=== PATIENT | female | born 1960 | race Caucasian/White ===

== ENCOUNTER 2017-10-02 10:59 | Day surgery (SDC) | payer OTHER ==
[2017-09-30 11:43] VITALS: BMI 30.2
[~2017-10-02 10:59] MED LIST: LACTATED RINGERS 1,000 ML IV SCH; LIDOCAINE 1% 20 ML VIAL (10MG/ML) FOR IV START INTRADERMA PRN
[2017-10-02 11:16] VITALS: RESP 16; TEMP 97.8
[2017-10-02] MEDS ORDERED: LIDOCAINE 1% INJ 10MG/ML (20 ML MDV) ONE (11:26)
[2017-10-02] MEDS ORDERED: PROPOFOL 10 MG/ML 20 ML VIAL IV ONE (11:26)
--- NOTE | 2017-10-02 11:56 | P.PCN ---
Date of Procedure: 10/02/17 Procedure(s) Performed: Procedure: Total colonoscopy. Preoperative diagnosis: Screening for neoplasia. Postoperative diagnosis: Exam within normal limits with no evidence of diverticulosis, polyps or cancer. Preparation: HalfLytely prep. Sedation: Was provided by anesthesia. Brief clinical history: The patient is a 57-year-old female who is scheduled for this evaluation for screening for neoplasia. There is history of occasional bleeding noted on the toilet tissue and some bloating. At this time , she has no other abdominal complaints or anemia. No family history of colon cancer. This would be her first colonoscopy. Procedure: With the patient on her left lateral decubitus position and after informed consent and adequate sedation, the perianal area was inspected and it did not show any fissures or fistulas. There were no masses felt on digital rectal examination. The Olympus CFQ 160L video colonoscope was then inserted in the rectum and the usual fashion and advanced to the cecum. I intubated the ileocecal valve and examined the terminal ileum. The mucosa of the colon and terminal ileum appeared healthy. No polyps or tumors were seen or any obvious other pathology. I retroflexed the endoscope in the rectum before the endoscope was withdrawn. The patient tolerated the procedure well. Plan: The patient was reassured. Discussed dietary measures. She will follow up with you as planned and I recommended repeat exam in 10 years.
[2017-10-02 12:08] VITALS: BP 171/89; PULSE 66
== END 2017-10-02 12:33 | disposition home or self-care (01) ==
LOC: ORWHC2ENDO 10:59
DX: Z12.11 Encounter for screening for malignant neoplasm of colon (principal); E78.5 Hyperlipidemia, unspecified; J45.909 Unspecified asthma, uncomplicated; Z79.899 Other long term (current) drug therapy; Z90.710 Acquired absence of both cervix and uterus
CPT/HCPCS: 45378; J2001; J2704

== ENCOUNTER → 2017-12-19 | Outpatient (CLI) | payer BC ==
--- NOTE | 2017-12-20 20:59 | MR ---
EXAMINATION TYPE: MR brain wo con DATE OF EXAM: 12/19/2017 COMPARISON: None HISTORY: Headache CONTRAST: Performed utilizing 0 mL intravenous Gadavist gadolinium contrast. TECHNIQUE: Multiplanar, multiecho imaging on a 3.0 Sol magnet is performed through the brain. Stud y is performed within 24 hours of arrival to the hospital. The craniovertebral junction is normal. The pituitary is normal. Diffusion-weighted imaging is performed. No abnormal hyperintensity is present to suggest an acute i ntracranial infarct or acute ischemic change. There are scattered punctate areas of hyperintensity on T2 and Inversion Recovery weighted sequences which are non-specific but can be related to microvascular ischemic changes. Ventricles and sulci are appropriate for the patient age. IMPRESSIONS: 1. Normal noncontrast MRI brain
== END ==
LOC: RADMRIMAIN 10:37
PROVIDERS: ATTEND Family Medicine
DX: R51 Headache (principal)
CPT/HCPCS: 70551

== ENCOUNTER 2018-09-19 12:53 | Observation (INO) | payer BC ==
[2018-09-19 13:04] VITALS: RESP 18
--- NOTE | 2018-09-19 13:32 | ED ---
General Adult HPI - General Chief complaint: Chest Pain Stated complaint: CHEST PAIN Time Seen by Provider: 09/19/18 13:05 Source: patient, RN notes reviewed, old records reviewed Mode of arrival: wheelchair Limitations: no limitations - History of Present Illness Initial comments: 57-year-old female presenting for evaluation chest pain. Patient's pain is been present for the past 3 days. Patient was a previous smoker, quit 15 years ago. She does report some mild dyspnea associated with her pain. Pain is left sided. She states this pain has been constant for the past 3 days however it is worsened with deep inspiration. She has no known history of coronary artery disease. Denies vomiting or diaphoresis. Denies fever. She has mild cough and states she had an upper respiratory infection approximately one week ago. No abdominal pain. Positive family history of coronary artery disease. No personal history of DVT or PE. - Related Data Home Medications Medication Instructions Recorded Confirmed ALPRAZolam [Xanax] 1 mg PO TID 09/30/17 09/19/18 Sertraline [Zoloft] 100 mg PO BID 09/30/17 09/19/18 buPROPion XL [Wellbutrin Xl] 150 mg PO DAILY 09/30/17 09/19/18 Hydrocodone/Acetaminophen [[place] 1 tab PO DAILY PRN 09/19/18 09/19/18 10-325] Ibuprofen [Advil] 400 mg PO Q6HR PRN 09/19/18 09/19/18 Allergies Allergy/AdvReac Type Severity Reaction Status Date / Time No Known Allergies Allergy Verified 09/19/18 13:32 Review of Systems ROS Statement: Those systems with pertinent positive or pertinent negative responses have been documented in the HPI. ROS Other: All systems not noted in ROS Statement are negative. Past Medical History Past Medical History: Asthma, Eye Disorder, Hyperlipidemia Additional Past Medical History / Comment(s): gas,bloating, cataracts currently History of Any Multi-Drug Resistant Organisms: None Reported Past Surgical History: Hysterectomy Additional Past Surgical History / Comment(s): ear surg., laparoscopy Past Anesthesia/Blood Transfusion Reactions: No Reported Reaction Past Psychological History: Anxiety, Depression Smoking Status: Former smoker Past Alcohol Use History: None Reported Past Drug Use History: None Reported - Past Family History Mother Family Medical History: Cancer General Exam Limitations: no limitations General appearance: alert, in no apparent distress Head exam: Present: atraumatic, normocephalic Eye exam: Present: normal appearance ENT exam: Present: normal exam Neck exam: Present: normal inspection. Absent: tenderness, meningismus Respiratory exam: Present: normal lung sounds bilaterally. Absent: respiratory distress, wheezes Cardiovascular Exam: Present: regular rate, normal rhythm GI/Abdominal exam: Present: soft. Absent: distended, tenderness, guarding Extremities exam: Present: normal inspection, normal capillary refill. Absent: pedal edema, calf tenderness Neurological exam: Present: alert, oriented X3 Psychiatric exam: Present: normal affect, normal mood Skin exam: Present: warm, dry, intact. Absent: cyanosis, diaphoretic Course Vital Signs 09/19/18 13:02 Temperature 98.0 F Pulse Rate 79 Respiratory 18 Rate Blood Pressure 145/71 O2 Sat by Pulse 94 L Oximetry EKG Findings - EKG Comments: EKG Findings:: EKG: Normal sinus rhythm, rate of 79, MI interval 162, QRS duration 114, QTC 451, no ST segment elevation, there is T-wave inversion and flattening in V2 and V3. Incomplete right bundle branch block, left atrial enlargement. Medical Decision Making - Medical Decision Making 57-year-old female presenting with chest pain and dyspnea. Pain worse with deep inspiration. Workup in the emergency department reveals chest x-ray with bilateral infiltrates versus pulmonary vascular congestion, there is a left- sided pleural effusion. Patient has no history of heart failure. No history DVT or PE. Patient has normal CBC, normal CMP, troponin is negative. D-dimer negative. Patient's is started on antibiotics given the concern for infiltrate although suspect this may be a component of pulmonary vascular congestion. She's given aspirin and Lasix in the emergency department. She will be admitted for serial cardiac enzymes, telemetry, echo, and cardiology consultation. - Lab Data Result diagrams: 09/19/18 13:33 09/19/18 13:33 Lab Results 09/19/18 09/19/18 09/19/18 Range/Units 13:33 13:33 13:33 WBC 6.8 (3.8-10.6) k/uL RBC 4.90 (3.80-5.40) m/uL Hgb 14.7 (11.4-16.0) gm/dL Hct 44.2 (34.0-46.0) % MCV 90.2 (80.0-100.0) fL MCH 30.0 (25.0-35.0) pg MCHC 33.3 (31.0-37.0) g/dL RDW 14.1 (11.5-15.5) % Plt Count 176 (150-450) k/uL Neutrophils % 74 % Lymphocytes % 16 % Monocytes % 5 % Eosinophils % 3 % Basophils % 1 % Neutrophils # 5.1 (1.3-7.7) k/uL Lymphocytes # 1.1 (1.0-4.8) k/uL Monocytes # 0.3 (0-1.0) k/uL Eosinophils # 0.2 (0-0.7) k/uL Basophils # 0.0 (0-0.2) k/uL PT 10.1 (9.0-12.0) sec INR 0.9 (<1.2) APTT 24.3 (22.0-30.0) sec D-Dimer 0.36 (<0.60) mg/L FEU Sodium 139 (137-145) mmol/L Potassium 4.6 (3.5-5.1) mmol/L Chloride 103 (98-107) mmol/L Carbon Dioxide 27 (22-30) mmol/L Anion Gap 9 mmol/L BUN 15 (7-17) mg/dL Creatinine 0.56 (0.52-1.04) mg/dL Est GFR (CKD-EPI)AfAm >90 (>60 ml/min/1.73 sqM) Est GFR (CKD-EPI)NonAf >90 (>60 ml/min/1.73 sqM) Glucose 156 H (74-99) mg/dL Calcium 9.5 (8.4-10.2) mg/dL Magnesium 1.9 (1.6-2.3) mg/dL Total Bilirubin 0.7 (0.2-1.3) mg/dL AST 36 (14-36) U/L ALT 30 (9-52) U/L Alkaline Phosphatase 46 (38-126) U/L Troponin I (0.000-0.034) ng/mL Total Protein 7.2 (6.3-8.2) g/dL Albumin 4.4 (3.5-5.0) g/dL Lipase 89 (23-300) U/L 09/19/18 Range/Units 13:33 WBC (3.8-10.6) k/uL RBC (3.80-5.40) m/uL Hgb (11.4-16.0) gm/dL Hct (34.0-46.0) % MCV (80.0-100.0) fL MCH (25.0-35.0) pg MCHC (31.0-37.0) g/dL RDW (11.5-15.5) % Plt Count (150-450) k/uL Neutrophils % % Lymphocytes % % Monocytes % % Eosinophils % % Basophils % % Neutrophils # (1.3-7.7) k/uL Lymphocytes # (1.0-4.8) k/uL Monocytes # (0-1.0) k/uL Eosinophils # (0-0.7) k/uL Basophils # (0-0.2) k/uL PT (9.0-12.0) sec INR (<1.2) APTT (22.0-30.0) sec D-Dimer (<0.60) mg/L FEU Sodium (137-145) mmol/L Potassium (3.5-5.1) mmol/L Chloride (98-107) mmol/L Carbon Dioxide (22-30) mmol/L Anion Gap mmol/L BUN (7-17) mg/dL Creatinine (0.52-1.04) mg/dL Est GFR (CKD-EPI)AfAm (>60 ml/min/1.73 sqM) Est GFR (CKD-EPI)NonAf (>60 ml/min/1.73 sqM) Glucose (74-99) mg/dL Calcium (8.4-10.2) mg/dL Magnesium (1.6-2.3) mg/dL Total Bilirubin (0.2-1.3) mg/dL AST (14-36) U/L ALT (9-52) U/L Alkaline Phosphatase (38-126) U/L Troponin I <0.012 (0.000-0.034) ng/mL Total Protein (6.3-8.2) g/dL Albumin (3.5-5.0) g/dL Lipase (23-300) U/L Disposition Clinical Impression: Chest pain, Pneumonia Disposition: ADMITTED IP TO THIS [facility] Condition: Stable Is patient prescribed a controlled substance at d/c from ED?: No Referrals: Kamran Solitario DO [Primary Care Provider] - 1-2 days Decision to Admit Reason: Admit from EC Decision Date: 09/19/18 Decision Time: 14:36
[2018-09-19 13:46] LABS: Basophils % (A) 1 %; Eosinophils # (A) 0.2 k/uL (0-0.7); Eosinophils % (A) 3 %; HCT 44.2 % (34.0-46.0); HGB 14.7 gm/dL (11.4-16.0); Lymphocytes # (A) 1.1 k/uL (1.0-4.8); Lymphocytes % (A) 16 %; MCHC 33.3 g/dL (31.0-37.0); MCV 90.2 fL (80.0-100.0); Mean Platelet Volume 7.1; Monocytes # (A) 0.3 k/uL (0-1.0); Monocytes % (A) 5 %; Neutrophils # (A) 5.1 k/uL (1.3-7.7); Neutrophils % (A) 74 %; Platelet Count 176 k/uL (150-450); RDW 14.1 % (11.5-15.5); WBC 6.8 k/uL (3.8-10.6)
--- NOTE | 2018-09-19 13:53 | XR ---
EXAMINATION TYPE: XR chest 2V DATE OF EXAM: 09/19/2018 HISTORY: Chest Pain. REFERENCE: NONE. FINDINGS: There is some patchy airspace disease present bilaterally. The heart is not enlarged. There is a small left pleural effusion. IMPRESSION: BILATERAL INFILTRATES LIKELY REPRESENTING PNEUMONIA WITH A CONCOMITANT SMALL, LEFT PLEURAL EFFUSION.
[2018-09-19 13:55] LABS: ALT 30 U/L (9-52); AST 36 U/L (14-36); Albumin 4.4 g/dL (3.5-5.0); Alkaline Phosphatase 46 U/L (38-126); Anion Gap 9 mmol/L; Blood Urea Nitrogen 15 mg/dL (7-17); Calcium 9.5 mg/dL (8.4-10.2); Carbon Dioxide 27 mmol/L (22-30); Chloride 103 mmol/L (98-107); Glucose 156 mg/dL (74-99); Lipase 89 U/L (23-300); Magnesium 1.9 mg/dL (1.6-2.3); Potassium 4.6 mmol/L (3.5-5.1); Sodium 139 mmol/L (137-145); Total Bilirubin 0.7 mg/dL (0.2-1.3); Total Protein 7.2 g/dL (6.3-8.2)
[2018-09-19 14:02] LABS: D-Dimer 0.36 mg/L FEU (<0.60); INR 0.9 (<1.2); Partial Thromboplastin Time 24.3 sec (22.0-30.0); Prothrombin Time 10.1 sec (9.0-12.0)
[2018-09-19] MEDS ORDERED: ASPIRIN 325 MG TAB PO STA (14:18)
[2018-09-19] MEDS ORDERED: KETOROLAC 30 MG/ML 1 ML VIAL IVP STA (14:18)
[2018-09-19] MEDS ORDERED: AZITHROMYCIN 500 MG in SODIUM CHLORIDE 0.9% 250 ML IVPB STA (14:24)
[2018-09-19] MEDS ORDERED: FUROSEMIDE 10 MG/ML 2 ML VIAL IV ONE (14:28)
[2018-09-19] MEDS ORDERED: ACETAMINOPHEN TAB 325 MG TAB PO PRN (14:32)
[2018-09-19] MEDS ORDERED: NALOXONE 0.4 MG/ML 1 ML VIAL IV PRN (14:32)
[2018-09-19] MEDS ORDERED: cefTRIAXone IN SWFI 1,000 MG/10 ML SYRINGE IVP STA (14:32)
[2018-09-19] MEDS ORDERED: MORPHINE SULFATE 4 MG/ML SYRINGE IV PRN (14:32)
--- NOTE | 2018-09-19 16:58 | P.HPIM ---
History of Present Illness H&P Date: 09/19/18 The patient is a 57 yo F with a PMH of nicotine dependence (quit 15 years ago, previously smoked 2-3 PPD x 30 years) presented to the ED for 3 days of chest pain. She reports the pain is L sided, worsened with coughing or deep breathing, sharp, and associated with some shortness of breath. The patient reported that her was hospitalized with an influenza infection 2 weeks ago, and that after she returned home, she developed a high grade fever and malaise, which she believed was due to her catching the flu from her . She took Tamiflu which her daughter gave her (unclear of how she obtained it) for 5 days and then saw her PCP on 09/14/18 who prescribed her a Z-pack which she finished yesterday. She reports that during her illness, she had significant cough productive of green phlegm and she believes the chest pain could have been triggered by the coughing. She reports continued green-phlegm production though denied further episodes of fever or chills. She also denied LE edema, orthopnea, PND, or exertional dyspnea. She notes a significant family history of CAD (father and b vivek in their 50s with MIs). She underwent an extensive evaluation in the ED w/ Troponin < 0.012, EKG showing NSR @ 79 bpm with an incomplete RBBB. D-dimer 0.36, lactic acid 2.5, WBC 6.8, Cr 0.56, and Hgb 14.7. CXR showed shannan infiltrates suspicious for pneumonia. She is being admitted to the medicine service for further management. Review of Systems Pertinent positives and negatives as discussed in HPI, a complete review of systems was performed and all other systems are negative. Past Medical History Past Medical History: Asthma, Eye Disorder, Hyperlipidemia Additional Past Medical History / Comment(s): gas,bloating, cataracts currently History of Any Multi-Drug Resistant Organisms: None Reported Past Surgical History: Hysterectomy Additional Past Surgical History / Comment(s): laparoscopy. cataract surgery Past Anesthesia/Blood Transfusion Reactions: No Reported Reaction Past Psychological History: Anxiety, Depression Smoking Status: Former smoker Past Alcohol Use History: None Reported Additional Past Alcohol Use History / Comment(s): quit smoking 11 yrs. ago, smoked 2ppd for >20 yrs. Past Drug Use History: None Reported Additional Drug Use History / Comment(s): occasional use - Past Family History Mother Family Medical History: Cancer Medications and Allergies Home Medications Medication Instructions Recorded Confirmed Type ALPRAZolam [Xanax] 1 mg PO TID 09/30/17 09/19/18 History Sertraline [Zoloft] 100 mg PO BID 09/30/17 09/19/18 History buPROPion XL [Wellbutrin Xl] 150 mg PO DAILY 09/30/17 09/19/18 History Hydrocodone/Acetaminophen [[place] 1 tab PO DAILY PRN 09/19/18 09/19/18 History 10-325] Ibuprofen [Advil] 400 mg PO Q6HR PRN 09/19/18 09/19/18 History Allergies Allergy/AdvReac Type Severity Reaction Status Date / Time No Known Allergies Allergy Verified 09/19/18 13:32 Physical Exam Vitals: Vital Signs Temp Pulse Pulse Resp BP BP Pulse Ox 09/19/18 16:02 96.7 F L 75 18 142/69 90 L 09/19/18 15:20 70 18 139/74 91 L 09/19/18 13:02 98.0 F 79 18 145/71 94 L Intake and Output 09/19/18 09/19/18 09/19/18 06:59 14:59 22:59 Intake Total 250 Balance 250 Intake: Intake, IV Titration 250 Amount Azithromycin 500 mg In 250 Sodium Chloride 0.9% 250 ml @ 250 mls/hr IVPB ONCE STA Rx#:[id number] Other: # Voids 2 Weight 77.111 kg General: non toxic, no distress, appears at stated age, obese Derm: no unusual rashes/lesions no unusual ecchymoses, warm, dry Head: atraumatic, normocephalic, symmetric Eyes: EOMI, no lid lag, anicteric sclera, pupils equal round reactive to light ENT: Nose and ears atraumatic, no thrush, no pharyngeal erythema Neck: No thyromegaly, no cervical lymphadenopathy, trachea midline, supple Mouth: no lip lesion, mucus membranes moist Cardiovascular: S1S2 reg, systolic murmur appreciated, positive posterior tibial pulse bilateral, no edema, capillary refill less than 2 seconds, L chest wall tenderness to palpation Lungs: CTA bilateral, no rhonchi, no rales , no accessory muscle use Abdominal: soft, nontender to palpation, no guarding, no appreciable organomegaly, normal bowel sounds Ext: no gross muscle atrophy, muscle strength 5 out of 5 in all 4 extremities grossly, no contractures, Neuro: CN II-XI grossly intact, light touch intact all 4 extremities, finger to nose within normal limits, Psych: Alert, oriented, appropriate affect Results CBC & Chem 7: 09/19/18 13:33 09/19/18 13:33 Labs: Abnormal Lab Results - Last 24 Hours (Table) 09/19/18 09/19/18 Range/Units 13:33 13:33 Glucose 156 H (74-99) mg/dL Plasma Lactic Acid [place] 2.5 H* (0.7-2.0) mmol/L Thrombosis Risk Factor Assmnt - Choose All That Apply Any of the Below Risk Factors Present?: Yes Each Factor Represents 1 point: Age 41-60 years, Obesity (BMI >25), Serious lung disease incl. pneumonia (< 1month) Thrombosis Risk Factor Assessment Total Risk Factor Score: 3 Thrombosis Risk Factor Assessment Level: Moderate Risk Assessment and Plan Plan: Chest pain, possibly costocondhritis due to excessive coughing, vs ACS in setting of significant family history -Trend troponin -Cardiac monitoring, Cardiology consult -Echocardiogram Community acquired pneumonia vs influenza - less likely -Will c/w Azithromycin and Ceftriaxone -Check Flu swab -C/w IVFs 100 cc/hr Lactic acidosis, secondary to infection -C/w IVFs DVT prophylaxis -Lovenox The patient is admitted with an anticipated less than 2 midnight stay for evaluation of chest pain. CODE STATUS:Full Code Discussed with: Patient Anticipated discharge date: 09/20/[address]: Home A total of 40 minutes was spent on the care of this complex patient more than 50% of the time was spent in counseling and care coordination.
[2018-09-19] MEDS: SODIUM CHLORIDE 0.9% 1,000 ML IV SCH ×2 (17:39→23:46)
[2018-09-19] MEDS: HYDROcodone/APAP 5-325MG 1 EACH TAB PO PRN ×2 (17:39→22:39)
[2018-09-19] MEDS: IBUPROFEN 400 MG TAB PO PRN (19:55)
[2018-09-20] MEDS: HYDROcodone/APAP 5-325MG 1 EACH TAB PO PRN ×5 (03:57→23:40)
[2018-09-20] MEDS: AZITHROMYCIN 500 MG TAB PO SCH (07:42)
[2018-09-20 11:51] VITALS: BMI 33.6
[2018-09-20] MEDS: IBUPROFEN 400 MG TAB PO PRN (12:09)
[2018-09-20] MEDS: SODIUM CHLORIDE 0.9% 1,000 ML IV SCH ×2 (15:16→23:49)
--- NOTE | 2018-09-20 18:31 | P.PN ---
Subjective Progress Note Date: 09/20/18 The patient was seen and examined at the bedside at 1100. She continues to have left-sided chest pain, with tenderness on palpation, worsened with deep inspiration and movement. She otherwise denied any additional complaints. She denied shortness of breath, fever, chills, cough, nausea, or vomiting. Objective - Vital Signs Vital signs: Vital Signs Temp 96.4 F L 09/20/18 15:30 Pulse 69 09/20/18 15:30 Resp 18 09/20/18 15:30 BP 141/58 09/20/18 15:30 Pulse Ox 90 L 09/20/18 15:30 Intake & Output 09/19/18 09/20/18 09/20/18 18:59 06:59 18:59 Intake Total 490 240 720 Balance 490 240 720 Weight 77.111 kg 80.8 kg 80.8 kg Intake: Intake, IV Titration 250 240 Amount Azithromycin 500 mg In 250 240 Sodium Chloride 0.9% 250 ml @ 250 mls/hr IVPB ONCE STA Rx#:[id number] Oral 240 720 Other: # Voids 2 1 - Exam General: Non-toxic, in no acute distress, appears stated age, obese HEENT: NC/AT, anicteric sclerae, moist conjunctiva, no lid-lag, PERRLA Cardiovascular: S1/S2 wnl, systolic murmur, rubs, or gallops, left-sided chest wall tenderness on palpation Lungs: Clear to auscultation, normal respiratory effort, no accessory muscle use Abdominal: Soft, non-tender, non-distended, no guarding, rebound, or rigidity Skin: Warm, dry Extremities: No edema or contractures Psychiatric: Alert and oriented to person, place and time, appropriate affect Neuro: CN II-XII grossly intact, Strength 5/5 in all 4 extremities, Speech intact, Sensation to light touch grossly intact throughout - Labs CBC & Chem 7: 09/19/18 13:33 09/19/18 13:33 Labs: Microbiology - Last 24 Hours (Table) 09/19/18 14:54 Blood Culture - Preliminary Blood No Growth after 24 hours Assessment and Plan Plan: Chest pain, possibly costocondhritis due to excessive coughing, vs ACS in sett ing of significant family history -Troponin negative 3 -Cardiology consult pending -Echocardiogram pending Community acquired pneumonia -Will c/w Azithromycin and Ceftriaxone -C/w IVFs 100 cc/hr Lactic acidosis, resolved DVT prophylaxis -Lovenox Discussed with: Patient Anticipated discharge date: 09/21/[address]: Home A total of 35 minutes was spent on the care of this complex patient more than 50% of the time was spent in counseling and care coordination.
[2018-09-20] MEDS ORDERED: LOPERAMIDE 2 MG CAP PO PRN (18:32)
[2018-09-21] MEDS: HYDROcodone/APAP 5-325MG 1 EACH TAB PO PRN ×3 (04:44→13:48)
[2018-09-21] MEDS ORDERED: ENOXAPARIN 40 MG/0.4 ML SYRINGE SQ SCH (09:00)
[2018-09-21] MEDS: AZITHROMYCIN 500 MG TAB PO SCH (09:05)
[2018-09-21] MEDS: SODIUM CHLORIDE 0.9% 1,000 ML IV SCH (09:07)
--- NOTE | 2018-09-21 11:20 | P.CRDCN ---
History of Present Illness Consult date: 09/21/18 Requesting physician: Tunde Pizarro Consult reason: chest pain Chief complaint: Chest pain History of present illness: This is a 58-year-old female with history of nicotine dependence, hyperlipidemia, strong family history of premature coronary artery disease in her father and brother who both of myocardial infarctions at the age of 50, she presented to the hospital with symptoms of 3 day duration of a cough at home, she does also have a left-sided chest pain which she describes as a chest pain, she only feels it when she takes a deep breath or when she coughs. Apparently her just recently had a pneumonia with influenza, and also has cancer. Apparently at home patient had developed a high-grade fever with malaise, she did take Tamiflu as an outpatient and also was given a Z-Tylor which she finished the day prior to coming to the hospital. She continues to have productive cough of dark green sputum. Chest x-ray shows bilateral infiltrates likely representing pneumonia with a small left pleural effusion. Her EKG on admission here showed a normal sinus rhythm with an incomplete right bundle branch block pattern. Blood pressure on arrival here 145/70 with a heart rate in the 70s, 94% on room air. White blood cell count 6.8, hemoglobin 14.7, platelet count 176. D-dimer 0.3. Sodium 139, potassium 4.6, BUN 15 and creatinine 0.5. Plasma lactic acid on admission 2.5 magnesium 1.9, troponins negative 3. Influenza A and B-. At the time of my examination, patient continues to have pain with deep breathing, continues to have productive cough. Past Medical History Past Medical History: Asthma, Eye Disorder, Hyperlipidemia Additional Past Medical History / Comment(s): gas,bloating, cataracts currently History of Any Multi-Drug Resistant Organisms: None Reported Past Surgical History: Hysterectomy Additional Past Surgical History / Comment(s): laparoscopy. cataract surgery Past Anesthesia/Blood Transfusion Reactions: No Reported Reaction Past Psychological History: Anxiety, Depression Smoking Status: Former smoker Past Alcohol Use History: None Reported Additional Past Alcohol Use History / Comment(s): quit smoking 11 yrs. ago, smoked 2ppd for >20 yrs. Past Drug Use History: None Reported Additional Drug Use History / Comment(s): occasional use - Past Family History Mother Family Medical History: Cancer Medications and Allergies Home Medications Medication Instructions Recorded Confirmed Type ALPRAZolam [Xanax] 1 mg PO TID 09/30/17 09/19/18 History Sertraline [Zoloft] 100 mg PO BID 09/30/17 09/19/18 History buPROPion XL [Wellbutrin Xl] 150 mg PO DAILY 09/30/17 09/19/18 History Hydrocodone/Acetaminophen [[place] 1 tab PO DAILY PRN 09/19/18 09/19/18 History 10-325] Ibuprofen [Advil] 400 mg PO Q6HR PRN 09/19/18 09/19/18 History Allergies Allergy/AdvReac Type Severity Reaction Status Date / Time No Known Allergies Allergy Verified 09/19/18 13:32 Physical Exam Vitals: Vital Signs Temp Pulse Resp BP Pulse Ox 09/21/18 11:04 18 09/21/18 08:00 97.5 F L 60 18 161/70 09/21/18 04:00 97.8 F 48 L 18 128/58 94 L 09/21/18 00:10 93 L 09/21/18 00:05 93 L 09/21/18 00:00 96.9 F L 56 L 18 160/50 86 L 09/20/18 23:56 92 L 09/20/18 20:00 97 F L 55 L 18 144/79 95 09/20/18 15:30 96.4 F L 69 18 141/58 90 L 09/20/18 12:00 96.7 F L 54 L 18 144/72 91 L Intake and Output 09/20/18 09/21/18 09/21/18 22:59 06:59 14:59 Intake Total 240 240 Balance 240 240 Intake: Oral 240 240 Other: Voiding Method Toilet Toilet # Voids 1 1 Weight 80.6 kg PHYSICAL EXAMINATION: GENERAL: 68-year-old female in no acute distress at the time of my examination HEENT: Head is atraumatic, normocephalic. Pupils equal, round. Sclera anicteric. Conjunctiva are clear. Mucous membranes of the mouth are moist. Neck is supple. There is no elevated jugular venous pressure. No Carotid bruit is heard. HEART EXAMINATION: Heart S1, S2 normal. No murmur or gallop heard. CHEST EXAMINATION:'s reveal scattered coarse rhonchi throughout ABDOMEN: Soft, nontender. Bowel sounds are heard. No organomegaly noted. EXTREMITIES: 2+ peripheral pulses with no evidence of peripheral edema and no calf tenderness noted. NEUROLOGIC patient is awake, alert and oriented 3 . . Results 09/19/18 13:33 09/19/18 13:33 Current Medications Generic Name Dose Route Start Last Admin Trade Name Freq PRN Reason Stop Dose Admin Acetaminophen 650 mg 09/19/18 14:32 Tylenol Tab PO Q6HR PRN Mild Pain or Fever > 100.5 Hydrocodone Bitart/Acetaminophen 1 each 09/20/18 18:32 09/21/18 09:05 [place] 5-325 PO 1 each Q4H PRN Administration MODERATE Pain Azithromycin 500 mg 09/20/18 09:00 09/21/18 09:05 Zithromax PO 500 mg DAILY CAREN Administration Enoxaparin Sodium 40 mg 09/21/18 09:00 09/21/18 09:06 Lovenox SQ 40 mg DAILY CAREN Administration Ceftriaxone Sodium 1 gm/ 50 mls @ 100 mls/hr 09/20/18 09:00 09/21/18 09:06 Sodium Chloride IVPB 100 mls/hr Q24HR CAREN Administration Sodium Chloride 1,000 mls @ 100 mls/hr 09/19/18 17:00 09/21/18 09:07 Saline 0.9% IV 100 mls/hr .Q10H CAREN Administration Loperamide HCl 2 mg 09/20/18 18:32 09/20/18 19:37 Imodium PO 2 mg QID PRN Administration Diarrhea Naloxone HCl 0.2 mg 09/19/18 14:32 Narcan IV Q2M PRN Opioid Reversal Intake and Output 09/20/18 09/21/18 09/21/18 22:59 06:59 14:59 Intake Total 240 240 Balance 240 240 Intake: Oral 240 240 Other: Voiding Method Toilet Toilet # Voids 1 1 Weight 80.6 kg 09/19/18 13:33 09/19/18 13:33 EKG Interpretations (text) KG shows a normal sinus rhythm with incomplete right bundle branch block pattern Assessment and Plan Plan: Assessment and plan #1 chest pain, atypical for acute coronary syndrome, very pleuritic in nature. Troponins negative 3. EKG shows normal sinus rhythm with incomplete right bundle branch block pattern. #2 pneumonia, elevated lactic acid on admission #3 history of nicotine dependence #4 hyperlipidemia #5 family history of premature coronary artery disease in her father and brother who both of myocardial infarctions at the age of 50 Plan We will obtain an echocardiogram with Doppler study. Check a fasting lipid profile. Once the patient's pneumonia has cleared, as an outpatient, may recommend a cardiac workup in the office. DNP note has been reviewed, I agree with a documented findings and plan of care. Patient was seen and examined.
[2018-09-21 11:41] VITALS: BP 144/72; PULSE 62; TEMP 97.4
--- NOTE | 2018-09-21 12:39 | ECHOF ---
Referral Reason:CP/CHF? MEASUREMENTS -------- HEIGHT: 152.4 cm WEIGHT: 80.7 kg BP: 128/58 IVSd: 1.1 cm (0.6 - 1.1) LVIDd: 4.5 cm (3.9 - 5.3) LVPWd: 0.9 cm (0.6 - 1.1) IVSs: 1.5 cm LVIDs: 3.3 cm LVPWs: 1.2 cm LA Diam: 4.2 cm (2.7 - 3.8) RVIDd: 3.9 cm (< 3.3) LAESV Index (A-L): 37.05 ml/m Ao Diam: 2.8 cm (2.0 - 3.7) LA Diam: 4.1 cm (2.7 - 3.8) AV Cusp: 1.5 cm (1.5 - 2.6) EPSS: 0.3 cm MV E Escobar: 0.83 m/s MV DecT: 113 ms MV A Escobar: 0.84 m/s MV E/A Ratio: 0.99 RAP: 5.00 mmHg RVSP: 28.26 mmHg MV EF SLOPE: 98.37 mm/s (70 - 150) MV EXCURSION: 15.62 mm (> 18.000) FINDINGS -------- Sinus rhythm. This was a technically good study. LV size, wall thickness and systolic function are normal, with an EF greater than 55%. The left david tricular size is normal. The right ventricle is normal in size. The left atrium is mildly dilated. LA is midly dilated 29-33ml/m2. The right atrial size is normal. Interatrial and interventricular septum intact. The aortic valve is trileaflet, and appears structurally normal. No aortic stenosis or regurgitation. Mild mitral annular calcification present. Mild mitral regurgitation is present. Mild tricuspid regurgitation present. There is no evidence of pulmonary hypertension. The right v entricular systolic pressure, as measured by Doppler, is 28.26mmHg. There is no pulmonic regurgitation present. The aortic root size is normal. Normal inferior vena cava with normal inspiratory collapse consistent with estimated right atrial pre ssure of 5 mmHg. There is no pericardial effusion. CONCLUSIONS -------- 1. LV size, wall thickness and systolic function are normal, with an EF greater than 55%. 2. The left ventricular size is normal. 3. The right ventricle is normal in size. 4. The left atrium is mildly dilated. 5. LA is midly dilated 29-33ml/m2. 6. The right atrial size is normal. 7. Interatrial and interventricular septum intact. 8. The aortic valve is trileaflet, and appears structurally normal. No aortic stenosis or regurgitati on. 9. Mild mitral annular calcification present. 10. Mild mitral regurgitation is present. 11. Mild tricuspid regurgitation present. 12. There is no evidence of pulmonary hypertension. 13. The right ventricular systolic pressure, as measured by Doppler, is 28.26mmHg. 14. There is no pulmonic regurgitation present. 15. The aortic root size is normal. 16. Normal inferior vena cava with normal inspiratory collapse consistent with estimated right atrial pressure of 5 mmHg. 17. There is no pericardial effusion. PAPER CUP MACHINE OPERATOR: Molly Cannon RDCS
--- NOTE | 2018-09-21 13:21 | P.DS ---
Providers Date of admission: 09/19/18 14:32 Expected date of discharge: 09/21/18 Attending physician: Tunde Pizarro MD Consults: 09/20/18 12:42 Consult Physician Urgent Consulting Provider: Taz Mejía Consult Reason/Comments: Chest pain Do you want consulting provider notified?: Yes Primary care physician: Kamran [facility] Course: The patient is a 57 yo F with a PMH of nicotine dependence (quit 15 years ago, previously smoked 2-3 PPD x 30 years) presented to the ED for 3 days of chest pain. She reported L sided chest pain, worsened with coughing or deep breathing, sharp, and associated with some shortness of breath. The patient reported that her was hospitalized with an influenza infection 2 weeks prior, and that after she returned home, she developed a high grade fever and malaise, which she believed was due to her catching the flu from her . She took Tamiflu which her daughter gave her (unclear of how she obtained it) for 5 days and then saw her PCP on 09/14/18 who prescribed her a Z-pack which she finished the day prior to presentation. She reported that during her illness, she had significant cough productive of green phlegm and she believed the chest pain could have been triggered by the coughing. She reported continued green-phlegm production though denied further episodes of fever or chills. She also denied LE edema, orthopnea, PND, or exertional dyspnea. She noted a significant family history of CAD (father and brother in their 50s with MIs). She underwent an extensive evaluation in the ED w/ Troponin < 0.012, EKG showing NSR @ 79 bpm with an incomplete RBBB. D-dimer 0.36, lactic acid 2.5, WBC 6.8, Cr 0.56, and Hgb 14.7. CXR showed shannan infiltrates suspicious for pneumonia. She was admitted to the medicine service for further management. The patient was started on abxs for community acquired pneumonia. Flu swab was negative. The patient's troponins were < 0.012 x 3. Cardiology was consulted and recommended that the patient's chest pain is atypical for ACS since very pleuritic in nature. They recommended an outpatient follow-up. The patient was seen and examined at the bedside on the day of discharge. Reported some improvement in her left-sided chest pain. She otherwise denied any episodes of fever, chills. She further denied shortness of breath, nausea, vomiting, abdominal pain, palpitations, or dizziness. She is ready, stable, and agreeable for discharge to home. Physical Examination General: Non-toxic, in no acute distress, appears stated age, normal weight HEENT: NC/AT, anicteric sclerae, moist conjunctiva, no lid-lag, PERRLA Cardiovascular: S1/S2 wnl, systolic murmur, rubs, or gallops, L sided chest wall tenderness Lungs: Clear to auscultation, normal respiratory effort, no accessory muscle use Abdominal: Soft, non-tender, non-distended, no guarding, rebound, or rigidity Skin: Warm, dry Extremities: No edema or contractures Psychiatric: Alert and oriented to person, place and time, appropriate affect Neuro: CN II-XII grossly intact, Strength 5/5 in all 4 extremities, Speech intact, Sensation to light touch grossly intact throughout Discharge diagnosis:Chest pain, ACS ruled out; Community acquired pnuemonia; Lactic acidosis, resolved A total of 40 minutes of time were spent preparing this complex discharge summary. Patient Condition at Discharge: Stable Plan - Discharge Summary Discharge Rx Participant: No New Discharge Prescriptions: New Amoxic-Pot Clav 875-125Mg [Augmentin 875-125] 1 tab PO Q12HR #7 tablet Continue buPROPion XL [Wellbutrin XL] 150 mg PO DAILY Sertraline [Zoloft] 100 mg PO BID ALPRAZolam [Xanax] 1 mg PO TID Ibuprofen [Advil] 400 mg PO Q6HR PRN PRN Reason: Pain Hydrocodone/Acetaminophen [[place] 10-325] 1 tab PO DAILY PRN PRN Reason: Pain Discharge Medication List ALPRAZolam [Xanax] 1 mg PO TID 09/30/17 [History] Sertraline [Zoloft] 100 mg PO BID 09/30/17 [History] buPROPion XL [Wellbutrin XL] 150 mg PO DAILY 09/30/17 [History] Hydrocodone/Acetaminophen [[place] 10-325] 1 tab PO DAILY PRN 09/19/18 [History] Ibuprofen [Advil] 400 mg PO Q6HR PRN 09/19/18 [History] Amoxic-Pot Clav 875-125Mg [Augmentin 875-125] 1 tab PO Q12HR #7 tablet 09/21/18 [Rx] Follow up Appointment(s)/Referral(s): Kamran Solitario DO [Primary Care Provider] - 1-2 days Taz Mejía MD [STAFF PHYSICIAN] - 1 Week Discharge Disposition: HOME SELF-CARE
== END 2018-09-21 14:27 | disposition home or self-care (01) ==
LOC: EC 12:53 → 3SCARD 14:32
PROVIDERS: ADMIT Family Medicine; ATTEND Family Medicine
DX: J18.9 Pneumonia, unspecified organism (principal); R07.89 Other chest pain; E78.5 Hyperlipidemia, unspecified; E87.2 Acidosis; J90 Pleural effusion, not elsewhere classified; F32.9 Major depressive disorder, single episode, unspecified; F41.9 Anxiety disorder, unspecified; H26.9 Unspecified cataract; I45.10 Unspecified right bundle-branch block; J45.909 Unspecified asthma, uncomplicated; Z82.49 Family history of ischemic heart disease and other diseases of the circulatory system; Z87.891 Personal history of nicotine dependence; Z90.710 Acquired absence of both cervix and uterus; Z79.899 Other long term (current) drug therapy; Z20.828 Contact with and (suspected) exposure to other viral communicable diseases
CPT/HCPCS: 96366; 96367; 96372; 96376; 96365; 96375; 99285; 36415; 94760; 93005; 93306; 85379; 80053; 83605; 83690; 83735; 84484 ×2; 85025; 85610; 85730; 87040; 87502; 71046; G0378 ×3; J1940; J0456; J1650; J0696 ×3; J1885

== ENCOUNTER 2024-01-01 14:40 | Day surgery (SDC) | payer BC ==
[2024-01-01] MEDS: IOPAMIDOL-370 100ML BTL INJ ONE ×2 (14:14)
[~2024-01-01 14:40] MED LIST changes: +FUROSEMIDE 10 MG/ML 4 ML VIAL ONE; +HEPARIN SODIUM 1,000 UN/ML (10ML VL) ONE; -LACTATED RINGERS 1,000 ML IV SCH; -LIDOCAINE 1% 20 ML VIAL (10MG/ML) FOR IV START INTRADERMA PRN; +LIDOCAINE 1% INJ 10MG/ML (20 ML MDV) ONE; +MIDAZOLAM 2 MG/2 ML VIAL ONE; +MORPHINE SULFATE 4 MG/ML SYRINGE ONE; +NITROGLYCERIN-D5W PMX 25 MG/250 ML BTL IV ONE; +SODIUM CHLORIDE 0.9% 1,000 ML BAG ONE; +TICAGRELOR 90 MG TAB ONE; +VERAPAMIL 2.5 MG/ML 2 ML AMP ONE; +fentaNYL (PF) 50 MCG/ML 2 ML AMP ONE; +hydrALAZINE HCL 20 MG/ML 1 ML VIAL ONE
[2024-01-01] MEDS ORDERED: MORPHINE SULFATE 4 MG/ML SYRINGE ONE ×2 (15:20)
[2024-01-01] MEDS ORDERED: ATORVASTATIN 40 MG TAB ONE (20:46)
[2024-01-01] MEDS ORDERED: METOPROLOL TARTRATE 25 MG TAB ONE ×2 (20:46)
[2024-01-01] MEDS ORDERED: ALPRAZolam 0.25 MG TAB ONE ×2 (20:53)
[2024-01-01] MEDS ORDERED: ACETAMINOPHEN TAB 325 MG TAB ONE ×2 (23:24)
[2024-01-02] MEDS ORDERED: MORPHINE SULFATE 2 MG/ML SYRINGE ONE ×2 (04:49)
[2024-01-02] MEDS ORDERED: PANTOPRAZOLE 40 MG TABLET PO ONE ×2 (04:49)
[2024-01-02] MEDS ORDERED: ALPRAZolam 0.25 MG TAB ONE ×4 (04:50→10:37)
[2024-01-02] MEDS ORDERED: ACETAMINOPHEN TAB 325 MG TAB ONE ×4 (06:03→10:37)
[2024-01-02] MEDS ORDERED: METOPROLOL TARTRATE 25 MG TAB ONE ×2 (10:00)
[2024-01-02] MEDS ORDERED: LOSARTAN 50 MG TAB ONE (10:00)
[2024-01-02] MEDS ORDERED: SERTRALINE 50 MG TAB ONE (10:00)
[2024-01-02] MEDS ORDERED: hydroCHLOROthiazide 25 MG TAB ONE (10:00)
[2024-01-02] MEDS ORDERED: TICAGRELOR 90 MG TAB ONE (10:37)
--- NOTE | 2024-01-09 15:55 | CC ---
CARDIAC CATHETERIZATION REPORT PERFORMING PHYSICIAN: Taz Mejía MD. PROCEDURES PERFORMED: 1. Selective left and right coronary angiograms. 2. Left heart catheterization. 3. Successful stenting of the mid right coronary artery using a 5.0 x 33 mm Xience drug-eluting stent with excellent angiographic results. 4. Successful stenting of the proximal right coronary artery using 5.0 x 18 mm Xience drug-eluting stent. 5. Adjunctive use of intravascular ultrasound and lithotripsy balloon. 6. Ultrasound-guided access of the right radial artery. INDICATION: Symptomatic patient with abnormal myocardial perfusion imaging stress test. APPROACH: Right radial artery. COMPLICATIONS: None. LEVEL OF SEDATION: Moderate, with sedation length of 77 minutes. PROCEDURE DESCRIPTION: After obtaining informed consent, the patient was brought to the cardiac general labor. The right radial artery was cannulated using micropuncture technique under ultrasound guidance and the micropuncture wire passed easily. Then, I placed a 6-Macedonian 11 cm sheath. I did selective right and left coronary angiograms using JR4 and JL3.5 catheters. After that, I decided to intervene on the RCA. Anticoagulation was initiated using heparin with continuous ACT monitoring. I did engage the RCA using JR4 guiding catheter. I did wire the RCA using a Runthrough wire. Attempting advancing intravascular ultrasound was unsuccessful. Balloon angioplasty at that point was performed, initially 3.5 mm balloon, but the balloon will not open the lesion in the proximal RCA. For that reason, I decided to go with a lithotripsy balloon which was 3.5 mm. I was able to open the proximal RCA using the lithotripsy balloon, and I did balloon angioplasty of the mid RCA as well. Subsequently I did intravascular ultrasound, and that showed a diameter of the RCA around 5 mm. In the mid to distal portion, I placed 5.0 x 33 mm stent. Proximally I placed a 5.0 x 18 mm stent. Attempting advancing a 5.0 NC balloon was unsuccessful in spite of using 2 wires. I was able to advance 4.0 mm balloon which was inflated under 14 atmospheres, and subsequently 5 mm noncompliant balloon for the proximal portion. Final angiogram showed excellent angiographic results, and the procedure was completed with no complication. SELECTIVE CORONARY ANGIOGRAM: 1. The RCA is a large-caliber vessel and a dominant vessel and calcified vessel with critical disease involving the mid portion. 2. The left main has mild disease only. 3. The LAD has mild to moderate disease only. 4. The LCX has mild to moderate disease as well. CONCLUSION: Critical disease involving the mid RCA. I did perform successful PCI as described above. POSTPROCEDURE MANAGEMENT: 1. Dual anti-platelet therapy. 2. Risk factor modification. 3. Follow up with the patient. MMODL / IJN: [id number] /
== END 2024-01-02 08:50 | disposition home or self-care (01) ==
LOC: CATHCVL 14:40 → UNDOADMOB 14:40 → 3SCARD 14:40 → CATHCVL 01-02 08:50 → UNDODISOB 01-02 12:27 → UNDODISIN 01-02 12:27 → UNDODISOB 01-02 14:40
PROVIDERS: ATTEND Internal Medicine Interventional Cardiology
DX: I25.10 Atherosclerotic heart disease of native coronary artery without angina pectoris (principal); E11.9 Type 2 diabetes mellitus without complications; I10 Essential (primary) hypertension; E78.5 Hyperlipidemia, unspecified; J44.9 Chronic obstructive pulmonary disease, unspecified; F17.210 Nicotine dependence, cigarettes, uncomplicated; Z79.51 Long term (current) use of inhaled steroids; Z79.84 Long term (current) use of oral hypoglycemic drugs; Z79.899 Other long term (current) drug therapy; Z88.1 Allergy status to other antibiotic agents; Z99.81 Dependence on supplemental oxygen; Z82.49 Family history of ischemic heart disease and other diseases of the circulatory system
CPT/HCPCS: 92972; 92978; 93454

== ENCOUNTER 2024-02-12 15:42 | Inpatient (IN) | payer BC, OTHER ==
[2024-02-12] MEDS: SODIUM CHLORIDE 0.9% 1,000 ML IV STA (16:16)
[2024-02-12] MEDS: methylPREDNISolone SOD SUCCI 125 MG/2 ML VIAL IV STA (16:18)
[2024-02-12] MEDS: IPRATROPIUM-ALBUTEROL 3 ML NEB INHALATION STA ×2 (16:25→18:39)
[2024-02-12 16:33] LABS: VBG PH 7.36 (7.31-7.41)
--- NOTE | 2024-02-12 16:34 | ED ---
Altered Mental Status HPI - General Chief Complaint: Neuro Symptoms/Deficit Stated Complaint: neuro symptoms Time Seen by Provider: 02/12/24 16:05 Source: patient, RN notes reviewed, old records reviewed Mode of arrival: wheelchair Limitations: no limitations - History of Present Illness Initial Comments: This is a 63-year-old female to the ER today. This patient presents today for evaluation regards to shortness of breath patient does have a history of history of COPD recently started on treatment for bronchitis with steroids and antibiotics, patient has had diminished mental status where her daughter states patient is not acting appropriate the last day and a half into today. MD Complaint: altered mental status, confusion, decreased responsiveness, weakness -: days(s) Severity: mild Consistency of Symptoms: getting worse Context: history of similar presentation, COPD Associated Symptoms: shortness of breath, weakness Treatments Prior to Arrival: oxygen - Related Data Home Medications Medication Instructions Recorded Confirmed Sertraline [Zoloft] 200 mg PO DAILY 09/30/17 02/12/24 buPROPion XL [Wellbutrin XL] 300 mg PO DAILY 09/30/17 02/12/24 Albuterol Inhaler [Ventolin Hfa 2 puff INHALATION RT-QID PRN 02/12/24 02/12/24 Inhaler] Aspirin EC [Ecotrin Low Dose] 81 mg PO DAILY 02/12/24 02/12/24 Atorvastatin [Lipitor] 40 mg PO HS 02/12/24 02/12/24 Clopidogrel [Plavix] 75 mg PO DAILY 02/12/24 02/12/24 Doxycycline Monohydrate 100 mg PO BID 02/12/24 02/12/24 Fluticasone Propion/Salmeterol 2 puff INHALATION RT-BID 02/12/24 02/12/24 [Advair Hfa 230-21 Mcg Inhaler] Losartan Potassium 100 mg PO DAILY 02/12/24 02/12/24 Metoprolol Tartrate [Lopressor] 25 mg PO BID 02/12/24 02/12/24 Pantoprazole Sodium [Protonix] 20 mg PO DAILY 02/12/24 02/12/24 Tiotropium [place] [Spiriva] 1 puff INHALATION RT-DAILY 02/12/24 02/12/24 hydrOXYzine HCL [Atarax] 50 mg PO TID 02/12/24 02/12/24 hydroCHLOROthiazide [Hydrodiuril] 25 mg PO DAILY 02/12/24 02/12/24 metFORMIN HCL 500 mg PO DAILY 02/12/24 02/12/24 predniSONE [Deltasone] 40 mg PO DAILY 02/12/24 02/12/24 Allergies Allergy/AdvReac Type Severity Reaction Status Date / Time No Known Allergies Allergy Verified 02/12/24 17:16 Review of Systems ROS Statement: Those systems with pertinent positive or pertinent negative responses have been documented in the HPI. ROS Other: All systems not noted in ROS Statement are negative. Past Medical History Past Medical History: Asthma, Eye Disorder, Hyperlipidemia Additional Past Medical History / Comment(s): gas,bloating, cataracts currently History of Any Multi-Drug Resistant Organisms: None Reported Past Surgical History: Heart Catheterization With Stent, Hysterectomy Additional Past Surgical History / Comment(s): laparoscopy. cataract surgery Past Anesthesia/Blood Transfusion Reactions: No Reported Reaction Past Psychological History: Anxiety, Depression Smoking Status: Former smoker Past Alcohol Use History: None Reported Past Drug Use History: None Reported - Past Family History Mother Family Medical History: Cancer General Exam Limitations: no limitations General appearance: alert, anxious, in distress Head exam: Present: atraumatic, normocephalic, normal inspection Eye exam: Present: normal appearance, PERRL, EOMI. Absent: scleral icterus, c onjunctival injection, periorbital swelling ENT exam: Present: normal exam, mucous membranes moist Neck exam: Present: normal inspection. Absent: tenderness, meningismus, lymphadenopathy Respiratory exam: Present: respiratory distress, wheezes, accessory muscle use, decreased breath sounds, prolonged expiratory. Absent: rales, rhonchi, stridor Cardiovascular Exam: Present: regular rate, normal rhythm, normal heart sounds. Absent: systolic murmur, diastolic murmur, rubs, gallop, clicks GI/Abdominal exam: Present: soft, normal bowel sounds. Absent: distended, tenderness, guarding, rebound, rigid Extremities exam: Present: normal inspection, full ROM, normal capillary refill. Absent: tenderness, pedal edema, joint swelling, calf tenderness Back exam: Present: normal inspection Neurological exam: Present: alert, oriented X3, CN II-XII intact Psychiatric exam: Present: normal affect, normal mood Skin exam: Present: warm, dry, intact, normal color. Absent: rash Course Vital Signs 02/12/24 02/12/24 02/12/24 15:52 16:04 16:25 Temperature 97.8 F Pulse Rate 81 79 Pulse Rate [ Pulse Oximetery ] Respiratory 16 Rate Blood Pressure 118/67 Blood Pressure [Left Arm] O2 Sat by Pulse 86 L 86 L Oximetry 02/12/24 02/12/24 02/12/24 16:30 16:35 17:00 Temperature Pulse Rate 77 82 88 Pulse Rate [ Pulse Oximetery ] Respiratory 20 19 Rate Blood Pressure 109/57 111/59 Blood Pressure [Left Arm] O2 Sat by Pulse 98 92 L Oximetry 02/12/24 02/12/24 02/12/24 17:30 18:41 18:51 Temperature Pulse Rate 89 79 80 Pulse Rate [ Pulse Oximetery ] Respiratory 18 Rate Blood Pressure 108/68 Blood Pressure [Left Arm] O2 Sat by Pulse 91 L Oximetry 02/12/24 02/13/24 02/13/24 20:00 08:16 10:49 Temperature 98.3 F Pulse Rate 64 69 Pulse Rate [ 96 Pulse Oximetery ] Respiratory 18 20 22 Rate Blood Pressure 141/77 145/78 Blood Pressure 124/64 [Left Arm] O2 Sat by Pulse 92 L 91 L 95 Oximetry 02/13/24 02/13/24 02/13/24 14:00 16:31 18:05 Temperature 98.7 F Pulse Rate 62 62 65 Pulse Rate [ Pulse Oximetery ] Respiratory 22 18 18 Rate Blood Pressure 105/62 105/62 100/59 Blood Pressure [Left Arm] O2 Sat by Pulse 93 L 90 L 92 L Oximetry - Reevaluation(s) Reevaluation #1: 02/12/24 16:40 Medical records reviewed Reevaluation #2: 02/12/24 18:08 Symptoms improved here in the ER Reevaluation #3: 02/12/24 18:08 Patient informed of results questions answered Reevaluation #4: Was pt. sent in by a medical professional or institution (, PA, FITNESS INSTRUCTOR, urgent care, hospital, or [facility]...) When possible be specific @ -no Did you speak to anyone other than the patient for history (EMS, parent, family, police, friend...)? What history was obtained from this source @ -no Did you review nursing and triage notes (agree or disagree)? Why? @ -agree Are old charts reviewed (outside hosp., previous admission, EMS record, old EKG, old radiological studies, urgent care reports/EKG's, [facility] records)? Report findings @ -yes Differential Diagnosis (chest pain, altered mental status, abdominal pain women, abdominal pain men, vaginal bleeding, weakness, fever, dyspnea, syncope, headache, dizziness, GI bleed, back pain, seizure, CVA, palpatations, mental health, musculoskeletal)? @ -prior EKG interpreted by me (3pts min.). @ -yes X-rays interpreted by me (1pt min.). @ -yes negative for acute disease CT interpreted by me (1pt min.). @ -no U/S interpreted by me (1pt. min.). @ -no What testing was considered but not performed or refused? (CT, X-rays, U/S, labs)? Why? @ -none What meds were considered but not given or refused? Why? @ -none Did you discuss the management of the patient with other professionals (professionals i.e. , PA, FITNESS INSTRUCTOR, lab, RT, psych nurse, sr. social media & mobile manager, education professor, teacher, biosecurity officer, manager rn case)? Give summary @ -no Was smoking cessation discussed for >3mins.? @ -no Was critical care preformed (if so, how long)? @ -yes31 Were there social determinants of health that impacted care today? How? (Homelessness, low income, unemployed, alcoholism, drug addiction, transportation, low edu. Level, literacy, decrease access to med. care, alf, rehab)? @ -none Was there de-escalation of care discussed even if they declined (Discuss DNR or withdrawal of care, Hospice)? DNR status @ -no What co-morbidities impacted this encounter? (DM, HTN, Smoking, COPD, CAD, Cancer, CVA, ARF, Chemo, Hep., AIDS, mental health diagnosis, sleep apnea, morbid obesity)? @ -none Was patient admitted / discharged? Hospital course, mention meds given and route, prescriptions, significant lab abnormalities, going to OR and other pertinent info. @ - 83 female will be admitted for severe COPD exacerbation with hypoxia bronchitis concern for pneumonia, status Admitted Undiagnosed new problem with uncertain prognosis? @ -no Drug Therapy requiring intensive monitoring for toxicity (Heparin, Nitro, Insulin, Cardizem)? @ -no Were any procedures done? @ -no Diagnosis/symptom? @ -Respiratory distress with hypoxia COPD and pneumonia Acute, or Chronic, or Acute on Chronic? @ -Acute Uncomplicated (without systemic symptoms) or Complicated (systemic symptoms)? @ -Complicated Side effects of treatment? @ -no Exacerbation, Progression, or Severe Exacerbation? @ -exacerbation Poses a threat to life or bodily function? How? (Chest pain, [place], [place], pneumonia, PE, COPD, DKA, ARF, appy, cholecystitis, CVA, Diverticulitis, Homicidal, Suicidal, threat to staff... and all critical care pts) @ -yes respiratory distress Reevaluation #5: Differential Altered Mental Status: Hypoglycemia, DKA, hypercapnia, ETOH, overdose, CO poisoning, trauma, myxedema coma, HTN encephalopathy, infection, encephalitis, psychosis, intercranial hemorrhage, hepatic encephalopathy, meningitis, CVA, this is not meant to be an all-inclusive list - Consultations Consultation #1: Spoke with [facility] who agrees to admit this patient Medical Decision Making - Medical Decision Making 83 female will be admitted for severe COPD exacerbation with hypoxia bronchitis concern for pneumonia, status - Lab Data Result diagrams: 02/19/24 09:37 02/19/24 06:07 Lab Results 02/12/24 02/12/24 02/12/24 Range/Units 16:05 16:05 16:05 WBC 5.9 (3.8-10.6) k/uL RBC 5.21 (3.80-5.40) m/uL Hgb 14.8 (11.4-16.0) gm/dL Hct 45.7 (34.0-46.0) % MCV 87.6 (80.0-100.0) fL MCH 28.5 (25.0-35.0) pg MCHC 32.5 (31.0-37.0) g/dL RDW 13.2 (11.5-15.5) % Plt Count 108 L (150-450) k/uL MPV 9.1 Neutrophils % 88 % Lymphocytes % 5 % Monocytes % 5 % Eosinophils % 0 % Basophils % 0 % Neutrophils # 5.2 (1.3-7.7) k/uL Lymphocytes # 0.3 L (1.0-4.8) k/uL Monocytes # 0.3 (0-1.0) k/uL Eosinophils # 0.0 (0-0.7) k/uL Basophils # 0.0 (0-0.2) k/uL PT 10.8 (10.0-12.5) sec INR 1.0 (<1.2) APTT 27.1 (22.0-30.0) sec VBG pH (7.31-7.41) VBG pCO2 (37-51) mmHg VBG HCO3 (24-28) mmol/L Sodium 136 L (137-145) mmol/L Potassium 4.3 (3.5-5.1) mmol/L Chloride 105 (98-107) mmol/L Carbon Dioxide 17 L (22-30) mmol/L Anion Gap 14 mmol/L BUN 45 H (7-17) mg/dL Creatinine 1.03 (0.52-1.04) mg/dL Est GFR (CKD-EPI)AfAm 68 (>60 ml/min/1.73 sqM) Est GFR (CKD-EPI)NonAf 59 (>60 ml/min/1.73 sqM) Glucose 146 H (74-99) mg/dL Calcium 9.1 (8.4-10.2) mg/dL Magnesium 1.5 L (1.6-2.3) mg/dL Total Bilirubin 0.8 (0.2-1.3) mg/dL AST 31 (14-36) U/L ALT 25 (4-34) U/L Alkaline Phosphatase 55 (38-126) U/L Troponin I (0.000-0.034) ng/mL NT-Pro-B Natriuret Pep 614 pg/mL Total Protein 7.1 (6.3-8.2) g/dL Albumin 4.3 (3.5-5.0) g/dL Influenza Type A (PCR) (Not Detectd) Influenza Type B (PCR) (Not Detectd) RSV (PCR) (Not Detectd) SARS-CoV-2 (PCR) (Not Detectd) 02/12/24 02/12/24 02/12/24 Range/Units 16:05 16:23 17:37 WBC (3.8-10.6) k/uL RBC (3.80-5.40) m/uL Hgb (11.4-16.0) gm/dL Hct (34.0-46.0) % MCV (80.0-100.0) fL MCH (25.0-35.0) pg MCHC (31.0-37.0) g/dL RDW (11.5-15.5) % Plt Count (150-450) k/uL MPV Neutrophils % % Lymphocytes % % Monocytes % % Eosinophils % % Basophils % % Neutrophils # (1.3-7.7) k/uL Lymphocytes # (1.0-4.8) k/uL Monocytes # (0-1.0) k/uL Eosinophils # (0-0.7) k/uL Basophils # (0-0.2) k/uL PT (10.0-12.5) sec INR (<1.2) APTT (22.0-30.0) sec VBG pH 7.36 (7.31-7.41) VBG pCO2 33 L (37-51) mmHg VBG HCO3 18 L (24-28) mmol/L Sodium (137-145) mmol/L Potassium (3.5-5.1) mmol/L Chloride (98-107) mmol/L Carbon Dioxide (22-30) mmol/L Anion Gap mmol/L BUN (7-17) mg/dL Creatinine (0.52-1.04) mg/dL Est GFR (CKD-EPI)AfAm (>60 ml/min/1.73 sqM) Est GFR (CKD-EPI)NonAf (>60 ml/min/1.73 sqM) Glucose (74-99) mg/dL Calcium (8.4-10.2) mg/dL Magnesium (1.6-2.3) mg/dL Total Bilirubin (0.2-1.3) mg/dL AST (14-36) U/L ALT (4-34) U/L Alkaline Phosphatase (38-126) U/L Troponin I <0.012 (0.000-0.034) ng/mL NT-Pro-B Natriuret Pep pg/mL Total Protein (6.3-8.2) g/dL Albumin (3.5-5.0) g/dL Influenza Type A (PCR) Not Detected (Not Detectd) Influenza Type B (PCR) Not Detected (Not Detectd) RSV (PCR) Not Detected (Not Detectd) SARS-CoV-2 (PCR) Detected A (Not Detectd) - EKG Data -: EKG Interpreted by Me (EKG is sinus 82 CT 171 QRS 118 QTc 422) - Radiology Data Radiology results: report reviewed (X-ray does show inflammation perihilar inflammation concern for pneumonitis pneumonia), image reviewed Critical Care Time Critical Care Time: Yes Total Critical Care Time: 31 Disposition Clinical Impression: Weakness, AMS (altered mental status), Hypoxia, COPD (chronic obstructive pulmonary disease) Disposition: ADMITTED IP TO THIS HOSP Condition: Fair Is patient prescribed a controlled substance at d/c from ED?: No Time of Disposition: 18:00
[2024-02-12 16:41] LABS: Basophils % (A) 0 %; Eosinophils % (A) 0 %; HCT 45.7 % (34.0-46.0); HGB 14.8 gm/dL (11.4-16.0); Lymphocytes # (A) 0.3 k/uL (1.0-4.8); Lymphocytes % (A) 5 %; MCH 28.5 pg (25.0-35.0); MCHC 32.5 g/dL (31.0-37.0); MCV 87.6 fL (80.0-100.0); Mean Platelet Volume 9.1; Monocytes # (A) 0.3 k/uL (0-1.0); Monocytes % (A) 5 %; Neutrophils # (A) 5.2 k/uL (1.3-7.7); Neutrophils % (A) 88 %; Platelet Count 108 k/uL (150-450); RBC 5.21 m/uL (3.80-5.40); RDW 13.2 % (11.5-15.5); WBC 5.9 k/uL (3.8-10.6)
--- NOTE | 2024-02-12 16:45 | XR ---
EXAMINATION TYPE: XR chest 1V portable DATE OF EXAM: 02/12/2024 COMPARISON: 09/19/2018 INDICATION: Short of breath TECHNIQUE: Single frontal view of the chest is obtained. FINDINGS: The heart size is normal. The pulmonary vasculature is may be slightly prominent.. Perihilar infiltrates are present. Correlate for pulmonary edema. Bronchitis or viral pneumonia could be considered. Follow-up is recommended. IMPRESSION: 1. Increased perihilar lung markings. Correlate for infectious etiologies. Pulmonary edema could be c onsidered. Follow-up is recommended. [facility], , 02/12/2024 4:42 PM
[2024-02-12 16:49] LABS: African American GFR (CKD) 68 (>60 ml/min/1.73 sqM); Anion Gap 14 mmol/L; Blood Urea Nitrogen 45 mg/dL (7-17); Calcium 9.1 mg/dL (8.4-10.2); Carbon Dioxide 17 mmol/L (22-30); Chloride 105 mmol/L (98-107); Glucose 146 mg/dL (74-99); Non-African American GFR(CKD) 59 (>60 ml/min/1.73 sqM); Potassium 4.3 mmol/L (3.5-5.1); Sodium 136 mmol/L (137-145)
[2024-02-12 16:50] LABS: ALT 25 U/L (4-34); AST 31 U/L (14-36); Albumin 4.3 g/dL (3.5-5.0); Alkaline Phosphatase 55 U/L (38-126); Magnesium 1.5 mg/dL (1.6-2.3); Total Bilirubin 0.8 mg/dL (0.2-1.3); Total Protein 7.1 g/dL (6.3-8.2)
[2024-02-12 16:51] LABS: Partial Thromboplastin Time 27.1 sec (22.0-30.0); Prothrombin Time 10.8 sec (10.0-12.5)
[2024-02-12 16:58] LABS: NT-Pro-B-Type Natriuretic Pept 614 pg/mL
[2024-02-12] MEDS: MAGNESIUM OXIDE 400 MG TAB PO STA ×2 (17:29)
[2024-02-12] MEDS: MAGNESIUM SULFATE-D5W PMX 1 GM in DEXTROSE/WATER 1 100ML.BAG IVPB ONE (17:31)
[2024-02-12] MEDS ORDERED: ONDANSETRON 4 MG/2 ML VIAL IVP PRN (18:05)
[2024-02-12] MEDS ORDERED: NALOXONE 0.4 MG/ML 1 ML VIAL IV PRN (18:05)
[2024-02-12] MEDS: LEVOFLOXACIN 750MG-D5W PMX 750 MG in DEXTROSE/WATER 1 150ML.BAG IVPB STA (18:41)
[2024-02-12] MEDS: ALBUTEROL NEBULIZED 2.5 MG/3 ML INHALATION SCH (21:14)
[2024-02-12] MEDS: methylPREDNISolone SOD SUCCI 125 MG/2 ML VIAL IV SCH (23:27)
[2024-02-13] MEDS: ALBUTEROL NEBULIZED 2.5 MG/3 ML INHALATION SCH (08:01)
[2024-02-13] MEDS: PANTOPRAZOLE 40 MG/10 ML VIAL IV SCH (08:17)
[2024-02-13] MEDS ORDERED: NON FORMULARY DRUG (Pantoprazole Sodium [Protonix] 20 MG Tablet) PO SCH (10:15)
[2024-02-13] MEDS: hydroCHLOROthiazide 25 MG TAB PO SCH (10:51)
[2024-02-13] MEDS: METOPROLOL TARTRATE 25 MG TAB PO SCH (10:51)
[2024-02-13] MEDS: LOSARTAN 50 MG TAB PO SCH (10:51)
[2024-02-13] MEDS: CLOPIDOGREL 75 MG TAB PO SCH (10:51)
[2024-02-13] MEDS: hydrOXYzine HCL 25 MG TAB PO SCH (10:52)
[2024-02-13 11:03] LABS: ALT 25 U/L (8-44); AST 26 U/L (13-35); Albumin 4.1 g/dL (3.8-4.9); Albumin/Globulin Ratio 1.78 Ratio (1.60-3.17); Alkaline Phosphatase 61 U/L (41-126); BUN/Creat Ratio 37.88 Ratio (12.00-20.00); Blood Urea Nitrogen 30.3 mg/dL (9.0-27.0); Calcium 8.7 mg/dL (8.7-10.3); Carbon Dioxide 19.6 mmol/L (21.6-31.8); Chloride 108 mmol/L (96-109); Globulin 2.3 g/dL (1.6-3.3); Glucose 118 mg/dL (70-110); Magnesium 2.2 mg/dL (1.5-2.4); Phosphorus 2.1 mg/dL (2.4-5.1); Potassium 4.1 mmol/L (3.5-5.5); Sodium 139 mmol/L (135-145); Total Bilirubin 0.4 mg/dL (0.3-1.2); Total Protein 6.4 g/dL (6.2-8.2)
[2024-02-13 11:08] LABS: Basophils # (A) 0.01 X 10*3/uL (0.00-0.10); Basophils % (A) 0.2 %; Eosinophils # (A) 0.01 X 10*3/uL (0.04-0.35); Eosinophils % (A) 0.2 %; HCT 44.9 % (37.2-46.3); HGB 14.3 g/dL (12.0-15.0); Lymphocytes # (A) 0.55 X 10*3/uL (0.90-5.00); Lymphocytes % (A) 10.9 %; MCH 28.3 pg (27.0-32.0); MCHC 31.8 g/dL (32.0-37.0); MCV 88.9 FL (80.0-97.0); Mean Platelet Volume 11.6 FL (9.5-12.2); Monocytes # (A) 0.95 X 10*3/uL (0.20-1.00); Monocytes % (A) 18.8 %; NRBC Per 100 WBC 0.02 X 10*3/uL (0.00-0.01); Neutrophils # (A) 3.49 X 10*3/uL (1.80-7.70); Neutrophils % (A) 69.3 %; Platelet Count 128 X 10*3/uL (140-440); RBC 5.05 X 10*6/uL (4.10-5.20); RDW 13.4 % (11.5-14.5); WBC 5.04 X 10*3/uL (4.50-10.00)
[2024-02-13] MEDS: ALBUTEROL HFA INHALER INHALATION SCH (11:30)
--- NOTE | 2024-02-13 13:06 | P.HPIM ---
History of Present Illness H&P Date: 02/13/24 History of present illness; 63-year-old female present to the emergency department for further evaluation of increasing shortness of breath as well as changes in her mental status for the past day and a half according to her daughter. Patient's past medical history significant for COPD, in which she was recently started on treatment for bronchitis with steroids and antibiotics (doxycycline). Upon presentation patient states she was not feeling well, with increased confusion difficulty speaking. Her daughter, sitting at bedside, states that she was saturating 86% on room air. Patient denies any recent travel. Per patient's viral panel taken upon arrival to the emergency department patient states positive COVID-19. Pulmonology has been consulted and will see the patient for COPD exacerbation as well as COVID-19 infection. Upon arrival to the emergency department patient was afebrile blood pressure 118/67, heart rate of 81, respiratory rate of 16 with an oxygen saturation of 80% on room air. When seen the patient today, she reports she is feeling better and her daughter who is at her bedside also reports that she is presenting better than she had been the previous couple of days, and her mentation had improved greatly. She states that she is looking more like "herself". Initial lab work done in the ER showed WBCs 5.9, Hgb 14.8, Hct 45.7, PLT 108; PT 10.8, INR 1.0, PTT 27.1; blood gas pH 7.36, pCO2 33, HCO3 18; sodium 136, potassium 4.3, BUN 45, creatinine 1.03 Influenza A not detected Influenza B not detected RSV not detected COVID-19 positive EKG done in the ER showed heart rate of 82, no ST segment elevation or depression seen, no T-wave inversions seen. Chest x-ray done in the ER showed increased perihilar lung markings, to be correlated for infectious etiologies, pulmonary edema could be considered Patient admitted to internal medicine service REVIEW OF SYSTEMS: CONSTITUTIONAL: No fever, no malaise, no fatigue. HEENT: No recent visual problems or hearing problems. Denied any sore throat. CARDIOVASCULAR: No chest pain, orthopnea, PND, no palpitations, no syncope. PULMONARY: No shortness of breath, no cough, no hemoptysis. GASTROINTESTINAL: No diarrhea, no nausea, no vomiting, no abdominal pain. NEUROLOGICAL: No headaches, no weakness, no numbness. HEMATOLOGICAL: Denies any bleeding or petechiae. GENITOURINARY: Denies any burning micturition, frequency, or urgency. MUSCULOSKELETAL/RHEUMATOLOGICAL: Denies any joint pain, swelling, or any muscle pain. ENDOCRINE: Denies any polyuria or polydipsia. The rest of the 14-point review of systems is negative. PHYSICAL EXAMINATION: GENERAL: The patient is alert and oriented x3, not in any acute distress. Well developed, well nourished. HEENT: Pupils are round and equally reacting to light. EOMI. No scleral icterus. No conjunctival pallor. Normocephalic, atraumatic. No pharyngeal erythema. No thyromegaly. CARDIOVASCULAR: S1 and S2 present. No murmurs, rubs, or gallops. PULMONARY: Diminished breath sounds with some wheezing present in all lung field ABDOMEN: Soft, nontender, nondistended, normoactive bowel sounds. No palpable organomegaly. MUSCULOSKELETAL: No joint swelling or deformity. EXTREMITIES: No cyanosis, clubbing, or pedal edema. NEUROLOGICAL: Gross neurological examination did not reveal any focal deficits. SKIN: No rashes. Assessment and plan # Acute hypoxic respiratory failure secondary to pneumonitis pneumonia due to COPD exacerbation as a result of recently diagnosed bronchitis Patient's baseline saturation at home according to the daughter is 85-88% on 4 L nasal cannula Patient does state that her donor specialist (Acosta Willis) recently decided that patient should have her oxygen up from 4 L to 6 L Patient is currently on 3/4 L nasal cannula saturating in the low 90%'s Per pulmonology's recommendation urgent CT angio of the chest ordered, pending CRP, LDH, prolactin # Acute kidney injury possibly secondary to acute hypoxic respiratory failure - improving On presentation to the emergency department patient's BUN was 45 and creatinine was 1.03 As of this morning patient's BUN is improved to 30.3 and creatinine is improved to 0.8 # Recent history of cardiac stenting Patient on Plavix 75 mg daily #Altered mental status - improved Patient's daughter states that her mentations had declined over the previous few days States that her mother's mentation has improved greatly today and she is much more like herself GI prophylaxis: Protonix 40 mg daily DVT prophylaxis: Lovenox 50 mg daily Continue to monitor vital signs, monitor CBC, monitor CMP, continue telemetry monitoring Labs and medication were reviewed. Continue with symptomatic treatment. Resume home medication. Dictation was produced using [employer] dictation software. please excuse any grammatical, word or spelling errors. Past Medical History Past Medical History: Asthma, Eye Disorder, Hyperlipidemia Additional Past Medical History / Comment(s): gas,bloating, cataracts currently History of Any Multi-Drug Resistant Organisms: None Reported Past Surgical History: Heart Catheterization With Stent, Hysterectomy Additional Past Surgical History / Comment(s): laparoscopy. cataract surgery Past Anesthesia/Blood Transfusion Reactions: No Reported Reaction Past Psychological History: Anxiety, Depression Smoking Status: Former smoker Past Alcohol Use History: None Reported Past Drug Use History: None Reported - Past Family History Mother Family Medical History: Cancer Medications and Allergies Home Medications Medication Instructions Recorded Confirmed Type Sertraline [Zoloft] 200 mg PO DAILY 09/30/17 02/12/24 History buPROPion XL [Wellbutrin XL] 300 mg PO DAILY 09/30/17 02/12/24 History Albuterol Inhaler [Ventolin Hfa 2 puff INHALATION RT-QID PRN 02/12/24 02/12/24 History Inhaler] Aspirin EC [Ecotrin Low Dose] 81 mg PO DAILY 02/12/24 02/12/24 History Atorvastatin [Lipitor] 40 mg PO HS 02/12/24 02/12/24 History Clopidogrel [Plavix] 75 mg PO DAILY 02/12/24 02/12/24 History Doxycycline Monohydrate 100 mg PO BID 02/12/24 02/12/24 History Fluticasone Propion/Salmeterol 2 puff INHALATION RT-BID 02/12/24 02/12/24 History [Advair Hfa 230-21 Mcg Inhaler] Losartan Potassium 100 mg PO DAILY 02/12/24 02/12/24 History Metoprolol Tartrate [Lopressor] 25 mg PO BID 02/12/24 02/12/24 History Pantoprazole Sodium [Protonix] 20 mg PO DAILY 02/12/24 02/12/24 History Tiotropium [place] [Spiriva] 1 puff INHALATION RT-DAILY 02/12/24 02/12/24 History hydrOXYzine HCL [Atarax] 50 mg PO TID 02/12/24 02/12/24 History hydroCHLOROthiazide [Hydrodiuril] 25 mg PO DAILY 02/12/24 02/12/24 History metFORMIN HCL 500 mg PO DAILY 02/12/24 02/12/24 History predniSONE [Deltasone] 40 mg PO DAILY 02/12/24 02/12/24 History Allergies Allergy/AdvReac Type Severity Reaction Status Date / Time No Known Allergies Allergy Verified 02/12/24 17:16 Physical Exam Vitals: Vital Signs Temp Pulse Pulse Resp BP BP Pulse Ox 02/12/24 20:00 98.3 F 96 18 124/64 92 L 02/12/24 18:51 80 02/12/24 18:41 79 02/12/24 17:30 89 18 108/68 91 L 02/12/24 17:00 88 19 111/59 92 L 02/12/24 16:35 82 02/12/24 16:30 77 20 109/57 98 02/12/24 16:25 79 02/12/24 16:04 86 L 02/12/24 15:52 97.8 F 81 16 118/67 86 L Intake and Output 02/12/24 02/13/24 02/13/24 22:59 06:59 14:59 Other: # Voids 2 Weight 96.162 kg Results CBC & Chem 7: 02/13/24 07:45 02/13/24 07:45 Labs: Abnormal Lab Results - Last 24 Hours (Table) 02/12/24 02/12/24 02/12/24 Range/Units 16:05 16:05 16:23 Plt Count 108 L (150-450) k/uL Lymphocytes # 0.3 L (1.0-4.8) k/uL VBG pCO2 33 L (37-51) mmHg VBG HCO3 18 L (24-28) mmol/L Sodium 136 L (137-145) mmol/L Carbon Dioxide 17 L (22-30) mmol/L BUN 45 H (7-17) mg/dL Glucose 146 H (74-99) mg/dL Magnesium 1.5 L (1.6-2.3) mg/dL SARS-CoV-2 (PCR) (Not Detectd) 02/12/24 Range/Units 17:37 Plt Count (150-450) k/uL Lymphocytes # (1.0-4.8) k/uL VBG pCO2 (37-51) mmHg VBG HCO3 (24-28) mmol/L Sodium (137-145) mmol/L Carbon Dioxide (22-30) mmol/L BUN (7-17) mg/dL Glucose (74-99) mg/dL Magnesium (1.6-2.3) mg/dL SARS-CoV-2 (PCR) Detected A (Not Detectd)
[2024-02-13] MEDS: ASPIRIN 81 MG PO SCH (14:05)
[2024-02-13] MEDS: ENOXAPARIN 40 MG/0.4 ML SYRINGE SQ SCH (14:05)
[2024-02-13] MEDS: MORPHINE SULFATE 4 MG/ML SYRINGE IV PRN (14:21)
--- NOTE | 2024-02-13 15:00 | P.CNPUL ---
History of Present Illness Consult date: 02/13/24 Reason for consult: dyspnea, COPD History of present illness: This is a 63-year-old female patient, known history of COPD was been seeing Dr. Cornell at [facility]. Prior to that, she had another physician through [facility] who gave her because of her insurance coverage. The patient is an ex-smoker. She has quit smoking. The patient has been maintained on a combination of Advair and Spiriva on an outpatient basis and albuterol HFA on a as needed basis. The patient has been having symptoms of URI, cough congestion, generalized weakness and fatigue and tiredness and the patient came into the hospital where she was diagnosed having COVID-19 infection. Noted the patient has been symptomatic for more than a week. She has seen her physician, Dr. Cornell who treated her with a course of antibiotics and steroids. Nevertheless, her condition did not improve and she ended up coming into the hospital. No nausea vomiting or diarrhea. No abdominal pain. No altered mentation. The chest x-ray that was done at time of admission showed increased perihilar lung markings. No previous history of DVT or pulmonary embolism. I ordered a CTA of the chest on this patient to rule out pulmonary embolism and at the same time evaluate for COVID-19 related pneumonia. Noted the patient is also a chronic smoker. I reviewed the CTA of the chest and there are bilateral areas of scattered patchy groundglass pulmonary infiltrates consistent with COVID-19 related pneumonia more so on the left compared to the right. The patient has no filling defects to indicate pulmonary embolism. Awaiting a final report from radiology. Note that this has never been infected with COVID-19 in the past and she has never been vaccinated. Review of Systems Constitutional: Reports as per HPI, Reports fatigue, Reports lethargy, Reports weakness Eyes: denies as per HPI, denies blurred vision, denies bulging eye, denies decreased vision, denies diplopia, denies discharge, denies dry eye, denies irritation, denies itching, denies pain, denies photophobia, denies loss of peripheral vision, denies loss of vision, denies tunnel vision/blind spots Ears: bilateral: decreased hearing, ear discharge, earache, tinnitus Ears, nose, mouth and throat: Reports as per HPI Breasts: absent: as per HPI, change in shape, gynecomastia, masses, nipple discharge, pain, skin changes, swelling Cardiovascular: Reports as per HPI Respiratory: Reports cough, Reports dyspnea Genitourinary: Reports as per HPI Menstruation: Reports as per HPI Musculoskeletal: absent: ankle pain, ankle stiffness, ankle swelling, as per HPI, elbow pain, elbow stiffness, elbow swelling, foot pain, foot stiffness, foot swelling, hand pain, hand stiffness, hand swelling, hip pain, hip stiffness, hip swelling, knee pain, knee stiffness, knee swelling, shoulder pain, shoulder stiffness, shoulder swelling, wrist pain, wrist stiffness, wrist swelling Integumentary: Reports as per HPI Neurological: Reports as per HPI Psychiatric: Reports as per HPI Endocrine: Reports as per HPI Hematologic/Lymphatic: Reports as per HPI Allergic/Immunologic: Reports as per HPI Past Medical History Past Medical History: Asthma, Coronary Artery Disease (CAD), COPD, Eye Disorder, Hyperlipidemia Additional Past Medical History / Comment(s): COPD and she is 02 dependent at 4 liters, she is maintained on Advair and Spiriva and albuterol HFA as needed. Exsmoker and she has quit 18 years ago. CAD History of Any Multi-Drug Resistant Organisms: None Reported Past Surgical History: Heart Catheterization With Stent, Hysterectomy Additional Past Surgical History / Comment(s): laparoscopy. cataract surgery Past Anesthesia/Blood Transfusion Reactions: No Reported Reaction Past Psychological History: Anxiety, Depression Smoking Status: Former smoker Past Alcohol Use History: None Reported Past Drug Use History: None Reported - Past Family History Mother Family Medical History: Cancer Medications and Allergies Home Medications Medication Instructions Recorded Confirmed Type Sertraline [Zoloft] 200 mg PO DAILY 09/30/17 02/12/24 History buPROPion XL [Wellbutrin XL] 300 mg PO DAILY 09/30/17 02/12/24 History Albuterol Inhaler [Ventolin Hfa 2 puff INHALATION RT-QID PRN 02/12/24 02/12/24 History Inhaler] Aspirin EC [Ecotrin Low Dose] 81 mg PO DAILY 02/12/24 02/12/24 History Atorvastatin [Lipitor] 40 mg PO HS 02/12/24 02/12/24 History Clopidogrel [Plavix] 75 mg PO DAILY 02/12/24 02/12/24 History Doxycycline Monohydrate 100 mg PO BID 02/12/24 02/12/24 History Fluticasone Propion/Salmeterol 2 puff INHALATION RT-BID 02/12/24 02/12/24 History [Advair Hfa 230-21 Mcg Inhaler] Losartan Potassium 100 mg PO DAILY 02/12/24 02/12/24 History Metoprolol Tartrate [Lopressor] 25 mg PO BID 02/12/24 02/12/24 History Pantoprazole Sodium [Protonix] 20 mg PO DAILY 02/12/24 02/12/24 History Tiotropium Arnold [Spiriva] 1 puff INHALATION RT-DAILY 02/12/24 02/12/24 Hi story hydrOXYzine HCL [Atarax] 50 mg PO TID 02/12/24 02/12/24 History hydroCHLOROthiazide [Hydrodiuril] 25 mg PO DAILY 02/12/24 02/12/24 History metFORMIN HCL 500 mg PO DAILY 02/12/24 02/12/24 History predniSONE [Deltasone] 40 mg PO DAILY 02/12/24 02/12/24 History Allergies Allergy/AdvReac Type Severity Reaction Status Date / Time No Known Allergies Allergy Verified 02/12/24 17:16 Physical Exam Vitals: Vital Signs Temp Pulse Pulse Resp BP BP Pulse Ox 02/13/24 10:49 69 22 145/78 95 02/13/24 08:16 64 20 141/77 91 L 02/12/24 20:00 98.3 F 96 18 124/64 92 L 02/12/24 18:51 80 02/12/24 18:41 79 02/12/24 17:30 89 18 108/68 91 L 02/12/24 17:00 88 19 111/59 92 L 02/12/24 16:35 82 02/12/24 16:30 77 20 109/57 98 02/12/24 16:25 79 02/12/24 16:04 86 L 02/12/24 15:52 97.8 F 81 16 118/67 86 L Intake and Output 02/12/24 02/13/24 02/13/24 22:59 06:59 14:59 Other: # Voids 2 Weight 96.162 kg General Appearance the patient is calm and comfortable, mild degree of respiratory distress, currently on 4 L of oxygen nasal cannula Head exam was generally normal. There was no scleral icterus or corneal arcus. Mucous membranes were moist. Neck was supple and without jugular venous distension, thyromegaly, or carotid bruits. Carotids were easily palpable bilaterally. There was no adenopathy. Lung sounds are diminished bilaterally the patient has scattered expiratory wheezes throughout the lung rosales bilaterally Cardiac exam revealed the PMI to be normally situated and sized. The rhythm was regular and no extrasystoles were noted during several minutes of auscultation. The first and second heart sounds were normal and physiologic splitting of the second heart sound was noted. There were no murmurs, rubs, clicks, or gallops. Abdominal exam revealed normal bowel sounds. The abdomen was soft, non-tender, and without masses, organomegaly, or appreciable enlargement of the abdominal aorta. Examination of the extremities revealed easily palpable radial, femoral and pedal pulses. There was no cyanosis, clubbing or edema. Examination of the skin revealed no evidence of significant rashes, suspicious appearing nevi or other concerning lesions. Neurologically, the patient is awake and alert and the patient does not have any focal neurological deficit. Cranial nerves are essentially intact. Results - Laboratory Findings CBC and BMP: 02/13/24 07:45 02/13/24 07:45 PT/INR, D-dimer PT 10.8 sec (10.0-12.5) 02/12/24 16:05 INR 1.0 (<1.2) 02/12/24 16:05 Abnormal lab findings: Abnormal Labs 02/12/24 02/12/24 02/12/24 16:05 16:05 16:23 MCHC Plt Count 108 L Lymphocytes # 0.3 L Eosinophils # NRBC/100 WBC Diff VBG pCO2 33 L VBG HCO3 18 L Sodium 136 L Carbon Dioxide 17 L BUN 45 H BUN/Creatinine Ratio Glucose 146 H Phosphorus Magnesium 1.5 L SARS-CoV-2 (PCR) 02/12/24 02/13/24 02/13/24 17:37 07:45 07:45 MCHC 31.8 L Plt Count 128 L Lymphocytes # 0.55 L Eosinophils # 0.01 L NRBC/100 WBC Diff 0.02 H VBG pCO2 VBG HCO3 Sodium Carbon Dioxide 19.6 L BUN 30.3 H BUN/Creatinine Ratio 37.88 H Glucose 118 H Phosphorus 2.1 L Magnesium SARS-CoV-2 (PCR) Detected A - Diagnostic Findings CT scan - chest: image reviewed Assessment and Plan Plan: Acute on chronic hypoxic respiratory failure and the patient is currently on 4 L of O2 nasal cannula Acute COVID-19 infection/pneumonia and the patient has patchy areas of groundglass pulm infiltrates bilaterally based on the CT of the chest. No evidence of any pulmonary embolism. Awaiting final report from radiology. Acute COPD exacerbation secondary to above Obesity with a BMI of 40.1 Coronary artery disease, with previous coronary stenting Hyperlipidemia Chronic hypoxic respiratory failure the patient has been maintained on oxygen 4 L/min nasal cannula Advanced COPD maintained on a combination of Advair and Spiriva on outpatient basis the patient is a previous smoker Plan The patient will be given O2 and the O2 will be titrated to maintain saturation above 90%, currently on 4 L of O2 nasal cannula The patient will be started on IV Solu-Medrol 60 mg every 6 hours The patient is outside the window for remdesivir as the patient symptoms have been more than a week The patient will be started on Lovenox 40 mg subcu for DVT prophylaxis. Awaiting final report and CT of the chest Check inflammatory markers including LDH CRP and procalcitonin level Resume home medications Resume tiotropium and Advair and utilize albuterol HFA [id number] as needed Will continue to follow.
[2024-02-13 15:38] LABS: C Reactive Protein 6.3 mg/dL (0.00-0.80)
[2024-02-13] MEDS: methylPREDNISolone SOD SUCCI 125 MG/2 ML VIAL IV SCH (18:05)
[2024-02-13] MEDS ORDERED: methylPREDNISolone SOD SUCCI 40 MG/ML 1 ML VIAL IV SCH (21:00)
[2024-02-13] MEDS: ATORVASTATIN 40 MG TAB PO SCH (22:23)
[2024-02-13] MEDS: SERTRALINE 100 MG TAB PO SCH (22:23)
[2024-02-14 08:38] LABS: ALT 25 U/L (4-34); AST 33 U/L (14-36); African American GFR (CKD) 69 (>60 ml/min/1.73 sqM); Albumin 3.4 g/dL (3.5-5.0); Albumin/Globulin Ratio 1.3; Alkaline Phosphatase 52 U/L (38-126); Anion Gap 11 mmol/L; Blood Urea Nitrogen 42 mg/dL (7-17); Calcium 8.6 mg/dL (8.4-10.2); Carbon Dioxide 17 mmol/L (22-30); Chloride 105 mmol/L (98-107); Globulin 2.6 g/dL; Glucose 179 mg/dL (74-99); Non-African American GFR(CKD) 60 (>60 ml/min/1.73 sqM); Potassium 4.3 mmol/L (3.5-5.1); Sodium 133 mmol/L (137-145); Total Bilirubin 0.7 mg/dL (0.2-1.3)
--- NOTE | 2024-02-14 08:44 | P.PN ---
Subjective Progress Note Date: 02/14/24 63-year-old female present to the emergency department for further evaluation of increasing shortness of breath as well as changes in her mental status for the past day and a half according to her daughter. Patient's past medical history significant for COPD, in which she was recently started on treatment for bronchitis with steroids and antibiotics (doxycycline). Upon presentation patient states she was not feeling well, with increased confusion difficulty speaking. Her daughter, sitting at bedside, states that she was saturating 86% on room air. Patient denies any recent travel. Per patient's viral panel taken upon arrival to the emergency department patient states positive COVID-19. Pulmonology has been consulted and will see the patient for COPD exacerbation as well as COVID-19 infection. Upon arrival to the emergency department patient was afebrile blood pressure 118/67, heart rate of 81, respiratory rate of 16 with an oxygen saturation of 80% on room air. When seen the patient today, she reports she is feeling better and her daughter who is at her bedside also reports that she is presenting better than she had been the previous couple of days, and her mentation had improved greatly. She states that she is looking more like "herself". Initial lab work done in the ER showed WBCs 5.9, Hgb 14.8, Hct 45.7, PLT 108; PT 10.8, INR 1.0, PTT 27.1; blood gas pH 7.36, pCO2 33, HCO3 18; sodium 136, potassium 4.3, BUN 45, creatinine 1.03 Influenza A not detected Influenza B not detected RSV not detected COVID-19 positive EKG done in the ER showed heart rate of 82, no ST segment elevation or depression seen, no T-wave inversions seen. Chest x-ray done in the ER showed increased perihilar lung markings, to be correlated for infectious etiologies, pulmonary edema could be considered 02/14/24 - Patient seen at bedside today. She states that she is feeling better than she was yesterday, however she states that it feels like she "smoked 3 packs" and has remained short of breath. Progress states it is closer to her baseline when she was over the past few days however still not all the way back. Overnight patient's blood pressure was recorded as 90/50, with a heart rate of 64, respiratory rate of 18 saturating 95% on 4 and half liters of nasal cannula. Due to the patient having persistently low blood pressures we will hold 100 mg Cozaar and 20 mg Lopressor today and continue to monitor make adjustments as needed. Per pulmonology recommendation patient underwent CT angiogram of the chest to help rule out pulmonary embolism and at the same time evaluate for COVID-19 pneumonia and it was noted that the patient is a chronic smoker, on review of the CTA of the chest there were bilateral areas of scattered patchy groundglass pulmonary infiltrates consistent with COVID-19 related pneumonia worse on the left side compared to the right side. Patient will continue on O2 and will be titrated to maintain saturation above 90% overnight on 4 and half liters of oxygen nasal cannula, per pulmonology request patient started on IV Solu-Medrol 60 mg every 6 hours, she is outside the window for remdesivir as patient is had symptoms for more than a week, additionally patient was started on Lovenox 40 mg subcutaneously for DVT prophylaxis. Patient's LDH 230, e levated CRP at 6.3 and procalcitonin was unremarkable at 0.07. Additionally last night patient's 30 mg nightly, hold Wellbutrin and 200 mg nightly of Zoloft) presumed upon request with the patient and the patient's daughter. Labs done today - Currently pending at time of dictation. CT of the chest completed on 02/12 yet to evaluate official final read from radiologist, however per pulmonology's report he was to evaluate for possible pulmonary embolism but at the same time evaluated for COVID-19 pneumonia and was noted that there were bilateral areas of scattered patchy groundglass pulmonary infiltrates consistent with COVID-19 worse on the left side. REVIEW OF SYSTEMS: CONSTITUTIONAL: No fever, no malaise, no fatigue. HEENT: No recent visual problems or hearing problems. Denied any sore throat. CARDIOVASCULAR: No chest pain, orthopnea, PND, no palpitations, no syncope. PULMONARY: Shortness of breath. GASTROINTESTINAL: No diarrhea, no nausea, no vomiting, no abdominal pain. NEUROLOGICAL: No headaches, no weakness, no numbness. HEMATOLOGICAL: Denies any bleeding or petechiae. GENITOURINARY: Denies any burning micturition, frequency, or urgency. MUSCULOSKELETAL/RHEUMATOLOGICAL: Denies any joint pain, swelling, or any muscle pain. ENDOCRINE: Denies any polyuria or polydipsia. The rest of the 14-point review of systems is negative. PHYSICAL EXAMINATION: GENERAL: The patient is alert and oriented x3, not in any acute distress. Well developed, well nourished. HEENT: Pupils are round and equally reacting to light. EOMI. No scleral icterus. No conjunctival pallor. Normocephalic, atraumatic. No pharyngeal erythema. No thyromegaly. CARDIOVASCULAR: S1 and S2 present. No murmurs, rubs, or gallops. PULMONARY: Diminished breath sounds with some wheezing present in all lung field; worse on the left side ABDOMEN: Soft, nontender, nondistended, normoactive bowel sounds. No palpable organomegaly. MUSCULOSKELETAL: No joint swelling or deformity. EXTREMITIES: No cyanosis, clubbing, or pedal edema. NEUROLOGICAL: Gross neurological examination did not reveal any focal deficits. Assessment and plan # Acute hypoxic respiratory failure secondary to pneumonitis pneumonia due to COPD exacerbation as a result of recently diagnosed bronchitis Patient's baseline saturation at home according to the daughter is 85-88% on 4 L nasal cannula Patient does state that her fisher crab ([employer] Willis) recently decided that patient should have her oxygen up from 4 L to 6 L Patient is currently on 3/4 L nasal cannula saturating in the low 90%'s Per pulmonology's recommendation urgent CT angio of the chest ordered, pending CRP, LDH, prolactin # Acute kidney injury possibly secondary to acute hypoxic respiratory failure - improving On presentation to the emergency department patient's BUN was 45 and creatinine was 1.03 As of this morning patient's BUN is improved to 30.3 and creatinine is improv ed to 0.8 # Recent history of cardiac stenting Patient on Plavix 75 mg daily #Altered mental status - improved Patient's daughter states that her mentations had declined over the previous few days States that her mother's mentation has improved greatly today and she is much more like herself #Anxiety Resume patient's on medications of 200 mg nightly of Zoloft and 300 mg nightly of Wellbutrin #Hypertension Patient's home medications include 50 mg hydroxyzine 3 times daily, 100 mg Co zaar daily, 25 mg Lopressor twice daily Patient's blood pressures were running low overnight at 90/50, going to hold 100 mg Cozaar today and 25 mg Lopressor; continue the hydroxyzine Continue to monitor and make alterations as necessary GI prophylaxis: Protonix 40 mg daily DVT prophylaxis: Lovenox 40 mg daily Continue to monitor vital signs, monitor CBC, monitor CMP, continue telemetry monitoring Labs and medication were reviewed. Continue with symptomatic treatment. Resume home medication. Dictation was produced using [employer] dictation software. please excuse any grammatical, word or spelling errors. Dr. Josué MD I have performed a history and physical examination and medical decision making of this patient, discussed the same with the the resident, and agree with the assessment and plan as written. I performed brief physical exam. Objective - Vital Signs Vital signs: Vital Signs Temp 98.5 F 02/14/24 01:44 Pulse 64 02/14/24 01:44 Resp 18 02/14/24 01:44 BP 90/50 02/14/24 01:44 Pulse Ox 95 02/14/24 01:44 FiO2 Intake & Output 02/13/24 02/13/24 02/14/24 06:59 18:59 06:59 Weight 96.162 kg Other: Voiding Method Toilet # Voids 2 - Labs CBC & Chem 7: 02/14/24 07:31 02/15/24 10:47 Labs: Abnormal Lab Results - Last 24 Hours (Table) 02/13/24 02/13/24 02/13/24 Range/Units 07:45 07:45 07:45 MCHC 31.8 L (32.0-37.0) g/dL Plt Count 128 L (140-440) X 10*3/uL Lymphocytes # 0.55 L (0.90-5.00) X 10*3/uL Eosinophils # 0.01 L (0.04-0.35) X 10*3/uL NRBC/100 WBC Diff 0.02 H (0.00-0.01) X 10*3/uL Carbon Dioxide 19.6 L (21.6-31.8) mmol/L BUN 30.3 H (9.0-27.0) mg/dL BUN/Creatinine Ratio 37.88 H (12.00-20.00) Ratio Glucose 118 H (70-110) mg/dL Phosphorus 2.1 L (2.4-5.1) mg/dL C-Reactive Protein 6.30 H (0.00-0.80) mg/dL
[2024-02-14 13:28] LABS: Basophils # (A) 0.01 X 10*3/uL (0.00-0.10); Basophils % (A) 0.2 %; Eosinophils # (A) 0 X 10*3/uL (0.04-0.35); Eosinophils % (A) 0 %; HCT 40.2 % (37.2-46.3); HGB 13.3 g/dL (12.0-15.0); Lymphocytes # (A) 0.45 X 10*3/uL (0.90-5.00); Lymphocytes % (A) 7.1 %; MCH 28.9 pg (27.0-32.0); MCHC 33.1 g/dL (32.0-37.0); MCV 87.2 FL (80.0-97.0); Mean Platelet Volume 12.1 FL (9.5-12.2); Monocytes # (A) 0.24 X 10*3/uL (0.20-1.00); Monocytes % (A) 3.8 %; NRBC Per 100 WBC 0 X 10*3/uL (0.00-0.01); Neutrophils # (A) 5.62 X 10*3/uL (1.80-7.70); Neutrophils % (A) 88.6 %; Platelet Count 132 X 10*3/uL (140-440); RBC 4.61 X 10*6/uL (4.10-5.20); RDW 13.4 % (11.5-14.5); WBC 6.34 X 10*3/uL (4.50-10.00)
--- NOTE | 2024-02-14 14:48 | P.PN ---
Subjective Progress Note Date: 02/14/24 This is a 63-year-old female patient, known history of COPD was been seeing Dr. Cornell at [facility]. Prior to that, she had another retail salesworker through [facility] who gave her because of her insurance coverage. The patient is an ex-smoker. She has quit smoking. The patient has been maintained on a combination of Advair and Spiriva on an outpatient basis and albuterol HFA on a as needed basis. The patient has been having symptoms of URI, cough conges tion, generalized weakness and fatigue and tiredness and the patient came into the hospital where she was diagnosed having COVID-19 infection. Noted the patient has been symptomatic for more than a week. She has seen her retail salesworker, Dr. Cornell who treated her with a course of antibiotics and st eroids. Nevertheless, her condition did not improve and she ended up coming into the hospital. No nausea vomiting or diarrhea. No abdominal pain. No altered mentation. The chest x-ray that was done at time of admission showed increased perihilar lung markings. No previous history of DVT or pulmonary embolism. I ordered a CTA of the chest on this patient to rule out pulmonary embolism and at the same time evaluate for COVID-19 related pneumonia. Noted the patient is also a chronic smoker. I reviewed the CTA of the chest and there are bilateral areas of scattered patchy groundglass pulmonary infiltrates consistent with COVID-19 related pneumonia more so on the left compared to the right. The patient has no filling defects to indicate pulmonary embolism. Awaiting a final report from radiology. Note that this has never been infected with COVID-19 in the past and she has never been vaccinated. 02/14/2024, patient is doing well. Less short of breath compared to yesterday. CAT scan of the chest showed some patchy groundglass pulmonary filtrates consistent with COVID-19 infection. However, clinically patient doing better. No evidence of any pulmonary involvement. No evidence of any lung masses. She remains on bronchodilators with albuterol HFA 4 times [id number] and the patient is on IV Solu-Medrol 60 mg every 6 hours. No abnormalities in her blood work. The CBC shows a white cell count of 6.3 with a hemoglobin 13 and a platelet count of 132. BUN 42 with a creatinine of 1.02. Serum bicarbonate 17 and sodium levels at 133 and a potassium level is at 4.3. Objective - Vital Signs Vital signs: Vital Signs Temp 97.9 F 02/14/24 07:30 Pulse 56 L 02/14/24 07:30 Resp 18 02/14/24 07:30 BP 97/61 02/14/24 07:30 Pulse Ox 92 L 02/14/24 08:07 FiO2 Intake & Output 02/13/24 02/14/24 02/14/24 18:59 06:59 18:59 Weight 96.162 kg Other: Voiding Method Toilet - Exam General Appearance the patient is calm and comfortable, mild degree of respiratory distress, currently on 4 L of oxygen nasal cannula Head exam was generally normal. There was no scleral icterus or corneal arcus. Mucous membranes were moist. Neck was supple and without jugular venous distension, thyromegaly, or carotid bruits. Carotids were easily palpable bilaterally. There was no adenopathy. Lung sounds are diminished bilaterally the patient has scattered expiratory wheezes throughout the lung rosales bilaterally Cardiac exam revealed the PMI to be normally situated and sized. The rhythm was regular and no extrasystoles were noted during several minutes of auscultation. The first and second heart sounds were normal and physiologic splitting of the second heart sound was noted. There were no murmurs, rubs, clicks, or gallops. Abdominal exam revealed normal bowel sounds. The abdomen was soft, non-tender, and without masses, organomegaly, or appreciable enlargement of the abdominal aorta. Examination of the extremities revealed easily palpable radial, femoral and pedal pulses. There was no cyanosis, clubbing or edema. Examination of the skin revealed no evidence of significant rashes, suspicious appearing nevi or other concerning lesions. Neurologically, the patient is awake and alert and the patient does not have any focal neurological deficit. Cranial nerves are essentially intact. - Labs CBC & Chem 7: 02/14/24 07:31 02/14/24 07:31 Labs: Abnormal Lab Results - Last 24 Hours (Table) 02/13/24 02/13/24 02/13/24 Range/Units 07:45 07:45 07:45 MCHC 31.8 L (32.0-37.0) g/dL Plt Count 128 L (140-440) X 10*3/uL Lymphocytes # 0.55 L (0.90-5.00) X 10*3/uL Eosinophils # 0.01 L (0.04-0.35) X 10*3/uL NRBC/100 WBC Diff 0.02 H (0.00-0.01) X 10*3/uL Sodium (137-145) mmol/L Carbon Dioxide 19.6 L (21.6-31.8) mmol/L BUN 30.3 H (9.0-27.0) mg/dL BUN/Creatinine Ratio 37.88 H (12.00-20.00) Ratio Glucose 118 H (70-110) mg/dL Phosphorus 2.1 L (2.4-5.1) mg/dL C-Reactive Protein 6.30 H (0.00-0.80) mg/dL Total Protein (6.3-8.2) g/dL Albumin (3.5-5.0) g/dL 02/14/24 Range/Units 07:31 MCHC (32.0-37.0) g/dL Plt Count (140-440) X 10*3/uL Lymphocytes # (0.90-5.00) X 10*3/uL Eosinophils # (0.04-0.35) X 10*3/uL NRBC/100 WBC Diff (0.00-0.01) X 10*3/uL Sodium 133 L (137-145) mmol/L Carbon Dioxide 17 L (21.6-31.8) mmol/L BUN 42 H (9.0-27.0) mg/dL BUN/Creatinine Ratio (12.00-20.00) Ratio Glucose 179 H (70-110) mg/dL Phosphorus (2.4-5.1) mg/dL C-Reactive Protein (0.00-0.80) mg/dL Total Protein 6.0 L (6.3-8.2) g/dL Albumin 3.4 L (3.5-5.0) g/dL Assessment and Plan Plan: Acute on chronic hypoxic respiratory failure and the patient is currently on 4 L of O2 nasal cannula. The FiO2 is being titrated Acute COVID-19 infection/pneumonia and the patient has patchy areas of groundglass pulm infiltrates bilaterally based on the CT of the chest. No evidence of any pulmonary embolism. Awaiting final report from radiology. Acute COPD exacerbation secondary to above Obesity with a BMI of 40.1 Coronary artery disease, with previous coronary stenting Hyperlipidemia Chronic hypoxic respiratory failure the patient has been maintained on oxygen 4 L/min nasal cannula Advanced COPD maintained on a combination of Advair and Spiriva on outpatient basis the patient is a previous smoker Plan The patient will be given O2 and the O2 will be titrated to maintain saturation above 90%, currently on 4 L of O2 nasal cannula The patient will be started on IV Solu-Medrol 60 mg every 6 hours The patient is outside the window for remdesivir as the patient symptoms have been more than a week The patient will be started on Lovenox 40 mg subcu for DVT prophylaxis. Awaiting final report and CT of the chest Inflammatory markers and not much elevated Anticipate recovery Resume home medications Resume tiotropium and Advair and utilize albuterol HFA [id number] as needed Will continue to follow.
[2024-02-14] MEDS: buPROPion XL 150 MG TAB.ER.24H PO SCH (21:44)
[2024-02-15] MEDS: PANTOPRAZOLE 40 MG TABLET PO SCH (06:19)
[2024-02-15 11:10] LABS: African American GFR (CKD) >90 (>60 ml/min/1.73 sqM); Anion Gap 10 mmol/L; Blood Urea Nitrogen 35 mg/dL (7-17); Calcium 8.8 mg/dL (8.4-10.2); Carbon Dioxide 21 mmol/L (22-30); Chloride 105 mmol/L (98-107); Glucose 142 mg/dL (74-99); Non-African American GFR(CKD) >90 (>60 ml/min/1.73 sqM); Potassium 4.2 mmol/L (3.5-5.1); Sodium 136 mmol/L (137-145)
--- NOTE | 2024-02-15 14:26 | P.PN ---
Subjective Progress Note Date: 02/15/24 This is a 63-year-old female patient, known history of COPD was been seeing Dr. Cornell at [facility]. Prior to that, she had another entry level accounting clerk through [facility] who gave her because of her insurance coverage. The patient is an ex-smoker. She has quit smoking. The patient has been maintained on a combination of Advair and Spiriva on an outpatient basis and albuterol HFA on a as needed basis. The patient has been having symptoms of URI, cough conges tion, generalized weakness and fatigue and tiredness and the patient came into the hospital where she was diagnosed having COVID-19 infection. Noted the patient has been symptomatic for more than a week. She has seen her entry level accounting clerk, Dr. Cornell who treated her with a course of antibiotics and st eroids. Nevertheless, her condition did not improve and she ended up coming into the hospital. No nausea vomiting or diarrhea. No abdominal pain. No altered mentation. The chest x-ray that was done at time of admission showed increased perihilar lung markings. No previous history of DVT or pulmonary embolism. I ordered a CTA of the chest on this patient to rule out pulmonary embolism and at the same time evaluate for COVID-19 related pneumonia. Noted the patient is also a chronic smoker. I reviewed the CTA of the chest and there are bilateral areas of scattered patchy groundglass pulmonary infiltrates consistent with COVID-19 related pneumonia more so on the left compared to the right. The patient has no filling defects to indicate pulmonary embolism. Awaiting a final report from radiology. Note that this has never been infected with COVID-19 in the past and she has never been vaccinated. 02/14/2024, patient is doing well. Less short of breath compared to yesterday. CAT scan of the chest showed some patchy groundglass pulmonary filtrates consistent with COVID-19 infection. However, clinically patient doing better. No evidence of any pulmonary involvement. No evidence of any lung masses. She remains on bronchodilators with albuterol HFA 4 times [id number] and the patient is on IV Solu-Medrol 60 mg every 6 hours. No abnormalities in her blood work. The CBC shows a white cell count of 6.3 with a hemoglobin 13 and a platelet count of 132. BUN 42 with a creatinine of 1.02. Serum bicarbonate 17 and sodium levels at 133 and a potassium level is at 4.3. 02/15/2024, the patient is being seen for a follow-up. The patient is doing well. The patient is being treated for an acute COPD exacerbation. The patient also has a component of COVID-19 pneumonia and she remains on 40 of oxygen by nasal cannula. She was given IV Solu-Medrol. She was outside the window for remdesivir treatment. She is noted advanced COPD. Based on my review of the CT of the chest, there is no evidence of any pulm embolism. There is patchy areas of pulm infiltration consistent with COVID-19 infection. No evidence of any lung masses or tumors. The patient is currently on 6 L of O2 nasal cannula. At times, she removes her oxygen she desaturates. No new labs are available from today. Her procalcitonin level is at 0.07. The LDH level was at 230. Rest of the inflammatory markers were minimally elevated. Otherwise, awake and alert, no altered mentation. No signs of any CO2 narcosis. Objective - Vital Signs Vital signs: Vital Signs Temp 97.5 F L 02/15/24 08:15 Pulse 72 02/15/24 08:15 Resp 18 02/15/24 08:15 BP 135/70 02/15/24 08:15 Pulse Ox 96 02/15/24 08:16 FiO2 Intake & Output 02/14/24 02/15/24 02/15/24 18:59 06:59 18:59 Other: Voiding Method Toilet # Voids 2 3 - Exam General Appearance the patient is calm and comfortable, mild degree of respiratory distress, currently on 4 L of oxygen nasal cannula Head exam was generally normal. There was no scleral icterus or corneal arcus. Mucous membranes were moist. Neck was supple and without jugular venous distension, thyromegaly, or carotid bruits. Carotids were easily palpable bilaterally. There was no adenopathy. Lung sounds are diminished bilaterally the patient has scattered expiratory wheezes throughout the lung rosales bilaterally Cardiac exam revealed the PMI to be normally situated and sized. The rhythm was regular and no extrasystoles were noted during several minutes of auscultation. The first and second heart sounds were normal and physiologic splitting of the second heart sound was noted. There were no murmurs, rubs, clicks, or gallops. Abdominal exam revealed normal bowel sounds. The abdomen was soft, non-tender, and without masses, organomegaly, or appreciable enlargement of the abdominal aorta. Examination of the extremities revealed easily palpable radial, femoral and pedal pulses. There was no cyanosis, clubbing or edema. Examination of the skin revealed no evidence of significant rashes, suspicious appearing nevi or other concerning lesions. Neurologically, the patient is awake and alert and the patient does not have any focal neurological deficit. Cranial nerves are essentially intact. - Labs CBC & Chem 7: 02/14/24 07:31 02/15/24 10:47 Labs: Abnormal Lab Results - Last 24 Hours (Table) 02/14/24 Range/Units 07:31 Plt Count 132 L (140-440) X 10*3/uL Lymphocytes # 0.45 L (0.90-5.00) X 10*3/uL Eosinophils # 0 L (0.04-0.35) X 10*3/uL Assessment and Plan Plan: Acute on chronic hypoxic respiratory failure and the patient is currently on 4 L of O2 nasal cannula. The FiO2 is being titrated Acute COVID-19 infection/pneumonia and the patient has patchy areas of ground glass pulm infiltrates bilaterally based on the CT of the chest. No evidence of any pulmonary embolism. Awaiting final report from radiology. Acute COPD exacerbation secondary to above Obesity with a BMI of 40.1 Coronary artery disease, with previous coronary stenting Hyperlipidemia Chronic hypoxic respiratory failure the patient has been maintained on oxygen 4 L/min nasal cannula Advanced COPD maintained on a combination of Advair and Spiriva on outpatient basis the patient is a previous smoker Plan The patient will be given O2 and the O2 will be titrated to maintain saturation above 90%, currently on 4 L of O2 nasal cannula. The patient desaturates when she is off the O2 and her O2 flow is constantly being titrated. Continue IV Solu-Medrol 60 mg every 6 hours The patient is outside the window for remdesivir as the patient symptoms have been more than a week The patient will be started on Lovenox 40 mg subcu for DVT prophylaxis. Awaiting final report and CT of the chest, based on my review, no evidence of any pulmonary embolism is consistent with an early stage mild COVID-19 pneumonia Inflammatory markers and not much elevated Anticipate recovery Resume home medications Resume tiotropium and Advair and utilize albuterol HFA [id number] as needed Will continue to follow.
--- NOTE | 2024-02-15 22:42 | P.PN ---
Subjective Progress Note Date: 02/15/24 63-year-old female present to the emergency department for further evaluation of increasing shortness of breath as well as changes in her mental status for the past day and a half according to her daughter. Patient's past medical history significant for COPD, in which she was recently started on treatment for bronchitis with steroids and antibiotics (doxycycline). Upon presentation patient states she was not feeling well, with increased confusion difficulty speaking. Her daughter, sitting at bedside, states that she was saturating 86% on room air. Patient denies any recent travel. Per patient's viral panel taken upon arrival to the emergency department patient states positive COVID-19. Pulmonology has been consulted and will see the patient for COPD exacerbation as well as COVID-19 infection. Upon arrival to the emergency department patient was afebrile blood pressure 118/67, heart rate of 81, respiratory rate of 16 with an oxygen saturation of 80% on room air. When seen the patient today, she reports she is feeling better and her daughter who is at her bedside also reports that she is presenting better than she had been the previous couple of days, and her mentation had improved greatly. She states that she is looking more like "herself". Initial lab work done in the ER showed WBCs 5.9, Hgb 14.8, Hct 45.7, PLT 108; PT 10.8, INR 1.0, PTT 27.1; blood gas pH 7.36, pCO2 33, HCO3 18; sodium 136, potassium 4.3, BUN 45, creatinine 1.03 Influenza A not detected Influenza B not detected RSV not detected COVID-19 positive EKG done in the ER showed heart rate of 82, no ST segment elevation or depression seen, no T-wave inversions seen. Chest x-ray done in the ER showed increased perihilar lung markings, to be correlated for infectious etiologies, pulmonary edema could be considered 02/14/24 - Patient seen at bedside today. She states that she is feeling better than she was yesterday, however she states that it feels like she "smoked 3 packs" and has remained short of breath. Progress states it is closer to her baseline when she was over the past few days however still not all the way back. Overnight patient's blood pressure was recorded as 90/50, with a heart rate of 64, respiratory rate of 18 saturating 95% on 4 and half liters of nasal cannula. Due to the patient having persistently low blood pressures we will hold 100 mg Cozaar and 20 mg Lopressor today and continue to monitor make adjustments as needed. Per pulmonology recommendation patient underwent CT angiogram of the chest to help rule out pulmonary embolism and at the same time evaluate for COVID-19 pneumonia and it was noted that the patient is a chronic smoker, on review of the CTA of the chest there were bilateral areas of scattered patchy groundglass pulmonary infiltrates consistent with COVID-19 related pneumonia worse on the left side compared to the right side. Patient will continue on O2 and will be titrated to maintain saturation above 90% overnight on 4 and half liters of oxygen nasal cannula, per pulmonology request patient started on IV Solu-Medrol 60 mg every 6 hours, she is outside the window for remdesivir as patient is had symptoms for more than a week, additionally patient was started on Lovenox 40 mg subcutaneously for DVT prophylaxis. Patient's LDH 230, e levated CRP at 6.3 and procalcitonin was unremarkable at 0.07. Additionally last night patient's 30 mg nightly, hold Wellbutrin and 200 mg nightly of Zoloft) presumed upon request with the patient and the patient's daughter. Labs done today - Currently pending at time of dictation. CT of the chest completed on 02/12 yet to evaluate official final read from radiologist, however per pulmonology's report he was to evaluate for possible pulmonary embolism but at the same time evaluated for COVID-19 pneumonia and was noted that there were bilateral areas of scattered patchy groundglass pulmonary infiltrates consistent with COVID-19 worse on the left side. 02/15/2024 Patient is evaluated today in follow up resting in bed. Continues on 4L of oxygen with adequate saturations. She continue to report shortness of breath and sputum production. No wheezing noted, there is some scattered ronchi. Patient remains on albuterol PRN as well as IV solumedrol. Patient has not been resumed on her home inhalers as of yet including spiriva and Advair HFA. chest CT angio that has been taken on the is not yet resulted by radiology. REVIEW OF SYSTEMS: CONSTITUTIONAL: No fever, no malaise, no fatigue. HEENT: No recent visual problems or hearing problems. Denied any sore throat. CARDIOVASCULAR: No chest pain, orthopnea, PND, no palpitations, no syncope. PULMONARY: Shortness of breath. GASTROINTESTINAL: No diarrhea, no nausea, no vomiting, no abdominal pain. NEUROLOGICAL: No headaches, no weakness, no numbness. PHYSICAL EXAMINATION: GENERAL: The patient is alert and oriented x3, not in any acute distress. Well developed, well nourished. HEENT: Pupils are round and equally reacting to light. EOMI. No scleral icterus. No conjunctival pallor. Normocephalic, atraumatic. No pharyngeal erythema. No thyromegaly. CARDIOVASCULAR: S1 and S2 present. No murmurs, rubs, or gallops. PULMONARY: Diminished breath sounds scattered ronchi, no wheeze. ABDOMEN: Soft, nontender, nondistended, normoactive bowel sounds. No palpable organomegaly. MUSCULOSKELETAL: No joint swelling or deformity. EXTREMITIES: No cyanosis, clubbing, or pedal edema. NEUROLOGICAL: Gross neurological examination did not reveal any focal deficits. Assessment and plan # Acute hypoxic respiratory failure secondary to pneumonitis pneumonia due to COPD exacerbation as a result of recently diagnosed bronchitis Patient's baseline saturation at home according to the daughter is 85-88% on 4 L nasal cannula Patient does state that her customer experience professional (Acosta Willis) recently decided that patient should have her oxygen up from 4 L to 6 L Patient is currently on 3/4 L nasal cannula saturating in the low 90%'s Per pulmonology's recommendation urgent CT angio of the chest ordered and reports remain pending from radiology. -Procalcitonin level normal. # Acute kidney injury possibly secondary to acute hypoxic respiratory failure - improving On presentation to the emergency department patient's BUN was 45 and creatinine was 1.03 As of this morning patient's BUN is improved to 30.3 and creatinine is improved to 0.8 # Recent history of cardiac stenting Patient on Plavix 75 mg daily #Altered mental status - improved Patient's daughter states that her mentations had declined over the previous few days States that her mother's mentation has improved greatly today and she is much more like herself #Anxiety Resume patient's on medications of 200 mg nightly of Zoloft and 300 mg nightly of Wellbutrin #Hypertension Patient's home medications include 50 mg hydroxyzine 3 times daily, 100 mg Cozaar daily, 25 mg Lopressor twice daily Patient's blood pressures were running low overnight at 90/50, going to hold 100 mg Cozaar today and 25 mg Lopressor; continue the hydroxyzine Continue to monitor and make alterations as necessary GI prophylaxis: Protonix 40 mg daily DVT prophylaxis: Lovenox 40 mg daily Continue to monitor vital signs, monitor CBC, monitor CMP, continue telemetry monitoring Labs and medication were reviewed. Continue with symptomatic treatment. Resume home medication. Dictation was produced using [employer] dictation software. please excuse any grammatical, word or spelling errors. The impression and plan of care has been dictated by Steph Powers Nurse Practitioner as directed. Dr. Josué MD I have performed a history and physical examination and medical decision making of this patient, discussed the same with the dictator, and agree with the dictators assessment and plan as written, documented as a scribe. Based on total visit time, I have performed more than 50% of this visit. Objective - Vital Signs Vital signs: Vital Signs Temp 98.2 F 02/15/24 18:53 Pulse 69 02/15/24 18:53 Resp 19 02/15/24 18:53 BP 116/52 02/15/24 18:53 Pulse Ox 90 L 02/15/24 21:24 FiO2 Intake & Output 02/15/24 02/15/24 02/16/24 06:59 18:59 06:59 Other: Voiding Method Toilet Toilet # Voids 3 3 - Labs CBC & Chem 7: 02/14/24 07:31 02/15/24 10:47 Labs: Abnormal Lab Results - Last 24 Hours (Table) 02/15/24 Range/Units 10:47 Sodium 136 L (137-145) mmol/L Carbon Dioxide 21 L (22-30) mmol/L BUN 35 H (7-17) mg/dL Glucose 142 H (74-99) mg/dL Assessment and Plan Time with Patient: Less than 30
[2024-02-16] MEDS: SYMBICORT 160-4.5 MCG INHALER INHALATION SCH (00:17)
[2024-02-16] MEDS: INSULIN ASPART (NovoLOG) 100 UNIT/ML VIAL SQ SCH (06:57)
[2024-02-16] MEDS: TIOTROPIUM 2.5 MCG INHALER INHALATION SCH (08:10)
[2024-02-16 10:17] LABS: Basophils % (A) 0 %; Eosinophils % (A) 0 %; HGB 14.2 gm/dL (11.4-16.0); Lymphocytes # (A) 0.7 k/uL (1.0-4.8); Lymphocytes % (A) 6 %; MCH 28.6 pg (25.0-35.0); MCV 86.9 fL (80.0-100.0); Mean Platelet Volume 8.5; Monocytes # (A) 0.8 k/uL (0-1.0); Monocytes % (A) 7 %; Neutrophils # (A) 9.6 k/uL (1.3-7.7); Neutrophils % (A) 85 %; RBC 4.94 m/uL (3.80-5.40); RDW 13.5 % (11.5-15.5); WBC 11.2 k/uL (3.8-10.6)
--- NOTE | 2024-02-16 10:17 | XR ---
EXAMINATION TYPE: XR chest 1V portable DATE OF EXAM: 02/16/2024 10:11 AM COMPARISON: Chest radiograph 02/12/2024, CT chest 02/13/2024 TECHNIQUE: XR chest 1V portable Portable AP radiograph of the chest. CLINICAL INDICATION:Female, 63 years old with history of covid; FINDINGS: Lungs/Pleura: No pleural effusion or pneumothorax. Similar diffuse patchy reticular opacities. Pulmonary vascularity: Unremarkable. Heart/mediastinum: Cardiomediastinal silhouette is unremarkable. Atherosclerotic calcifications are seen in the aorta. Musculoskeletal: No acute osseous pathology. IMPRESSION: Similar scattered reticular pulmonary opacities likely representing reported COVID infection. [facility], , 02/16/2024 10:14 AM
[2024-02-16 10:21] LABS: Platelet Count 187 k/uL (150-450)
[2024-02-16] MEDS ORDERED: FLUTICASONE NASAL 50MCG/SPRAY 16GM BTL EA NOSTRIL PRN (13:02)
[2024-02-16] MEDS ORDERED: SALINE NASAL GEL 14.1 GM TUBE NASAL PRN (13:03)
[2024-02-16 13:35] LABS: ALT 24 U/L (8-44); AST 33 U/L (13-35); Albumin 3.7 g/dL (3.8-4.9); Albumin/Globulin Ratio 1.37 Ratio (1.60-3.17); Alkaline Phosphatase 65 U/L (41-126); Blood Urea Nitrogen 22.8 mg/dL (9.0-27.0); Calcium 8.8 mg/dL (8.7-10.3); Carbon Dioxide 23.6 mmol/L (21.6-31.8); Chloride 102 mmol/L (96-109); Globulin 2.7 g/dL (1.6-3.3); Glucose 158 mg/dL (70-110); Potassium 5.2 mmol/L (3.5-5.5); Sodium 139 mmol/L (135-145); Total Bilirubin 0.6 mg/dL (0.3-1.2); Total Protein 6.4 g/dL (6.2-8.2)
--- NOTE | 2024-02-16 14:19 | P.PN ---
Subjective Progress Note Date: 02/16/24 63-year-old female present to the emergency department for further evaluation of increasing shortness of breath as well as changes in her mental status for the past day and a half according to her daughter. Patient's past medical history significant for COPD, in which she was recently started on treatment for bronchitis with steroids and antibiotics (doxycycline). Upon presentation patient states she was not feeling well, with increased confusion difficulty speaking. Her daughter, sitting at bedside, states that she was saturating 86% on room air. Patient denies any recent travel. Per patient's viral panel taken upon arrival to the emergency department patient states positive COVID-19. Pulmonology has been consulted and will see the patient for COPD exacerbation as well as COVID-19 infection. Upon arrival to the emergency department patient was afebrile blood pressure 118/67, heart rate of 81, respiratory rate of 16 with an oxygen saturation of 80% on room air. When seen the patient today, she reports she is feeling better and her daughter who is at her bedside also reports that she is presenting better than she had been the previous couple of days, and her mentation had improved greatly. She states that she is looking more like "herself". Initial lab work done in the ER showed WBCs 5.9, Hgb 14.8, Hct 45.7, PLT 108; PT 10.8, INR 1.0, PTT 27.1; blood gas pH 7.36, pCO2 33, HCO3 18; sodium 136, potassium 4.3, BUN 45, creatinine 1.03 Influenza A not detected Influenza B not detected RSV not detected COVID-19 positive EKG done in the ER showed heart rate of 82, no ST segment elevation or depression seen, no T-wave inversions seen. Chest x-ray done in the ER showed increased perihilar lung markings, to be correlated for infectious etiologies, pulmonary edema could be considered 02/14/24 - Patient seen at bedside today. She states that she is feeling better than she was yesterday, however she states that it feels like she "smoked 3 packs" and has remained short of breath. Progress states it is closer to her baseline when she was over the past few days however still not all the way back. Overnight patient's blood pressure was recorded as 90/50, with a heart rate of 64, respiratory rate of 18 saturating 95% on 4 and half liters of nasal cannula. Due to the patient having persistently low blood pressures we will hold 100 mg Cozaar and 20 mg Lopressor today and continue to monitor make adjustments as needed. Per pulmonology recommendation patient underwent CT angiogram of the chest to help rule out pulmonary embolism and at the same time evaluate for COVID-19 pneumonia and it was noted that the patient is a chronic smoker, on review of the CTA of the chest there were bilateral areas of scattered patchy groundglass pulmonary infiltrates consistent with COVID-19 related pneumonia worse on the left side compared to the right side. Patient will continue on O2 and will be titrated to maintain saturation above 90% overnight on 4 and half liters of oxygen nasal cannula, per pulmonology request patient started on IV Solu-Medrol 60 mg every 6 hours, she is outside the window for remdesivir as patient is had symptoms for more than a week, additionally patient was started on Lovenox 40 mg subcutaneously for DVT prophylaxis. Patient's LDH 230, e levated CRP at 6.3 and procalcitonin was unremarkable at 0.07. Additionally last night patient's 30 mg nightly, hold Wellbutrin and 200 mg nightly of Zoloft) presumed upon request with the patient and the patient's daughter. Labs done today - Currently pending at time of dictation. CT of the chest completed on 02/12 yet to evaluate official final read from radiologist, however per pulmonology's report he was to evaluate for possible pulmonary embolism but at the same time evaluated for COVID-19 pneumonia and was noted that there were bilateral areas of scattered patchy groundglass pulmonary infiltrates consistent with COVID-19 worse on the left side. 02/15/24 - Patient is evaluated today in follow up resting in bed. Continues on 4L of oxygen with adequate saturations. She continue to report shortness of breath and sputum production. No wheezing noted, there is some scattered ronchi. Patient remains on albuterol PRN as well as IV solumedrol. Patient has not been resumed on her home inhalers as of yet including spiriva and Advair HFA. chest CT angio that has been taken on the is not yet resulted by radiology. 02/16/24 - Patient seen at bedside today. States she is feeling about the same that she has been, with some shortness of breath and feeling tired. Chest CT angio taken on 12 February still has no official report from radiology. As of this morning patient blood pressure 96/62, heart rate of 68, respiratory rate of 18 while saturating 89% on 6 L high flow nasal cannula. Throughout the day she was increased to 7 L where she has remained saturating 86-87%. Per the patient and her daughter the patient's baseline oxygen saturation is generally in the mid 80%. New labs - WBCs 11.2, Hgb 14.2, Hct 43.0, PLT 187; sodium 139, potassium 5.2 REVIEW OF SYSTEMS: CONSTITUTIONAL: No fever, no malaise, no fatigue. HEENT: No recent visual problems or hearing problems. Denied any sore throat. CARDIOVASCULAR: No chest pain, orthopnea, PND, no palpitations, no syncope. PULMONARY: Shortness of breath. GASTROINTESTINAL: No diarrhea, no nausea, no vomiting, no abdominal pain. NEUROLOGICAL: No headaches, no weakness, no numbness. HEMATOLOGICAL: Denies any bleeding or petechiae. GENITOURINARY: Denies any burning micturition, frequency, or urgency. MUSCULOSKELETAL/RHEUMATOLOGICAL: Denies any joint pain, swelling, or any muscle pain. ENDOCRINE: Denies any polyuria or polydipsia. The rest of the 14-point review of systems is negative. PHYSICAL EXAMINATION: GENERAL: The patient is alert and oriented x3, not in any acute distress. Well developed, well nourished. HEENT: Pupils are round and equally reacting to light. EOMI. No scleral icterus. No conjunctival pallor. Normocephalic, atraumatic. No pharyngeal erythema. No thyromegaly. CARDIOVASCULAR: S1 and S2 present. No murmurs, rubs, or gallops. PULMONARY: Diminished breath sounds with some wheezing present in all lung field; worse on the left side ABDOMEN: Soft, nontender, nondistended, normoactive bowel sounds. No palpable organomegaly. MUSCULOSKELETAL: No joint swelling or deformity. EXTREMITIES: No cyanosis, clubbing, or pedal edema. NEUROLOGICAL: Gross neurological examination did not reveal any focal deficits. Assessment and plan # Acute hypoxic respiratory failure secondary to pneumonitis pneumonia due to COPD exacerbation as a result of recently diagnosed bronchitis Patient's baseline saturation at home according to the daughter is 85-88% on 4 L nasal cannula Patient does state that her general teller (Acosta Willis) recently decided that patient should have her oxygen up from 4 L to 6 L Patient is currently on 3/4 L nasal cannula saturating in the low 90%'s Per pulmonology's recommendation urgent CT angio of the chest ordered, pending CRP, LDH, prolactin Patient has been increased to 7 L high flow nasal cannula saturating in the midhigh 80%'s # Acute kidney injury possibly secondary to acute hypoxic respiratory failure - improving On presentation to the emergency department patient's BUN was 45 and creatinine was 1.03 As of this morning patient's BUN is improved to 30.3 and creatinine is improved to 0.8 # Recent history of cardiac stenting Patient on Plavix 75 mg daily #Altered mental status - improved Patient's daughter states that her mentations had declined over the previous few days States that her mother's mentation has improved greatly today and she is much more like herself #Anxiety Resume patient's on medications of 200 mg nightly of Zoloft and 300 mg nightly of Wellbutrin #Hypertension Patient's home medications include 50 mg hydroxyzine 3 times daily, 100 mg Cozaar daily, 25 mg Lopressor twice daily Patient's blood pressures were running low overnight at 90/50, going to hold 100 mg Cozaar today and 25 mg Lopressor; continue the hydroxyzine Continue to monitor and make alterations as necessary GI prophylaxis: Protonix 40 mg daily DVT prophylaxis: Lovenox 40 mg daily Continue to monitor vital signs, monitor CBC, monitor CMP, continue telemetry monitoring Labs and medication were reviewed. Continue with symptomatic treatment. Resume home medication. Dictation was produced using [employer] dictation software. please excuse any grammatical, word or spelling errors. Dr. Josué MD I have performed a history and physical examination and medical decision making of this patient, discussed the same with the the resident, and agree with the assessment and plan as written. I performed brief physical exam. Objective - Vital Signs Vital signs: Vital Signs Temp 98.2 F 02/16/24 01:00 Pulse 67 02/16/24 01:00 Resp 18 02/16/24 01:00 BP 101/61 02/16/24 01:00 Pulse Ox 88 L 02/16/24 01:00 FiO2 Intake & Output 02/15/24 02/16/24 02/16/24 18:59 06:59 18:59 Other: Voiding Method Toilet Toilet # Voids 3 1 - Labs CBC & Chem 7: 02/17/24 03:35 02/17/24 03:35 Labs: Abnormal Lab Results - Last 24 Hours (Table) 02/15/24 Range/Units 10:47 Sodium 136 L (137-145) mmol/L Carbon Dioxide 21 L (22-30) mmol/L BUN 35 H (7-17) mg/dL Glucose 142 H (74-99) mg/dL
[2024-02-16] MEDS: ACETAMINOPHEN TAB 325 MG TAB PO PRN (16:08)
--- NOTE | 2024-02-16 17:13 | P.PN ---
Subjective Progress Note Date: 02/16/24 This is a 63-year-old female patient, known history of COPD was been seeing Dr. Cornell at [facility]. 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 The patient is an ex-smoker. She has quit smoking. The patient has been maintained on a combination of Advair and Spiriva on an outpatient basis and albuterol HFA on a as needed basis. The patient has been having symptoms of URI, cough congestion, generalized weakness and fatigue and tiredness and the patient came into the hospital where she was diagnosed having COVID-19 infection. Noted the patient has been symptomatic for more than a week. She has seen her pulm onologist, Dr. Cornell who treated her with a course of antibiotics and steroids. Nevertheless, her condition did not improve and she ended up coming into the hospital. No nausea vomiting or diarrhea. No abdominal pain. No altered mentation. The chest x-ray that was done at time of admission showed increased perihilar lung markings. No previous history of DVT or pulmonary embolism. I ordered a CTA of the chest on this patient to rule out pulmonary embolism and at the same time evaluate for COVID-19 related pneumonia. Noted the patient is also a chronic smoker. I reviewed the CTA of the chest and there are bilateral areas of scattered patchy groundglass pulmonary infiltrates consistent with COVID-19 related pneumonia more so on the left compared to the right. The patient has no filling defects to indicate pulmonary embolism. Awaiting a final report from radiology. Note that this has never been infected with COVID-19 in the past and she has never been vaccinated. 02/14/2024, patient is doing well. Less short of breath compared to yesterday. CAT scan of the chest showed some patchy groundglass pulmonary filtrates consistent with COVID-19 infection. However, clinically patient doing better. No evidence of any pulmonary involvement. No evidence of any lung masses. She remains on bronchodilators with albuterol HFA 4 times [id number] and the patient is on IV Solu-Medrol 60 mg every 6 hours. No abnormalities in her blood work. The CBC shows a white cell count of 6.3 with a hemoglobin 13 and a platelet count of 132. BUN 42 with a creatinine of 1.02. Serum bicarbonate 17 and sodium levels at 133 and a potassium level is at 4.3. 02/15/2024, the patient is being seen for a follow-up. The patient is doing well. The patient is being treated for an acute COPD exacerbation. The patient also has a component of COVID-19 pneumonia and she remains on 40 of oxygen by nasal cannula. She was given IV Solu-Medrol. She was outside the window for remdesivir treatment. She is noted advanced COPD. Based on my review of the CT of the chest, there is no evidence of any pulm embolism. There is patchy areas of pulm infiltration consistent with COVID-19 infection. No evidence of any lung masses or tumors. The patient is currently on 6 L of O2 nasal cannula. At times, she removes her oxygen she desaturates. No new labs are available from today. Her procalcitonin level is at 0.07. The LDH level was at 230. Rest of the inflammatory markers were minimally elevated. Otherwise, awake and alert, no altered mentation. No signs of any CO2 narcosis. The patient is seen today February 16, 2024 in follow-up on the regular medical floor. She is currently resting in bed. Awake and alert in no acute distress. She is having ongoing issues with oxygen desaturations. She is currently on 7 L high flow nasal cannula with O2 saturations in the low 80s. She is continued on Symbicort, Spiriva, albuterol and Solu-Medrol. Lovenox for DVT prophylaxis. Chest x-ray shows similar scattered reticular pulmonary opacities secondary to COVID infection. White count 11.2. Hemoglobin 14.2. Sodium 139. Potassium 5.2. Bicarb 24. BUN 23. Creatinine 0.8. Glucose 158. Objective - Vital Signs Vital signs: Vital Signs Temp 98.2 F 02/16/24 14:05 Pulse 88 02/16/24 14:05 Resp 18 02/16/24 14:05 BP 115/68 02/16/24 14:05 Pulse Ox 87 L 02/16/24 14:05 FiO2 Intake & Output 02/15/24 02/16/24 02/16/24 18:59 06:59 18:59 Other: Voiding Method Toilet Toilet # Voids 3 1 - Exam GENERAL EXAM: Alert, pleasant 63-year-old female, on 7 L high flow nasal cannula, fairly comfortable in no apparent distress. HEAD: Normocephalic. EYES: Normal reaction of pupils, equal size. NOSE: Clear with pink turbinates. THROAT: No erythema or exudates. NECK: No masses, no JVD. CHEST: No chest wall deformity. LUNGS: Equal air entry with bilateral scattered rhonchi. CVS: S1 and S2 normal with no audible murmur, regular rhythm. ABDOMEN: No hepatosplenomegaly, normal bowel sounds, no guarding or rigidity. SPINE: No scoliosis or deformity SKIN: No rashes CENTRAL NERVOUS SYSTEM: No focal deficits, tone is normal in all 4 extremities. EXTREMITIES: There is no peripheral edema. No clubbing, no cyanosis. Peripheral pulses are intact. - Labs CBC & Chem 7: 02/16/24 09:02 02/16/24 09:02 Labs: Abnormal Lab Results - Last 24 Hours (Table) 02/16/24 02/16/24 Range/Units 09:02 09:02 WBC 11.2 H (3.8-10.6) k/uL Neutrophils # 9.6 H (1.3-7.7) k/uL Lymphocytes # 0.7 L (1.0-4.8) k/uL Anion Gap 13.40 H (4.00-12.00) mmol/L BUN/Creatinine Ratio 28.50 H (12.00-20.00) Ratio Glucose 158 H (70-110) mg/dL Albumin 3.7 L (3.8-4.9) g/dL Albumin/Globulin Ratio 1.37 L (1.60-3.17) Ratio Assessment and Plan Assessment: Acute on chronic hypoxic respiratory failure and the patient is currently on 7 L high flow nasal cannula. The FiO2 is being titrated Acute COVID-19 infection/pneumonia and the patient has patchy areas of groundglass pulm infiltrates bilaterally based on the CT of the chest. No evidence of any pulmonary embolism. Acute COPD exacerbation secondary to above Obesity with a BMI of 40.1 Coronary artery disease, with previous coronary stenting Hyperlipidemia Chronic hypoxic respiratory failure the patient has been maintained on oxygen 4 L/min nasal cannula Advanced COPD maintained on a combination of Advair and Spiriva on outpatient basis the patient is a previous smoker Plan: The patient is seen and evaluated Chest x-ray, labs and medications reviewed Continue to titrate the FiO2 as tolerated Keep O2 saturations greater than 85% Continue the current treatment plan We will continue to follow I have personally seen and examined the patient, performed the documentation and the assessment and plan as written. Number of minutes spent on the visit: 10.
[2024-02-17 08:32] LABS: Basophils # (A) 0.01 X 10*3/uL (0.00-0.10); Basophils % (A) 0.1 %; Eosinophils # (A) 0 X 10*3/uL (0.04-0.35); Eosinophils % (A) 0 %; HGB 13.4 g/dL (12.0-15.0); Lymphocytes # (A) 0.43 X 10*3/uL (0.90-5.00); Lymphocytes % (A) 4.7 %; MCH 27.9 pg (27.0-32.0); MCHC 32.7 g/dL (32.0-37.0); MCV 85.2 FL (80.0-97.0); Mean Platelet Volume 10.9 FL (9.5-12.2); Monocytes # (A) 0.62 X 10*3/uL (0.20-1.00); Monocytes % (A) 6.8 %; NRBC Per 100 WBC 0 X 10*3/uL (0.00-0.01); Neutrophils % (A) 87.6 %; Platelet Count 174 X 10*3/uL (140-440); RBC 4.81 X 10*6/uL (4.10-5.20); RDW 13.2 % (11.5-14.5); WBC 9.13 X 10*3/uL (4.50-10.00)
[2024-02-17 09:04] LABS: BUN/Creat Ratio 25.29 Ratio (12.00-20.00); Blood Urea Nitrogen 17.7 mg/dL (9.0-27.0); Calcium 8.2 mg/dL (8.7-10.3); Carbon Dioxide 22.7 mmol/L (21.6-31.8); Chloride 101 mmol/L (96-109); Glucose 180 mg/dL (70-110); Potassium 4.1 mmol/L (3.5-5.5); Sodium 134 mmol/L (135-145)
--- NOTE | 2024-02-17 12:01 | XR ---
EXAMINATION TYPE: XR chest 1V portable DATE OF EXAM: 02/17/2024 11:55 AM COMPARISON: Chest radiographs from 02/16/2024, CT chest 02/13/2024 TECHNIQUE: XR chest 1V portable Portable AP radiograph of the chest. CLINICAL INDICATION:Female, 63 years old with history of Hypoxemia; FINDINGS: Lungs/Pleura: No pleural effusion or pneumothorax. Similar diffuse patchy reticular opacities. Pulmonary vascularity: Unremarkable. Heart/mediastinum: Cardiomediastinal silhouette is unremarkable. Atherosclerotic calcifications are seen in the aorta. Musculoskeletal: No acute osseous pathology. IMPRESSION: Similar scattered reticular pulmonary opacities likely representing reported COVID infection. [facility], , 02/17/2024 11:59 AM
--- NOTE | 2024-02-17 12:10 | P.PN ---
Subjective Progress Note Date: 02/17/24 63-year-old female present to the emergency department for further evaluation of increasing shortness of breath as well as changes in her mental status for the past day and a half according to her daughter. Patient's past medical history significant for COPD, in which she was recently started on treatment for bronchitis with steroids and antibiotics (doxycycline). Upon presentation patient states she was not feeling well, with increased confusion difficulty speaking. Her daughter, sitting at bedside, states that she was saturating 86% on room air. Patient denies any recent travel. Per patient's viral panel taken upon arrival to the emergency department patient states positive COVID-19. Pulmonology has been consulted and will see the patient for COPD exacerbation as well as COVID-19 infection. Upon arrival to the emergency department patient was afebrile blood pressure 118/67, heart rate of 81, respiratory rate of 16 with an oxygen saturation of 80% on room air. When seen the patient today, she reports she is feeling better and her daughter who is at her bedside also reports that she is presenting better than she had been the previous couple of days, and her mentation had improved greatly. She states that she is looking more like "herself". Initial lab work done in the ER showed WBCs 5.9, Hgb 14.8, Hct 45.7, PLT 108; PT 10.8, INR 1.0, PTT 27.1; blood gas pH 7.36, pCO2 33, HCO3 18; sodium 136, potassium 4.3, BUN 45, creatinine 1.03 Influenza A not detected Influenza B not detected RSV not detected COVID-19 positive EKG done in the ER showed heart rate of 82, no ST segment elevation or depression seen, no T-wave inversions seen. Chest x-ray done in the ER showed increased perihilar lung markings, to be correlated for infectious etiologies, pulmonary edema could be considered 02/14/24 - Patient seen at bedside today. She states that she is feeling better than she was yesterday, however she states that it feels like she "smoked 3 packs" and has remained short of breath. Progress states it is closer to her baseline when she was over the past few days however still not all the way back. Overnight patient's blood pressure was recorded as 90/50, with a heart rate of 64, respiratory rate of 18 saturating 95% on 4 and half liters of nasal cannula. Due to the patient having persistently low blood pressures we will hold 100 mg Cozaar and 20 mg Lopressor today and continue to monitor make adjustments as needed. Per pulmonology recommendation patient underwent CT angiogram of the chest to help rule out pulmonary embolism and at the same time evaluate for COVID-19 pneumonia and it was noted that the patient is a chronic smoker, on review of the CTA of the chest there were bilateral areas of scattered patchy groundglass pulmonary infiltrates consistent with COVID-19 related pneumonia worse on the left side compared to the right side. Patient will continue on O2 and will be titrated to maintain saturation above 90% overnight on 4 and half liters of oxygen nasal cannula, per pulmonology request patient started on IV Solu-Medrol 60 mg every 6 hours, she is outside the window for remdesivir as patient is had symptoms for more than a week, additionally patient was started on Lovenox 40 mg subcutaneously for DVT prophylaxis. Patient's LDH 230, e levated CRP at 6.3 and procalcitonin was unremarkable at 0.07. Additionally last night patient's 30 mg nightly, hold Wellbutrin and 200 mg nightly of Zoloft) presumed upon request with the patient and the patient's daughter. Labs done today - Currently pending at time of dictation. CT of the chest completed on 02/12 yet to evaluate official final read from radiologist, however per pulmonology's report he was to evaluate for possible pulmonary embolism but at the same time evaluated for COVID-19 pneumonia and was noted that there were bilateral areas of scattered patchy groundglass pulmonary infiltrates consistent with COVID-19 worse on the left side. 02/15/24 - Patient is evaluated today in follow up resting in bed. Continues on 4L of oxygen with adequate saturations. She continue to report shortness of breath and sputum production. No wheezing noted, there is some scattered ronchi. Patient remains on albuterol PRN as well as IV solumedrol. Patient has not been resumed on her home inhalers as of yet including spiriva and Advair HFA. chest CT angio that has been taken on the is not yet resulted by radiology. 02/16/24 - Patient seen at bedside today. States she is feeling about the same that she has been, with some shortness of breath and feeling tired. Chest CT angio taken on 12 February still has no official report from radiology. As of this morning patient blood pressure 96/62, heart rate of 68, respiratory rate of 18 while saturating 89% on 6 L high flow nasal cannula. Throughout the day she was increased to 7 L where she has remained saturating 86-87%. Per the patient and her daughter the patient's baseline oxygen saturation is generally in the mid 80%. New labs - WBCs 11.2, Hgb 14.2, Hct 43.0, PLT 187; sodium 139, potassium 5.2 02/17/24 - Patient seen at bedside today. Patient states she continues to feel about the same, with shortness of breath and being tired. Chest CT angio taken on 12 February cells no official report from radiology. Chest x-ray ordered yesterday showed similar scattered reticular pulmonary opacities likely representing reported COVID infection. Overnight patient blood pressure 117/65, heart rate of 76, respiratory rate of 20, placed on 15 L high flow nasal cannula saturating in the mid 90s. Per pulmonology's recommendation goal of patient's saturations is to remain greater than 85%. As of this morning patient was moved on to Airvo with an O2 flow rate of 60 and FiO2 of 80%, and with this patient has been saturating between 85-89%. Patient does report increased shortness of breath as compared to yesterday, however was resting somewhat comfortably in bed. New labs -WBCs 9.13, Hgb 13.4, Hct 41.0, PLT 174; sodium 134, potassium 4.1, BUN 17.7, creatinine 0.7 REVIEW OF SYSTEMS: CONSTITUTIONAL: No fever, no malaise, no fatigue. HEENT: No recent visual problems or hearing problems. Denied any sore throat. CARDIOVASCULAR: No chest pain, orthopnea, PND, no palpitations, no syncope. PULMONARY: Shortness of breath. GASTROINTESTINAL: No diarrhea, no nausea, no vomiting, no abdominal pain. NEUROLOGICAL: No headaches, no weakness, no numbness. HEMATOLOGICAL: Denies any bleeding or petechiae. GENITOURINARY: Denies any burning micturition, frequency, or urgency. MUSCULOSKELETAL/RHEUMATOLOGICAL: Denies any joint pain, swelling, or any muscle pain. ENDOCRINE: Denies any polyuria or polydipsia. The rest of the 14-point review of systems is negative. PHYSICAL EXAMINATION: GENERAL: The patient is alert and oriented x3, not in any acute distress. Well developed, well nourished. HEENT: Pupils are round and equally reacting to light. EOMI. No scleral icterus. No conjunctival pallor. Normocephalic, atraumatic. No pharyngeal erythema. No thyromegaly. CARDIOVASCULAR: S1 and S2 present. No murmurs, rubs, or gallops. PULMONARY: Diminished breath sounds with wheezing present in all lung field. ABDOMEN: Soft, nontender, nondistended, normoactive bowel sounds. No palpable organomegaly. MUSCULOSKELETAL: No joint swelling or deformity. EXTREMITIES: No cyanosis, clubbing, or pedal edema. NEUROLOGICAL: Gross neurological examination did not reveal any focal deficits. 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 decided that patient should have her oxygen up from 4 L to 6 L Patient is currently on 3/4 L nasal cannula saturating in the low 90%'s Per pulmonology's recommendation urgent CT angio of the chest ordered, pending CRP, LDH, prolactin Patient has been increased to 7 L high flow nasal cannula saturating in the midhigh 80%'s Beginning yesterday afternoon (02/02) patient placed on 15 L high flow nasal cannula; with FiO2 titration as the goal Patient placed on Airvo this morning (02/16) with an O2 flow rate of 60 and FiO2 of 80% # Acute kidney injury possibly secondary to acute hypoxic respiratory failure - resolved On presentation to the emergency department patient's BUN was 45 and creatinine was 1.03 As of this morning patient's BUN is improved to 30.3 and creatinine is improved to 0.8 As of this morning 02/16 BUN 17.7, creatinine of 0.7 # Recent history of cardiac stenting Patient on Plavix 75 mg daily #Altered mental status - resolved Patient's daughter states that her mentations had declined over the previous few days States that her mother's mentation has improved greatly today and she is much more like herself #Anxiety Resume patient's on medications of 200 mg nightly of Zoloft and 300 mg nightly of Wellbutrin #Hypertension Patient's home medications include 50 mg hydroxyzine 3 times daily, 100 mg Cozaar daily, 25 mg Lopressor twice daily Patient's blood pressures were running low overnight at 90/50, going to hold 100 mg Cozaar today and 25 mg Lopressor; continue the hydroxyzine Continue to monitor and make alterations as necessary GI prophylaxis: Protonix 40 mg daily DVT prophylaxis: Lovenox 40 mg daily Continue to monitor vital signs, monitor CBC, monitor CMP, continue telemetry monitoring Labs and medication were reviewed. Continue with symptomatic treatment. Resume home medication. Dictation was produced using [employer] dictation software. please excuse any gr ammatical, word or spelling errors. Dr. Josué MD I have performed a history and physical examination and medical decision making of this patient, discussed the same with the the resident, and agree with the assessment and plan as written. I performed brief physical exam. Objective - Vital Signs Vital signs: Vital Signs Temp 97.7 F 02/17/24 01:30 Pulse 76 02/17/24 01:30 Resp 20 02/17/24 01:30 BP 117/65 02/17/24 01:30 Pulse Ox 95 02/17/24 01:30 FiO2 Intake & Output 02/16/24 02/17/24 02/17/24 18:59 06:59 18:59 Other: Voiding Method Toilet Bedside Commode # Voids 2 1 - Labs CBC & Chem 7: 02/19/24 09:37 02/19/24 06:07 Labs: Abnormal Lab Results - Last 24 Hours (Table) 02/16/24 02/16/24 Range/Units 09:02 09:02 WBC 11.2 H (3.8-10.6) k/uL Neutrophils # 9.6 H (1.3-7.7) k/uL Lymphocytes # 0.7 L (1.0-4.8) k/uL Anion Gap 13.40 H (4.00-12.00) mmol/L BUN/Creatinine Ratio 28.50 H (12.00-20.00) Ratio Glucose 158 H (70-110) mg/dL Albumin 3.7 L (3.8-4.9) g/dL Albumin/Globulin Ratio 1.37 L (1.60-3.17) Ratio
--- NOTE | 2024-02-17 14:48 | P.PN ---
Subjective Progress Note Date: 02/17/24 This is a 63-year-old female patient, known history of COPD was been seeing Dr. Cornell at [facility]. 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 The patient is an ex-smoker. She has quit smoking. The patient has been maintained on a combination of Advair and Spiriva on an outpatient basis and albuterol HFA on a as needed basis. The patient has been having symptoms of URI, cough congestion, generalized weakness and fatigue and tiredness and the patient came into the hospital where she was diagnosed having COVID-19 infection. Noted the patient has been symptomatic for more than a week. She has seen her pulm onologist, Dr. Cornell who treated her with a course of antibiotics and steroids. Nevertheless, her condition did not improve and she ended up coming into the hospital. No nausea vomiting or diarrhea. No abdominal pain. No altered mentation. The chest x-ray that was done at time of admission showed increased perihilar lung markings. No previous history of DVT or pulmonary embolism. I ordered a CTA of the chest on this patient to rule out pulmonary embolism and at the same time evaluate for COVID-19 related pneumonia. Noted the patient is also a chronic smoker. I reviewed the CTA of the chest and there are bilateral areas of scattered patchy groundglass pulmonary infiltrates consistent with COVID-19 related pneumonia more so on the left compared to the right. The patient has no filling defects to indicate pulmonary embolism. Awaiting a final report from radiology. Note that this has never been infected with COVID-19 in the past and she has never been vaccinated. 02/14/2024, patient is doing well. Less short of breath compared to yesterday. CAT scan of the chest showed some patchy groundglass pulmonary filtrates consistent with COVID-19 infection. However, clinically patient doing better. No evidence of any pulmonary involvement. No evidence of any lung masses. She remains on bronchodilators with albuterol HFA 4 times [id number] and the patient is on IV Solu-Medrol 60 mg every 6 hours. No abnormalities in her blood work. The CBC shows a white cell count of 6.3 with a hemoglobin 13 and a platelet count of 132. BUN 42 with a creatinine of 1.02. Serum bicarbonate 17 and sodium levels at 133 and a potassium level is at 4.3. 02/15/2024, the patient is being seen for a follow-up. The patient is doing well. The patient is being treated for an acute COPD exacerbation. The patient also has a component of COVID-19 pneumonia and she remains on 40 of oxygen by nasal cannula. She was given IV Solu-Medrol. She was outside the window for remdesivir treatment. She is noted advanced COPD. Based on my review of the CT of the chest, there is no evidence of any pulm embolism. There is patchy areas of pulm infiltration consistent with COVID-19 infection. No evidence of any lung masses or tumors. The patient is currently on 6 L of O2 nasal cannula. At times, she removes her oxygen she desaturates. No new labs are available from today. Her procalcitonin level is at 0.07. The LDH level was at 230. Rest of the inflammatory markers were minimally elevated. Otherwise, awake and alert, no altered mentation. No signs of any CO2 narcosis. The patient is seen today February 16, 2024 in follow-up on the regular medical floor. She is currently resting in bed. Awake and alert in no acute distress. She is having ongoing issues with oxygen desaturations. She is currently on 7 L high flow nasal cannula with O2 saturations in the low 80s. She is continued on Symbicort, Spiriva, albuterol and Solu-Medrol. Lovenox for DVT prophylaxis. Chest x-ray shows similar scattered reticular pulmonary opacities secondary to COVID infection. White count 11.2. Hemoglobin 14.2. Sodium 139. Potassium 5.2. Bicarb 24. BUN 23. Creatinine 0.8. Glucose 158. The patient is seen today February 17, 2024 in follow-up on the regular medical floor. She is currently awake and alert. She continues to have ongoing struggles with her breathing. This morning she was placed on Airvo high flow oxygen at 60% FiO2 and 80 L. Chest x-ray continues to show similar scattered reticular pulmonary opacities consistent with COVID infection. White count 9.1. Hemoglobin 13.4. Platelets 174. Sodium 134. Potassium 4.1. Bicarb 23. BUN 18. Creatinine 0.7. Glucose 180. She remains on Symbicort, Spiriva and albuterol along with IV Solu-Medrol. Lovenox for DVT prophylaxis. Objective - Vital Signs Vital signs: Vital Signs Temp 98.0 F 02/17/24 10:00 Pulse 96 02/17/24 13:30 Resp 23 02/17/24 13:30 BP 138/74 02/17/24 13:30 Pulse Ox 90 L 02/17/24 13:30 FiO2 80 02/17/24 13:30 Intake & Output 02/16/24 02/17/24 02/17/24 18:59 06:59 18:59 Intake Total 240 Balance 240 Intake: Oral 240 Other: Voiding Method Toilet Bedside Commode # Voids 2 1 - Exam GENERAL EXAM: Alert, 63-year-old female, on Airvo high flow oxygen at 60% FiO2 and 80 L, in mild respiratory distress. HEAD: Normocephalic. EYES: Normal reaction of pupils, equal size. NOSE: Clear with pink turbinates. THROAT: No erythema or exudates. NECK: No masses, no JVD. CHEST: No chest wall deformity. LUNGS: Equal air entry with bilateral scattered rhonchi. CVS: S1 and S2 normal with no audible murmur, regular rhythm. ABDOMEN: No hepatosplenomegaly, normal bowel sounds, no guarding or rigidity. SPINE: No scoliosis or deformity SKIN: No rashes CENTRAL NERVOUS SYSTEM: No focal deficits, tone is normal in all 4 extremities. EXTREMITIES: There is no peripheral edema. No clubbing, no cyanosis. Peripheral pulses are intact. - Labs CBC & Chem 7: 02/17/24 03:35 02/17/24 03:35 Labs: Abnormal Lab Results - Last 24 Hours (Table) 02/17/24 02/17/24 Range/Units 03:35 03:35 Immature Gran # 0.07 H (0.00-0.04) X 10*3/uL Neutrophils # 8.00 H (1.80-7.70) X 10*3/uL Lymphocytes # 0.43 L (0.90-5.00) X 10*3/uL Eosinophils # 0 L (0.04-0.35) X 10*3/uL Sodium 134 L (135-145) mmol/L BUN/Creatinine Ratio 25.29 H (12.00-20.00) Ratio Glucose 180 H (70-110) mg/dL Calcium 8.2 L (8.7-10.3) mg/dL Assessment and Plan Assessment: Acute on chronic hypoxic respiratory failure and the patient is currently on Airvo high flow oxygen at 60% FiO2 and 80 L Acute COVID-19 infection/pneumonia and the patient has patchy areas of groundglass pulm infiltrates bilaterally based on the CT of the chest. No evidence of any pulmonary embolism. Acute COPD exacerbation secondary to above Obesity with a BMI of 40.1 Coronary artery disease, with previous coronary stenting Hyperlipidemia Chronic hypoxic respiratory failure the patient has been maintained on oxygen 4 L/min nasal cannula Advanced COPD maintained on a combination of Advair and Spiriva on outpatient basis the patient is a previous smoker Plan: The patient is seen and evaluated Chest x-ray, labs and medications reviewed Now requiring Airvo high flow oxygen May qualify for baricitinib Continue bronchodilators, steroids, Lovenox Transfer to the intensive care unit for closer monitoring I have personally seen and examined the patient, performed the documentation and the assessment and plan as written. Number of minutes spent on the visit: 10.
[2024-02-17] MEDS ORDERED: ONDANSETRON 4 MG/2 ML VIAL IVP PRN (15:35)
[2024-02-17 17:08] LABS: C Reactive Protein 15.9 mg/dL (<1.0)
[2024-02-17] MEDS: SODIUM CHLORIDE 0.9% 1,000 ML IV SCH (19:00)
[2024-02-17] MEDS: SODIUM CHLORIDE 0.9% 500 ML 500 ML IV ONE (23:12)
[2024-02-18 06:30] LABS: Basophils % (A) 0 %; Eosinophils % (A) 0 %; HGB 13.2 gm/dL (11.4-16.0); Hypochromasia Slight; Lymphocytes # (A) 0.3 k/uL (1.0-4.8); Lymphocytes % (A) 3 %; MCH 27.7 pg (25.0-35.0); MCHC 31.4 g/dL (31.0-37.0); MCV 88.2 fL (80.0-100.0); Mean Platelet Volume 7.8; Monocytes # (A) 0.5 k/uL (0-1.0); Monocytes % (A) 4 %; Neutrophils # (A) 9.8 k/uL (1.3-7.7); Neutrophils % (A) 92 %; Platelet Count 206 k/uL (150-450); RBC 4.76 m/uL (3.80-5.40); RDW 13.1 % (11.5-15.5); WBC 10.6 k/uL (3.8-10.6)
[2024-02-18 06:38] LABS: African American GFR (CKD) >90 (>60 ml/min/1.73 sqM); Anion Gap 6 mmol/L; Blood Urea Nitrogen 17 mg/dL (7-17); Calcium 8.4 mg/dL (8.4-10.2); Carbon Dioxide 24 mmol/L (22-30); Chloride 106 mmol/L (98-107); Glucose 148 mg/dL (74-99); Non-African American GFR(CKD) >90 (>60 ml/min/1.73 sqM); Potassium 4.1 mmol/L (3.5-5.1); Sodium 136 mmol/L (137-145)
--- NOTE | 2024-02-18 08:36 | XR ---
EXAMINATION TYPE: XR chest 1V portable DATE OF EXAM: 02/18/2024 HISTORY: Shortness of breath. COMPARISON: 02/17/2024 TECHNIQUE: Single view of the chest is submitted. FINDINGS: Demonstrated are scattered senescent parenchymal change. Interstitial infiltrates throughout both lung rosales persist essentially unchanged. The heart is stable. Hilar and mediastinal structures are within normal limits. Degenerative changes are seen of the dorsal spine. IMPRESSION: 1. Interstitial infiltrates throughout both lung rosales persist essentially unchanged. [facility], , 02/18/2024 8:34 AM
[2024-02-18] MEDS: BARICITINIB 1 MG TABLET PO SCH (09:30)
--- NOTE | 2024-02-18 10:39 | CT ---
EXAMINATION TYPE: CT angio chest CT DLP: 560.1 mGycm, Automated exposure control for dose reduction was used. DATE OF EXAM: 02/13/2024 12:04 PM COMPARISON: Chest radiograph 02/12/2024 CLINICAL INDICATION:Female, 63 years old with history of dyspnea/COPD; nanda TECHNIQUE/CONTRAST: CTA scan of the thorax is performed with IV Contrast, patient injected with 100 ml mL of Isovue 300, pulmonary embolism protocol. MIP images are created and reviewed. FINDINGS: Pulmonary Artery: There is no evidence for a filling defect within the pulmonary vasculature to sugge st acute pulmonary embolism. The pulmonary artery is of normal size. Lungs/Pleura: No pleural effusion or pneumothorax. Mild to moderate centrilobular emphysematous marley es with upper lobe predominance. Patchy reticular groundglass opacities scattered throughout the lung s. Airway: Large airways are patent. Heart: Heart is within normal limits for size.. No pericardial effusion. RCA calcification. Vasculature: No evidence of aortic aneurysm. Four-vessel aortic arch. Mediastinum: Mildly prominent mediastinal and bilateral hilar lymphadenopathy. Musculoskeletal: No acute osseous abnormalities. Probable vertebral hemangioma within the L1 vertebra l body. Soft Tissues: Unremarkable. Lower neck: No significant findings. Upper Abdomen: Diffuse low-attenuation to the liver parenchyma.. IMPRESSION: 1. No evidence of pulmonary embolism. 2. Patchy reticular groundglass opacities scattered throughout the lungs concerning for atypical pneu monia. 3. Prominent mediastinal and bilateral hilar lymph nodes likely reactive to #2. 4. Mild to moderate COPD changes. 5. Hepatic steatosis. [facility], , 02/13/2024 1:21 PM
[2024-02-18] MEDS: FUROSEMIDE 10 MG/ML 4 ML VIAL IV STA (11:43)
[2024-02-18] MEDS: ALPRAZolam 0.5 MG TAB PO PRN (11:47)
--- NOTE | 2024-02-18 14:57 | P.PN ---
Subjective Progress Note Date: 02/18/24 63-year-old female present to the emergency department for further evaluation of increasing shortness of breath as well as changes in her mental status for the past day and a half according to her daughter. Patient's past medical history significant for COPD, in which she was recently started on treatment for bronchitis with steroids and antibiotics (doxycycline). Upon presentation patient states she was not feeling well, with increased confusion difficulty speaking. Her daughter, sitting at bedside, states that she was saturating 86% on room air. Patient denies any recent travel. Per patient's viral panel taken upon arrival to the emergency department patient states positive COVID-19. Pulmonology has been consulted and will see the patient for COPD exacerbation as well as COVID-19 infection. Upon arrival to the emergency department patient was afebrile blood pressure 118/67, heart rate of 81, respiratory rate of 16 with an oxygen saturation of 80% on room air. When seen the patient today, she reports she is feeling better and her daughter who is at her bedside also reports that she is presenting better than she had been the previous couple of days, and her mentation had improved greatly. She states that she is looking more like "herself". Initial lab work done in the ER showed WBCs 5.9, Hgb 14.8, Hct 45.7, PLT 108; PT 10.8, INR 1.0, PTT 27.1; blood gas pH 7.36, pCO2 33, HCO3 18; sodium 136, potassium 4.3, BUN 45, creatinine 1.03 Influenza A not detected Influenza B not detected RSV not detected COVID-19 positive EKG done in the ER showed heart rate of 82, no ST segment elevation or depression seen, no T-wave inversions seen. Chest x-ray done in the ER showed increased perihilar lung markings, to be correlated for infectious etiologies, pulmonary edema could be considered 02/14/24 - Patient seen at bedside today. She states that she is feeling better than she was yesterday, however she states that it feels like she "smoked 3 packs" and has remained short of breath. Progress states it is closer to her baseline when she was over the past few days however still not all the way back. Overnight patient's blood pressure was recorded as 90/50, with a heart rate of 64, respiratory rate of 18 saturating 95% on 4 and half liters of nasal cannula. Due to the patient having persistently low blood pressures we will hold 100 mg Cozaar and 20 mg Lopressor today and continue to monitor make adjustments as needed. Per pulmonology recommendation patient underwent CT angiogram of the chest to help rule out pulmonary embolism and at the same time evaluate for COVID-19 pneumonia and it was noted that the patient is a chronic smoker, on review of the CTA of the chest there were bilateral areas of scattered patchy groundglass pulmonary infiltrates consistent with COVID-19 related pneumonia worse on the left side compared to the right side. Patient will continue on O2 and will be titrated to maintain saturation above 90% overnight on 4 and half liters of oxygen nasal cannula, per pulmonology request patient started on IV Solu-Medrol 60 mg every 6 hours, she is outside the window for remdesivir as patient is had symptoms for more than a week, additionally patient was started on Lovenox 40 mg subcutaneously for DVT prophylaxis. Patient's LDH 230, e levated CRP at 6.3 and procalcitonin was unremarkable at 0.07. Additionally last night patient's 30 mg nightly, hold Wellbutrin and 200 mg nightly of Zoloft) presumed upon request with the patient and the patient's daughter. Labs done today - Currently pending at time of dictation. CT of the chest completed on 02/12 yet to evaluate official final read from radiologist, however per pulmonology's report he was to evaluate for possible pulmonary embolism but at the same time evaluated for COVID-19 pneumonia and was noted that there were bilateral areas of scattered patchy groundglass pulmonary infiltrates consistent with COVID-19 worse on the left side. 02/15/24 - Patient is evaluated today in follow up resting in bed. Continues on 4L of oxygen with adequate saturations. She continue to report shortness of breath and sputum production. No wheezing noted, there is some scattered ronchi. Patient remains on albuterol PRN as well as IV solumedrol. Patient has not been resumed on her home inhalers as of yet including spiriva and Advair HFA. chest CT angio that has been taken on the is not yet resulted by radiology. 02/16/24 - Patient seen at bedside today. States she is feeling about the same that she has been, with some shortness of breath and feeling tired. Chest CT angio taken on 12 February still has no official report from radiology. As of this morning patient blood pressure 96/62, heart rate of 68, respiratory rate of 18 while saturating 89% on 6 L high flow nasal cannula. Throughout the day she was increased to 7 L where she has remained saturating 86-87%. Per the patient and her daughter the patient's baseline oxygen saturation is generally in the mid 80%. New labs - WBCs 11.2, Hgb 14.2, Hct 43.0, PLT 187; sodium 139, potassium 5.2 02/17/24 - Patient seen at bedside today. Patient states she continues to feel about the same, with shortness of breath and being tired. Chest CT angio taken on 12 February cells no official report from radiology. Chest x-ray ordered yesterday showed similar scattered reticular pulmonary opacities likely representing reported COVID infection. Overnight patient blood pressure 117/65, heart rate of 76, respiratory rate of 20, placed on 15 L high flow nasal cannula saturating in the mid 90s. Per pulmonology's recommendation goal of patient's saturations is to remain greater than 85%. As of this morning patient was moved on to Airvo with an O2 flow rate of 60 and FiO2 of 80%, and with this patient has been saturating between 85-89%. Patient does report increased shortness of breath as compared to yesterday, however was resting somewhat comfortably in bed. New labs -WBCs 9.13, Hgb 13.4, Hct 41.0, PLT 174; sodium 134, potassium 4.1, BUN 17.7, creatinine 0.7 02/18/24 - Patient seen at bedside today. Patient has been moved to the ICU for further observation per pulmonology's request. As of yesterday morning patient was moved onto Airvo with an FiO2 of 80% oxygen flow rate of 60, throughout the day this was increased the FiO2 raising up to 92% through the evening, with the patient continuing to saturate in the midhigh 80%'s. Overnight the patient was placed on BiPAP with saturations between 86-91%. New chest x-ray to be completed today to compare to the previous ones. Per pulmonology patient may qualify for baricitinib, for now we will continue on bronchodilators, steroids, and Lovenox. No labs -WBCs 10.6, Hgb 13.2, Hct 42.0,PLT 206; D-dimer 0.61; sodium 136, potassium 4.1, BUN 17, creatinine 0.53 REVIEW OF SYSTEMS: CONSTITUTIONAL: No fever, no malaise, no fatigue. HEENT: No recent visual problems or hearing problems. Denied any sore throat. CARDIOVASCULAR: No chest pain, orthopnea, PND, no palpitations, no syncope. PULMONARY: Shortness of breath. GASTROINTESTINAL: No diarrhea, no nausea, no vomiting, no abdominal pain. NEUROLOGICAL: No headaches, no weakness, no numbness. HEMATOLOGICAL: Denies any bleeding or petechiae. GENITOURINARY: Denies any burning micturition, frequency, or urgency. MUSCULOSKELETAL/RHEUMATOLOGICAL: Denies any joint pain, swelling, or any muscle pain. ENDOCRINE: Denies any polyuria or polydipsia. The rest of the 14-point review of systems is negative. PHYSICAL EXAMINATION: GENERAL: The patient is alert and oriented x3, not in any acute distress. Well developed, well nourished. HEENT: Pupils are round and equally reacting to light. EOMI. No scleral icterus. No conjunctival pallor. Normocephalic, atraumatic. No pharyngeal erythema. No thyromegaly. CARDIOVASCULAR: S1 and S2 present. No murmurs, rubs, or gallops. PULMONARY: Diminished breath sounds with wheezing present in all lung field. ABDOMEN: Soft, nontender, nondistended, normoactive bowel sounds. No palpable organomegaly. MUSCULOSKELETAL: No joint swelling or deformity. EXTREMITIES: No cyanosis, clubbing, or pedal edema. NEUROLOGICAL: Gross neurological examination did not reveal any focal deficits. Assessment and plan # Acute hypoxic respiratory failure secondary to pneumonitis pneumonia due to COPD exacerbation as a result of recently diagnosed bronchitis Patient's baseline saturation at home according to the daughter is 85-88% on 4 L nasal cannula Patient does state that her chronograph operator (Acosta Willis) recently decided that patient should have her oxygen up from 4 L to 6 L Patient is currently on 3/4 L nasal cannula saturating in the low 90%'s Per pulmonology's recommendation urgent CT angio of the chest ordered, pending CRP, LDH, prolactin Patient has been increased to 7 L high flow nasal cannula saturating in the midhigh 80%'s Beginning yesterday afternoon (02/02) patient placed on 15 L high flow nasal cannula; with FiO2 titration as the goal Patient placed on Airvo this morning (02/16) with an O2 flow rate of 60 and FiO2 of 80% # Acute kidney injury possibly secondary to acute hypoxic respiratory failure - resolved On presentation to the emergency department patient's BUN was 45 and creatinine was 1.03 As of this morning patient's BUN is improved to 30.3 and creatinine is improved to 0.8 As of this morning 02/16 BUN 17.7, creatinine of 0.7 # Recent history of cardiac stenting Patient on Plavix 75 mg daily #Altered mental status - resolved Patient's daughter states that her mentations had declined over the previous few days States that her mother's mentation has improved greatly today and she is much more like herself #Anxiety Resume patient's on medications of 200 mg nightly of Zoloft and 300 mg nightly of Wellbutrin #Hypertension Patient's home medications include 50 mg hydroxyzine 3 times daily, 100 mg Cozaar daily, 25 mg Lopressor twice daily Patient's blood pressures were running low overnight at 90/50, going to hold 100 mg Cozaar today and 25 mg Lopressor; continue the hydroxyzine Continue to monitor and make alterations as necessary GI prophylaxis: Protonix 40 mg daily DVT prophylaxis: Lovenox 40 mg daily Continue to monitor vital signs, monitor CBC, monitor CMP, continue telemetry monitoring Labs and medication were reviewed. Continue with symptomatic treatment. Resume home medication. Dictation was produced using [email or web address] dictation software. please excuse any grammatical, word or spelling errors. Dr. Josué MD I have performed a history and physical examination and medical decision making of this patient, discussed the same with the the resident, and agree with the assessment and plan as written. I performed brief physical exam. Objective - Vital Signs Vital signs: Vital Signs Temp 99.3 F 02/18/24 04:00 Pulse 77 02/18/24 07:00 Resp 34 H 02/18/24 07:00 BP 143/69 02/18/24 07:00 Pulse Ox 91 L 02/18/24 07:00 FiO2 100 02/18/24 04:00 Intake & Output 02/17/24 02/18/24 02/18/24 18:59 06:59 18:59 Intake Total 856 1150 Output Total 250 435 Balance 606 715 Weight 90.5 kg Intake: IV 20 1150 Invasive Line 3 10 Invasive Line 4 10 Sodium Chloride 0.9% 1, 650 000 ml @ 50 mls/hr IV . Q20H [facility] Rx#:[id number] Sodium Chloride 0.9% 500 500 ml 500 ml @ 999 mls/hr IV .Q31M ONE Rx#:[id number] Oral 836 Output: Urine 250 435 Other: Voiding Method Bedside Commode Indwelling Catheter # Voids 0 - Labs CBC & Chem 7: 02/19/24 09:37 02/19/24 06:07 Labs: Abnormal Lab Results - Last 24 Hours (Table) 02/17/24 02/17/24 02/17/24 Range/Units 03:35 03:35 15:47 Immature Gran # 0.07 H (0.00-0.04) X 10*3/uL Neutrophils # 8.00 H (1.80-7.70) X 10*3/uL Lymphocytes # 0.43 L (0.90-5.00) X 10*3/uL Eosinophils # 0 L (0.04-0.35) X 10*3/uL D-Dimer 0.61 H (<0.60) mg/L FEU Sodium 134 L (135-145) mmol/L BUN/Creatinine Ratio 25.29 H (12.00-20.00) Ratio Glucose 180 H (70-110) mg/dL Calcium 8.2 L (8.7-10.3) mg/dL Ferritin (10.0-291.0) ng/mL Lactate Dehydrogenase (120-246) U/L C-Reactive Protein (<1.0) mg/dL 02/17/24 02/18/24 02/18/24 Range/Units 15:47 05:58 05:58 Immature Gran # (0.00-0.04) X 10*3/uL Neutrophils # 9.8 H (1.80-7.70) X 10*3/uL Lymphocytes # 0.3 L (0.90-5.00) X 10*3/uL Eosinophils # (0.04-0.35) X 10*3/uL D-Dimer (<0.60) mg/L FEU Sodium 136 L (135-145) mmol/L BUN/Creatinine Ratio (12.00-20.00) Ratio Glucose 148 H (70-110) mg/dL Calcium (8.7-10.3) mg/dL Ferritin 910.0 H (10.0-291.0) ng/mL Lactate Dehydrogenase 493 H (120-246) U/L C-Reactive Protein 15.9 H (<1.0) mg/dL
--- NOTE | 2024-02-18 15:54 | P.PN ---
Subjective Progress Note Date: 02/18/24 Principal diagnosis: Acute on chronic hypoxic respiratory failure and acute COVID-19 pneumonia with acute COPD exacerbation This is a 63-year-old female patient, known history of COPD was been seeing Dr. Cornlel at [facility]. Prior to that, she had another beam sealer through [facility] who gave her because of her insurance coverage. The patient is an ex-smoker. She has quit smoking. The patient has been maintained on a combination of Advair and Spiriva on an outpatient basis and albuterol HFA on a as needed basis. The patient has been having symptoms of URI, cough congestion, generalized weakness and fatigue and tiredness and the patient came into the hospital where she was diagnosed having COVID-19 infection. Noted the patient has been symptomatic for more than a week. She has seen her beam sealer, Dr. Cornell who treated her with a course of antibiotics and steroids. Nevertheless, her condition did not improve and she ended up coming into the hospital. No nausea vomiting or diarrhea. No abdominal pain. No altered mentation. The chest x-ray that was done at time of admission showed increased perihilar lung markings. No previous history of DVT or pulmonary embolism. I ordered a CTA of the chest on this patient to rule out pulmonary embolism and at the same time evaluate for COVID-19 related pneumonia. Noted the patient is also a chronic smoker. I reviewed the CTA of the chest and there are bilateral areas of scattered patchy groundglass pulmonary infiltrates consistent with COVID-19 related pneumonia more so on the left compared to the right. The patient has no filling defects to indicate pulmonary embolism. Aw aiting a final report from radiology. Note that this has never been infected with COVID-19 in the past and she has never been vaccinated. 02/14/2024, patient is doing well. Less short of breath compared to yesterday. CAT scan of the chest showed some patchy groundglass pulmonary filtrates consist ent with COVID-19 infection. However, clinically patient doing better. No evidence of any pulmonary involvement. No evidence of any lung masses. She remains on bronchodilators with albuterol HFA 4 times [id number] and the patient is on IV Solu-Medrol 60 mg every 6 hours. No abnormalities in her blood work. The CBC shows a white cell count of 6.3 with a hemoglobin 13 and a platelet count of 132. BUN 42 with a creatinine of 1.02. Serum bicarbonate 17 and sodium levels at 133 and a potassium level is at 4.3. 02/15/2024, the patient is being seen for a follow-up. The patient is doing well. The patient is being treated for an acute COPD exacerbation. The patient also has a component of COVID-19 pneumonia and she remains on 40 of oxygen by nasal cannula. She was given IV Solu-Medrol. She was outside the window for remdesivir treatment. She is noted advanced COPD. Based on my review of the CT of the chest, there is no evidence of any pulm embolism. There is patchy areas of pulm infiltration consistent with COVID-19 infection. No evidence of any lung masses or tumors. The patient is currently on 6 L of O2 nasal cannula. At times, she removes her oxygen she desaturates. No new labs are available from today. Her procalcitonin level is at 0.07. The LDH level was at 230. Rest of the inflammatory markers were minimally elevated. Otherwise, awake and alert, no altered mentation. No signs of any CO2 narcosis. The patient is seen today February 16, 2024 in follow-up on the regular medical floor. She is currently resting in bed. Awake and alert in no acute distress. She is having ongoing issues with oxygen desaturations. She is currently on 7 L high flow nasal cannula with O2 saturations in the low 80s. She is continued on Symbicort, Spiriva, albuterol and Solu-Medrol. Lovenox for DVT prophylaxis. Chest x-ray shows similar scattered reticular pulmonary opacities secondary to COVID infection. White count 11.2. Hemoglobin 14.2. Sodium 139. Potassium 5.2. Bicarb 24. BUN 23. Creatinine 0.8. Glucose 158. The patient is seen today February 17, 2024 in follow-up on the regular medical floor. She is currently awake and alert. She continues to have ongoing struggles with her breathing. This morning she was placed on Airvo high flow oxygen at 60% FiO2 and 80 L. Chest x-ray continues to show similar scattered reticular pulmonary opacities consistent with COVID infection. White count 9.1. Hemoglobin 13.4. Platelets 174. Sodium 134. Potassium 4.1. Bicarb 23. BUN 18. Creatinine 0.7. Glucose 180. She remains on Symbicort, Spiriva and albuterol along with IV Solu-Medrol. Lovenox for DVT prophylaxis. Patient was seen today on 02/18/2024, she is now in the ICU, she is marginal at best. Patient is critically ill, she was on Airvo yesterday at high flow and high FiO2, she is now on BiPAP at 100%, 04/23. O2 saturation is marginal, hence her chest x-ray is showing worsening of her interstitial infiltrates/presumptive COVID-19 pneumonia worsening and the patient meets the criteria to start baricitinib 4 mg daily for 14 days. Her procalcitonin level was normal and I doubt any underlying bacterial infection at this point. Clearly the patient is worsening and she will remain in the ICU, I have a feeling she may even require intubation mechanical ventilation. Patient seems to be comfortable although her O2 saturation is in the 80s. Does not seem to be in distress. She is hemodynamically stable not requiring any pressors. She is on bronchodilators, and she is also on steroids, Lasix were given to keep her on the dry side as much as possible although I am not convinced that the patient has any congestive heart failure WBC count today is 10.6 hemoglobin is 13.2 electrolytes are normal renal profile is normal her inflammatory markers are high with high LDH, high C- reactive protein, and high ferritin level. Objective - Vital Signs Vital signs: Vital Signs Temp 99.6 F 02/18/24 12:00 Pulse 80 02/18/24 15:00 Resp 25 H 02/18/24 15:00 BP 121/76 02/18/24 15:00 Pulse Ox 84 L 02/18/24 15:00 FiO2 100 02/18/24 15:00 Intake & Output 02/17/24 02/18/24 02/18/24 18:59 06:59 18:59 Intake Total 856 1150 900 Output Total 945 589 0390 Balance 606 715 -570 Weight 90.5 kg 90.5 kg Intake: IV 20 1150 400 Invasive Line 3 10 Invasive Line 4 10 Sodium Chloride 0.9% 1, 650 400 000 ml @ 50 mls/hr IV . Q20H [facility] Rx#:[id number] Sodium Chloride 0.9% 500 500 ml 500 ml @ 999 mls/hr IV .Q31M [facility] Rx#:[id number] Oral 836 500 Output: Urine 676 604 5058 Other: Voiding Method Bedside Commode Indwelling Catheter Indwelling Catheter # Voids 0 - Exam GENERAL EXAM: Reveals 63-year-old white female on BiPAP, not in distress. But O2 saturations are in the high 80s HEAD: Normocephalic. EYES: Normal reaction of pupils, equal size. NOSE: Clear with pink turbinates. THROAT: No erythema or exudates. NECK: No masses, no JVD. CHEST: No chest wall deformity. LUNGS: Crackles and rhonchi noted bilaterally. CVS: S1 and S2 normal with no audible murmur, regular rhythm. ABDOMEN: No hepatosplenomegaly, normal bowel sounds, no guarding or rigidity. SKIN: No rashes CENTRAL NERVOUS SYSTEM: Alert and oriented x 3 no gross focal deficit EXTREMITIES: No clubbing edema or cyanosis - Labs CBC & Chem 7: 02/18/24 05:58 02/18/24 05:58 Labs: Abnormal Lab Results - Last 24 Hours (Table) 02/17/24 02/17/24 02/18/24 Range/Units 15:47 15:47 05:58 Neutrophils # 9.8 H (1.3-7.7) k/uL Lymphocytes # 0.3 L (1.0-4.8) k/uL D-Dimer 0.61 H (<0.60) mg/L FEU Sodium (137-145) mmol/L Glucose (74-99) mg/dL Ferritin 910.0 H (10.0-291.0) ng/mL Lactate Dehydrogenase 493 H (120-246) U/L C-Reactive Protein 15.9 H (<1.0) mg/dL 02/18/24 Range/Units 05:58 Neutrophils # (1.3-7.7) k/uL Lymphocytes # (1.0-4.8) k/uL D-Dimer (<0.60) mg/L FEU Sodium 136 L (137-145) mmol/L Glucose 148 H (74-99) mg/dL Ferritin (10.0-291.0) ng/mL Lactate Dehydrogenase (120-246) U/L C-Reactive Protein (<1.0) mg/dL Assessment and Plan Assessment: Impression: Acute on chronic hypoxic respiratory failure patient is now requiring BiPAP 100% 04/23. Respiratory failure seems to be multifactorial related to her COVID-19 pneumonia which seems to be worsening and worsening COPD exacerbation Acute COVID-19 infection/pneumonia and the patient has patchy areas of groundglass pulm infiltrates bilaterally based on the CT of the chest. No evidence of any pulmonary embolism. Acute COPD exacerbation secondary to above Obesity with a BMI of 40.1 Coronary artery disease, with previous coronary stenting Hyperlipidemia Chronic hypoxic respiratory failure the patient has been maintained on oxygen 4 L/min nasal cannula Advanced COPD maintained on a combination of Advair and Spiriva on outpatient basis the patient is a previous smoker Recommendation: Continue to monitor closely in the ICU Continue BiPAP and titrate accordingly however if the patient gets any worse she may have to be intubated and mechanically ventilated Continue bronchodilators including steroids, continue Lovenox. We added baricitinib today. Continue GI and DVT prophylaxis Patient is critically ill. And prognosis is definitely guarded. Critical care time is over 30 Will continue to follow. Time with Patient: Greater than 30
[2024-02-18] MEDS ORDERED: CLEVIDIPINE BUTYRATE 25 MG in EMPTY BAG 1 BAG IV SCH (22:30)
[2024-02-19] MEDS: DILTIAZEM 125 MG in SODIUM CHLORIDE 0.9% 100 ML IV SCH ×2 (04:34→05:11)
[2024-02-19 04:36] LABS: ABG Base Excess -5.3 mmol/L; ABG HCO3 28 mmol/L (21-25); ABG Oxygen Saturation 73.5 % (94-97); ABG TCO2 31 mmol/L (19-24); Allen Test Performed? Yes
[2024-02-19 04:48] LABS: ABG PCO2 94 mmHg (35-45); ABG PH 7.08 (7.35-7.45); ABG PO2 55 mmHg (83-108)
--- NOTE | 2024-02-19 04:56 | P.PCN ---
Date of Procedure: 02/19/24 Preoperative Diagnosis: COVID-pneumonia; acute hypoxemic respiratory failure Postoperative Diagnosis: COVID-pneumonia; acute hypoxemic respiratory failure Procedure(s) Performed: Insertion of the left wrist radial arterial line Indications for Procedure: Continuous blood pressure monitoring and frequent blood draws Description of Procedure: Informed consent was obtained, and a procedural timeout was performed . The patient was placed in supine position. The left radial region was prepared in a sterile fashion, and a sterile drape was applied. The left radial artery was palpated, easily cannulated, and a guidewire was placed. A Cook catheter was inserted over the guidewire, and the guidewire was removed. There was good arterial blood flow, good arterial waveform, and no complications. The line was secured with using a 3-0 silk suture.
[2024-02-19] MEDS: DILTIAZEM DRIP BOLUS FROM BAG 1 MG SOLN IV ONE (04:58)
[2024-02-19] MEDS: CISATRACURIUM 2 MG/ML 5 ML VIAL IV ONE (05:48)
[2024-02-19] MEDS: SODIUM CHLORIDE 0.9% 80 ML with fentaNYL (PF) 1,000 MCG IV SCH (05:49)
[2024-02-19] MEDS: CISATRACURIUM 200 MG in SODIUM CHLORIDE 0.9% 180 ML IV SCH (05:49)
--- NOTE | 2024-02-19 06:38 | XR ---
EXAM: XR Chest, 1 View CLINICAL HISTORY: Tube placement TECHNIQUE: Frontal view of the chest. COMPARISON: February 18, 2024 FINDINGS: Lungs: Diffuse bilateral pulmonary infiltrates. These have worsened. Pleural space: Unremarkable. No pneumothorax or pleural fluid. Heart: Unremarkable. No cardiomegaly. Mediastinum: Unremarkable. Normal mediastinal contour. Bones/joints: No acute findings. Tubes, lines and devices: Interval placement of endotracheal tube with the tip measuring 1.9 cm above the maikol. Placement of gastric tube into the stomach. IMPRESSION: 1. Diffuse bilateral pulmonary infiltrates. These have worsened. 2. Interval placement of endotracheal tube with the tip measuring 1.9 cm above the maikol. Placement of gastric tube into the stomach.
[2024-02-19 06:40] LABS: African American GFR (CKD) 80 (>60 ml/min/1.73 sqM); Anion Gap 11 mmol/L; Blood Urea Nitrogen 23 mg/dL (7-17); Calcium 7.3 mg/dL (8.4-10.2); Carbon Dioxide 24 mmol/L (22-30); Chloride 107 mmol/L (98-107); Glucose 185 mg/dL (74-99); Non-African American GFR(CKD) 70 (>60 ml/min/1.73 sqM); Potassium 4.2 mmol/L (3.5-5.1); Sodium 142 mmol/L (137-145)
[2024-02-19 06:47] LABS: Basophils % (A) 0 %; Eosinophils % (A) 0 %; HCT 24.1 % (34.0-46.0); Hypochromasia Marked; Lymphocytes # (A) 0.3 k/uL (1.0-4.8); Lymphocytes % (A) 2 %; MCH 28.9 pg (25.0-35.0); MCHC 30.8 g/dL (31.0-37.0); Mean Platelet Volume 8.3; Monocytes # (A) 0.5 k/uL (0-1.0); Monocytes % (A) 4 %; Neutrophils # (A) 12.7 k/uL (1.3-7.7); Neutrophils % (A) 93 %; Platelet Count 209 k/uL (150-450); RBC 2.57 m/uL (3.80-5.40); RDW 13.7 % (11.5-15.5); WBC 13.7 k/uL (3.8-10.6)
[2024-02-19 06:49] LABS: MCV 93.7 fL (80.0-100.0)
[2024-02-19] MEDS: CHLORHEXIDINE GLUCONATE 15 ML CUP MUCOUS MEM SCH (08:01)
[2024-02-19 08:03] LABS: ABG Base Excess -9.3 mmol/L; ABG HCO3 24 mmol/L (21-25); ABG Oxygen Saturation 86.2 % (94-97); ABG PO2 71 mmHg (83-108); ABG TCO2 27 mmol/L (19-24)
[2024-02-19] MEDS: ARTIFICIAL TEARS-HYPROMELLOSE DROPS 15 ML BTL BOTH EYES SCH (08:04)
[2024-02-19 08:07] LABS: ABG PCO2 90 mmHg (35-45); ABG PH 7.03 (7.35-7.45); Allen Test Performed? no
[2024-02-19] MEDS: SODIUM BICARB 8.4% 50 ML SYR (1 MEQ/ML) IV STA (08:42)
[2024-02-19] MEDS ORDERED: TIOTROPIUM 2.5 MCG INHALER INHALATION SCH (08:58)
[2024-02-19] MEDS: NOREPINEPHRINE 4 MG in SODIUM CHLORIDE 0.9% 250 ML IV SCH (09:01)
[2024-02-19 09:44] LABS: HCT 45.9 % (34.0-46.0); Hypochromasia Marked; MCH 28.8 pg (25.0-35.0); MCHC 31.3 g/dL (31.0-37.0); Mean Platelet Volume 7.7; Platelet Count 394 k/uL (150-450); RBC 4.99 m/uL (3.80-5.40); RDW 13.4 % (11.5-15.5); WBC 32.8 k/uL (3.8-10.6)
[2024-02-19 10:01] LABS: HGB 14.4 gm/dL (11.4-16.0)
[2024-02-19 10:18] LABS: ABG Base Excess -4.6 mmol/L; ABG HCO3 27 mmol/L (21-25); ABG Oxygen Saturation 98.3 % (94-97); ABG PO2 136 mmHg (83-108); ABG TCO2 29 mmol/L (19-24)
[2024-02-19 10:21] LABS: ABG PH 7.14 (7.35-7.45)
[2024-02-19 10:22] LABS: ABG PCO2 78 mmHg (35-45); Allen Test Performed? no
[2024-02-19 10:38] LABS: Band Neutrophils % 2 %; Lymphocytes # (M) 0.66 k/uL (1.0-4.8); Metamyelocytes # (M) 0.33 k/uL (0); Metamyelocytes % 1 %; Neutrophils % (M) 89 %; Nucleated Red Blood Cells 0 /100 WBC (0-0); Total Cells Counted 200
[2024-02-19] MEDS ORDERED: DEXTROSE 5% IN WATER 1,000 ML with SODIUM BICARB (1 MEQ/ML) 150 ML IV ONE (10:41)
[2024-02-19 10:46] LABS: HGB 7.4 gm/dL (11.4-16.0)
--- NOTE | 2024-02-19 12:10 | XR ---
EXAMINATION TYPE: XR chest 1V portable DATE OF EXAM: 02/19/2024 COMPARISON: 02/19/2024 HISTORY: Tube placement, pneumonia TECHNIQUE: Single frontal view of the chest is obtained. FINDINGS: ET tube is 12 mm above the maikol and projecting towards right mainstem bronchus. There is an NG tube within the stomach. There is a left chest tube. There is no pneumothorax or large pleural effusion. There are diffuse fluffy airspace consolidative infiltrates unchanged compared prior consistent with diffuse pulmonary edema or pneumonia. The heart size is normal.. The Osseous structures are grossly intact IMPRESSION: 1. ET tube 12 mm above the maikol and projecting towards the right mainstem bronchus. 2. NG tube within the stomach. Left chest tube. 3. No pneumothorax. 4. Diffuse fluffy small airspace consolidations unchanged from previous. The findings are consistent with diffuse pneumonia or pulmonary edema. [facility], Workstation: JUSTEN 02/19/2024 12:08 PM
[2024-02-19] MEDS: DEXTROSE 5% IN WATER 1,000 ML with SODIUM BICARB (1 MEQ/ML) 150 ML IV SCH (12:34)
[2024-02-19] MEDS: SODIUM CHLORIDE 0.9% 1,000 ML IV ONE (12:35)
--- NOTE | 2024-02-19 13:55 | OP ---
OPERATIVE REPORT DATE OF SERVICE : PROCEDURE PERFORMED: Placement of the right femoral triple-lumen catheter. PREOPERATIVE DIAGNOSES: 1. Acute hypoxic respiratory failure. 2. Severe COVID-19 pneumonia. 3. Hypotension requiring pressors. POSTOPERATIVE DIAGNOSES: 1. Acute hypoxic respiratory failure. 2. Severe COVID-19 pneumonia. 3. Hypotension requiring pressors. ANESTHESIA USED: 2 mL of 1% lidocaine. DESCRIPTION OF PROCEDURE: The right groin was prepared in a sterile fashion. Drapes were applied, the area was locally anesthetized, then the right femoral vein was easily cannulated, and a guidewire was placed, a triple-lumen catheter was inserted over the guidewire, and the guidewire was removed. Good blood flow noted in the 3 different ports of the triple- lumen catheter, no complications, line was secured using 3.0 silk sutures. MMODL / IJN: [id number] /
--- NOTE | 2024-02-19 14:06 | OP ---
OPERATIVE REPORT DATE OF SERVICE : PROCEDURE PERFORMED: Placement of a left-sided chest tube. PREOPERATIVE DIAGNOSIS: Iatrogenic left-sided pneumothorax. POSTOPERATIVE DIAGNOSIS: Iatrogenic left-sided pneumothorax. ANESTHESIA USED: None deployed, the patient was already on Nimbex and she was on fentanyl. DESCRIPTION OF PROCEDURE: The area of the left side of the chest was prepared in a sterile fashion. The patient was placed in the supine position. Then, at the level of the 5th intercostal space and anterior axillary line, the area was noted to be the most appropriate area, then a small 1.5 cm incision was made at that level, and dissected the subcutaneous tissue until the pleural space was entered and there was a gush of air as soon as the pleural space was entered. Then, a 28 argyle chest tube was inserted and directed apically towards the left apex. The tube was secured with 0 Ethibond sutures and connected to Pleur-Evac. There was some bubbling noted in the Pleur-Evac, very minimal. Followup chest x-ray showed adequate placement of the chest tube, and there was no residual pneumothorax noted on the chest x-ray post tube insertion. The procedure was well tolerated, no complications, and a dressing was applied over the chest tube insertion site. MMODL / IJN: [id number] /
--- NOTE | 2024-02-19 14:10 | OP ---
OPERATIVE REPORT DATE OF SERVICE : PROCEDURE PERFORMED: Attempt to place a left subclavian central line and left IJ central line. PREOPERATIVE DIAGNOSES: Acute hypoxic respiratory failure secondary to severe COVID-19 pneumonia and hypotension requiring pressors. POSTOPERATIVE DIAGNOSES: Acute hypoxic respiratory failure secondary to severe COVID-19 pneumonia and hypotension requiring pressors. ANESTHESIA USED: None deployed. DESCRIPTION OF PROCEDURE: The patient was placed in a supine position, the area of the left subclavian region and the left IJ region were prepared in a sterile fashion. Drapes were applied. Using the inferior approach, attempts were made to cannulate the left subclavian vein; however, one of these attempts ended up noticing air coming back into the syringe, that felt strongly that the patient had an iatrogenic pneumothorax. No further attempts were made in the left subclavian area, attempted to place the line in the left IJ, could not thread the catheter after placing the guidewire, hence no further attempts were made, and went ahead and proceeded to the left-sided chest tube as the patient was developing a bit of subcutaneous air, and noted a slight drop in saturation from 92 to mid 80s. Please refer to the operative report of placement of left-sided chest tube. MMODL / IJN: [id number] /
--- NOTE | 2024-02-19 15:26 | P.PN ---
Subjective Progress Note Date: 02/19/24 Principal diagnosis: Acute on chronic hypoxic respiratory failure and acute COVID-19 pneumonia with acute COPD exacerbation This is a 63-year-old female patient, known history of COPD was been seeing Dr. Cornell at [facility]. Prior to that, she had another optometric coordinator through [facility] who gave her because of her insurance coverage. The patient is an ex-smoker. She has quit smoking. The patient has been maintained on a combination of Advair and Spiriva on an outpatient basis and albuterol HFA on a as needed basis. The patient has been having symptoms of URI, cough congestion, generalized weakness and fatigue and tiredness and the patient came into the hospital where she was diagnosed having COVID-19 infection. Noted the patient has been symptomatic for more than a week. She has seen her optometric coordinator, Dr. Cornell who treated her with a course of antibiotics and steroids. Nevertheless, her condition did not improve and she ended up coming into the hospital. No nausea vomiting or diarrhea. No abdominal pain. No altered mentation. The chest x-ray that was done at time of admission showed increased perihilar lung markings. No previous history of DVT or pulmonary embolism. I ordered a CTA of the chest on this patient to rule out pulmonary embolism and at the same time evaluate for COVID-19 related pneumonia. Noted the patient is also a chronic smoker. I reviewed the CTA of the chest and there are bilateral areas of scattered patchy groundglass pulmonary infiltrates consistent with COVID-19 related pneumonia more so on the left compared to the right. The patient has no filling defects to indicate pulmonary embolism. Aw aiting a final report from radiology. Note that this has never been infected with COVID-19 in the past and she has never been vaccinated. 02/14/2024, patient is doing well. Less short of breath compared to yesterday. CAT scan of the chest showed some patchy groundglass pulmonary filtrates consist ent with COVID-19 infection. However, clinically patient doing better. No evidence of any pulmonary involvement. No evidence of any lung masses. She remains on bronchodilators with albuterol HFA 4 times [id number] and the patient is on IV Solu-Medrol 60 mg every 6 hours. No abnormalities in her blood work. The CBC shows a white cell count of 6.3 with a hemoglobin 13 and a platelet count of 132. BUN 42 with a creatinine of 1.02. Serum bicarbonate 17 and sodium levels at 133 and a potassium level is at 4.3. 02/15/2024, the patient is being seen for a follow-up. The patient is doing well. The patient is being treated for an acute COPD exacerbation. The patient also has a component of COVID-19 pneumonia and she remains on 40 of oxygen by nasal cannula. She was given IV Solu-Medrol. She was outside the window for remdesivir treatment. She is noted advanced COPD. Based on my review of the CT of the chest, there is no evidence of any pulm embolism. There is patchy areas of pulm infiltration consistent with COVID-19 infection. No evidence of any lung masses or tumors. The patient is currently on 6 L of O2 nasal cannula. At times, she removes her oxygen she desaturates. No new labs are available from today. Her procalcitonin level is at 0.07. The LDH level was at 230. Rest of the inflammatory markers were minimally elevated. Otherwise, awake and alert, no altered mentation. No signs of any CO2 narcosis. The patient is seen today February 16, 2024 in follow-up on the regular medical floor. She is currently resting in bed. Awake and alert in no acute distress. She is having ongoing issues with oxygen desaturations. She is currently on 7 L high flow nasal cannula with O2 saturations in the low 80s. She is continued on Symbicort, Spiriva, albuterol and Solu-Medrol. Lovenox for DVT prophylaxis. Chest x-ray shows similar scattered reticular pulmonary opacities secondary to COVID infection. White count 11.2. Hemoglobin 14.2. Sodium 139. Potassium 5.2. Bicarb 24. BUN 23. Creatinine 0.8. Glucose 158. The patient is seen today February 17, 2024 in follow-up on the regular medical floor. She is currently awake and alert. She continues to have ongoing struggles with her breathing. This morning she was placed on Airvo high flow oxygen at 60% FiO2 and 80 L. Chest x-ray continues to show similar scattered reticular pulmonary opacities consistent with COVID infection. White count 9.1. Hemoglobin 13.4. Platelets 174. Sodium 134. Potassium 4.1. Bicarb 23. BUN 18. Creatinine 0.7. Glucose 180. She remains on Symbicort, Spiriva and albuterol along with IV Solu-Medrol. Lovenox for DVT prophylaxis. Patient was seen today on 02/18/2024, she is now in the ICU, she is marginal at best. Patient is critically ill, she was on Airvo yesterday at high flow and high FiO2, she is now on BiPAP at 100%, 04/23. O2 saturation is marginal, hence her chest x-ray is showing worsening of her interstitial infiltrates/presumptive COVID-19 pneumonia worsening and the patient meets the criteria to start baricitinib 4 mg daily for 14 days. Her procalcitonin level was normal and I doubt any underlying bacterial infection at this point. Clearly the patient is worsening and she will remain in the ICU, I have a feeling she may even require intubation mechanical ventilation. Patient seems to be comfortable although her O2 saturation is in the 80s. Does not seem to be in distress. She is hemodynamically stable not requiring any pressors. She is on bronchodilators, and she is also on steroids, Lasix were given to keep her on the dry side as much as possible although I am not convinced that the patient has any congestive heart failure WBC count today is 10.6 hemoglobin is 13.2 electrolytes are normal renal profile is normal her inflammatory markers are high with high LDH, high C- reactive protein, and high ferritin level. Patient was seen today on 02/19/2024, patient had to be intubated last night mostly because of worsening pulmonary status and worsening pneumonia. She required mechanical ventilation, and she is maximal on mechanical ventilation with assist-control rate of 3 2, tidal volume 400 FiO2 100% PEEP is 16. Last ABG showed a pO2 136 pCO2 78 pH of 7.14, patient was placed on bicarb drip 150 mEq in 1 L D5W running at 50 cc/h. Patient required central line placement and this was done in the groin she did sustain iatrogenic left-sided pneumothorax from attempt to place a left a left subclavian central line. Right femoral triple-lumen catheter was placed, patient is still on Nimbex she is on Cardizem at 10 mg/h she is on propofol at 35 mcg/kg/min IV fluid at 50 cc/h fentanyl at 0.5 mcg/kg/h and she is on norepinephrine at 0.15 mcg/kg/min. Family was updated and made aware that her condition is very poor, and mortality is extremely high. Patient seems to be having worsening COVID-19 pneumonia with diffuse interstitial infiltrates bilaterally.Patient is developing leukocytosis with WBC count of 32.8 hemoglobin 14.4, basic metabolic profile is normal renal profile is normal glucose is 185 laboratory markers are elevated. Patient is now on baricitinib Objective - Vital Signs Vital signs: Vital Signs Temp 98.8 F 02/19/24 12:00 Pulse 98 02/19/24 13:15 Resp 32 H 02/19/24 13:15 BP 126/68 02/19/24 13:15 Pulse Ox 93 L 02/19/24 13:15 FiO2 100 02/19/24 12:00 Intake & Output 02/18/24 02/19/24 02/19/24 18:59 06:59 18:59 Intake Total 1050 380.833 4010.933 Output Total 1745 390 75 Balance -695 530.267 0990.933 Weight 90.5 kg 89.7 kg Intake: IV 550 500 250 Sodium Chloride 0.9% 1, 550 500 250 000 ml @ 50 mls/hr IV . Q20H CAREN Rx#:[id number] Intake, IV Titration 12.037 1291.933 Amount Dextrose 5% in Water 1, 100 000 ml @ 50 mls/hr IV . Q23H CAREN with Sodium Bicarb (1 Meq/ml) 150 ml Rx#:[id number] Norepinephrine 4 mg In 37.993 Sodium Chloride 0.9% 250 ml @ 0.03 MCG/KG/MIN 10. 253 mls/hr IV .Q24H CAREN Rx#:[id number] Sodium Chloride 0.9% 1, 1000 000 ml @ 999 mls/hr IV . Q1H1M ONE Rx#:[id number] propofoL 1,000 mg In 12.037 153.940 Empty Bag 1 bag @ 15 MCG/ KG/MIN 8.145 mls/hr IV . [id number] CAREN Rx#:[id number] Oral 500 Output: Chest Tube Drainage 0 Chest Tube Left Lateral 0 Chest Urine 1745 390 75 Other: Voiding Method Indwelling Catheter Indwelling Catheter Indwelling Catheter ABP, PAP, CO, CI - Last Documented Arterial Blood Pressure 116/57 - Exam GENERAL EXAM: Reveals 63-year-old white female on mechanical ventilation, intubated, mechanically ventilated, sedated and paralyzed. EYES: Normal reaction of pupils, equal size. NOSE: Clear with pink turbinates. THROAT: No erythema or exudates. NECK: No masses, no JVD. CHEST: No chest wall deformity. LUNGS: Rhonchi noted bilaterally. CVS: S1 and S2 normal with no audible murmur, regular rhythm. ABDOMEN: Morbidly obese no hepatosplenomegaly, normal bowel sounds, no guarding or rigidity. SKIN: No rashes CENTRAL NERVOUS SYSTEM: Could not assess patient is sedated and paralyzed. EXTREMITIES: No clubbing edema or cyanosis. Diminished distal pulses bilaterally - Labs CBC & Chem 7: 02/19/24 09:37 02/19/24 06:07 Labs: Abnormal Lab Results - Last 24 Hours (Table) 02/19/24 02/19/24 02/19/24 Range/Units 04:31 06:07 06:07 WBC 13.7 H (3.8-10.6) k/uL RBC 2.57 L (3.80-5.40) m/uL Hgb 7.4 L D (11.4-16.0) gm/dL Hct 24.1 L (34.0-46.0) % MCHC 30.8 L (31.0-37.0) g/dL Neutrophils # 12.7 H (1.3-7.7) k/uL Neutrophils # (Manual) (1.3-7.7) k/uL Lymphocytes # 0.3 L (1.0-4.8) k/uL Lymphocytes # (Manual) (1.0-4.8) k/uL Monocytes # (Manual) (0-1.0) k/uL Metamyelocytes # (Man) (0) k/uL ABG pH 7.08 L* (7.35-7.45) ABG pCO2 94 H* (35-45) mmHg ABG pO2 55 L* (83-108) mmHg ABG HCO3 28 H (21-25) mmol/L ABG Total CO2 31 H (19-24) mmol/L ABG O2 Saturation 73.5 L (94-97) % BUN 23 H (7-17) mg/dL Glucose 185 H (74-99) mg/dL Calcium 7.3 L (8.4-10.2) mg/dL 1002/19/24 02/19/24 Range/Units 07:57 09:37 10:13 WBC 32.8 H (3.8-10.6) k/uL RBC (3.80-5.40) m/uL Hgb (11.4-16.0) gm/dL Hct (34.0-46.0) % MCHC (31.0-37.0) g/dL Neutrophils # (1.3-7.7) k/uL Neutrophils # (Manual) 29.80 H (1.3-7.7) k/uL Lymphocytes # (1.0-4.8) k/uL Lymphocytes # (Manual) 0.66 L (1.0-4.8) k/uL Monocytes # (Manual) 2.30 H (0-1.0) k/uL Metamyelocytes # (Man) 0.33 H (0) k/uL ABG pH 7.03 L* 7.14 L* (7.35-7.45) ABG pCO2 90 H* 78 H* (35-45) mmHg ABG pO2 71 L 136 H (83-108) mmHg ABG HCO3 27 H (21-25) mmol/L ABG Total CO2 27 H 29 H (19-24) mmol/L ABG O2 Saturation 86.2 L 98.3 H (94-97) % BUN (7-17) mg/dL Glucose (74-99) mg/dL Calcium (8.4-10.2) mg/dL Microbiology - Last 24 Hours (Table) 02/17/24 20:03 Blood Culture - Preliminary Blood Assessment and Plan Assessment: Impression: Acute on chronic hypoxic respiratory failure patient is now requiring intubation mechanical ventilation this is clearly related to worsening COVID-19 pneumonia and underlying COPD Acute COVID-19 infection/pneumonia and the patient has patchy areas of groundglass pulm infiltrates bilaterally based on the CT of the chest. No evidence of any pulmonary embolism. Acute COPD exacerbation secondary to above Obesity with a BMI of 40.1 Coronary artery disease, with previous coronary stenting Hyperlipidemia Chronic hypoxic respiratory failure, normally the patient is on 4 L nasal cannula Advanced COPD maintained on a combination of Advair and Spiriva on outpatient basis the patient is a previous smoker Acute iatrogenic left-sided pneumothorax requiring immediate placement of chest tube with excellent follow-up chest x-ray noted. And adequate placement of the left-sided chest Hypotension secondary to sepsis and septic shock requiring pressors. Recommendation: Updated the family on her condition made aware that her condition seems to be quite critical and the patient may not make it through this episode of COVID-19 pneumonia. Continue hemodynamic support Continue ventilatory support Continue nutritional support Continue GI DVT prophylaxis Continue bronchodilators including steroids, continue Lovenox. Continue baricitinib today. Continue GI and DVT prophylaxis Again the patient is extremely ill and critical Critical care time is over 30 minutes not including the time spent on procedures Will continue to follow. Time with Patient: Greater than 30
[2024-02-19 16:16] LABS: Amorphous Sediment,Urine Rare /hpf; Appearance,Urine Turbid (Clear); Bilirubin,Urine 1+ (Negative); Blood,Urine Moderate (Negative); Color,Urine Yellow; Glucose,Urine (UA) Trace (Negative); Ketones,Urine Negative (Negative); Leukocyte Esterase,Urine Moderate (Negative); Mucus,Urine Rare /hpf; Nitrite,Urine Negative (Negative); Protein,Urine 1+ (Negative); RBC,Urine 10 /hpf (0-5); Specific Gravity,Urine 1.019 (1.001-1.035); WBC,Urine 42 /hpf (0-5)
[2024-02-19 16:21] LABS: INR 1.1 (<1.2); Partial Thromboplastin Time 26.1 sec (22.0-30.0); Prothrombin Time 11.9 sec (10.0-12.5)
[2024-02-19] MEDS: INSULIN ASPART (NovoLOG) 100 UNIT/ML VIAL SQ SCH (18:23)
--- NOTE | 2024-02-19 22:22 | P.CONS ---
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 russian teacher at [facility] with a course of steroids and antibiotic however the patient did have worsening shortness of breath and also cough which was moderate intensity mostly dry in nature no fever no nausea no vomiting or any diarrhea patient on presentation to the hospital was afebrile and no fever have been recorded during this hospital stay patient was hypoxic with an O2 sats of 86% on arrival to the ER patient tested positive for COVID-19 CT angiogram of the chest was negative for PE did shows COVID-related pneumonia patient has been under the care of pulmonary and internal medicine and has been on IV Solu-Medrol and supportive treatment and has been started on barcitinib as of 02/18/2024 patient did have a normal white count admission which was reported 13.7 at 6 AM with repeat blood draw at 9:37 AM white count is up to 32.8 and that has prompted this consultation patient initially has been treated with a high flow nasal cannula oxygen she was on BiPAP yesterday and got intubated around 4 AM 02/19/2024 because of her worsening respiratory status patient is currently on 100% FiO2 per discussion with the nursing staff they did not notice significant secretion through the ET as the patient has been mostly dry patient is on a pressor support started this morning however they are trending down as reported by the nursing staff no vomiting diarrhea or any other changes reported most information has been obtained for from we will chart talking to the 2 daughters at the bedside as well as with the nursing staff Review of Systems Positive points has been mentioned in HPI complete review could not be obtained because patient intubated on the vent Past Medical History Past Medical History: Asthma, Coronary Artery Disease (CAD), COPD, Eye Disorder, Hyperlipidemia Additional Past Medical History / Comment(s): COPD and she is 02 dependent at 6L, she is maintained on Advair and Spiriva and albuterol HFA as needed. Exsmoker and she has quit 18 years ago. CAD History of Any Multi-Drug Resistant Organisms: None Reported Past Surgical History: Heart Catheterization With Stent, Hysterectomy Additional Past Surgical History / Comment(s): laparoscopy, cataract surgery Past Anesthesia/Blood Transfusion Reactions: No Reported Reaction Date of Last Stent Placement:: 01/01/2024 Past Psychological History: Anxiety, Depression Smoking Status: Former smoker Past Alcohol Use History: None Reported Additional Past Alcohol Use History / Comment(s): quit smoking 11 yrs. ago, smoked 2ppd for >20 yrs. Past Drug Use History: None Reported Additional Drug Use History / Comment(s): occasional use - Past Family History Mother Family Medical History: Cancer Medications and Allergies Home Medications Medication Instructions Recorded Confirmed Type Sertraline [Zoloft] 200 mg PO DAILY 09/30/17 02/12/24 History buPROPion XL [Wellbutrin XL] 300 mg PO DAILY 09/30/17 02/12/24 History Albuterol Inhaler [Ventolin Hfa 2 puff INHALATION RT-QID PRN 02/12/24 02/12/24 History Inhaler] Aspirin EC [Ecotrin Low Dose] 81 mg PO DAILY 02/12/24 02/12/24 History Atorvastatin [Lipitor] 40 mg PO HS 02/12/24 02/12/24 History Clopidogrel [Plavix] 75 mg PO DAILY 02/12/24 02/12/24 History Doxycycline Monohydrate 100 mg PO BID 02/12/24 02/12/24 History Fluticasone Propion/Salmeterol 2 puff INHALATION RT-BID 02/12/24 02/12/24 History [Advair Hfa 230-21 Mcg Inhaler] Losartan Potassium 100 mg PO DAILY 02/12/24 02/12/24 History Metoprolol Tartrate [Lopressor] 25 mg PO BID 02/12/24 02/12/24 History Pantoprazole Sodium [Protonix] 20 mg PO DAILY 02/12/24 02/12/24 History Tiotropium [place] [Spiriva] 1 puff INHALATION RT-DAILY 02/12/24 02/12/24 Hist ory hydrOXYzine HCL [Atarax] 50 mg PO TID 02/12/24 02/12/24 History hydroCHLOROthiazide [Hydrodiuril] 25 mg PO DAILY 02/12/24 02/12/24 History metFORMIN HCL 500 mg PO DAILY 02/12/24 02/12/24 History predniSONE [Deltasone] 40 mg PO DAILY 02/12/24 02/12/24 History Allergies Allergy/AdvReac Type Severity Reaction Status Date / Time No Known Allergies Allergy Verified 02/12/24 17:16 Physical Exam Vitals: Vital Signs Temp Pulse Pulse Resp BP Pulse Ox FiO2 02/19/24 16:00 87 89 32 H 92 L 100 02/19/24 15:45 87 32 H 91 L 02/19/24 15:30 100 02/19/24 15:15 92 32 H 118/68 91 L 02/19/24 15:00 93 32 H 134/61 90 L 02/19/24 14:30 98 32 H 89 L 02/19/24 14:15 97 32 H 121/69 91 L 02/19/24 14:00 96 32 H 122/68 93 L 100 02/19/24 13:30 97 32 H 126/68 93 L 02/19/24 13:15 98 32 H 126/68 93 L 02/19/24 13:00 99 32 H 93 L 02/19/24 12:45 100 32 H 113/66 93 L 02/19/24 12:30 101 H 32 H 92 L 02/19/24 12:15 101 H 32 H 121/67 92 L 02/19/24 12:00 98.8 F 100 97 32 H 135/76 91 L 100 02/19/24 11:45 135/76 89 L 02/19/24 11:36 100 02/19/24 11:30 30 H 122/73 85 L 02/19/24 11:15 109 H 30 H 122/73 75 L 02/19/24 11:00 107 H 30 H 119/71 89 L 02/19/24 10:45 105 H 30 H 119/71 93 L 02/19/24 10:30 109 H 30 H 121/70 93 L 02/19/24 10:25 80 02/19/24 10:15 109 H 30 H 121/70 95 02/19/24 10:00 110 H 30 H 122/69 94 L 02/19/24 09:00 113 H 30 H 93 L 100 02/19/24 08:01 100 02/19/24 08:00 123 H 112 H 30 H 85 L 100 02/19/24 07:00 98.7 F 129 H 85 L 100 02/19/24 06:00 137 H 84 L 02/19/24 05:00 146 H 82 L 02/19/24 04:03 100 02/19/24 04:00 154 H 24 192/93 69 L 100 02/19/24 03:27 100 02/19/24 03:00 102 H 28 H 83 L 02/19/24 02:00 103 H 22 140/80 88 L 02/19/24 01:00 98 30 H 149/81 83 L 02/19/24 00:20 98 40 H 84 L 02/19/24 00:13 100 02/19/24 00:00 98.5 F 95 38 H 153/72 85 L 100 02/18/24 23:00 86 34 H 144/88 86 L 02/18/24 22:00 94 23 79 L 02/18/24 21:00 81 32 H 139/64 87 L 02/18/24 20:31 100 02/18/24 20:00 99.3 F 80 33 H 139/70 86 L 100 02/18/24 19:00 77 31 H 138/70 84 L 02/18/24 18:00 81 38 H 129/59 82 L 100 02/18/24 17:45 77 34 H 83 L 02/18/24 17:30 79 33 H 86 L 02/18/24 17:00 78 28 H 136/58 83 L 100 Intake and Output 02/19/24 02/19/24 02/19/24 06:59 14:59 22:59 Intake Total 081.145 5288.933 100 Output Total 270 85 20 Balance 92.037 1506.933 80 Intake: IV 350 250 Sodium Chloride 0.9% 1, 350 250 000 ml @ 50 mls/hr IV . Q20H [facility] Rx#:[id number] Intake, IV Titration 12.037 1341.933 100 Amount Dextrose 5% in Water 1, 150 100 000 ml @ 50 mls/hr IV . Q23H [facility]EN with Sodium Bicarb (1 Meq/ml) 150 ml Rx#:[id number] Norepinephrine 4 mg In 37.993 Sodium Chloride 0.9% 250 ml @ 0.03 MCG/KG/MIN 10. 253 mls/hr IV .Q24H [facility] Rx#:[id number] Sodium Chloride 0.9% 1, 1000 000 ml @ 999 mls/hr IV . Q1H1M ONE Rx#:[id number] propofoL 1,000 mg In 12.037 153.940 Empty Bag 1 bag @ 15 MCG/ KG/MIN 8.145 mls/hr IV . [id number] [facility] Rx#:[id number] Output: Chest Tube Drainage 0 Chest Tube Left Lateral 0 Chest Urine 270 85 20 Other: Voiding Method Indwelling Catheter Indwelling Catheter Indwelling Catheter # Bowel Movements 1 Weight 89.7 kg ABP, PAP, CO, CI - Last 8 Hours Arterial Blood Pressure 134/59 Arterial Blood Pressure 120/61 Arterial Blood Pressure 118/62 Arterial Blood Pressure 113/59 Arterial Blood Pressure 125/56 Arterial Blood Pressure 117/58 Arterial Blood Pressure 115/57 Arterial Blood Pressure 114/57 Arterial Blood Pressure 116/57 Arterial Blood Pressure 115/58 Arterial Blood Pressure 114/58 Arterial Blood Pressure 101/55 Arterial Blood Pressure 97/55 Arterial Blood Pressure 89/53 Arterial Blood Pressure 93/61 Arterial Blood Pressure 95/58 Arterial Blood Pressure 86/57 Arterial Blood Pressure 84/57 Arterial Blood Pressure 81/55 Arterial Blood Pressure 79/55 Arterial Blood Pressure 87/58 Arterial Blood Pressure 88/59 Arterial Blood Pressure 87/52 GENERAL DESCRIPTION: Middle-age female intubated on the [facility] HEENT: Shows Pallor , no scleral icterus. Oral mucous membrane is dry. NECK: Trachea central, no thyromegaly. LUNGS: Unlabored breathing. Decreased breath sounds at the base HEART: S1, S2, regular rate and rhythm. No loud murmur ABDOMEN: Soft, no tenderness , guarding or rigidity, no organomegaly EXTREMITIES: No edema of feet. SKIN: No rash, no masses palpable. NEUROLOGICAL: The patient is sedated on the [facility] Results CBC & Chem 7: 02/19/24 09:37 02/19/24 06:07 Labs: Abnormal Lab Results - Last 24 Hours (Table) 02/19/24 02/19/24 02/19/24 Range/Units 04:31 06:07 06:07 WBC 13.7 H (3.8-10.6) k/uL RBC 2.57 L (3.80-5.40) m/uL Hgb 7.4 L D (11.4-16.0) gm/dL Hct 24.1 L (34.0-46.0) % MCHC 30.8 L (31.0-37.0) g/dL Neutrophils # 12.7 H (1.3-7.7) k/uL Neutrophils # (Manual) (1.3-7.7) k/uL Lymphocytes # 0.3 L (1.0-4.8) k/uL Lymphocytes # (Manual) (1.0-4.8) k/uL Monocytes # (Manual) (0-1.0) k/uL Metamyelocytes # (Man) (0) k/uL ABG pH 7.08 L* (7.35-7.45) ABG pCO2 94 H* (35-45) mmHg ABG pO2 55 L* (83-108) mmHg ABG HCO3 28 H (21-25) mmol/L ABG Total CO2 31 H (19-24) mmol/L ABG O2 Saturation 73.5 L (94-97) % BUN 23 H (7-17) mg/dL Glucose 185 H (74-99) mg/dL Calcium 7.3 L (8.4-10.2) mg/dL 02/19/24 02/19/24 02/19/24 Range/Units 07:57 09:37 10:13 WBC 32.8 H (3.8-10.6) k/uL RBC (3.80-5.40) m/uL Hgb (11.4-16.0) gm/dL Hct (34.0-46.0) % MCHC (31.0-37.0) g/dL Neutrophils # (1.3-7.7) k/uL Neutrophils # (Manual) 29.80 H (1.3-7.7) k/uL Lymphocytes # (1.0-4.8) k/uL Lymphocytes # (Manual) 0.66 L (1.0-4.8) k/uL Monocytes # (Manual) 2.30 H (0-1.0) k/uL Metamyelocytes # (Man) 0.33 H (0) k/uL ABG pH 7.03 L* 7.14 L* (7.35-7.45) ABG pCO2 90 H* 78 H* (35-45) mmHg ABG pO2 71 L 136 H (83-108) mmHg ABG HCO3 27 H (21-25) mmol/L ABG Total CO2 27 H 29 H (19-24) mmol/L ABG O2 Saturation 86.2 L 98.3 H (94-97) % BUN (7-17) mg/dL Glucose (74-99) mg/dL Calcium (8.4-10.2) mg/dL Microbiology - Last 24 Hours (Table) 02/17/24 20:03 Blood Culture - Preliminary Blood Assessment and Plan (1) Leukocytosis Current Visit: Yes Status: Acute Code(s): D72.829 - ELEVATED WHITE BLOOD CELL COUNT, UNSPECIFIED SNOMED Code(s): 800461988 (2) COVID Current Visit: Yes Status: Acute Code(s): U07.1 - COVID-19 SNOMED Code(s): 570254317 Plan: 1patient presented to the hospital about a week ago with increasing shortness of breath however the patient symptoms of cough and shortness of breath were going on for more than a week before initial presentation to the hospital patient has been diagnosed with a COVID-19 and treated with steroids and supportive treatment however the patient did have worsening of her respiratory status requiring intubation patient did not have any fever during this hospital stay with initial normal white count with significant jump in the white count could be reactive with acute change in her condition as well as steroids and the patient has been on clinical suspicious low for secondary bacterial pneumonia but not entirely excluded 2-blood and sputum culture has been requested results will be followed we will also check a procalcitonin level 3for now continue with the current supportive treatment including baricitinib Family at the bedside multiple question concern answered We will follow on clinical condition and cultures to further adjust medication if needed Thank you for this consultation we will follow the patient along with you Dictation was produced using [employer] dictation software. please excuse any grammatical, word or spelling errors. Time with Patient: Greater than 30
[2024-02-20 05:13] LABS: ALT 189 U/L (4-34); AST 187 U/L (14-36); African American GFR (CKD) 31 (>60 ml/min/1.73 sqM); Albumin 2.6 g/dL (3.5-5.0); Alkaline Phosphatase 95 U/L (38-126); Anion Gap 5 mmol/L; Blood Urea Nitrogen 49 mg/dL (7-17); Carbon Dioxide 30 mmol/L (22-30); Chloride 104 mmol/L (98-107); Glucose 288 mg/dL (74-99); Non-African American GFR(CKD) 27 (>60 ml/min/1.73 sqM); Potassium 3.4 mmol/L (3.5-5.1); Sodium 139 mmol/L (137-145); Total Protein 5.1 g/dL (6.3-8.2)
--- NOTE | 2024-02-20 05:23 | P.PN ---
Subjective Progress Note Date: 02/19/24 63-year-old female present to the emergency department for further evaluation of increasing shortness of breath as well as changes in her mental status for the past day and a half according to her daughter. Patient's past medical history significant for COPD, in which she was recently started on treatment for bronchitis with steroids and antibiotics (doxycycline). Upon presentation patient states she was not feeling well, with increased confusion difficulty speaking. Her daughter, sitting at bedside, states that she was saturating 86% on room air. Patient denies any recent travel. Per patient's viral panel taken upon arrival to the emergency department patient states positive COVID-19. Pul monology has been consulted and will see the patient for COPD exacerbation as well as COVID-19 infection. Upon arrival to the emergency department patient was afebrile blood pressure 118/67, heart rate of 81, respiratory rate of 16 with an oxygen saturation of 80% on room air. When seen the patient today, she reports she is feeling better and her daughter who is at her bedside also reports that she is presenting better than she had been the previous couple of days, and her mentation had improved greatly. She states that she is looking more like "herself". Initial lab work done in the ER showed WBCs 5.9, Hgb 14.8, Hct 45.7, PLT 108; PT 10.8, INR 1.0, PTT 27.1; blood gas pH 7.36, pCO2 33, HCO3 18; sodium 136, potassium 4.3, BUN 45, creatinine 1.03 Influenza A not detected Influenza B not detected RSV not detected COVID-19 positive EKG done in the ER showed heart rate of 82, no ST segment elevation or depression seen, no T-wave inversions seen. Chest x-ray done in the ER showed increased perihilar lung markings, to be correlated for infectious etiologies, pulmonary edema could be considered 02/14/24 - Patient seen at bedside today. She states that she is feeling better than she was yesterday, however she states that it feels like she "smoked 3 packs" and has remained short of breath. Progress states it is closer to her baseline when she was over the past few days however still not all the way back. Overnight patient's blood pressure was recorded as 90/50, with a heart rate of 64, respiratory rate of 18 saturating 95% on 4 and half liters of nasal cannula. Due to the patient having persistently low blood pressures we will hold 100 mg Cozaar and 20 mg Lopressor today and continue to monitor make adjustments as needed. Per pulmonology recommendation patient underwent CT angiogram of the chest to help rule out pulmonary embolism and at the same time evaluate for COVID-19 pneumonia and it was noted that the patient is a chronic smoker, on review of the CTA of the chest there were bilateral areas of scattered patchy groundglass pulmonary infiltrates consistent with COVID-19 related pneumonia worse on the left side compared to the right side. Patient will continue on O2 and will be titrated to maintain saturation above 90% overnight on 4 and half liters of oxygen nasal cannula, per pulmonology request patient started on IV Solu-Medrol 60 mg every 6 hours, she is outside the window for remdesivir as patient is had symptoms for more than a week, additionally patient was started on Lovenox 40 mg subcutaneously for DVT prophylaxis. Patient's LDH 230, elevated CRP at 6.3 and procalcitonin was unremarkable at 0.07. Additionally last night patient's 30 mg nightly, hold Wellbutrin and 200 mg nightly of Zoloft) presumed upon request with the patient and the patient's daughter. Labs done today - Currently pending at time of dictation. CT of the chest completed on 02/12 yet to evaluate official final read from radiologist, however per pulmonology's report he was to evaluate for possible pulmonary embolism but at the same time evaluated for COVID-19 pneumonia and was noted that there were bilateral areas of scattered patchy groundglass pulmonary infiltrates consistent with COVID-19 worse on the left side. 02/15/24 - Patient is evaluated today in follow up resting in bed. Continues on 4L of oxygen with adequate saturations. She continue to report shortness of breath and sputum production. No wheezing noted, there is some scattered ronchi. Patient remains on albuterol PRN as well as IV solumedrol. Patient has not been resumed on her home inhalers as of yet including spiriva and Advair HFA. chest CT angio that has been taken on the is not yet resulted by radiology. 02/16/24 - Patient seen at bedside today. States she is feeling about the same that she has been, with some shortness of breath and feeling tired. Chest CT angio taken on 12 February still has no official report from radiology. As of this morning patient blood pressure 96/62, heart rate of 68, respiratory rate of 18 while saturating 89% on 6 L high flow nasal cannula. Throughout the day she was increased to 7 L where she has remained saturating 86-87%. Per the patient and her daughter the patient's baseline oxygen saturation is generally in the mid 80%. New labs - WBCs 11.2, Hgb 14.2, Hct 43.0, PLT 187; sodium 139, potassium 5.2 02/17/24 - Patient seen at bedside today. Patient states she continues to feel about the same, with shortness of breath and being tired. Chest CT angio taken on 12 February cells no official report from radiology. Chest x-ray ordered yesterday showed similar scattered reticular pulmonary opacities likely representing reported COVID infection. Overnight patient blood pressure 117/65, heart rate of 76, respiratory rate of 20, placed on 15 L high flow nasal cannula saturating in the mid 90s. Per pulmonology's recommendation goal of patient's saturations is to remain greater than 85%. As of this morning patient was moved on to Airvo with an O2 flow rate of 60 and FiO2 of 80%, and with this patient has been saturating between 85-89%. Patient does report increased shortness of breath as compared to yesterday, however was resting somewhat comfortably in bed. New labs -WBCs 9.13, Hgb 13.4, Hct 41.0, PLT 174; sodium 134, potassium 4.1, BUN 17.7, creatinine 0.7 02/18/24 - Patient seen at bedside today. Patient has been moved to the ICU for further observation per pulmonology's request. As of yesterday morning patient was moved onto Airvo with an FiO2 of 80% oxygen flow rate of 60, throughout the day this was increased the FiO2 raising up to 92% through the evening, with the patient continuing to saturate in the midhigh 80%'s. Overnight the patient was placed on BiPAP with saturations between 86-91%. New chest x-ray to be completed today to compare to the previous ones. Per pulmonology patient may qualify for baricitinib, for now we will continue on bronchodilators, steroids, and Lovenox. 02/19/2024 Patient seen and follow-up today continues to be in the ICU with close monitoring with multiple consultations following. Patient maintained on high flow and according to nursing staff having increased respiratory distress requiring mechanical ventilation overnight. Patient is currently maintained on an FiO2 of 100% and PEEP is extremely high at 15 with multiple drips going. Patient is maintained on Nimbex and Levophed along with a bicarb drip and patient also receiving baricitinib at this time. Patient noted to have a significant increase in white count and will repeat blood cultures, urine culture, procalcitonin and also consult infectious disease and appreciate input and recommendations. Patient also continues on breathing treatments and high- dose IV steroids. Kidney functions within normal limits at this time although nursing staff is reporting decreased urine output which will be monitored closely. Patient was given a fluid bolus. REVIEW OF SYSTEMS: Unable to obtain as patient is on mechanical ventilation and sedated The rest of the 14-point review of systems is negative. PHYSICAL EXAMINATION: GENERAL: The patient is a 63-year-old female who is sedated on mechanical ventilation with an FiO2 of 100% and PEEP of 16, well developed, ill-appearing, obese HEENT: Pupils are round and equally reacting to light. EOMI. No scleral icterus. No conjunctival pallor. Normocephalic, atraumatic. No pharyngeal erythema. No thyromegaly. CARDIOVASCULAR: S1 and S2 muffled. PULMONARY: Diminished breath sounds with wheezing present in all lung field. Coarse rhonchi noted ABDOMEN: Soft, nontender, nondistended, normoactive bowel sounds. No palpable organomegaly. MUSCULOSKELETAL: No joint swelling or deformity. EXTREMITIES: No cyanosis, clubbing, or pedal edema. NEUROLOGICAL: Gross neurological examination did not reveal any focal deficits. Unable to completely assess as patient is on sedation at this time Assessment and plan # Acute hypoxic respiratory failure secondary to pneumonitis pneumonia due to COPD exacerbation as a result of recently diagnosed bronchitis Patient's baseline saturation at home according to the daughter is 85-88% on 4 L nasal cannula Patient does state that her property accountant (Acosta Willis) recently decided that patient should have her oxygen up from 4 L to 6 L Patient is currently on mechanical ventilation since early this morning, maintained on an FiO2 of 100% and PEEP is 16 # Leukocytosis -Further infectious workup ongoing and will consult infectious disease appreciate input and recommending -Possibly reactive secondary to high-dose steroids as patient is afebrile -Have initiated further workup with repeat blood cultures, urinalysis, repeat procalcitonin # Acute kidney injury possibly secondary to acute hypoxic respiratory failure - resolved On presentation to the emergency department patient's BUN was 45 and creatinine was 1.03 Kidney function stable currently maintained on bicarb drip, -continue indwelling Yadav catheter for strict KAROL's -Patient was given a fluid bolus and noted to have decreased urine output # Recent history of cardiac stenting Patient on Plavix 75 mg daily #Altered mental status - resolved Patient's daughter states that her mentations had declined over the previous few days #Anxiety Continue patient's on medications of 200 mg nightly of Zoloft and 300 mg nightly of Wellbutrin #Hypertension Patient's home medications include 50 mg hydroxyzine 3 times daily, 100 mg Cozaar daily, 25 mg Lopressor twice daily Patient's blood pressures were running low overnight at 90/50, going to hold 100 mg Cozaar today and 25 mg Lopressor; continue the hydroxyzine Continue to monitor and make alterations as necessary # Obesity with a BMI of 37.4 GI prophylaxis: Protonix 40 mg daily DVT prophylaxis: Lovenox 40 mg daily Full code Plan: Patient is currently in the ICU now requiring mechanical ventilation overnight due to respiratory distress and maintained on FiO2 100% and PEEP of 16 Patient is continued on pressor support along with sodium bicarb, Nimbex White count was noted to be significantly elevated and will initiate further infectious workup and have consulted infectious disease and appreciate input and recommendations Pulmonary acid regenerator following and patient is maintained on baricitinib and will continue. Continue IV steroids and will monitor Accu-Cheks and use sliding scale as needed for glycemic control Overall prognosis is extremely guarded at this time Continue to monitor vital signs, monitor CBC, monitor CMP, continue telemetry monitoring Dictation was produced using [employer] dictation software. please excuse any grammatical, word or spelling errors. The impression and plan of care has been dictated by Tati Deal, Nurse Practitioner as directed. Dr. Josué MD I have performed a history and examination and MDM of this patient, discussed the same with the dictator, and agree with the dictator's assessment and plan as written ,documented as a scribe. Based on total visit time, I have performed more than 50% of the visit. Objective - Vital Signs Vital signs: Vital Signs Temp 98.7 F 02/19/24 07:00 Pulse 113 H 02/19/24 09:00 Resp 30 H 02/19/24 09:00 BP 192/93 02/19/24 04:00 Pulse Ox 93 L 02/19/24 09:00 FiO2 100 02/19/24 09:00 Intake & Output 02/18/24 02/19/24 02/19/24 18:59 06:59 18:59 Intake Total 1050 512.037 215.884 Output Total 1745 390 50 Balance -695 122.037 165.884 Weight 90.5 kg 89.7 kg Intake: IV 550 500 150 Sodium Chloride 0.9% 1, 550 500 150 000 ml @ 50 mls/hr IV . Q20H [facility] Rx#:[id number] Intake, IV Titration 12.037 65.884 Amount propofoL 1,000 mg In 12.037 65.884 Empty Bag 1 bag @ 15 MCG/ KG/MIN 8.145 mls/hr IV . [id number] [facility]EN Rx#:[id number] Oral 500 Output: Urine 1745 390 50 Other: Voiding Method Indwelling Catheter Indwelling Catheter ABP, PAP, CO, CI - Last Documented Arterial Blood Pressure 87/52 - Labs CBC & Chem 7: 02/19/24 09:37 02/19/24 06:07 Labs: Abnormal Lab Results - Last 24 Hours (Table) 02/19/24 02/19/24 02/19/24 Range/Units 04:31 06:07 06:07 WBC 13.7 H (3.8-10.6) k/uL RBC 2.57 L (3.80-5.40) m/uL Hgb 7.4 L D (11.4-16.0) gm/dL Hct 24.1 L (34.0-46.0) % MCHC 30.8 L (31.0-37.0) g/dL Neutrophils # 12.7 H (1.3-7.7) k/uL Lymphocytes # 0.3 L (1.0-4.8) k/uL ABG pH 7.08 L* (7.35-7.45) ABG pCO2 94 H* (35-45) mmHg ABG pO2 55 L* (83-108) mmHg ABG HCO3 28 H (21-25) mmol/L ABG Total CO2 31 H (19-24) mmol/L ABG O2 Saturation 73.5 L (94-97) % BUN 23 H (7-17) mg/dL Glucose 185 H (74-99) mg/dL Calcium 7.3 L (8.4-10.2) mg/dL 02/19/24 02/19/24 Range/Units 07:57 09:37 WBC 32.8 H (3.8-10.6) k/uL RBC (3.80-5.40) m/uL Hgb (11.4-16.0) gm/dL Hct (34.0-46.0) % MCHC (31.0-37.0) g/dL Neutrophils # (1.3-7.7) k/uL Lymphocytes # (1.0-4.8) k/uL ABG pH 7.03 L* (7.35-7.45) ABG pCO2 90 H* (35-45) mmHg ABG pO2 71 L (83-108) mmHg ABG HCO3 (21-25) mmol/L ABG Total CO2 27 H (19-24) mmol/L ABG O2 Saturation 86.2 L (94-97) % BUN (7-17) mg/dL Glucose (74-99) mg/dL Calcium (8.4-10.2) mg/dL Microbiology - Last 24 Hours (Table) 02/17/24 20:03 Blood Culture - Preliminary Blood
[2024-02-20 05:24] LABS: Basophils # (A) 0.1 k/uL (0-0.2); Basophils % (A) 0 %; Eosinophils % (A) 0 %; HGB 12.6 gm/dL (11.4-16.0); Hypochromasia Marked; Lymphocytes # (A) 0.6 k/uL (1.0-4.8); Lymphocytes % (A) 4 %; MCHC 30.6 g/dL (31.0-37.0); MCV 91.4 fL (80.0-100.0); Mean Platelet Volume 7.5; Monocytes # (A) 0.5 k/uL (0-1.0); Monocytes % (A) 4 %; Neutrophils # (A) 11.8 k/uL (1.3-7.7); Neutrophils % (A) 90 %; Platelet Count 291 k/uL (150-450); RBC 4.49 m/uL (3.80-5.40); RDW 13.5 % (11.5-15.5); WBC 13.1 k/uL (3.8-10.6)
[2024-02-20 05:31] LABS: ABG Base Excess 0.8 mmol/L; ABG HCO3 30 mmol/L (21-25); ABG Oxygen Saturation 98.3 % (94-97); ABG PCO2 66 mmHg (35-45); ABG PH 7.26 (7.35-7.45); ABG PO2 184 mmHg (83-108); ABG TCO2 32 mmol/L (19-24); Allen Test Performed? Yes
[2024-02-20] MEDS ORDERED: Potassium Replacement Protocol 1 EACH MISC MISCELLANE PRN (06:16)
[2024-02-20] MEDS: POTASSIUM BICARBONATE/CIT AC 20 MEQ TABLET.EFF NG-TUBE SCH (06:40)
[2024-02-20] MEDS: PANTOPRAZOLE SODIUM 40 MG GRANULE PKT OG-TUBE SCH (06:41)
--- NOTE | 2024-02-20 08:49 | XR ---
EXAMINATION TYPE: XR chest 1V portable DATE OF EXAM: 02/20/2024 COMPARISON: 02/19/2024 HISTORY: SOB, Follow Up FINDINGS: Indwelling tubes and catheters are unchanged. No sizable pneumothorax. No change in diffuse bilateral reticulonodular infiltrates. Stable appearance of the cardio-mediastinal structures at this time. Small Pleural effusion unchanged. IMPRESSION: 1. Stable portable chest. Clinical correlation and follow up until resolution is recommended. [facility], , 02/20/2024 8:46 AM
[2024-02-20] MEDS: BARICITINIB 1 MG TABLET PO SCH (09:24)
[2024-02-20] MEDS: ENOXAPARIN 30 MG/0.3 ML SYRINGE SQ SCH (09:24)
[2024-02-20] MEDS: SODIUM CHLORIDE 0.9% 1,000 ML IV SCH (10:15)
[2024-02-20] MEDS ORDERED: CEFEPIME 2 GM in SODIUM CHLORIDE 0.9% 100 ML IVPB SCH (11:00)
[2024-02-20] MEDS: CEFEPIME 1 GM in SODIUM CHLORIDE 0.9% 50 ML IVPB SCH (11:36)
--- NOTE | 2024-02-20 13:01 | P.PN ---
Subjective Progress Note Date: 02/20/24 63-year-old female present to the emergency department for further evaluation of increasing shortness of breath as well as changes in her mental status for the past day and a half according to her daughter. Patient's past medical history significant for COPD, in which she was recently started on treatment for bronchitis with steroids and antibiotics (doxycycline). Upon presentation patient states she was not feeling well, with increased confusion difficulty speaking. Her daughter, sitting at bedside, states that she was saturating 86% on room air. Patient denies any recent travel. Per patient's viral panel taken upon arrival to the emergency department patient states positive COVID-19. Pulmonology has been consulted and will see the patient for COPD exacerbation as well as COVID-19 infection. Upon arrival to the emergency department patient was afebrile blood pressure 118/67, heart rate of 81, respiratory rate of 16 with an oxygen saturation of 80% on room air. When seen the patient today, she reports she is feeling better and her daughter who is at her bedside also reports that she is presenting better than she had been the previous couple of days, and her mentation had improved greatly. She states that she is looking more like "herself". Initial lab work done in the ER showed WBCs 5.9, Hgb 14.8, Hct 45.7, PLT 108; PT 10.8, INR 1.0, PTT 27.1; blood gas pH 7.36, pCO2 33, HCO3 18; sodium 136, potassium 4.3, BUN 45, creatinine 1.03 Influenza A not detected Influenza B not detected RSV not detected COVID-19 positive EKG done in the ER showed heart rate of 82, no ST segment elevation or depression seen, no T-wave inversions seen. Chest x-ray done in the ER showed increased perihilar lung markings, to be correlated for infectious etiologies, pulmonary edema could be considered 02/14/24 - Patient seen at bedside today. She states that she is feeling better than she was yesterday, however she states that it feels like she "smoked 3 packs" and has remained short of breath. Progress states it is closer to her baseline when she was over the past few days however still not all the way back. Overnight patient's blood pressure was recorded as 90/50, with a heart rate of 64, respiratory rate of 18 saturating 95% on 4 and half liters of nasal cannula. Due to the patient having persistently low blood pressures we will hold 100 mg Cozaar and 20 mg Lopressor today and continue to monitor make adjustments as needed. Per pulmonology recommendation patient underwent CT angiogram of the chest to help rule out pulmonary embolism and at the same time evaluate for COVID-19 pneumonia and it was noted that the patient is a chronic smoker, on review of the CTA of the chest there were bilateral areas of scattered patchy groundglass pulmonary infiltrates consistent with COVID-19 related pneumonia worse on the left side compared to the right side. Patient will continue on O2 and will be titrated to maintain saturation above 90% overnight on 4 and half liters of oxygen nasal cannula, per pulmonology request patient started on IV Solu-Medrol 60 mg every 6 hours, she is outside the window for remdesivir as patient is had symptoms for more than a week, additionally patient was started on Lovenox 40 mg subcutaneously for DVT prophylaxis. Patient's LDH 230, e levated CRP at 6.3 and procalcitonin was unremarkable at 0.07. Additionally last night patient's 30 mg nightly, hold Wellbutrin and 200 mg nightly of Zoloft) presumed upon request with the patient and the patient's daughter. Labs done today - Currently pending at time of dictation. CT of the chest completed on 02/12 yet to evaluate official final read from radiologist, however per pulmonology's report he was to evaluate for possible pulmonary embolism but at the same time evaluated for COVID-19 pneumonia and was noted that there were bilateral areas of scattered patchy groundglass pulmonary infiltrates consistent with COVID-19 worse on the left side. 02/15/24 - Patient is evaluated today in follow up resting in bed. Continues on 4L of oxygen with adequate saturations. She continue to report shortness of breath and sputum production. No wheezing noted, there is some scattered ronchi. Patient remains on albuterol PRN as well as IV solumedrol. Patient has not been resumed on her home inhalers as of yet including spiriva and Advair HFA. chest CT angio that has been taken on the is not yet resulted by radiology. 02/16/24 - Patient seen at bedside today. States she is feeling about the same that she has been, with some shortness of breath and feeling tired. Chest CT angio taken on 12 February still has no official report from radiology. As of this morning patient blood pressure 96/62, heart rate of 68, respiratory rate of 18 while saturating 89% on 6 L high flow nasal cannula. Throughout the day she was increased to 7 L where she has remained saturating 86-87%. Per the patient and her daughter the patient's baseline oxygen saturation is generally in the mid 80%. New labs - WBCs 11.2, Hgb 14.2, Hct 43.0, PLT 187; sodium 139, potassium 5.2 02/17/24 - Patient seen at bedside today. Patient states she continues to feel about the same, with shortness of breath and being tired. Chest CT angio taken on 12 February cells no official report from radiology. Chest x-ray ordered yesterday showed similar scattered reticular pulmonary opacities likely representing reported COVID infection. Overnight patient blood pressure 117/65, heart rate of 76, respiratory rate of 20, placed on 15 L high flow nasal cannula saturating in the mid 90s. Per pulmonology's recommendation goal of patient's saturations is to remain greater than 85%. As of this morning patient was moved on to Airvo with an O2 flow rate of 60 and FiO2 of 80%, and with this patient has been saturating between 85-89%. Patient does report increased shortness of breath as compared to yesterday, however was resting somewhat comfortably in bed. New labs -WBCs 9.13, Hgb 13.4, Hct 41.0, PLT 174; sodium 134, potassium 4.1, BUN 17.7, creatinine 0.7 02/18/24 - Patient seen at bedside today. Patient has been moved to the ICU for further observation per pulmonology's request. As of yesterday morning patient was moved onto Airvo with an FiO2 of 80% oxygen flow rate of 60, throughout the day this was increased the FiO2 raising up to 92% through the evening, with the patient continuing to saturate in the midhigh 80%'s. Overnight the patient was placed on BiPAP with saturations between 86-91%. New chest x-ray to be completed today to compare to the previous ones. Per pulmonology patient may qualify for baricitinib, for now we will continue on bronchodilators, steroids, and Lovenox. New labs -WBCs 10.6, Hgb 13.2, Hct 42.0,PLT 206; D-dimer 0.61; sodium 136, potassium 4.1, BUN 17, creatinine 0.53 02/19/24 - Patient seen and follow-up today continues to be in the ICU with close monitoring with multiple consultations following. Patient maintained on high flow and according to nursing staff having increased respiratory distress requiring mechanical ventilation overnight. Patient is currently maintained on an FiO2 of 100% and PEEP is extremely high at 15 with multiple drips going. Patient is maintained on Nimbex and Levophed along with a bicarb drip and patient also receiving baricitinib at this time. Patient noted to have a significant increase in white count and will repeat blood cultures, urine culture, procalcitonin and also consult infectious disease and appreciate input and recommendations. Patient also continues on breathing treatments and high- dose IV steroids. Kidney functions within normal limits at this time although nursing staff is reporting decreased urine output which will be monitored closely. Patient was given a fluid bolus. 02/20/24 - Patient seen at bedside today in the ICU. Patient has multiple consultations following with close monitoring. Patient was mechanically ventilated on 02/18 and has been weaned to an FiO2 of 80%, however with a PEEP of 16 with multiple concurrent drips going. Patient continues to maintain an index of Levophed while also receiving baricitinib as well as bicarb drip. Patient's white count has improved to 13.1 as compared to 32.8 yesterday (02/18), additionally ABG showed pH improvement to 7.26 as compared to 7.4. Chest x-ray to be repeated today. REVIEW OF SYSTEMS: CONSTITUTIONAL: No fever, no malaise, no fatigue. HEENT: No recent visual problems or hearing problems. Denied any sore throat. CARDIOVASCULAR: No chest pain, orthopnea, PND, no palpitations, no syncope. PULMONARY: Shortness of breath. GASTROINTESTINAL: No diarrhea, no nausea, no vomiting, no abdominal pain. NEUROLOGICAL: No headaches, no weakness, no numbness. HEMATOLOGICAL: Denies any bleeding or petechiae. GENITOURINARY: Denies any burning micturition, frequency, or urgency. MUSCULOSKELETAL/RHEUMATOLOGICAL: Denies any joint pain, swelling, or any muscle pain. ENDOCRINE: Denies any polyuria or polydipsia. The rest of the 14-point review of systems is negative. PHYSICAL EXAMINATION: GENERAL: The patient is a 63-year-old female who is sedated on mechanical ventilation with an FiO2 of 100% and PEEP of 16, well developed, ill-appearing, obese HEENT: Pupils are round and equally reacting to light. EOMI. No scleral icterus. No conjunctival pallor. Normocephalic, atraumatic. No pharyngeal erythema. No thyromegaly. CARDIOVASCULAR: S1 and S2 present. No murmurs, rubs, or gallops. PULMONARY: Diminished breath sounds with wheezing present in all lung field. Coarse rhonchi noted ABDOMEN: Soft, nontender, nondistended, normoactive bowel sounds. No palpable organomegaly. MUSCULOSKELETAL: No joint swelling or deformity. EXTREMITIES: No cyanosis, clubbing, or pedal edema. NEUROLOGICAL: Gross neurological examination did not reveal any focal deficits. Assessment and plan # Acute hypoxic respiratory failure secondary to pneumonitis pneumonia due to COPD exacerbation as a result of recently diagnosed bronchitis Patient's baseline saturation at home according to the daughter is 85-88% on 4 L nasal cannula Patient does state that her gravity prospecting supervisor (Acosta Willis) recently decided that patient should have her oxygen up from 4 L to 6 L Patient is currently on 3/4 L nasal cannula saturating in the low 90%'s Per pulmonology's recommendation urgent CT angio of the chest ordered, pending CRP, LDH, prolactin Patient has been increased to 7 L high flow nasal cannula saturating in the midhigh 80%'s Beginning yesterday afternoon (02/02) patient placed on 15 L high flow nasal cannula; with FiO2 titration as the goal Patient placed on Airvo this morning (02/16) with an O2 flow rate of 60 and FiO2 of 80% Patient requiring mechanical ventilation maintain FiO2 of 80% and a PEEP of 16 # Acute kidney injury possibly secondary to acute hypoxic respiratory failure - resolved On presentation to the emergency department patient's BUN was 45 and creatinine was 1.03 As of this morning patient's BUN is improved to 30.3 and creatinine is improved to 0.8 As of this morning 02/16 BUN 17.7, creatinine of 0.7 # Recent history of cardiac stenting Patient on Plavix 75 mg daily #Altered mental status - resolved Patient's daughter states that her mentations had declined over the previous few days States that her mother's mentation has improved greatly today and she is much more like herself #Anxiety Resume patient's on medications of 200 mg nightly of Zoloft and 300 mg nightly of Wellbutrin #Hypertension Patient's home medications include 50 mg hydroxyzine 3 times daily, 100 mg Cozaar daily, 25 mg Lopressor twice daily Patient's blood pressures were running low overnight at 90/50, going to hold 100 mg Cozaar today and 25 mg Lopressor; continue the hydroxyzine Continue to monitor and make alterations as necessary GI prophylaxis: Protonix 40 mg daily DVT prophylaxis: Lovenox 40 mg daily Full code Continue to monitor vital signs, monitor CBC, monitor CMP, continue telemetry monitoring Labs and medication were reviewed. Continue with symptomatic treatment. Resume home medication. Dictation was produced using [employer] dictation software. please excuse any grammatical, word or spelling errors. Objective - Vital Signs Vital signs: Vital Signs Temp 97.8 F 02/20/24 04:00 Pulse 67 02/20/24 07:00 Resp 32 H 02/20/24 07:00 BP 125/67 02/19/24 17:15 Pulse Ox 97 02/20/24 07:00 FiO2 80 02/20/24 05:37 Intake & Output 02/19/24 02/20/24 02/20/24 18:59 06:59 18:59 Intake Total 2232.940 1126.776 50 Output Total 115 400 45 Balance 2117.940 726.776 5 Intake: IV 250 550 50 Dextrose 5% in Water 1, 550 50 000 ml @ 50 mls/hr IV . Q23H CAREN with Sodium Bicarb (1 Meq/ml) 150 ml Rx#:[id number] Sodium Chloride 0.9% 1, 250 000 ml @ 50 mls/hr IV . Q20H CAREN Rx#:[id number] Intake, IV Titration 1982.940 516.776 Amount Cisatracurium 200 mg In 112.776 Sodium Chloride 0.9% 180 ml @ 1 MCG/KG/MIN 5.382 mls/hr IV .Q24H CAREN Rx#: [id number] Dextrose 5% in Water 1, 350 50 000 ml @ 50 mls/hr IV . Q23H CAREN with Sodium Bicarb (1 Meq/ml) 150 ml Rx#:[id number] Diltiazem 125 mg In 125 Sodium Chloride 0.9% 100 ml @ 5 MG/HR 5 mls/hr IV .Q24H CARNE Rx#:[id number] Norepinephrine 4 mg In 254.000 254.000 Sodium Chloride 0.9% 250 ml @ 0.03 MCG/KG/MIN 10. 253 mls/hr IV .Q24H CAREN Rx#:[id number] Sodium Chloride 0.9% 1, 1000 000 ml @ 999 mls/hr IV . Q1H1M ONE Rx#:[id number] propofoL 1,000 mg In 253.940 100 Empty Bag 1 bag @ 15 MCG/ KG/MIN 8.145 mls/hr IV . [id number] CAREN Rx#:[id number] Other 60 Output: Chest Tube Drainage 0 10 Chest Tube Left Lateral 0 10 Chest Urine 115 390 45 Other: Voiding Method Indwelling Catheter Indwelling Catheter # Bowel Movements 1 ABP, PAP, CO, CI - Last Documented Arterial Blood Pressure 104/50 - Labs CBC & Chem 7: 02/20/24 04:15 02/20/24 04:15 Labs: Abnormal Lab Results - Last 24 Hours (Table) 02/19/24 02/19/24 02/19/24 Range/Units 06:07 07:57 09:37 WBC 32.8 H (3.8-10.6) k/uL Hgb 7.4 L D (11.4-16.0) gm/dL MCHC (31.0-37.0) g/dL Neutrophils # (1.3-7.7) k/uL Neutrophils # (Manual) 29.80 H (1.3-7.7) k/uL Lymphocytes # (1.0-4.8) k/uL Lymphocytes # (Manual) 0.66 L (1.0-4.8) k/uL Monocytes # (Manual) 2.30 H (0-1.0) k/uL Metamyelocytes # (Man) 0.33 H (0) k/uL ABG pH 7.03 L* (7.35-7.45) ABG pCO2 90 H* (35-45) mmHg ABG pO2 71 L (83-108) mmHg ABG HCO3 (21-25) mmol/L ABG Total CO2 27 H (19-24) mmol/L ABG O2 Saturation 86.2 L (94-97) % Potassium (3.5-5.1) mmol/L BUN (7-17) mg/dL Creatinine (0.52-1.04) mg/dL Glucose (74-99) mg/dL Calcium (8.4-10.2) mg/dL AST (14-36) U/L ALT (4-34) U/L Total Protein (6.3-8.2) g/dL Albumin (3.5-5.0) g/dL Urine Appearance (Clear) Urine Protein (Negative) Urine Glucose (UA) (Negative) Urine Blood (Negative) Urine Bilirubin (Negative) Ur Leukocyte Esterase (Negative) Urine RBC (0-5) /hpf Urine WBC (0-5) /hpf Amorphous Sediment (None) /hpf Urine Mucus (None) /hpf 02/19/24 02/19/24 02/20/24 Range/Units 10:13 15:56 04:15 WBC 13.1 H (3.8-10.6) k/uL Hgb (11.4-16.0) gm/dL MCHC 30.6 L (31.0-37.0) g/dL Neutrophils # 11.8 H (1.3-7.7) k/uL Neutrophils # (Manual) (1.3-7.7) k/uL Lymphocytes # 0.6 L (1.0-4.8) k/uL Lymphocytes # (Manual) (1.0-4.8) k/uL Monocytes # (Manual) (0-1.0) k/uL Metamyelocytes # (Man) (0) k/uL ABG pH 7.14 L* (7.35-7.45) ABG pCO2 78 H* (35-45) mmHg ABG pO2 136 H (83-108) mmHg ABG HCO3 27 H (21-25) mmol/L ABG Total CO2 29 H (19-24) mmol/L ABG O2 Saturation 98.3 H (94-97) % Potassium (3.5-5.1) mmol/L BUN (7-17) mg/dL Creatinine (0.52-1.04) mg/dL Glucose (74-99) mg/dL Calcium (8.4-10.2) mg/dL AST (14-36) U/L ALT (4-34) U/L Total Protein (6.3-8.2) g/dL Albumin (3.5-5.0) g/dL Urine Appearance Turbid H (Clear) Urine Protein 1+ H (Negative) Urine Glucose (UA) Trace H (Negative) Urine Blood Moderate H (Negative) Urine Bilirubin 1+ H (Negative) Ur Leukocyte Esterase Moderate H (Negative) Urine RBC 10 H (0-5) /hpf Urine WBC 42 H (0-5) /hpf Amorphous Sediment Rare H (None) /hpf Urine Mucus Rare H (None) /hpf 02/20/24 02/20/24 Range/Units 04:15 05:23 WBC (3.8-10.6) k/uL Hgb (11.4-16.0) gm/dL MCHC (31.0-37.0) g/dL Neutrophils # (1.3-7.7) k/uL Neutrophils # (Manual) (1.3-7.7) k/uL Lymphocytes # (1.0-4.8) k/uL Lymphocytes # (Manual) (1.0-4.8) k/uL Monocytes # (Manual) (0-1.0) k/uL Metamyelocytes # (Man) (0) k/uL ABG pH 7.26 L (7.35-7.45) ABG pCO2 66 H (35-45) mmHg ABG pO2 184 H (83-108) mmHg ABG HCO3 30 H (21-25) mmol/L ABG Total CO2 32 H (19-24) mmol/L ABG O2 Saturation 98.3 H (94-97) % Potassium 3.4 L (3.5-5.1) mmol/L BUN 49 H (7-17) mg/dL Creatinine 1.96 H (0.52-1.04) mg/dL Glucose 288 H (74-99) mg/dL Calcium 7.0 L (8.4-10.2) mg/dL AST 187 H (14-36) U/L ALT 189 H (4-34) U/L Total Protein 5.1 L (6.3-8.2) g/dL Albumin 2.6 L (3.5-5.0) g/dL Urine Appearance (Clear) Urine Protein (Negative) Urine Glucose (UA) (Negative) Urine Blood (Negative) Urine Bilirubin (Negative) Ur Leukocyte Esterase (Negative) Urine RBC (0-5) /hpf Urine WBC (0-5) /hpf Amorphous Sediment (None) /hpf Urine Mucus (None) /hpf Microbiology - Last 24 Hours (Table) 02/17/24 20:03 Blood Culture - Preliminary Blood
--- NOTE | 2024-02-20 13:10 | P.PN ---
Subjective Progress Note Date: 02/20/24 Principal diagnosis: Acute on chronic hypoxic respiratory failure and acute COVID-19 pneumonia with acute COPD exacerbation This is a 63-year-old female patient, known history of COPD was been seeing Dr. Cornell at [facility]. Prior to that, she had another network consultant through [facility] who gave her because of her insurance coverage. The patient is an ex-smoker. She has quit smoking. The patient has been maintained on a combination of Advair and Spiriva on an outpatient basis and albuterol HFA on a as needed basis. The patient has been having symptoms of URI, cough congestion, generalized weakness and fatigue and tiredness and the patient came into the hospital where she was diagnosed having COVID-19 infection. Noted the patient has been symptomatic for more than a week. She has seen her network consultant, Dr. Cornell who treated her with a course of antibiotics and steroids. Nevertheless, her condition did not improve and she ended up coming into the hospital. No nausea vomiting or diarrhea. No abdominal pain. No altered mentation. The chest x-ray that was done at time of admission showed increased perihilar lung markings. No previous history of DVT or pulmonary embolism. I ordered a CTA of the chest on this patient to rule out pulmonary embolism and at the same time evaluate for COVID-19 related pneumonia. Noted the patient is also a chronic smoker. I reviewed the CTA of the chest and there are bilateral areas of scattered patchy groundglass pulmonary infiltrates consistent with COVID-19 related pneumonia more so on the left compared to the right. The patient has no filling defects to indicate pulmonary embolism. Aw aiting a final report from radiology. Note that this has never been infected with COVID-19 in the past and she has never been vaccinated. 02/14/2024, patient is doing well. Less short of breath compared to yesterday. CAT scan of the chest showed some patchy groundglass pulmonary filtrates consist ent with COVID-19 infection. However, clinically patient doing better. No evidence of any pulmonary involvement. No evidence of any lung masses. She remains on bronchodilators with albuterol HFA 4 times [id number] and the patient is on IV Solu-Medrol 60 mg every 6 hours. No abnormalities in her blood work. The CBC shows a white cell count of 6.3 with a hemoglobin 13 and a platelet count of 132. BUN 42 with a creatinine of 1.02. Serum bicarbonate 17 and sodium levels at 133 and a potassium level is at 4.3. 02/15/2024, the patient is being seen for a follow-up. The patient is doing well. The patient is being treated for an acute COPD exacerbation. The patient also has a component of COVID-19 pneumonia and she remains on 40 of oxygen by nasal cannula. She was given IV Solu-Medrol. She was outside the window for remdesivir treatment. She is noted advanced COPD. Based on my review of the CT of the chest, there is no evidence of any pulm embolism. There is patchy areas of pulm infiltration consistent with COVID-19 infection. No evidence of any lung masses or tumors. The patient is currently on 6 L of O2 nasal cannula. At times, she removes her oxygen she desaturates. No new labs are available from today. Her procalcitonin level is at 0.07. The LDH level was at 230. Rest of the inflammatory markers were minimally elevated. Otherwise, awake and alert, no altered mentation. No signs of any CO2 narcosis. The patient is seen today February 16, 2024 in follow-up on the regular medical floor. She is currently resting in bed. Awake and alert in no acute distress. She is having ongoing issues with oxygen desaturations. She is currently on 7 L high flow nasal cannula with O2 saturations in the low 80s. She is continued on Symbicort, Spiriva, albuterol and Solu-Medrol. Lovenox for DVT prophylaxis. Chest x-ray shows similar scattered reticular pulmonary opacities secondary to COVID infection. White count 11.2. Hemoglobin 14.2. Sodium 139. Potassium 5.2. Bicarb 24. BUN 23. Creatinine 0.8. Glucose 158. The patient is seen today February 17, 2024 in follow-up on the regular medical floor. She is currently awake and alert. She continues to have ongoing struggles with her breathing. This morning she was placed on Airvo high flow oxygen at 60% FiO2 and 80 L. Chest x-ray continues to show similar scattered reticular pulmonary opacities consistent with COVID infection. White count 9.1. Hemoglobin 13.4. Platelets 174. Sodium 134. Potassium 4.1. Bicarb 23. BUN 18. Creatinine 0.7. Glucose 180. She remains on Symbicort, Spiriva and albuterol along with IV Solu-Medrol. Lovenox for DVT prophylaxis. Patient was seen today on 02/18/2024, she is now in the ICU, she is marginal at best. Patient is critically ill, she was on Airvo yesterday at high flow and high FiO2, she is now on BiPAP at 100%, 04/23. O2 saturation is marginal, hence her chest x-ray is showing worsening of her interstitial infiltrates/presumptive COVID-19 pneumonia worsening and the patient meets the criteria to start baricitinib 4 mg daily for 14 days. Her procalcitonin level was normal and I doubt any underlying bacterial infection at this point. Clearly the patient is worsening and she will remain in the ICU, I have a feeling she may even require intubation mechanical ventilation. Patient seems to be comfortable although her O2 saturation is in the 80s. Does not seem to be in distress. She is hemodynamically stable not requiring any pressors. She is on bronchodilators, and she is also on steroids, Lasix were given to keep her on the dry side as much as possible although I am not convinced that the patient has any congestive heart failure WBC count today is 10.6 hemoglobin is 13.2 electrolytes are normal renal profile is normal her inflammatory markers are high with high LDH, high C- reactive protein, and high ferritin level. Patient was seen today on 02/19/2024, patient had to be intubated last night mostly because of worsening pulmonary status and worsening pneumonia. She required mechanical ventilation, and she is maximal on mechanical ventilation with assist-control rate of 3 2, tidal volume 400 FiO2 100% PEEP is 16. Last ABG showed a pO2 136 pCO2 78 pH of 7.14, patient was placed on bicarb drip 150 mEq in 1 L D5W running at 50 cc/h. Patient required central line placement and this was done in the groin she did sustain iatrogenic left-sided pneumothorax from attempt to place a left a left subclavian central line. Right femoral triple-lumen catheter was placed, patient is still on Nimbex she is on Cardizem at 10 mg/h she is on propofol at 35 mcg/kg/min IV fluid at 50 cc/h fentanyl at 0.5 mcg/kg/h and she is on norepinephrine at 0.15 mcg/kg/min. Family was updated and made aware that her condition is very poor, and mortality is extremely high. Patient seems to be having worsening COVID-19 pneumonia with diffuse interstitial infiltrates bilaterally.Patient is developing leukocytosis with WBC count of 32.8 hemoglobin 14.4, basic metabolic profile is normal renal profile is normal glucose is 185 laboratory markers are elevated. Patient is now on baricitinib Patient was seen today on 02/20/2024, patient remains in the ICU intubated and mechanically ventilated. Patient was placed in prone position and noted to have significant improvement in her oxygenation. She is presently in prone position this morning, and O2 saturation is in the mid 90s, patient is on 65% FiO2, and PEEP of 16. Patient is on assist-control rate of 32, tidal volume 400 FiO2 65% and I cut it down to 60% and PEEP is 16. ABG on 100% showed a pO2 of 184 pCO2 66 pH of 7.26. Peak airway pressure is in the mid to high 30s, plateau pressure is 30. Patient remains on propofol at 35 mcg/kg/min Levophed at 0.07 mcg/kg/min Fentanyl at 0.5 mcg/kg/h Cardizem at 5 mg/h she is still receiving sodium bicarb at 50 cc/h barcitinib was discontinued today as the patient is noted to have elevated procalcitonin level today and will start the patient on cefepime instead. Chest x-ray continues show significant interstitial infil trate/pneumonia no evidence of pneumothorax, left-sided chest tube remains in place. Looking at the Pleur-evac, there is no evidence of air leak. WBC count is 13.1 hemoglobin 12.6 basic metabolic profile is normal however her BUN is up to 49 creatinine 1.96, liver enzymes are beginning to rise and I recommended stopping barcitinib. Will continue hydration hold diuretics and closely monitor her renal status. When output is about 30 cc/h Objective - Vital Signs Vital signs: Vital Signs Temp 97.8 F 02/20/24 04:00 Pulse 70 02/20/24 12:00 Resp 32 H 02/20/24 12:00 BP 125/67 02/19/24 17:15 Pulse Ox 93 L 02/20/24 12:00 FiO2 60 02/20/24 11:14 Intake & Output 02/19/24 02/20/24 02/20/24 18:59 06:59 18:59 Intake Total 2232.940 1126.776 677.640 Output Total 115 400 175 Balance 2117.940 726.776 502.640 Weight 89.7 kg Intake: IV 250 550 450 Dextrose 5% in Water 1, 550 300 000 ml @ 50 mls/hr IV . Q23H CAREN with Sodium Bicarb (1 Meq/ml) 150 ml Rx#:[id number] Sodium Chloride 0.9% 1, 250 000 ml @ 50 mls/hr IV . Q20H CAREN Rx#:[id number] Sodium Chloride 0.9% 1, 150 000 ml @ 75 mls/hr IV . [id number] CAREN Rx#:[id number] Intake, IV Titration 1982.940 516.776 227.640 Amount Cefepime 1 gm In Sodium 50 Chloride 0.9% 50 ml @ 12. 5 mls/hr IVPB Q12H CAREN Rx #:[id number] Cisatracurium 200 mg In 112.776 Sodium Chloride 0.9% 180 ml @ 1 MCG/KG/MIN 5.382 mls/hr IV .Q24H CAREN Rx#: [id number] Dextrose 5% in Water 1, 350 50 000 ml @ 50 mls/hr IV . Q23H CAREN with Sodium Bicarb (1 Meq/ml) 150 ml Rx#:[id number] Diltiazem 125 mg In 125 Sodium Chloride 0.9% 100 ml @ 5 MG/HR 5 mls/hr IV .Q24H CAREN Rx#:[id number] Norepinephrine 4 mg In 254.000 254.000 103.837 Sodium Chloride 0.9% 250 ml @ 0.03 MCG/KG/MIN 10. 253 mls/hr IV .Q24H CAREN Rx#:[id number] Sodium Chloride 0.9% 1, 1000 000 ml @ 999 mls/hr IV . Q1H1M ONE Rx#:[id number] propofoL 1,000 mg In 253.940 100 73.803 Empty Bag 1 bag @ 15 MCG/ KG/MIN 8.145 mls/hr IV . [id number] CAREN Rx#:[id number] Other 60 Output: Chest Tube Drainage 0 10 Chest Tube Left Lateral 0 10 Chest Urine 115 390 175 Other: Voiding Method Indwelling Catheter Indwelling Catheter # Bowel Movements 1 ABP, PAP, CO, CI - Last Documented Arterial Blood Pressure 110/45 - Exam GENERAL EXAM: Reveals 63-year-old white female on mechanical ventilation, intubated, mechanically ventilated, sedated and paralyzed. Patient is in prone position this morning EYES: Normal reaction of pupils, equal size. NOSE: Clear with pink turbinates. THROAT: No erythema or exudates. NECK: No masses, no JVD. CHEST: No chest wall deformity. LUNGS: Crackles noted bilaterally no rhonchi no wheezes left-sided chest tube is noted, no evidence of air leak in the Pleur-evac. CVS: S1 and S2 normal with no audible murmur, regular rhythm. ABDOMEN: Morbidly obese no hepatosplenomegaly, normal bowel sounds, no guarding or rigidity. SKIN: No rashes CENTRAL NERVOUS SYSTEM: Could not assess patient is sedated and paralyzed. EXTREMITIES: No clubbing edema or cyanosis. Diminished distal pulses bilaterally - Labs CBC & Chem 7: 02/20/24 04:15 02/20/24 04:15 Labs: Abnormal Lab Results - Last 24 Hours (Table) 02/19/24 02/20/24 02/20/24 Range/Units 15:56 04:15 04:15 WBC 13.1 H (3.8-10.6) k/uL MCHC 30.6 L (31.0-37.0) g/dL Neutrophils # 11.8 H (1.3-7.7) k/uL Lymphocytes # 0.6 L (1.0-4.8) k/uL ABG pH (7.35-7.45) ABG pCO2 (35-45) mmHg ABG pO2 (83-108) mmHg ABG HCO3 (21-25) mmol/L ABG Total CO2 (19-24) mmol/L ABG O2 Saturation (94-97) % Potassium (3.5-5.1) mmol/L BUN (7-17) mg/dL Creatinine (0.52-1.04) mg/dL Glucose (74-99) mg/dL Calcium (8.4-10.2) mg/dL AST (14-36) U/L ALT (4-34) U/L Total Protein (6.3-8.2) g/dL Albumin (3.5-5.0) g/dL Procalcitonin 5.16 H (0.02-0.50) ng/mL Urine Appearance Turbid H (Clear) Urine Protein 1+ H (Negative) Urine Glucose (UA) Trace H (Negative) Urine Blood Moderate H (Negative) Urine Bilirubin 1+ H (Negative) Ur Leukocyte Esterase Moderate H (Negative) Urine RBC 10 H (0-5) /hpf Urine WBC 42 H (0-5) /hpf Amorphous Sediment Rare H (None) /hpf Urine Mucus Rare H (None) /hpf 02/20/24 02/20/24 Range/Units 04:15 05:23 WBC (3.8-10.6) k/uL MCHC (31.0-37.0) g/dL Neutrophils # (1.3-7.7) k/uL Lymphocytes # (1.0-4.8) k/uL ABG pH 7.26 L (7.35-7.45) ABG pCO2 66 H (35-45) mmHg ABG pO2 184 H (83-108) mmHg ABG HCO3 30 H (21-25) mmol/L ABG Total CO2 32 H (19-24) mmol/L ABG O2 Saturation 98.3 H (94-97) % Potassium 3.4 L (3.5-5.1) mmol/L BUN 49 H (7-17) mg/dL Creatinine 1.96 H (0.52-1.04) mg/dL Glucose 288 H (74-99) mg/dL Calcium 7.0 L (8.4-10.2) mg/dL AST 187 H (14-36) U/L ALT 189 H (4-34) U/L Total Protein 5.1 L (6.3-8.2) g/dL Albumin 2.6 L (3.5-5.0) g/dL Procalcitonin (0.02-0.50) ng/mL Urine Appearance (Clear) Urine Protein (Negative) Urine Glucose (UA) (Negative) Urine Blood (Negative) Urine Bilirubin (Negative) Ur Leukocyte Esterase (Negative) Urine RBC (0-5) /hpf Urine WBC (0-5) /hpf Amorphous Sediment (None) /hpf Urine Mucus (None) /hpf Microbiology - Last 24 Hours (Table) 02/17/24 20:03 Blood Culture - Preliminary Blood Assessment and Plan Assessment: Impression: Acute on chronic hypoxic respiratory failure patient patient was intubated on 02/19/2024. Acute COVID-19 infection/pneumonia and the patient has patchy areas of groundglass pulm infiltrates bilaterally based on the CT of the chest. No evidence of any pulmonary embolism. Acute COPD exacerbation secondary to above Obesity with a BMI of 40.1 Coronary artery disease, with previous coronary stenting Hyperlipidemia Chronic hypoxic respiratory failure, normally the patient is on 4 L nasal cannula Advanced COPD maintained on a combination of Advair and Spiriva on outpatient basis the patient is a previous smoker Acute iatrogenic left-sided pneumothorax requiring immediate placement of chest tube with excellent follow-up chest x-ray noted. Hypotension secondary to sepsis and septic shock requiring pressors. Acute kidney injury, possibly related to Baricitinib or aggressive diuresis, will discontinue barcitinib and will cautiously hydrate the patient. Elevated liver enzymes possibly secondary to bosutinib which has been dis continued elevated procalcitonin level todayHence will discontinue baricitinib and start patient on cefepime. Empirically. Recommendation: Continue ventilatory support Discontinue baricitinib Continue hemodynamic support Continue nutritional support however the patient is placed in prone position for 18 hours a day may not be able to seat properly with enteral feeding hence this is presently on hold. Continue GI DVT prophylaxis Continue bronchodilators including steroids, continue Lovenox. Continue GI and DVT prophylaxis patient is extremely ill and critical Critical care time is over 30 minutes Will continue to follow. Time with Patient: Greater than 30
[2024-02-20 15:02] LABS: Glucose,Whole Blood 198 mg/dL (70-110)
[2024-02-20 15:02] LABS: Glucose,Whole Blood 245 mg/dL (70-110)
[2024-02-20 15:03] LABS: Glucose,Whole Blood 242 mg/dL (70-110)
[2024-02-20 15:03] LABS: Glucose,Whole Blood 161 mg/dL (70-110)
[2024-02-20 15:03] LABS: Glucose,Whole Blood 135 mg/dL (70-110)
[2024-02-20 15:03] LABS: Glucose,Whole Blood 125 mg/dL (70-110)
[2024-02-20 15:03] LABS: Glucose,Whole Blood 270 mg/dL (70-110)
[2024-02-20 15:03] LABS: Glucose,Whole Blood 189 mg/dL (70-110)
[2024-02-20 15:03] LABS: Glucose,Whole Blood 144 mg/dL (70-110)
[2024-02-20 15:03] LABS: Glucose,Whole Blood 295 mg/dL (70-110)
[2024-02-20 15:04] LABS: Glucose,Whole Blood 140 mg/dL (70-110)
[2024-02-20 15:04] LABS: Glucose,Whole Blood 156 mg/dL (70-110)
[2024-02-20 15:04] LABS: Glucose,Whole Blood 145 mg/dL (70-110)
[2024-02-20 15:04] LABS: Glucose,Whole Blood 158 mg/dL (70-110)
[2024-02-20 15:04] LABS: Glucose,Whole Blood 148 mg/dL (70-110)
[2024-02-20 15:04] LABS: Glucose,Whole Blood 130 mg/dL (70-110)
[2024-02-20 15:04] LABS: Glucose,Whole Blood 132 mg/dL (70-110)
[2024-02-20 15:04] LABS: Glucose,Whole Blood 181 mg/dL (70-110)
[2024-02-20 15:05] LABS: Glucose,Whole Blood 177 mg/dL (70-110)
[2024-02-20] MEDS: INSULIN DETEMIR (LEVEMIR) 100 UNIT/ML SYR SQ SCH (15:05)
--- NOTE | 2024-02-20 15:25 | P.PN ---
Subjective Progress Note Date: 02/20/24 Principal diagnosis: Reason for follow-up is leukocytosis Patient is a 63-year-old female with a past medical history significant for COPD coronary artery disease hyperlipidemia presenting to the hospital for evaluation of increasing shortness of breath patient be diagnosed with the COVID-19 started on baricitinib did have worsening respiratory status requiring intubation and also have elevated white count prompted this consultation. On today's evaluation that is 02/20/2024, patient has been afebrile, patient is intubated on the vent FiO2 is down to 60% no significant purulent secretions in the ED not requiring pressor support no diarrhea has been reported. Patient white count is down to 13.1, creatinine is 1.96 procalcitonin 5.16 Objective - Vital Signs Vital signs: Vital Signs Temp 97.8 F 02/20/24 04:00 Pulse 68 02/20/24 08:30 Resp 32 H 02/20/24 08:30 BP 125/67 02/19/24 17:15 Pulse Ox 95 02/20/24 08:30 FiO2 60 02/20/24 11:14 Intake & Output 02/19/24 02/20/24 02/20/24 18:59 06:59 18:59 Intake Total 2232.940 1126.776 277.640 Output Total 115 400 75 Balance 2117.940 726.776 202.640 Intake: IV 250 550 100 Dextrose 5% in Water 1, 550 100 000 ml @ 50 mls/hr IV . Q23H CAREN with Sodium Bicarb (1 Meq/ml) 150 ml Rx#:[id number] Sodium Chloride 0.9% 1, 250 000 ml @ 50 mls/hr IV . Q20H CAREN Rx#:[id number] Intake, IV Titration 1982.940 516.776 177.640 Amount Cisatracurium 200 mg In 112.776 Sodium Chloride 0.9% 180 ml @ 1 MCG/KG/MIN 5.382 mls/hr IV .Q24H CAREN Rx#: [id number] Dextrose 5% in Water 1, 350 50 000 ml @ 50 mls/hr IV . Q23H CAREN with Sodium Bicarb (1 Meq/ml) 150 ml Rx#:[id number] Diltiazem 125 mg In 125 Sodium Chloride 0.9% 100 ml @ 5 MG/HR 5 mls/hr IV .Q24H CAREN Rx#:[id number] Norepinephrine 4 mg In 254.000 254.000 103.837 Sodium Chloride 0.9% 250 ml @ 0.03 MCG/KG/MIN 10. 253 mls/hr IV .Q24H CAREN Rx#:[id number] Sodium Chloride 0.9% 1, 1000 000 ml @ 999 mls/hr IV . Q1H1M ONE Rx#:[id number] propofoL 1,000 mg In 253.940 100 73.803 Empty Bag 1 bag @ 15 MCG/ KG/MIN 8.145 mls/hr IV . [id number] CAREN Rx#:[id number] Other 60 Output: Chest Tube Drainage 0 10 Chest Tube Left Lateral 0 10 Chest Urine 115 390 75 Other: Voiding Method Indwelling Catheter Indwelling Catheter # Bowel Movements 1 ABP, PAP, CO, CI - Last Documented Arterial Blood Pressure 128/50 - Exam GENERAL DESCRIPTION: Middle-age female intubated on the vent RESPIRATORY SYSTEM: Unlabored breathing , decreased breath sounds at bases HEART: S1 S2 regular rate and rhythm , ABDOMEN: Soft , no tenderness EXTREMITIES: No edema feet - Labs CBC & Chem 7: 02/20/24 04:15 02/20/24 04:15 Labs: Abnormal Lab Results - Last 24 Hours (Table) 02/19/24 02/20/24 02/20/24 Range/Units 15:56 04:15 04:15 WBC 13.1 H (3.8-10.6) k/uL MCHC 30.6 L (31.0-37.0) g/dL Neutrophils # 11.8 H (1.3-7.7) k/uL Lymphocytes # 0.6 L (1.0-4.8) k/uL ABG pH (7.35-7.45) ABG pCO2 (35-45) mmHg ABG pO2 (83-108) mmHg ABG HCO3 (21-25) mmol/L ABG Total CO2 (19-24) mmol/L ABG O2 Saturation (94-97) % Potassium (3.5-5.1) mmol/L BUN (7-17) mg/dL Creatinine (0.52-1.04) mg/dL Glucose (74-99) mg/dL Calcium (8.4-10.2) mg/dL AST (14-36) U/L ALT (4-34) U/L Total Protein (6.3-8.2) g/dL Albumin (3.5-5.0) g/dL Procalcitonin 5.16 H (0.02-0.50) ng/mL Urine Appearance Turbid H (Clear) Urine Protein 1+ H (Negative) Urine Glucose (UA) Trace H (Negative) Urine Blood Moderate H (Negative) Urine Bilirubin 1+ H (Negative) Ur Leukocyte Esterase Moderate H (Negative) Urine RBC 10 H (0-5) /hpf Urine WBC 42 H (0-5) /hpf Amorphous Sediment Rare H (None) /hpf Urine Mucus Rare H (None) /hpf 02/20/24 02/20/24 Range/Units 04:15 05:23 WBC (3.8-10.6) k/uL MCHC (31.0-37.0) g/dL Neutrophils # (1.3-7.7) k/uL Lymphocytes # (1.0-4.8) k/uL ABG pH 7.26 L (7.35-7.45) ABG pCO2 66 H (35-45) mmHg ABG pO2 184 H (83-108) mmHg ABG HCO3 30 H (21-25) mmol/L ABG Total CO2 32 H (19-24) mmol/L ABG O2 Saturation 98.3 H (94-97) % Potassium 3.4 L (3.5-5.1) mmol/L BUN 49 H (7-17) mg/dL Creatinine 1.96 H (0.52-1.04) mg/dL Glucose 288 H (74-99) mg/dL Calcium 7.0 L (8.4-10.2) mg/dL AST 187 H (14-36) U/L ALT 189 H (4-34) U/L Total Protein 5.1 L (6.3-8.2) g/dL Albumin 2.6 L (3.5-5.0) g/dL Procalcitonin (0.02-0.50) ng/mL Urine Appearance (Clear) Urine Protein (Negative) Urine Glucose (UA) (Negative) Urine Blood (Negative) Urine Bilirubin (Negative) Ur Leukocyte Esterase (Negative) Urine RBC (0-5) /hpf Urine WBC (0-5) /hpf Amorphous Sediment (None) /hpf Urine Mucus (None) /hpf Microbiology - Last 24 Hours (Table) 02/17/24 20:03 Blood Culture - Preliminary Blood Assessment and Plan (1) Leukocytosis Current Visit: Yes Status: Acute Code(s): D72.829 - ELEVATED WHITE BLOOD CELL COUNT, UNSPECIFIED SNOMED Code(s): 887015902 (2) COVID Current Visit: Yes Status: Acute Code(s): U07.1 - COVID-19 SNOMED Code(s): 160138768 Plan: 1patient presented to the hospital about a week ago with increasing shortness of breath however the patient symptoms of cough and shortness of breath were going on for more than a week before initial presentation to the hospital patient has been diagnosed with a COVID-19 and treated with steroids and supportive treatment however the patient did have worsening of her respiratory status requiring intubation patient did not have any fever during this hospital stay with initial normal white count with significant jump in the white count could be reactive with acute change in her condition as well as steroids and the patient has been on clinical suspicious low for secondary bacterial pneumonia but not entirely excluded 2 blood cultures are currently pending patient did have elevated procalcitonin. 3baricitinib has been discontinued patient has been appropriately started on cefepime to continue and monitor clinical course closely. Daughter at the bedside question answered Dictation was produced using [employer] dictation software. please excuse any grammatical, word or spelling errors. Time with Patient: Less than 30
[2024-02-20 18:01] LABS: Glucose,Whole Blood 284 mg/dL (70-110)
[2024-02-20] MEDS: INSULIN ASPART (NovoLOG) 100 UNIT/ML VIAL SQ SCH (18:34)
[2024-02-20 23:05] LABS: Glucose,Whole Blood 255 mg/dL (70-110)
[2024-02-21] MEDS ORDERED: Potassium Replacement Protocol 1 EACH MISC MISCELLANE PRN ×2 (00:36→07:07)
[2024-02-21] MEDS: POTASSIUM BICARBONATE/CIT AC 20 MEQ TABLET.EFF NG-TUBE SCH ×2 (00:43→08:40)
[2024-02-21 05:15] LABS: ABG Base Excess 9.4 mmol/L; ABG HCO3 36 mmol/L (21-25); ABG Oxygen Saturation 96.5 % (94-97); ABG PCO2 57 mmHg (35-45); ABG PH 7.41 (7.35-7.45); ABG PO2 81 mmHg (83-108); ABG TCO2 38 mmol/L (19-24)
[2024-02-21 05:47] LABS: Basophils % (A) 0 %; Eosinophils % (A) 0 %; HGB 11.5 gm/dL (11.4-16.0); Hypochromasia Slight; Lymphocytes # (A) 0.3 k/uL (1.0-4.8); Lymphocytes % (A) 3 %; MCH 28.4 pg (25.0-35.0); MCV 88.7 fL (80.0-100.0); Mean Platelet Volume 7.5; Monocytes # (A) 0.4 k/uL (0-1.0); Monocytes % (A) 4 %; Neutrophils % (A) 92 %; Platelet Count 244 k/uL (150-450); RBC 4.05 m/uL (3.80-5.40); RDW 13.3 % (11.5-15.5); WBC 9.8 k/uL (3.8-10.6)
[2024-02-21 05:58] LABS: African American GFR (CKD) 35 (>60 ml/min/1.73 sqM); Anion Gap 0 mmol/L; Blood Urea Nitrogen 55 mg/dL (7-17); Calcium 6.9 mg/dL (8.4-10.2); Carbon Dioxide 36 mmol/L (22-30); Chloride 100 mmol/L (98-107); Glucose 239 mg/dL (74-99); Non-African American GFR(CKD) 31 (>60 ml/min/1.73 sqM); Potassium 3.9 mmol/L (3.5-5.1); Sodium 136 mmol/L (137-145)
[2024-02-21 06:33] LABS: Glucose,Whole Blood 235 mg/dL (70-110)
--- NOTE | 2024-02-21 07:50 | XR ---
EXAMINATION TYPE: XR chest 1V portable DATE OF EXAM: 02/21/2024 COMPARISON: 02/20/2024 INDICATION: Tube placement TECHNIQUE: Single frontal view of the chest is obtained. FINDINGS: The heart size is enlarged. The pulmonary vasculature is prominent. Diffuse increased lung markings are present. Correlate for pulmonary edema. Findings are similar to c omparison. Endotracheal tube tip is above the maikol. Nasogastric tube transverses the thorax. IMPRESSION: 1. Clinical correlation recommended for congestive heart failure. Findings appear stable from compari son. 2. Lines and catheters discussed above. [facility], Workstation: [facility], 02/21/2024 7:48 AM
[2024-02-21] MEDS: INSULIN DETEMIR (LEVEMIR) 100 UNIT/ML SYR SQ SCH (09:19)
--- NOTE | 2024-02-21 10:16 | P.CRDCN ---
History of Present Illness Consult date: 02/21/24 Consult reason: atrial fibrillation History of present illness: This is a 63-year-old female that presented to the hospital on 02/11 acute on chronic hypoxic respiratory failure status post intubation, acute COVID-19 infection and pneumonia, acute COPD exacerbation, acute iatrogenic left-sided pneumothorax status post chest tube, acute kidney injury possibly related to Baricitinib which has subsequently been discontinued. We have been asked to evaluate the patient for atrial fibrillation. Reviewed EKG and telemetry monitoring. EKG dated 02/16 is sinus rhythm at 80 bpm. Telemetry is showing SVT with no sign of atrial fibrillation. Review Of Systems: At the time of my exam: Unable to be obtained as patient is intubated Physical examination: Gen: This is a 63-year-old female intubated on mechanical ventilation appears to be comfortable VS: reviewed Physical exam deferred due to COVID Assessment: SVT, no evidence of atrial fibrillation Acute on chronic hypoxic respiratory failure s/p intubation Acute COVID-19 infection and pneumonia Acute COPD exacerbation Acute iatrogenic left-sided pneumothorax status post chest tube Acute kidney injury Plan: Continue current treatment No plan for cardiac workup at this time Cardiology will sign off this case and follow on an as-needed basis. Please reconsult for any new concerns. Thank you kindly for this consultation. Nurse practitioner note has been reviewed, I agree with documented findings and plan of care. Patient was seen and examined. Past Medical History Past Medical History: Asthma, Coronary Artery Disease (CAD), COPD, Eye Disorder, Hyperlipidemia Additional Past Medical History / Comment(s): COPD and she is 02 dependent at 6L, she is maintained on Advair and Spiriva and albuterol HFA as needed. Exsmoker and she has quit 18 years ago. CAD History of Any Multi-Drug Resistant Organisms: None Reported Past Surgical History: Heart Catheterization With Stent, Hysterectomy Additional Past Surgical History / Comment(s): laparoscopy, cataract surgery Past Anesthesia/Blood Transfusion Reactions: No Reported Reaction Date of Last Stent Placement:: 01/01/2024 Past Psychological History: Anxiety, Depression Smoking Status: Former smoker Past Alcohol Use History: None Reported Additional Past Alcohol Use History / Comment(s): quit smoking 11 yrs. ago, smoked 2ppd for >20 yrs. Past Drug Use History: None Reported Additional Drug Use History / Comment(s): occasional use - Past Family History Mother Family Medical History: Cancer Medications and Allergies Home Medications Medication Instructions Recorded Confirmed Type Sertraline [Zoloft] 200 mg PO DAILY 09/30/17 02/12/24 History buPROPion XL [Wellbutrin XL] 300 mg PO DAILY 09/30/17 02/12/24 History Albuterol Inhaler [Ventolin Hfa 2 puff INHALATION RT-QID PRN 02/12/24 02/12/24 History Inhaler] Aspirin EC [Ecotrin Low Dose] 81 mg PO DAILY 02/12/24 02/12/24 History Atorvastatin [Lipitor] 40 mg PO HS 02/12/24 02/12/24 History Clopidogrel [Plavix] 75 mg PO DAILY 02/12/24 02/12/24 History Doxycycline Monohydrate 100 mg PO BID 02/12/24 02/12/24 History Fluticasone Propion/Salmeterol 2 puff INHALATION RT-BID 02/12/24 02/12/24 History [Advair Hfa 230-21 Mcg Inhaler] Losartan Potassium 100 mg PO DAILY 02/12/24 02/12/24 History Metoprolol Tartrate [Lopressor] 25 mg PO BID 02/12/24 02/12/24 History Pantoprazole Sodium [Protonix] 20 mg PO DAILY 02/12/24 02/12/24 History Tiotropium [place] [Spiriva] 1 puff INHALATION RT-DAILY 02/12/24 02/12/24 History hydrOXYzine HCL [Atarax] 50 mg PO TID 02/12/24 02/12/24 History hydroCHLOROthiazide [Hydrodiuril] 25 mg PO DAILY 02/12/24 02/12/24 History metFORMIN HCL 500 mg PO DAILY 02/12/24 02/12/24 History predniSONE [Deltasone] 40 mg PO DAILY 02/12/24 02/12/24 History Allergies Allergy/AdvReac Type Severity Reaction Status Date / Time No Known Allergies Allergy Verified 02/12/24 17:16 Physical Exam Vitals: Vital Signs Temp Pulse Resp BP Pulse Ox FiO2 02/21/24 08:00 97.9 F 61 32 H 146/79 96 02/21/24 07:57 50 02/21/24 07:45 61 32 H 96 02/21/24 07:30 60 32 H 95 02/21/24 07:15 61 32 H 95 02/21/24 07:00 62 32 H 96 02/21/24 06:45 61 32 H 96 02/21/24 06:30 60 32 H 97 02/21/24 06:15 61 32 H 96 02/21/24 06:00 62 32 H 96 02/21/24 05:45 62 32 H 96 02/21/24 05:30 61 32 H 95 02/21/24 05:15 62 32 H 95 02/21/24 05:00 63 32 H 95 02/21/24 04:46 55 02/21/24 04:45 64 32 H 95 02/21/24 04:30 63 32 H 95 02/21/24 04:15 62 32 H 95 02/21/24 04:00 62 32 H 95 55 02/21/24 03:45 63 32 H 95 02/21/24 03:30 63 32 H 95 02/21/24 03:15 64 32 H 95 02/21/24 03:00 64 32 H 95 02/21/24 02:45 64 32 H 95 02/21/24 02:30 63 32 H 95 02/21/24 02:15 64 32 H 95 02/21/24 02:00 65 32 H 95 02/21/24 01:45 65 32 H 94 L 02/21/24 01:30 64 32 H 95 02/21/24 01:15 64 32 H 95 02/21/24 01:00 65 32 H 95 02/21/24 00:45 64 32 H 94 L 02/21/24 00:33 55 02/21/24 00:30 65 32 H 94 L 02/21/24 00:15 64 32 H 94 L 02/21/24 00:00 97.6 F 65 32 H 94 L 55 02/20/24 23:45 67 32 H 94 L 02/20/24 23:30 65 32 H 94 L 02/20/24 23:15 65 32 H 94 L 02/20/24 23:00 66 26 H 94 L 02/20/24 22:45 63 13 93 L 02/20/24 22:30 65 32 H 93 L 02/20/24 22:15 65 32 H 93 L 02/20/24 22:00 66 32 H 93 L 02/20/24 21:45 67 32 H 93 L 02/20/24 21:30 66 32 H 93 L 02/20/24 21:15 66 32 H 93 L 02/20/24 21:00 65 32 H 93 L 02/20/24 20:45 66 32 H 93 L 02/20/24 20:30 66 32 H 92 L 02/20/24 20:17 55 02/20/24 20:15 69 32 H 93 L 02/20/24 20:00 98.0 F 65 32 H 93 L 55 02/20/24 19:45 66 32 H 93 L 02/20/24 19:30 66 32 H 93 L 02/20/24 19:15 65 32 H 92 L 02/20/24 19:00 67 32 H 92 L 02/20/24 18:45 67 31 H 91 L 02/20/24 18:30 67 32 H 94 L 55 02/20/24 18:15 96 02/20/24 18:00 64 32 H 93 L 02/20/24 17:45 65 32 H 93 L 02/20/24 17:30 66 32 H 93 L 02/20/24 17:15 66 32 H 93 L 02/20/24 17:00 65 32 H 93 L 02/20/24 16:45 65 32 H 93 L 02/20/24 16:30 64 32 H 94 L 02/20/24 16:15 66 32 H 93 L 02/20/24 16:00 67 32 H 93 L 55 02/20/24 15:45 64 32 H 93 L 02/20/24 15:30 62 32 H 95 02/20/24 15:25 55 02/20/24 15:15 62 32 H 94 L 02/20/24 15:00 61 32 H 94 L 02/20/24 14:45 61 32 H 94 L 02/20/24 14:30 61 32 H 95 02/20/24 14:15 61 32 H 95 02/20/24 14:00 61 32 H 95 02/20/24 13:45 61 32 H 94 L 02/20/24 13:30 62 32 H 92 L 02/20/24 13:15 62 32 H 91 L 02/20/24 13:00 98.0 F 117 H 15 94 L 02/20/24 12:45 70 32 H 94 L 02/20/24 12:30 70 32 H 94 L 02/20/24 12:15 70 32 H 94 L 02/20/24 12:00 70 32 H 93 L 65 02/20/24 11:45 73 32 H 93 L 02/20/24 11:30 71 32 H 94 L 02/20/24 11:15 69 32 H 93 L 02/20/24 11:14 60 02/20/24 11:00 70 32 H 93 L 02/20/24 10:45 70 32 H 94 L 02/20/24 10:30 71 32 H 94 L 65 02/20/24 10:15 70 32 H 94 L 02/20/24 10:05 60 02/20/24 10:00 70 32 H 95 02/20/24 09:45 70 32 H 95 02/20/24 09:30 68 32 H 95 02/20/24 09:15 70 32 H 95 02/20/24 09:00 69 32 H 95 80 Intake and Output 02/20/24 02/21/24 02/21/24 22:59 06:59 14:59 Intake Total 6065.555 4319.041 280.753 Output Total 239 236 125 Balance 1516.481 781.041 155.753 Intake: IV 1015 774 206 .9NS Pressure Bag 15 24 6 Dextrose 5% in Water 1, 400 150 50 000 ml @ 50 mls/hr IV . Q23H [facility]EN with Sodium Bicarb (1 Meq/ml) 150 ml Rx#:[id number] Sodium Chloride 0.9% 1, 600 600 150 000 ml @ 75 mls/hr IV . [id number] [facility]EN Rx#:[id number] Intake, IV Titration 600.481 183.041 74.753 Amount Cisatracurium 200 mg In 63.912 43.056 Sodium Chloride 0.9% 180 ml @ 1 MCG/KG/MIN 5.382 mls/hr IV .Q24H CAREN Rx#: [id number] Dextrose 5% in Water 1, 200 000 ml @ 50 mls/hr IV . Q23H CAREN with Sodium Bicarb (1 Meq/ml) 150 ml Rx#:[id number] Norepinephrine 4 mg In 194.348 39.985 Sodium Chloride 0.9% 250 ml @ 0.03 MCG/KG/MIN 10. 253 mls/hr IV .Q24H CAREN Rx#:[id number] propofoL 1,000 mg In 142.221 100 74.753 Empty Bag 1 bag @ 15 MCG/ KG/MIN 8.145 mls/hr IV . [id number] [facility] Rx#:[id number] Tube Feeding 80 Other 60 60 Output: Chest Tube Drainage 0 Chest Tube Left Lateral 0 Chest Urine 239 236 125 Other: Voiding Method Indwelling Catheter Indwelling Catheter Weight 89.4 kg ABP, PAP, CO, CI - Last 8 Hours Arterial Blood Pressure 132/54 Arterial Blood Pressure 146/59 Arterial Blood Pressure 88/87 Arterial Blood Pressure 131/56 Arterial Blood Pressure 131/55 Arterial Blood Pressure 133/56 Arterial Blood Pressure 128/54 Arterial Blood Pressure 129/54 Arterial Blood Pressure 131/55 Arterial Blood Pressure 127/54 Arterial Blood Pressure 135/56 Arterial Blood Pressure 141/57 Arterial Blood Pressure 154/63 Arterial Blood Pressure 135/57 Arterial Blood Pressure 111/48 Arterial Blood Pressure 125/52 Arterial Blood Pressure 135/56 Arterial Blood Pressure 116/51 Arterial Blood Pressure 116/51 Arterial Blood Pressure 119/50 Arterial Blood Pressure 132/55 Arterial Blood Pressure 122/51 Arterial Blood Pressure 106/47 Arterial Blood Pressure 104/45 Arterial Blood Pressure 105/46 Arterial Blood Pressure 117/50 Arterial Blood Pressure 159/63 Results 02/21/24 05:08 02/21/24 05:08 CBC 02/21/24 Range/Units 05:08 WBC 9.8 (3.8-10.6) k/uL RBC 4.05 (3.80-5.40) m/uL Hgb 11.5 (11.4-16.0) gm/dL Hct 36.0 (34.0-46.0) % Plt Count 244 (150-450) k/uL Comprehensive Metabolic Panel 02/20/24 02/21/24 Range/Units 22:45 05:08 Sodium 136 L (137-145) mmol/L Potassium 3.7 3.9 (3.5-5.1) mmol/L Chloride 100 (98-107) mmol/L Carbon Dioxide 36 H (22-30) mmol/L BUN 55 H (7-17) mg/dL Creatinine 1.77 H (0.52-1.04) mg/dL Glucose 239 H (74-99) mg/dL Calcium 6.9 L (8.4-10.2) mg/dL Current Medications Generic Name Dose Route Start Last Admin Trade Name Freq PRN Reason Stop Dose Admin Acetaminophen 650 mg 02/16/24 16:00 02/18/24 08:48 Acetaminophen Tab 325 Mg Tab PO 650 mg Q6HR PRN Administration Fever and/ or Pain Albuterol Sulfate 2 puff 02/13/24 12:00 02/21/24 08:46 Albuterol Hfa Inhaler INHALATION 2 puff RT-QID CAREN Administration Alprazolam 0.5 mg 02/18/24 10:26 02/18/24 20:38 Alprazolam 0.5 Mg Tab PO 0.5 mg QID PRN Administration Anxiety Artificial Tears 2 drops 02/19/24 08:00 02/21/24 08:40 Artificial Tears-Hypromellose Drops 15 Ml Btl BOTH EYES 2 drops Q4HR CAREN Administration Aspirin 81 mg 02/13/24 13:00 02/21/24 08:40 Aspirin 81 Mg PO 81 mg DAILY CAREN Administration Atorvastatin Calcium 40 mg 02/13/24 21:00 02/20/24 21:58 Atorvastatin 40 Mg Tab PO 40 mg HS CAREN Administration Budesonide/Formoterol Fumarate 2 puff 02/15/24 22:33 02/21/24 08:47 Symbicort 160-4.5 Mcg Inhaler INHALATION 2 puff RT-BID CAREN Administration Bupropion HCl 300 mg 02/14/24 21:00 02/20/24 20:21 Bupropion Xl 150 Mg Tab.Er.24h PO Not Given HS CAREN Chlorhexidine Gluconate 15 ml 02/19/24 09:00 02/21/24 08:40 Chlorhexidine Gluconate 15 Ml Cup MUCOUS MEM 15 ml BID CAREN Administration Clopidogrel Bisulfate 75 mg 02/13/24 10:15 02/21/24 08:41 Clopidogrel 75 Mg Tab PO 75 mg DAILY CAREN Administration Enoxaparin Sodium 30 mg 02/20/24 09:00 02/21/24 08:41 Enoxaparin 30 Mg/0.3 Ml Syringe SQ 30 mg DAILY CAREN Administration Fluticasone Propionate 2 spray 02/16/24 13:02 Fluticasone Nasal 50mcg/[place] 16gm Btl EA NOSTRIL DAILY PRN Allergy Symptoms Hydroxyzine HCl 50 mg 02/13/24 10:15 02/21/24 08:39 Hydroxyzine Hcl 25 Mg Tab PO 50 mg TID CAREN Administration Propofol 1,000 mg/ IV Solution 100 mls @ 8.145 mls/hr 02/19/24 03:30 02/21/24 07:41 IV 35 mcg/kg/min .[id number] CAREN 19.005 mls/hr Administration Protocol 15 MCG/KG/MIN Fentanyl Citrate 1,000 mcg/ 100 mls @ 4.485 mls/hr 02/19/24 04:45 02/21/24 04:21 Sodium Chloride IV 0.5 mcg/kg/hr .[id number] CAREN 4.485 mls/hr Administration 0.5 MCG/KG/HR Cisatracurium Besylate 200 mg/ 200 mls @ 5.382 mls/hr 02/19/24 04:45 02/21/24 00:00 Sodium Chloride IV 2.5 mcg/kg/min .Q24H CAREN 13.455 mls/hr Titration Protocol 1 MCG/KG/MIN Diltiazem HCl 125 mg/ Sodium 125 mls @ 5 mls/hr 02/19/24 05:00 02/20/24 18:33 Chloride IV Not Given .Q24H CAREN 5 MG/HR Norepinephrine Bitartrate 4 mg 254 mls @ 10.253 mls/hr 02/19/24 09:00 02/20 02:10 / Sodium Chloride IV 0.01 mcg/kg/min .Q24H CAREN 3.418 mls/hr Titration Protocol 0.03 MCG/KG/MIN Sodium Bicarbonate 150 ml/ 1,150 mls @ 50 mls/hr 02/19/24 11:00 02/21/24 08:48 Dextrose/Water IV 50 mls/hr .Q23H CAREN Administration Sodium Chloride 1,000 mls @ 75 mls/hr 02/20/24 10:00 02/21/24 03:08 Saline 0.9% IV Not Given .[id number] CAREN Cefepime HCl 1 gm/ Sodium 50 mls @ 12.5 mls/hr 02/20/24 11:00 02/20/24 21:59 Chloride IVPB 12.5 mls/hr Q12H CAREN Administration Insulin Aspart 0 unit 02/21/24 12:30 Insulin Aspart (Novolog) 100 Unit/Ml Vial SQ ACHS CAREN Protocol Insulin Detemir 12 unit 02/21/24 09:00 Insulin Detemir (Levemir) 100 Unit/Ml Syr SQ BID CAREN Methylprednisolone Sodium Succinate 60 mg 02/13/24 18:00 02/21/24 07:00 Methylprednisolone Sod Succi 125 Mg/2 Ml Vial IV 60 mg Q6HR CAREN Administration Miscellaneous Information 1 each 02/20/24 06:16 Potassium Replacement Protocol 1 Each Misc MISCELLANE DAILY PRN Per Protocol Protocol Miscellaneous Information 1 each 02/21/24 07:07 Potassium Replacement Protocol 1 Each Misc MISCELLANE DAILY PRN Per Protocol Protocol Morphine Sulfate 4 mg 02/12/24 18:05 02/17/24 21:07 Morphine Sulfate 4 Mg/Ml Syringe IV 4 mg Q4HR PRN Administration Severe Pain (Scale 7 to 10) Naloxone HCl 0.2 mg 02/12/24 18:05 Naloxone 0.4 Mg/Ml 1 Ml Vial IV Q2M PRN Opioid Reversal Ondansetron HCl 4 mg 02/17/24 15:35 Ondansetron 4 Mg/2 Ml Vial IVP Q8HR PRN Nausea And Vomiting Pantoprazole Sodium 40 mg 02/20/24 07:30 02/21/24 07:00 Pantoprazole Sodium 40 Mg Granule Pkt OG-TUBE 40 mg [id number] CAREN Administration Sertraline HCl 200 mg 02/13/24 21:00 02/20/24 21:59 Sertraline 100 Mg Tab PO 200 mg HS CAREN Administration Sodium Chloride 1 applic 02/16/24 13:03 Saline Nasal Gel 14.1 Gm Tube NASAL Q4HR PRN Dry Nasal Passages Intake and Output 02/20/24 02/21/24 02/21/24 22:59 06:59 14:59 Intake Total 7455.150 8050.041 280.753 Output Total 239 236 125 Balance 1516.481 781.041 155.753 Intake: IV 1015 774 206 .9NS Pressure Bag 15 24 6 Dextrose 5% in Water 1, 400 150 50 000 ml @ 50 mls/hr IV . Q23H CAREN with Sodium Bicarb (1 Meq/ml) 150 ml Rx#:[id number] Sodium Chloride 0.9% 1, 600 600 150 000 ml @ 75 mls/hr IV . [id number] [facility] Rx#:[id number] Intake, IV Titration 600.481 183.041 74.753 Amount Cisatracurium 200 mg In 63.912 43.056 Sodium Chloride 0.9% 180 ml @ 1 MCG/KG/MIN 5.382 mls/hr IV .Q24H [facility] Rx#: [id number] Dextrose 5% in Water 1, 200 000 ml @ 50 mls/hr IV . Q23H CAREN with Sodium Bicarb (1 Meq/ml) 150 ml Rx#:[id number] Norepinephrine 4 mg In 194.348 39.985 Sodium Chloride 0.9% 250 ml @ 0.03 MCG/KG/MIN 10. 253 mls/hr IV .Q24H [facility] Rx#:[id number] propofoL 1,000 mg In 142.221 100 74.753 Empty Bag 1 bag @ 15 MCG/ KG/MIN 8.145 mls/hr IV . [id number] [facility] Rx#:[id number] Tube Feeding 80 Other 60 60 Output: Chest Tube Drainage 0 Chest Tube Left Lateral 0 Chest Urine 239 236 125 Other: Voiding Method Indwelling Catheter Indwelling Catheter Weight 89.4 kg 02/21/24 05:08 02/21/24 05:08
[2024-02-21 11:32] LABS: Glucose,Whole Blood 248 mg/dL (70-110)
[2024-02-21] MEDS: INSULIN ASPART (NovoLOG) 100 UNIT/ML VIAL SQ SCH (11:52)
--- NOTE | 2024-02-21 12:25 | P.PN ---
Subjective Progress Note Date: 02/21/24 Principal diagnosis: Acute on chronic hypoxic respiratory failure and acute COVID-19 pneumonia with acute COPD exacerbation This is a 63-year-old female patient, known history of COPD was been seeing Dr. Cornell at [facility]. Prior to that, she had another production superintendent hydro through [facility] who gave her because of her insurance coverage. The patient is an ex-smoker. She has quit smoking. The patient has been maintained on a combination of Advair and Spiriva on an outpatient basis and albuterol HFA on a as needed basis. The patient has been having symptoms of URI, cough congestion, generalized weakness and fatigue and tiredness and the patient came into the hospital where she was diagnosed having COVID-19 infection. Noted the patient has been symptomatic for more than a week. She has seen her production superintendent hydro, Dr. Cornell who treated her with a course of antibiotics and steroids. Nevertheless, her condition did not improve and she ended up coming into the hospital. No nausea vomiting or diarrhea. No abdominal pain. No altered mentation. The chest x-ray that was done at time of admission showed increased perihilar lung markings. No previous history of DVT or pulmonary embolism. I ordered a CTA of the chest on this patient to rule out pulmonary embolism and at the same time evaluate for COVID-19 related pneumonia. Noted the patient is also a chronic smoker. I reviewed the CTA of the chest and there are bilateral areas of scattered patchy groundglass pulmonary infiltrates consistent with COVID-19 related pneumonia more so on the left compared to the right. The patient has no filling defects to indicate pulmonary embolism. Aw aiting a final report from radiology. Note that this has never been infected with COVID-19 in the past and she has never been vaccinated. 02/14/2024, patient is doing well. Less short of breath compared to yesterday. CAT scan of the chest showed some patchy groundglass pulmonary filtrates consist ent with COVID-19 infection. However, clinically patient doing better. No evidence of any pulmonary involvement. No evidence of any lung masses. She remains on bronchodilators with albuterol HFA 4 times [id number] and the patient is on IV Solu-Medrol 60 mg every 6 hours. No abnormalities in her blood work. The CBC shows a white cell count of 6.3 with a hemoglobin 13 and a platelet count of 132. BUN 42 with a creatinine of 1.02. Serum bicarbonate 17 and sodium levels at 133 and a potassium level is at 4.3. 02/15/2024, the patient is being seen for a follow-up. The patient is doing well. The patient is being treated for an acute COPD exacerbation. The patient also has a component of COVID-19 pneumonia and she remains on 40 of oxygen by nasal cannula. She was given IV Solu-Medrol. She was outside the window for remdesivir treatment. She is noted advanced COPD. Based on my review of the CT of the chest, there is no evidence of any pulm embolism. There is patchy areas of pulm infiltration consistent with COVID-19 infection. No evidence of any lung masses or tumors. The patient is currently on 6 L of O2 nasal cannula. At times, she removes her oxygen she desaturates. No new labs are available from today. Her procalcitonin level is at 0.07. The LDH level was at 230. Rest of the inflammatory markers were minimally elevated. Otherwise, awake and alert, no altered mentation. No signs of any CO2 narcosis. The patient is seen today February 16, 2024 in follow-up on the regular medical floor. She is currently resting in bed. Awake and alert in no acute distress. She is having ongoing issues with oxygen desaturations. She is currently on 7 L high flow nasal cannula with O2 saturations in the low 80s. She is continued on Symbicort, Spiriva, albuterol and Solu-Medrol. Lovenox for DVT prophylaxis. Chest x-ray shows similar scattered reticular pulmonary opacities secondary to COVID infection. White count 11.2. Hemoglobin 14.2. Sodium 139. Potassium 5.2. Bicarb 24. BUN 23. Creatinine 0.8. Glucose 158. The patient is seen today February 17, 2024 in follow-up on the regular medical floor. She is currently awake and alert. She continues to have ongoing struggles with her breathing. This morning she was placed on Airvo high flow oxygen at 60% FiO2 and 80 L. Chest x-ray continues to show similar scattered reticular pulmonary opacities consistent with COVID infection. White count 9.1. Hemoglobin 13.4. Platelets 174. Sodium 134. Potassium 4.1. Bicarb 23. BUN 18. Creatinine 0.7. Glucose 180. She remains on Symbicort, Spiriva and albuterol along with IV Solu-Medrol. Lovenox for DVT prophylaxis. Patient was seen today on 02/18/2024, she is now in the ICU, she is marginal at best. Patient is critically ill, she was on Airvo yesterday at high flow and high FiO2, she is now on BiPAP at 100%, 04/23. O2 saturation is marginal, hence her chest x-ray is showing worsening of her interstitial infiltrates/presumptive COVID-19 pneumonia worsening and the patient meets the criteria to start baricitinib 4 mg daily for 14 days. Her procalcitonin level was normal and I doubt any underlying bacterial infection at this point. Clearly the patient is worsening and she will remain in the ICU, I have a feeling she may even require intubation mechanical ventilation. Patient seems to be comfortable although her O2 saturation is in the 80s. Does not seem to be in distress. She is hemodynamically stable not requiring any pressors. She is on bronchodilators, and she is also on steroids, Lasix were given to keep her on the dry side as much as possible although I am not convinced that the patient has any congestive heart failure WBC count today is 10.6 hemoglobin is 13.2 electrolytes are normal renal profile is normal her inflammatory markers are high with high LDH, high C- reactive protein, and high ferritin level. Patient was seen today on 02/19/2024, patient had to be intubated last night mostly because of worsening pulmonary status and worsening pneumonia. She required mechanical ventilation, and she is maximal on mechanical ventilation with assist-control rate of 3 2, tidal volume 400 FiO2 100% PEEP is 16. Last ABG showed a pO2 136 pCO2 78 pH of 7.14, patient was placed on bicarb drip 150 mEq in 1 L D5W running at 50 cc/h. Patient required central line placement and this was done in the groin she did sustain iatrogenic left-sided pneumothorax from attempt to place a left a left subclavian central line. Right femoral triple-lumen catheter was placed, patient is still on Nimbex she is on Cardizem at 10 mg/h she is on propofol at 35 mcg/kg/min IV fluid at 50 cc/h fentanyl at 0.5 mcg/kg/h and she is on norepinephrine at 0.15 mcg/kg/min. Family was updated and made aware that her condition is very poor, and mortality is extremely high. Patient seems to be having worsening COVID-19 pneumonia with diffuse interstitial infiltrates bilaterally.Patient is developing leukocytosis with WBC count of 32.8 hemoglobin 14.4, basic metabolic profile is normal renal profile is normal glucose is 185 laboratory markers are elevated. Patient is now on baricitinib Patient was seen today on 02/20/2024, patient remains in the ICU intubated and mechanically ventilated. Patient was placed in prone position and noted to have significant improvement in her oxygenation. She is presently in prone position this morning, and O2 saturation is in the mid 90s, patient is on 65% FiO2, and PEEP of 16. Patient is on assist-control rate of 32, tidal volume 400 FiO2 65% and I cut it down to 60% and PEEP is 16. ABG on 100% showed a pO2 of 184 pCO2 66 pH of 7.26. Peak airway pressure is in the mid to high 30s, plateau pressure is 30. Patient remains on propofol at 35 mcg/kg/min Levophed at 0.07 mcg/kg/min Fentanyl at 0.5 mcg/kg/h Cardizem at 5 mg/h she is still receiving sodium bicarb at 50 cc/h barcitinib was discontinued today as the patient is noted to have elevated procalcitonin level today and will start the patient on cefepime instead. Chest x-ray continues show significant interstitial infil trate/pneumonia no evidence of pneumothorax, left-sided chest tube remains in place. Looking at the Pleur-evac, there is no evidence of air leak. WBC count is 13.1 hemoglobin 12.6 basic metabolic profile is normal however her BUN is up to 49 creatinine 1.96, liver enzymes are beginning to rise and I recommended stopping barcitinib. Will continue hydration hold diuretics and closely monitor her renal status. When output is about 30 cc/h Patient was evaluated today on 02/21/2024, patient remains in the ICU, intubated and mechanically ventilated, patient is now on assist-control rate of 32 tidal volume 400 FiO2 cut down from 55% to 50% PEEP cut down from 16 down to 14. Earlier ABG showed a pO2 of 81 pCO2 57 pH of 7.41. Patient remains on Nimbex and she is intermittently placed in prone position to adequately ventilate the patient and oxygenate the patient on lower FiO2 as a matter fact we cut down the FiO2 down to 50% and I was able to cut down the PEEP down to 14. Chest x-ray basically is about the same. Not much of a change in her infiltrates bilaterally she has a very small tiny apical pneumothorax and apparently intermittently noted to have minimal air leak in the Pleur-evac. She is on norepinephrine at 0.01 mcg/kg/min propofol at 35 mcg/kg/min Fentanyl 0.5 mcg/kg/h patient is now receiving cefepime, and her urine output is about 40 to 50 cc/h. Lasix remains on hold, patient is still receiving IV fluids. Objective - Vital Signs Vital signs: Vital Signs Temp 97.9 F 02/21/24 08:00 Pulse 65 02/21/24 11:30 Resp 32 H 02/21/24 11:30 BP 155/77 02/21/24 11:00 Pulse Ox 92 L 02/21/24 11:30 FiO2 50 02/21/24 12:09 Intake & Output 02/20/24 02/21/24 02/21/24 18:59 06:59 18:59 Intake Total 2595.473 1747.202 809.552 Output Total 380 360 210 Balance 2215.473 1387.202 599.552 Weight 89.7 kg 89.4 kg Intake: IV 1203 1286 540 .9NS Pressure Bag 3 36 15 Dextrose 5% in Water 1, 600 350 150 000 ml @ 50 mls/hr IV . Q23H CAREN with Sodium Bicarb (1 Meq/ml) 150 ml Rx#:[id number] Sodium Chloride 0.9% 1, 600 900 375 000 ml @ 75 mls/hr IV . [id number] CAREN Rx#:[id number] Intake, IV Titration 1272.473 341.202 269.552 Amount Cefepime 1 gm In Sodium 50 50 Chloride 0.9% 50 ml @ 12. 5 mls/hr IVPB Q12H CAREN Rx #:[id number] Cisatracurium 200 mg In 77.370 54.493 125.132 Sodium Chloride 0.9% 180 ml @ 1 MCG/KG/MIN 5.382 mls/hr IV .Q24H CAREN Rx#: [id number] Dextrose 5% in Water 1, 450 000 ml @ 50 mls/hr IV . Q23H CAREN with Sodium Bicarb (1 Meq/ml) 150 ml Rx#:[id number] Diltiazem 125 mg In 93.833 Sodium Chloride 0.9% 100 ml @ 5 MG/HR 5 mls/hr IV .Q24H CAREN Rx#:[id number] Norepinephrine 4 mg In 399.817 88.516 19.667 Sodium Chloride 0.9% 250 ml @ 0.03 MCG/KG/MIN 10. 253 mls/hr IV .Q24H CAREN Rx#:[id number] propofoL 1,000 mg In 201.453 198.193 74.753 Empty Bag 1 bag @ 15 MCG/ KG/MIN 8.145 mls/hr IV . [id number] CAREN Rx#:[id number] Tube Feeding 120 Other 120 Output: Chest Tube Drainage 0 Chest Tube Left Lateral 0 Chest Urine 380 360 210 Other: Voiding Method Indwelling Catheter Indwelling Catheter ABP, PAP, CO, CI - Last Documented Arterial Blood Pressure 145/55 - Exam GENERAL EXAM: Reveals 63-year-old white female on mechanical ventilation, intubated, mechanically ventilated, sedated and paralyzed. Patient is in prone position, planning daily 18 hours of proning EYES: Normal reaction of pupils, equal size. NOSE: Clear with pink turbinates. THROAT: No erythema or exudates. NECK: No masses, no JVD. CHEST: No chest wall deformity. LUNGS: Crackles noted bilaterally no rhonchi no wheezes left-sided chest tube is noted, no evidence of air leak in the Pleur-evac. CVS: S1 and S2 normal with no audible murmur, regular rhythm. ABDOMEN: Morbidly obese no hepatosplenomegaly, normal bowel sounds, no guarding or rigidity. SKIN: No rashes CENTRAL NERVOUS SYSTEM: Could not assess patient is sedated and paralyzed. EXTREMITIES: No clubbing edema or cyanosis. Good pulses bilaterally - Labs CBC & Chem 7: 02/21/24 05:08 02/21/24 05:08 Labs: Abnormal Lab Results - Last 24 Hours (Table) 02/16/24 02/16/24 02/16/24 Range/Units 06:00 11:49 16:46 Neutrophils # (1.3-7.7) k/uL Lymphocytes # (1.0-4.8) k/uL ABG pCO2 (35-45) mmHg ABG pO2 (83-108) mmHg ABG HCO3 (21-25) mmol/L ABG Total CO2 (19-24) mmol/L Sodium (137-145) mmol/L Carbon Dioxide (22-30) mmol/L BUN (7-17) mg/dL Creatinine (0.52-1.04) mg/dL Glucose (74-99) mg/dL POC Glucose (mg/dL) 177 H 130 H 156 H (70-110) mg/dL Calcium (8.4-10.2) mg/dL 02/16/24 02/17/24 02/17/24 Range/Units 19:57 06:18 11:27 Neutrophils # (1.3-7.7) k/uL Lymphocytes # (1.0-4.8) k/uL ABG pCO2 (35-45) mmHg ABG pO2 (83-108) mmHg ABG HCO3 (21-25) mmol/L ABG Total CO2 (19-24) mmol/L Sodium (137-145) mmol/L Carbon Dioxide (22-30) mmol/L BUN (7-17) mg/dL Creatinine (0.52-1.04) mg/dL Glucose (74-99) mg/dL POC Glucose (mg/dL) 148 H 132 H 158 H (70-110) mg/dL Calcium (8.4-10.2) mg/dL 02/17/24 02/17/24 02/17/24 Range/Units 13:27 17:39 19:51 Neutrophils # (1.3-7.7) k/uL Lymphocytes # (1.0-4.8) k/uL ABG pCO2 (35-45) mmHg ABG pO2 (83-108) mmHg ABG HCO3 (21-25) mmol/L ABG Total CO2 (19-24) mmol/L Sodium (137-145) mmol/L Carbon Dioxide (22-30) mmol/L BUN (7-17) mg/dL Creatinine (0.52-1.04) mg/dL Glucose (74-99) mg/dL POC Glucose (mg/dL) 140 H 181 H 145 H (70-110) mg/dL Calcium (8.4-10.2) mg/dL 02/18/24 02/18/24 02/18/24 Range/Units 06:13 11:17 17:09 Neutrophils # (1.3-7.7) k/uL Lymphocytes # (1.0-4.8) k/uL ABG pCO2 (35-45) mmHg ABG pO2 (83-108) mmHg ABG HCO3 (21-25) mmol/L ABG Total CO2 (19-24) mmol/L Sodium (137-145) mmol/L Carbon Dioxide (22-30) mmol/L BUN (7-17) mg/dL Creatinine (0.52-1.04) mg/dL Glucose (74-99) mg/dL POC Glucose (mg/dL) 135 H 144 H 161 H (70-110) mg/dL Calcium (8.4-10.2) mg/dL 02/18/24 02/19/24 02/19/24 Range/Units 21:01 06:33 12:44 Neutrophils # (1.3-7.7) k/uL Lymphocytes # (1.0-4.8) k/uL ABG pCO2 (35-45) mmHg ABG pO2 (83-108) mmHg ABG HCO3 (21-25) mmol/L ABG Total CO2 (19-24) mmol/L Sodium (137-145) mmol/L Carbon Dioxide (22-30) mmol/L BUN (7-17) mg/dL Creatinine (0.52-1.04) mg/dL Glucose (74-99) mg/dL POC Glucose (mg/dL) 125 H 189 H 198 H (70-110) mg/dL Calcium (8.4-10.2) mg/dL 02/19/24 02/20/24 02/20/24 Range/Units 18:06 00:43 05:55 Neutrophils # (1.3-7.7) k/uL Lymphocytes # (1.0-4.8) k/uL ABG pCO2 (35-45) mmHg ABG pO2 (83-108) mmHg ABG HCO3 (21-25) mmol/L ABG Total CO2 (19-24) mmol/L Sodium (137-145) mmol/L Carbon Dioxide (22-30) mmol/L BUN (7-17) mg/dL Creatinine (0.52-1.04) mg/dL Glucose (74-99) mg/dL POC Glucose (mg/dL) 245 H 242 H 270 H (70-110) mg/dL Calcium (8.4-10.2) mg/dL 10/04/24 10/04/24 10/04/24 Range/Units 12:03 17:58 23:04 Neutrophils # (1.3-7.7) k/uL Lymphocytes # (1.0-4.8) k/uL ABG pCO2 (35-45) mmHg ABG pO2 (83-108) mmHg ABG HCO3 (21-25) mmol/L ABG Total CO2 (19-24) mmol/L Sodium (137-145) mmol/L Carbon Dioxide (22-30) mmol/L BUN (7-17) mg/dL Creatinine (0.52-1.04) mg/dL Glucose (74-99) mg/dL POC Glucose (mg/dL) 295 H 284 H 255 H (70-110) mg/dL Calcium (8.4-10.2) mg/dL 02/21/24 02/21/24 02/21/24 Range/Units 00:37 05:08 05:08 Neutrophils # 9.0 H (1.3-7.7) k/uL Lymphocytes # 0.3 L (1.0-4.8) k/uL ABG pCO2 57 H (35-45) mmHg ABG pO2 81 L (83-108) mmHg ABG HCO3 36 H (21-25) mmol/L ABG Total CO2 38 H (19-24) mmol/L Sodium 136 L (137-145) mmol/L Carbon Dioxide 36 H (22-30) mmol/L BUN 55 H (7-17) mg/dL Creatinine 1.77 H (0.52-1.04) mg/dL Glucose 239 H (74-99) mg/dL POC Glucose (mg/dL) (70-110) mg/dL Calcium 6.9 L (8.4-10.2) mg/dL 02/21/24 02/21/24 Range/Units 06:31 11:30 Neutrophils # (1.3-7.7) k/uL Lymphocytes # (1.0-4.8) k/uL ABG pCO2 (35-45) mmHg ABG pO2 (83-108) mmHg ABG HCO3 (21-25) mmol/L ABG Total CO2 (19-24) mmol/L Sodium (137-145) mmol/L Carbon Dioxide (22-30) mmol/L BUN (7-17) mg/dL Creatinine (0.52-1.04) mg/dL Glucose (74-99) mg/dL POC Glucose (mg/dL) 235 H 248 H (70-110) mg/dL Calcium (8.4-10.2) mg/dL Microbiology - Last 24 Hours (Table) 02/17/24 20:03 Blood Culture - Preliminary Blood 02/19/24 15:56 Urine Culture - Final Urine,Voided Assessment and Plan Assessment: Impression: Acute on chronic hypoxic respiratory failure patient patient was intubated on 02/19/2024. Acute COVID-19 infection/pneumonia and the patient has patchy areas of groundglass pulm infiltrates bilaterally based on the CT of the chest. No evidence of any pulmonary embolism. Acute COPD exacerbation secondary to above Obesity with a BMI of 40.1 Coronary artery disease, with previous coronary stenting Hyperlipidemia Chronic hypoxic respiratory failure, normally the patient is on 4 L nasal cannula Advanced COPD maintained on a combination of Advair and Spiriva on outpatient basis the patient is a previous smoker Acute iatrogenic left-sided pneumothorax requiring immediate placement of chest tube with excellent follow-up chest x-ray noted. Hypotension secondary to sepsis and septic shock requiring pressors. Acute kidney injury, possibly related to Baricitinib or aggressive diuresis, will discontinue barcitinib and will cautiously hydrate the patient. Elevated liver enzymes possibly secondary to bosutinib which has been discontinued elevated procalcitonin level todayHence will discontinue baricitinib and start patient on cefepime. Empirically. Recommendation: Continue ventilatory support cut down FiO2 to 50% cut down PEEP to 14 Continue intermittent proning Patient is off baricitinib Continue hemodynamic support, titrate norepinephrine accordingly patient is on a minimal dose today Continue nutritional support patient is receiving enteral feeding when she is in supine position but not in prone position Continue GI DVT prophylaxis Continue bronchodilators including steroids, continue Lovenox. Continue GI and DVT prophylaxis Remains extremely ill and critical Critical care time is over 30 minutes Will continue to follow. Time with Patient: Greater than 30
--- NOTE | 2024-02-21 13:07 | P.PN ---
Subjective Progress Note Date: 02/21/24 63-year-old female present to the emergency department for further evaluation of increasing shortness of breath as well as changes in her mental status for the past day and a half according to her daughter. Patient's past medical history significant for COPD, in which she was recently started on treatment for bronchitis with steroids and antibiotics (doxycycline). Upon presentation patient states she was not feeling well, with increased confusion difficulty speaking. Her daughter, sitting at bedside, states that she was saturating 86% on room air. Patient denies any recent travel. Per patient's viral panel taken upon arrival to the emergency department patient states positive COVID-19. Pulmonology has been consulted and will see the patient for COPD exacerbation as well as COVID-19 infection. Upon arrival to the emergency department patient was afebrile blood pressure 118/67, heart rate of 81, respiratory rate of 16 with an oxygen saturation of 80% on room air. When seen the patient today, she reports she is feeling better and her daughter who is at her bedside also reports that she is presenting better than she had been the previous couple of days, and her mentation had improved greatly. She states that she is looking more like "herself". Initial lab work done in the ER showed WBCs 5.9, Hgb 14.8, Hct 45.7, PLT 108; PT 10.8, INR 1.0, PTT 27.1; blood gas pH 7.36, pCO2 33, HCO3 18; sodium 136, potassium 4.3, BUN 45, creatinine 1.03 Influenza A not detected Influenza B not detected RSV not detected COVID-19 positive EKG done in the ER showed heart rate of 82, no ST segment elevation or depression seen, no T-wave inversions seen. Chest x-ray done in the ER showed increased perihilar lung markings, to be correlated for infectious etiologies, pulmonary edema could be considered 02/14/24 - Patient seen at bedside today. She states that she is feeling better than she was yesterday, however she states that it feels like she "smoked 3 packs" and has remained short of breath. Progress states it is closer to her baseline when she was over the past few days however still not all the way back. Overnight patient's blood pressure was recorded as 90/50, with a heart rate of 64, respiratory rate of 18 saturating 95% on 4 and half liters of nasal cannula. Due to the patient having persistently low blood pressures we will hold 100 mg Cozaar and 20 mg Lopressor today and continue to monitor make adjustments as needed. Per pulmonology recommendation patient underwent CT angiogram of the chest to help rule out pulmonary embolism and at the same time evaluate for COVID-19 pneumonia and it was noted that the patient is a chronic smoker, on review of the CTA of the chest there were bilateral areas of scattered patchy groundglass pulmonary infiltrates consistent with COVID-19 related pneumonia worse on the left side compared to the right side. Patient will continue on O2 and will be titrated to maintain saturation above 90% overnight on 4 and half liters of oxygen nasal cannula, per pulmonology request patient started on IV Solu-Medrol 60 mg every 6 hours, she is outside the window for remdesivir as patient is had symptoms for more than a week, additionally patient was started on Lovenox 40 mg subcutaneously for DVT prophylaxis. Patient's LDH 230, e levated CRP at 6.3 and procalcitonin was unremarkable at 0.07. Additionally last night patient's 30 mg nightly, hold Wellbutrin and 200 mg nightly of Zoloft) presumed upon request with the patient and the patient's daughter. Labs done today - Currently pending at time of dictation. CT of the chest completed on 02/12 yet to evaluate official final read from radiologist, however per pulmonology's report he was to evaluate for possible pulmonary embolism but at the same time evaluated for COVID-19 pneumonia and was noted that there were bilateral areas of scattered patchy groundglass pulmonary infiltrates consistent with COVID-19 worse on the left side. 02/15/24 - Patient is evaluated today in follow up resting in bed. Continues on 4L of oxygen with adequate saturations. She continue to report shortness of breath and sputum production. No wheezing noted, there is some scattered ronchi. Patient remains on albuterol PRN as well as IV solumedrol. Patient has not been resumed on her home inhalers as of yet including spiriva and Advair HFA. chest CT angio that has been taken on the is not yet resulted by radiology. 02/16/24 - Patient seen at bedside today. States she is feeling about the same that she has been, with some shortness of breath and feeling tired. Chest CT angio taken on 12 February still has no official report from radiology. As of this morning patient blood pressure 96/62, heart rate of 68, respiratory rate of 18 while saturating 89% on 6 L high flow nasal cannula. Throughout the day she was increased to 7 L where she has remained saturating 86-87%. Per the patient and her daughter the patient's baseline oxygen saturation is generally in the mid 80%. New labs - WBCs 11.2, Hgb 14.2, Hct 43.0, PLT 187; sodium 139, potassium 5.2 02/17/24 - Patient seen at bedside today. Patient states she continues to feel about the same, with shortness of breath and being tired. Chest CT angio taken on 12 February cells no official report from radiology. Chest x-ray ordered yesterday showed similar scattered reticular pulmonary opacities likely representing reported COVID infection. Overnight patient blood pressure 117/65, heart rate of 76, respiratory rate of 20, placed on 15 L high flow nasal cannula saturating in the mid 90s. Per pulmonology's recommendation goal of patient's saturations is to remain greater than 85%. As of this morning patient was moved on to Airvo with an O2 flow rate of 60 and FiO2 of 80%, and with this patient has been saturating between 85-89%. Patient does report increased shortness of breath as compared to yesterday, however was resting somewhat comfortably in bed. New labs -WBCs 9.13, Hgb 13.4, Hct 41.0, PLT 174; sodium 134, potassium 4.1, BUN 17.7, creatinine 0.7 02/18/24 - Patient seen at bedside today. Patient has been moved to the ICU for further observation per pulmonology's request. As of yesterday morning patient was moved onto Airvo with an FiO2 of 80% oxygen flow rate of 60, throughout the day this was increased the FiO2 raising up to 92% through the evening, with the patient continuing to saturate in the midhigh 80%'s. Overnight the patient was placed on BiPAP with saturations between 86-91%. New chest x-ray to be completed today to compare to the previous ones. Per pulmonology patient may qualify for baricitinib, for now we will continue on bronchodilators, steroids, and Lovenox. New labs -WBCs 10.6, Hgb 13.2, Hct 42.0,PLT 206; D-dimer 0.61; sodium 136, potassium 4.1, BUN 17, creatinine 0.53 02/19/24 - Patient seen and follow-up today continues to be in the ICU with close monitoring with multiple consultations following. Patient maintained on high flow and according to nursing staff having increased respiratory distress requiring mechanical ventilation overnight. Patient is currently maintained on an FiO2 of 100% and PEEP is extremely high at 15 with multiple drips going. Patient is maintained on Nimbex and Levophed along with a bicarb drip and patient also receiving baricitinib at this time. Patient noted to have a significant increase in white count and will repeat blood cultures, urine culture, procalcitonin and also consult infectious disease and appreciate input and recommendations. Patient also continues on breathing treatments and high- dose IV steroids. Kidney functions within normal limits at this time although nursing staff is reporting decreased urine output which will be monitored closely. Patient was given a fluid bolus. 02/20/24 - Patient seen at bedside today in the ICU. Patient has multiple consultations following with close monitoring. Patient was mechanically ventilated on 02/18 and has been weaned to an FiO2 of 80%, however with a PEEP of 16 with multiple concurrent drips going. Patient continues to maintain an index of Levophed while also receiving baricitinib as well as bicarb drip. Patient's white count has improved to 13.1 as compared to 32.8 yesterday (02/18), additionally ABG showed pH improvement to 7.26 as compared to 7.4. Chest x-ray to be repeated today. 02/21/24 - Patient seen at the bedside in the ICU. Patient has multiple consultations following with close monitoring. Per infectious disease baricitinib is been discontinued and the patient has been appropriately started on cefepime. Preliminary blood culture showed no growth however the patient had an elevated procalcitonin. Per the ICU patient was placed in prone position noted to have significant improvement in her oxygenation. She is currently saturating in the high 90% with a tidal volume of 400, ventilatory rate of 32, FiO2 of 55%, PEEP of 16. She remains on Nimbex, Levophed, propofol, and Sublimaze. Labs this morning showed WBCs 9.8, sodium 136, BUN of 55 (increased from 49 yesterday) and creatinine of 1.77 (improved from 1.96 yesterday), yesterday AST 187 and ALT 189. Patient is ABG as of this morning showed a pH of 7.41, pCO2 57, pO2 81, HCO3 36 and total CO2 of 38. Patient's urine output at time of dictation this morning 236 mL. REVIEW OF SYSTEMS: CONSTITUTIONAL: No fever, no malaise, no fatigue. HEENT: No recent visual problems or hearing problems. Denied any sore throat. CARDIOVASCULAR: No chest pain, orthopnea, PND, no palpitations, no syncope. PULMONARY: Shortness of breath. GASTROINTESTINAL: No diarrhea, no nausea, no vomiting, no abdominal pain. NEUROLOGICAL: No headaches, no weakness, no numbness. HEMATOLOGICAL: Denies any bleeding or petechiae. GENITOURINARY: Denies any burning micturition, frequency, or urgency. MUSCULOSKELETAL/RHEUMATOLOGICAL: Denies any joint pain, swelling, or any muscle pain. ENDOCRINE: Denies any polyuria or polydipsia. The rest of the 14-point review of systems is negative. PHYSICAL EXAMINATION: GENERAL: 63-year-old white female on mechanical ventilation, intubated, mechanically ventilated, sedated and paralyzed. Patient is in prone position this morning HEENT: Pupils are round and equally reacting to light. EOMI. No scleral icterus. No conjunctival pallor. Normocephalic, atraumatic. No pharyngeal erythema. No thyromegaly. CARDIOVASCULAR: S1 and S2 present. No murmurs, rubs, or gallops. PULMONARY: Crackles noted bilaterally no rhonchi no wheezes left-sided chest tube is noted, no evidence of air leak in the Pleur-evac. ABDOMEN: Soft, nontender, nondistended, normoactive bowel sounds. No palpable organomegaly. MUSCULOSKELETAL: No joint swelling or deformity. EXTREMITIES: No cyanosis, clubbing, or pedal edema. NEUROLOGICAL: Patient is currently sedated Assessment and plan # Acute hypoxic respiratory failure secondary to pneumonitis pneumonia due to COPD exacerbation as a result of recently diagnosed bronchitis Patient's baseline saturation at home according to the daughter is 85-88% on 4 L nasal cannula Patient does state that her director translation (Acosta Willis) recently decided that patient should have her oxygen up from 4 L to 6 L Patient is currently on 3/4 L nasal cannula saturating in the low 90%'s Per pulmonology's recommendation urgent CT angio of the chest ordered, pending CRP, LDH, prolactin Patient has been increased to 7 L high flow nasal cannula saturating in the midhigh 80%'s Beginning yesterday afternoon (02/02) patient placed on 15 L high flow nasal cannula; with FiO2 titration as the goal Patient placed on Airvo this morning (02/16) with an O2 flow rate of 60 and FiO2 of 80% Patient requiring mechanical ventilation maintain FiO2 of 80% and a PEEP of 16 Continue ventilatory support Discontinue baricitinib and begin treatment with cefepime # Acute kidney injury possibly secondary to acute hypoxic respiratory failure - resolved On presentation to the emergency department patient's BUN was 45 and creatinine was 1.03 As of this morning patient's BUN is improved to 30.3 and creatinine is improved to 0.8 As of this morning 02/16 BUN 17.7, creatinine of 0.7 # Recent history of cardiac stenting Patient on Plavix 75 mg daily #Altered mental status - resolved Patient's daughter states that her mentations had declined over the previous few days States that her mother's mentation has improved greatly today and she is much more like herself #Anxiety Resume patient's on medications of 200 mg nightly of Zoloft and 300 mg nightly of Wellbutrin #Hypertension Patient's home medications include 50 mg hydroxyzine 3 times daily, 100 mg Cozaar daily, 25 mg Lopressor twice daily Patient's blood pressures were running low overnight at 90/50, going to hold 100 mg Cozaar today and 25 mg Lopressor; continue the hydroxyzine Continue to monitor and make alterations as necessary GI prophylaxis: Protonix 40 mg daily DVT prophylaxis: Lovenox 40 mg daily Full code Continue to monitor vital signs, monitor CBC, monitor CMP, continue telemetry monitoring Labs and medication were reviewed. Continue with symptomatic treatment. Resume home medication. Dictation was produced using [employer] dictation software. please excuse any grammatical, word or spelling errors. Objective - Vital Signs Vital signs: Vital Signs Temp 97.6 F 02/21/24 00:00 Pulse 62 02/21/24 07:00 Resp 32 H 02/21/24 07:00 BP 125/67 02/19/24 17:15 Pulse Ox 96 02/21/24 07:00 FiO2 55 02/21/24 04:46 Intake & Output 02/20/24 02/21/24 02/21/24 18:59 06:59 18:59 Intake Total 2145.473 1747.202 78 Output Total 380 360 75 Balance 3622.378 8408.202 3 Weight 89.7 kg 89.4 kg Intake: IV 1203 1286 78 .9NS Pressure Bag 3 36 3 Dextrose 5% in Water 1, 600 350 000 ml @ 50 mls/hr IV . Q23H [facility] with Sodium Bicarb (1 Meq/ml) 150 ml Rx#:[id number] Sodium Chloride 0.9% 1, 600 900 75 000 ml @ 75 mls/hr IV . [id number] [facility] Rx#:[id number] Intake, IV Titration 822.473 341.202 Amount Cefepime 1 gm In Sodium 50 Chloride 0.9% 50 ml @ 12. 5 mls/hr IVPB Q12H [facility] Rx #:[id number] Cisatracurium 200 mg In 77.370 54.493 Sodium Chloride 0.9% 180 ml @ 1 MCG/KG/MIN 5.382 mls/hr IV .Q24H [facility] Rx#: [id number] Diltiazem 125 mg In 93.833 Sodium Chloride 0.9% 100 ml @ 5 MG/HR 5 mls/hr IV .Q24H [facility] Rx#:[id number] Norepinephrine 4 mg In 399.817 88.516 Sodium Chloride 0.9% 250 ml @ 0.03 MCG/KG/MIN 10. 253 mls/hr IV .Q24H [facility] Rx#:[id number] propofoL 1,000 mg In 201.453 198.193 Empty Bag 1 bag @ 15 MCG/ KG/MIN 8.145 mls/hr IV . [id number] [facility] Rx#:[id number] Tube Feeding 120 Other 120 Output: Chest Tube Drainage 0 Chest Tube Left Lateral 0 Chest Urine 380 360 75 Other: Voiding Method Indwelling Catheter Indwelling Catheter ABP, PAP, CO, CI - Last Documented Arterial Blood Pressure 131/56 - Labs CBC & Chem 7: 02/21/24 05:08 02/21/24 05:08 Labs: Abnormal Lab Results - Last 24 Hours (Table) 02/16/24 02/16/24 02/16/24 Range/Units 06:00 11:49 16:46 Neutrophils # (1.3-7.7) k/uL Lymphocytes # (1.0-4.8) k/uL ABG pCO2 (35-45) mmHg ABG pO2 (83-108) mmHg ABG HCO3 (21-25) mmol/L ABG Total CO2 (19-24) mmol/L Sodium (137-145) mmol/L Carbon Dioxide (22-30) mmol/L BUN (7-17) mg/dL Creatinine (0.52-1.04) mg/dL Glucose (74-99) mg/dL POC Glucose (mg/dL) 177 H 130 H 156 H (70-110) mg/dL Calcium (8.4-10.2) mg/dL Procalcitonin (0.02-0.50) ng/mL 02/16/24 02/17/24 02/17/24 Range/Units 19:57 06:18 11:27 Neutrophils # (1.3-7.7) k/uL Lymphocytes # (1.0-4.8) k/uL ABG pCO2 (35-45) mmHg ABG pO2 (83-108) mmHg ABG HCO3 (21-25) mmol/L ABG Total CO2 (19-24) mmol/L Sodium (137-145) mmol/L Carbon Dioxide (22-30) mmol/L BUN (7-17) mg/dL Creatinine (0.52-1.04) mg/dL Glucose (74-99) mg/dL POC Glucose (mg/dL) 148 H 132 H 158 H (70-110) mg/dL Calcium (8.4-10.2) mg/dL Procalcitonin (0.02-0.50) ng/mL 02/17/24 02/17/24 02/17/24 Range/Units 13:27 17:39 19:51 Neutrophils # (1.3-7.7) k/uL Lymphocytes # (1.0-4.8) k/uL ABG pCO2 (35-45) mmHg ABG pO2 (83-108) mmHg ABG HCO3 (21-25) mmol/L ABG Total CO2 (19-24) mmol/L Sodium (137-145) mmol/L Carbon Dioxide (22-30) mmol/L BUN (7-17) mg/dL Creatinine (0.52-1.04) mg/dL Glucose (74-99) mg/dL POC Glucose (mg/dL) 140 H 181 H 145 H (70-110) mg/dL Calcium (8.4-10.2) mg/dL Procalcitonin (0.02-0.50) ng/mL 02/18/24 02/18/24 02/18/24 Range/Units 06:13 11:17 17:09 Neutrophils # (1.3-7.7) k/uL Lymphocytes # (1.0-4.8) k/uL ABG pCO2 (35-45) mmHg ABG pO2 (83-108) mmHg ABG HCO3 (21-25) mmol/L ABG Total CO2 (19-24) mmol/L Sodium (137-145) mmol/L Carbon Dioxide (22-30) mmol/L BUN (7-17) mg/dL Creatinine (0.52-1.04) mg/dL Glucose (74-99) mg/dL POC Glucose (mg/dL) 135 H 144 H 161 H (70-110) mg/dL Calcium (8.4-10.2) mg/dL Procalcitonin (0.02-0.50) ng/mL 02/18/24 02/19/24 02/19/24 Range/Units 21:01 06:33 12:44 Neutrophils # (1.3-7.7) k/uL Lymphocytes # (1.0-4.8) k/uL ABG pCO2 (35-45) mmHg ABG pO2 (83-108) mmHg ABG HCO3 (21-25) mmol/L ABG Total CO2 (19-24) mmol/L Sodium (137-145) mmol/L Carbon Dioxide (22-30) mmol/L BUN (7-17) mg/dL Creatinine (0.52-1.04) mg/dL Glucose (74-99) mg/dL POC Glucose (mg/dL) 125 H 189 H 198 H (70-110) mg/dL Calcium (8.4-10.2) mg/dL Procalcitonin (0.02-0.50) ng/mL 02/19/24 02/20/24 02/20/24 Range/Units 18:06 00:43 04:15 Neutrophils # (1.3-7.7) k/uL Lymphocytes # (1.0-4.8) k/uL ABG pCO2 (35-45) mmHg ABG pO2 (83-108) mmHg ABG HCO3 (21-25) mmol/L ABG Total CO2 (19-24) mmol/L Sodium (137-145) mmol/L Carbon Dioxide (22-30) mmol/L BUN (7-17) mg/dL Creatinine (0.52-1.04) mg/dL Glucose (74-99) mg/dL POC Glucose (mg/dL) 245 H 242 H (70-110) mg/dL Calcium (8.4-10.2) mg/dL Procalcitonin 5.16 H (0.02-0.50) ng/mL 02/20/24 02/20/24 02/20/24 Range/Units 05:55 12:03 17:58 Neutrophils # (1.3-7.7) k/uL Lymphocytes # (1.0-4.8) k/uL ABG pCO2 (35-45) mmHg ABG pO2 (83-108) mmHg ABG HCO3 (21-25) mmol/L ABG Total CO2 (19-24) mmol/L Sodium (137-145) mmol/L Carbon Dioxide (22-30) mmol/L BUN (7-17) mg/dL Creatinine (0.52-1.04) mg/dL Glucose (74-99) mg/dL POC Glucose (mg/dL) 270 H 295 H 284 H (70-110) mg/dL Calcium (8.4-10.2) mg/dL Procalcitonin (0.02-0.50) ng/mL 02/20/24 02/21/24 02/21/24 Range/Units 23:04 00:37 05:08 Neutrophils # 9.0 H (1.3-7.7) k/uL Lymphocytes # 0.3 L (1.0-4.8) k/uL ABG pCO2 57 H (35-45) mmHg ABG pO2 81 L (83-108) mmHg ABG HCO3 36 H (21-25) mmol/L ABG Total CO2 38 H (19-24) mmol/L Sodium (137-145) mmol/L Carbon Dioxide (22-30) mmol/L BUN (7-17) mg/dL Creatinine (0.52-1.04) mg/dL Glucose (74-99) mg/dL POC Glucose (mg/dL) 255 H (70-110) mg/dL Calcium (8.4-10.2) mg/dL Procalcitonin (0.02-0.50) ng/mL 02/21/24 02/21/24 Range/Units 05:08 06:31 Neutrophils # (1.3-7.7) k/uL Lymphocytes # (1.0-4.8) k/uL ABG pCO2 (35-45) mmHg ABG pO2 (83-108) mmHg ABG HCO3 (21-25) mmol/L ABG Total CO2 (19-24) mmol/L Sodium 136 L (137-145) mmol/L Carbon Dioxide 36 H (22-30) mmol/L BUN 55 H (7-17) mg/dL Creatinine 1.77 H (0.52-1.04) mg/dL Glucose 239 H (74-99) mg/dL POC Glucose (mg/dL) 235 H (70-110) mg/dL Calcium 6.9 L (8.4-10.2) mg/dL Procalcitonin (0.02-0.50) ng/mL Microbiology - Last 24 Hours (Table) 02/17/24 20:03 Blood Culture - Preliminary Blood 02/19/24 15:56 Urine Culture - Final Urine,Voided
--- NOTE | 2024-02-21 13:46 | P.PN ---
Subjective Progress Note Date: 02/21/24 Principal diagnosis: Reason for follow-up is leukocytosis Patient is a 63-year-old female with a past medical history significant for COPD coronary artery disease hyperlipidemia presenting to the hospital for evaluation of increasing shortness of breath patient be diagnosed with the COVID-19 started on baricitinib did have worsening respiratory status requiring intubation and also have elevated white count prompted this consultation. On today's evaluation that is 02/21/2024 patient remains to be afebrile, the patient remains to be intubated on the vent FiO2 is current down to 50% no significant purulent secretion through the ET patient not requiring any pressor support no vomiting or diarrhea has been reported. Patient white count normalized to 9.8, creat is 1.77 blood culture has been negative sputum not collected Objective - Vital Signs Vital signs: Vital Signs Temp 97.9 F 02/21/24 08:00 Pulse 65 02/21/24 11:30 Resp 32 H 02/21/24 11:30 BP 155/77 02/21/24 11:00 Pulse Ox 92 L 02/21/24 11:30 FiO2 50 02/21/24 11:30 Intake & Output 02/20/24 02/21/24 02/21/24 18:59 06:59 18:59 Intake Total 2595.473 1747.202 809.552 Output Total 380 360 210 Balance 2215.473 1387.202 599.552 Weight 89.7 kg 89.4 kg Intake: IV 1203 1286 540 .9NS Pressure Bag 3 36 15 Dextrose 5% in Water 1, 600 350 150 000 ml @ 50 mls/hr IV . Q23H CAREN with Sodium Bicarb (1 Meq/ml) 150 ml Rx#:[id number] Sodium Chloride 0.9% 1, 600 900 375 000 ml @ 75 mls/hr IV . [id number] CAREN Rx#:[id number] Intake, IV Titration 1272.473 341.202 269.552 Amount Cefepime 1 gm In Sodium 50 50 Chloride 0.9% 50 ml @ 12. 5 mls/hr IVPB Q12H CAREN Rx #:[id number] Cisatracurium 200 mg In 77.370 54.493 125.132 Sodium Chloride 0.9% 180 ml @ 1 MCG/KG/MIN 5.382 mls/hr IV .Q24H CAREN Rx#: [id number] Dextrose 5% in Water 1, 450 000 ml @ 50 mls/hr IV . Q23H CAREN with Sodium Bicarb (1 Meq/ml) 150 ml Rx#:[id number] Diltiazem 125 mg In 93.833 Sodium Chloride 0.9% 100 ml @ 5 MG/HR 5 mls/hr IV .Q24H CAREN Rx#:[id number] Norepinephrine 4 mg In 399.817 88.516 19.667 Sodium Chloride 0.9% 250 ml @ 0.03 MCG/KG/MIN 10. 253 mls/hr IV .Q24H CAREN Rx#:[id number] propofoL 1,000 mg In 201.453 198.193 74.753 Empty Bag 1 bag @ 15 MCG/ KG/MIN 8.145 mls/hr IV . [id number] CAREN Rx#:[id number] Tube Feeding 120 Other 120 Output: Chest Tube Drainage 0 Chest Tube Left Lateral 0 Chest Urine 380 360 210 Other: Voiding Method Indwelling Catheter Indwelling Catheter ABP, PAP, CO, CI - Last Documented Arterial Blood Pressure 145/55 - Exam GENERAL DESCRIPTION: Middle-age female intubated on the vent RESPIRATORY SYSTEM: Unlabored breathing , decreased breath sounds at bases HEART: S1 S2 regular rate and rhythm , ABDOMEN: Soft , no tenderness EXTREMITIES: No edema feet - Labs CBC & Chem 7: 02/21/24 05:08 02/21/24 05:08 Labs: Abnormal Lab Results - Last 24 Hours (Table) 02/16/24 02/16/24 02/16/24 Range/Units 06:00 11:49 16:46 Neutrophils # (1.3-7.7) k/uL Lymphocytes # (1.0-4.8) k/uL ABG pCO2 (35-45) mmHg ABG pO2 (83-108) mmHg ABG HCO3 (21-25) mmol/L ABG Total CO2 (19-24) mmol/L Sodium (137-145) mmol/L Carbon Dioxide (22-30) mmol/L BUN (7-17) mg/dL Creatinine (0.52-1.04) mg/dL Glucose (74-99) mg/dL POC Glucose (mg/dL) 177 H 130 H 156 H (70-110) mg/dL Calcium (8.4-10.2) mg/dL 09/30/24 10/01/24 10/01/24 Range/Units 19:57 06:18 11:27 Neutrophils # (1.3-7.7) k/uL Lymphocytes # (1.0-4.8) k/uL ABG pCO2 (35-45) mmHg ABG pO2 (83-108) mmHg ABG HCO3 (21-25) mmol/L ABG Total CO2 (19-24) mmol/L Sodium (137-145) mmol/L Carbon Dioxide (22-30) mmol/L BUN (7-17) mg/dL Creatinine (0.52-1.04) mg/dL Glucose (74-99) mg/dL POC Glucose (mg/dL) 148 H 132 H 158 H (70-110) mg/dL Calcium (8.4-10.2) mg/dL 02/17/24 02/17/24 02/17/24 Range/Units 13:27 17:39 19:51 Neutrophils # (1.3-7.7) k/uL Lymphocytes # (1.0-4.8) k/uL ABG pCO2 (35-45) mmHg ABG pO2 (83-108) mmHg ABG HCO3 (21-25) mmol/L ABG Total CO2 (19-24) mmol/L Sodium (137-145) mmol/L Carbon Dioxide (22-30) mmol/L BUN (7-17) mg/dL Creatinine (0.52-1.04) mg/dL Glucose (74-99) mg/dL POC Glucose (mg/dL) 140 H 181 H 145 H (70-110) mg/dL Calcium (8.4-10.2) mg/dL 02/18/24 02/18/24 02/18/24 Range/Units 06:13 11:17 17:09 Neutrophils # (1.3-7.7) k/uL Lymphocytes # (1.0-4.8) k/uL ABG pCO2 (35-45) mmHg ABG pO2 (83-108) mmHg ABG HCO3 (21-25) mmol/L ABG Total CO2 (19-24) mmol/L Sodium (137-145) mmol/L Carbon Dioxide (22-30) mmol/L BUN (7-17) mg/dL Creatinine (0.52-1.04) mg/dL Glucose (74-99) mg/dL POC Glucose (mg/dL) 135 H 144 H 161 H (70-110) mg/dL Calcium (8.4-10.2) mg/dL 02/18/24 02/19/24 02/19/24 Range/Units 21:01 06:33 12:44 Neutrophils # (1.3-7.7) k/uL Lymphocytes # (1.0-4.8) k/uL ABG pCO2 (35-45) mmHg ABG pO2 (83-108) mmHg ABG HCO3 (21-25) mmol/L ABG Total CO2 (19-24) mmol/L Sodium (137-145) mmol/L Carbon Dioxide (22-30) mmol/L BUN (7-17) mg/dL Creatinine (0.52-1.04) mg/dL Glucose (74-99) mg/dL POC Glucose (mg/dL) 125 H 189 H 198 H (70-110) mg/dL Calcium (8.4-10.2) mg/dL 02/19/24 02/20/24 02/20/24 Range/Units 18:06 00:43 05:55 Neutrophils # (1.3-7.7) k/uL Lymphocytes # (1.0-4.8) k/uL ABG pCO2 (35-45) mmHg ABG pO2 (83-108) mmHg ABG HCO3 (21-25) mmol/L ABG Total CO2 (19-24) mmol/L Sodium (137-145) mmol/L Carbon Dioxide (22-30) mmol/L BUN (7-17) mg/dL Creatinine (0.52-1.04) mg/dL Glucose (74-99) mg/dL POC Glucose (mg/dL) 245 H 242 H 270 H (70-110) mg/dL Calcium (8.4-10.2) mg/dL 02/20/24 02/20/24 02/20/24 Range/Units 12:03 17:58 23:04 Neutrophils # (1.3-7.7) k/uL Lymphocytes # (1.0-4.8) k/uL ABG pCO2 (35-45) mmHg ABG pO2 (83-108) mmHg ABG HCO3 (21-25) mmol/L ABG Total CO2 (19-24) mmol/L Sodium (137-145) mmol/L Carbon Dioxide (22-30) mmol/L BUN (7-17) mg/dL Creatinine (0.52-1.04) mg/dL Glucose (74-99) mg/dL POC Glucose (mg/dL) 295 H 284 H 255 H (70-110) mg/dL Calcium (8.4-10.2) mg/dL 02/21/24 02/21/24 02/21/24 Range/Units 00:37 05:08 05:08 Neutrophils # 9.0 H (1.3-7.7) k/uL Lymphocytes # 0.3 L (1.0-4.8) k/uL ABG pCO2 57 H (35-45) mmHg ABG pO2 81 L (83-108) mmHg ABG HCO3 36 H (21-25) mmol/L ABG Total CO2 38 H (19-24) mmol/L Sodium 136 L (137-145) mmol/L Carbon Dioxide 36 H (22-30) mmol/L BUN 55 H (7-17) mg/dL Creatinine 1.77 H (0.52-1.04) mg/dL Glucose 239 H (74-99) mg/dL POC Glucose (mg/dL) (70-110) mg/dL Calcium 6.9 L (8.4-10.2) mg/dL 02/21/24 02/21/24 Range/Units 06:31 11:30 Neutrophils # (1.3-7.7) k/uL Lymphocytes # (1.0-4.8) k/uL ABG pCO2 (35-45) mmHg ABG pO2 (83-108) mmHg ABG HCO3 (21-25) mmol/L ABG Total CO2 (19-24) mmol/L Sodium (137-145) mmol/L Carbon Dioxide (22-30) mmol/L BUN (7-17) mg/dL Creatinine (0.52-1.04) mg/dL Glucose (74-99) mg/dL POC Glucose (mg/dL) 235 H 248 H (70-110) mg/dL Calcium (8.4-10.2) mg/dL Microbiology - Last 24 Hours (Table) 02/17/24 20:03 Blood Culture - Preliminary Blood 02/19/24 15:56 Urine Culture - Final Urine,Voided Assessment and Plan (1) Leukocytosis Current Visit: Yes Status: Acute Code(s): D72.829 - ELEVATED WHITE BLOOD CELL COUNT, UNSPECIFIED SNOMED Code(s): 878101100 (2) COVID Current Visit: Yes Status: Acute Code(s): U07.1 - COVID-19 SNOMED Code(s): 576301596 Plan: 1patient presented to the hospital about a week ago with increasing shortness of breath however the patient symptoms of cough and shortness of breath were going on for more than a week before initial presentation to the hospital patient has been diagnosed with a COVID-19 and treated with steroids and supportive treatment however the patient did have worsening of her respiratory status requiring intubation patient did not have any fever during this hospital stay with initial normal white count with significant jump in the white count could be reactive with acute change in her condition as well as steroids and the patient has been on clinical suspicious low for secondary bacterial pneumonia but not entirely excluded 2 blood cultures are currently pending patient did have elevated procalcitonin. 3patient white count has normalized blood cultures so far pending sputum not collected continue with cefepime and monitor clinical course closely. Daughter at the bedside question answered Dictation was produced using [employer] dictation software. please excuse any gr ammatical, word or spelling errors. Time with Patient: Less than 30
[2024-02-21 18:14] LABS: Glucose,Whole Blood 294 mg/dL (70-110)
[2024-02-22] LABS: Glucose,Whole Blood 242 mg/dL (70-110)
[2024-02-22] MEDS: INSULIN ASPART (NovoLOG) 100 UNIT/ML VIAL SQ SCH (00:34)
[2024-02-22 05:35] LABS: ABG Base Excess 11.2 mmol/L; ABG HCO3 37 mmol/L (21-25); ABG Oxygen Saturation 94.7 % (94-97); ABG PCO2 53 mmHg (35-45); ABG PH 7.45 (7.35-7.45); ABG PO2 71 mmHg (83-108); ABG TCO2 38 mmol/L (19-24)
[2024-02-22 05:48] LABS: Basophils % (A) 0 %; Eosinophils % (A) 0 %; HCT 33.3 % (34.0-46.0); HGB 11.1 gm/dL (11.4-16.0); Lymphocytes # (A) 0.3 k/uL (1.0-4.8); Lymphocytes % (A) 3 %; MCHC 33.4 g/dL (31.0-37.0); MCV 86.8 fL (80.0-100.0); Monocytes # (A) 0.3 k/uL (0-1.0); Monocytes % (A) 4 %; Neutrophils # (A) 8.1 k/uL (1.3-7.7); Neutrophils % (A) 92 %; Platelet Count 220 k/uL (150-450); RBC 3.83 m/uL (3.80-5.40); RDW 13.4 % (11.5-15.5); WBC 8.7 k/uL (3.8-10.6)
[2024-02-22 05:52] LABS: Glucose,Whole Blood 240 mg/dL (70-110)
[2024-02-22 06:10] LABS: African American GFR (CKD) 52 (>60 ml/min/1.73 sqM); Anion Gap 2 mmol/L; Blood Urea Nitrogen 55 mg/dL (7-17); Calcium 6.9 mg/dL (8.4-10.2); Carbon Dioxide 39 mmol/L (22-30); Chloride 98 mmol/L (98-107); Glucose 227 mg/dL (74-99); Non-African American GFR(CKD) 45 (>60 ml/min/1.73 sqM); Potassium 3.9 mmol/L (3.5-5.1); Sodium 139 mmol/L (137-145)
[2024-02-22] MEDS ORDERED: Potassium Replacement Protocol 1 EACH MISC MISCELLANE PRN (06:20)
[2024-02-22] MEDS: POTASSIUM BICARBONATE/CIT AC 20 MEQ TABLET.EFF NG-TUBE SCH (06:35)
--- NOTE | 2024-02-22 08:22 | XR ---
EXAMINATION TYPE: XR chest 1V portable DATE OF EXAM: 02/22/2024 COMPARISON: 02/21/2024 INDICATION: Cold with pneumonia TECHNIQUE: Single frontal view of the chest is obtained. FINDINGS: The heart size is enlarged. The pulmonary vasculature is prominent. Diffuse increased lung markings are present bilaterally. Endotracheal tube tip is in the right main bronchus and should be pulled back approximately 4 cm. Rep ort was called to the ICU to the patient's nurse by Dr. Capone by telephone at time of interpretatio n. Nasogastric tube transverses thorax. Left-sided chest tube is present. No pneumothorax evident. IMPRESSION: 1. Diffuse increased lung markings similar to prior study. Findings could be compatible with atypical pneumonia. 2. Endotracheal tube tip in right main bronchus and should be pulled back 4 cm. [facility], Workstation: [facility], 02/22/2024 8:19 AM
--- NOTE | 2024-02-22 09:15 | XR ---
EXAMINATION TYPE: XR chest 1V portable DATE OF EXAM: 02/22/2024 COMPARISON: Earlier exam INDICATION: Repositioning of tubes TECHNIQUE: Single frontal view of the chest is obtained. FINDINGS: The heart size is normal. The pulmonary vasculature is prominent. Diffuse increased lung markings are present. The change in technique, lung infiltrates appear to be s table. Endotracheal tube is been adjusted and has its tip located 1.5 cm above the maikol. Nasogastric tube transverses the thorax tip in the abdomen. Left-sided chest tube remains present. No pneumothorax is evident disposition IMPRESSION: 1. Diffuse increased lung markings compatible with atypical pneumonia. 2. Lines and catheters discussed above. Tip of the endotracheal tube is above maikol. [facility], Workstation: [facility], 02/22/2024 9:13 AM
[2024-02-22 12:34] LABS: Glucose,Whole Blood 160 mg/dL (70-110)
--- NOTE | 2024-02-22 13:02 | P.PN ---
Subjective Progress Note Date: 02/22/24 Principal diagnosis: Acute on chronic hypoxic respiratory failure and acute COVID-19 pneumonia with acute COPD exacerbation This is a 63-year-old female patient, known history of COPD was been seeing Dr. Cornell at [facility]. Prior to that, she had another [employer]oc operations intelligence chief through [facility] who gave her because of her insurance coverage. The patient is an ex-smoker. She has quit smoking. The patient has been maintained on a combination of Advair and Spiriva on an outpatient basis and albuterol HFA on a as needed basis. The patient has been having symptoms of URI, cough congestion, generalized weakness and fatigue and tiredness and the patient came into the hospital where she was diagnosed having COVID-19 infection. Noted the patient has been symptomatic for more than a week. She has seen her aoc operations intelligence chief, Dr. Cornell who treated her with a course of antibiotics and steroids. Nevertheless, her condition did not improve and she ended up coming into the hospital. No nausea vomiting or diarrhea. No abdominal pain. No altered mentation. The chest x-ray that was done at time of admission showed increased perihilar lung markings. No previous history of DVT or pulmonary embolism. I ordered a CTA of the chest on this patient to rule out pulmonary embolism and at the same time evaluate for COVID-19 related pneumonia. Noted the patient is also a chronic smoker. I reviewed the CTA of the chest and there are bilateral areas of scattered patchy groundglass pulmonary infiltrates consistent with COVID-19 related pneumonia more so on the left compared to the right. The patient has no filling defects to indicate pulmonary embolism. Aw aiting a final report from radiology. Note that this has never been infected with COVID-19 in the past and she has never been vaccinated. 02/14/2024, patient is doing well. Less short of breath compared to yesterday. CAT scan of the chest showed some patchy groundglass pulmonary filtrates consist ent with COVID-19 infection. However, clinically patient doing better. No evidence of any pulmonary involvement. No evidence of any lung masses. She remains on bronchodilators with albuterol HFA 4 times [id number] and the patient is on IV Solu-Medrol 60 mg every 6 hours. No abnormalities in her blood work. The CBC shows a white cell count of 6.3 with a hemoglobin 13 and a platelet count of 132. BUN 42 with a creatinine of 1.02. Serum bicarbonate 17 and sodium levels at 133 and a potassium level is at 4.3. 02/15/2024, the patient is being seen for a follow-up. The patient is doing well. The patient is being treated for an acute COPD exacerbation. The patient also has a component of COVID-19 pneumonia and she remains on 40 of oxygen by nasal cannula. She was given IV Solu-Medrol. She was outside the window for remdesivir treatment. She is noted advanced COPD. Based on my review of the CT of the chest, there is no evidence of any pulm embolism. There is patchy areas of pulm infiltration consistent with COVID-19 infection. No evidence of any lung masses or tumors. The patient is currently on 6 L of O2 nasal cannula. At times, she removes her oxygen she desaturates. No new labs are available from today. Her procalcitonin level is at 0.07. The LDH level was at 230. Rest of the inflammatory markers were minimally elevated. Otherwise, awake and alert, no altered mentation. No signs of any CO2 narcosis. The patient is seen today February 16, 2024 in follow-up on the regular medical floor. She is currently resting in bed. Awake and alert in no acute distress. She is having ongoing issues with oxygen desaturations. She is currently on 7 L high flow nasal cannula with O2 saturations in the low 80s. She is continued on Symbicort, Spiriva, albuterol and Solu-Medrol. Lovenox for DVT prophylaxis. Chest x-ray shows similar scattered reticular pulmonary opacities secondary to COVID infection. White count 11.2. Hemoglobin 14.2. Sodium 139. Potassium 5.2. Bicarb 24. BUN 23. Creatinine 0.8. Glucose 158. The patient is seen today February 17, 2024 in follow-up on the regular medical floor. She is currently awake and alert. She continues to have ongoing struggles with her breathing. This morning she was placed on Airvo high flow oxygen at 60% FiO2 and 80 L. Chest x-ray continues to show similar scattered reticular pulmonary opacities consistent with COVID infection. White count 9.1. Hemoglobin 13.4. Platelets 174. Sodium 134. Potassium 4.1. Bicarb 23. BUN 18. Creatinine 0.7. Glucose 180. She remains on Symbicort, Spiriva and albuterol along with IV Solu-Medrol. Lovenox for DVT prophylaxis. Patient was seen today on 02/18/2024, she is now in the ICU, she is marginal at best. Patient is critically ill, she was on Airvo yesterday at high flow and high FiO2, she is now on BiPAP at 100%, 04/23. O2 saturation is marginal, hence her chest x-ray is showing worsening of her interstitial infiltrates/presumptive COVID-19 pneumonia worsening and the patient meets the criteria to start baricitinib 4 mg daily for 14 days. Her procalcitonin level was normal and I doubt any underlying bacterial infection at this point. Clearly the patient is worsening and she will remain in the ICU, I have a feeling she may even require intubation mechanical ventilation. Patient seems to be comfortable although her O2 saturation is in the 80s. Does not seem to be in distress. She is hemodynamically stable not requiring any pressors. She is on bronchodilators, and she is also on steroids, Lasix were given to keep her on the dry side as much as possible although I am not convinced that the patient has any congestive heart failure WBC count today is 10.6 hemoglobin is 13.2 electrolytes are normal renal profile is normal her inflammatory markers are high with high LDH, high C- reactive protein, and high ferritin level. Patient was seen today on 02/19/2024, patient had to be intubated last night mostly because of worsening pulmonary status and worsening pneumonia. She required mechanical ventilation, and she is maximal on mechanical ventilation with assist-control rate of 3 2, tidal volume 400 FiO2 100% PEEP is 16. Last ABG showed a pO2 136 pCO2 78 pH of 7.14, patient was placed on bicarb drip 150 mEq in 1 L D5W running at 50 cc/h. Patient required central line placement and this was done in the groin she did sustain iatrogenic left-sided pneumothorax from attempt to place a left a left subclavian central line. Right femoral triple-lumen catheter was placed, patient is still on Nimbex she is on Cardizem at 10 mg/h she is on propofol at 35 mcg/kg/min IV fluid at 50 cc/h fentanyl at 0.5 mcg/kg/h and she is on norepinephrine at 0.15 mcg/kg/min. Family was updated and made aware that her condition is very poor, and mortality is extremely high. Patient seems to be having worsening COVID-19 pneumonia with diffuse interstitial infiltrates bilaterally.Patient is developing leukocytosis with WBC count of 32.8 hemoglobin 14.4, basic metabolic profile is normal renal profile is normal glucose is 185 laboratory markers are elevated. Patient is now on baricitinib Patient was seen today on 02/20/2024, patient remains in the ICU intubated and mechanically ventilated. Patient was placed in prone position and noted to have significant improvement in her oxygenation. She is presently in prone position this morning, and O2 saturation is in the mid 90s, patient is on 65% FiO2, and PEEP of 16. Patient is on assist-control rate of 32, tidal volume 400 FiO2 65% and I cut it down to 60% and PEEP is 16. ABG on 100% showed a pO2 of 184 pCO2 66 pH of 7.26. Peak airway pressure is in the mid to high 30s, plateau pressure is 30. Patient remains on propofol at 35 mcg/kg/min Levophed at 0.07 mcg/kg/min Fentanyl at 0.5 mcg/kg/h Cardizem at 5 mg/h she is still receiving sodium bicarb at 50 cc/h barcitinib was discontinued today as the patient is noted to have elevated procalcitonin level today and will start the patient on cefepime instead. Chest x-ray continues show significant interstitial infil trate/pneumonia no evidence of pneumothorax, left-sided chest tube remains in place. Looking at the Pleur-evac, there is no evidence of air leak. WBC count is 13.1 hemoglobin 12.6 basic metabolic profile is normal however her BUN is up to 49 creatinine 1.96, liver enzymes are beginning to rise and I recommended stopping barcitinib. Will continue hydration hold diuretics and closely monitor her renal status. When output is about 30 cc/h Patient was evaluated today on 02/21/2024, patient remains in the ICU, intubated and mechanically ventilated, patient is now on assist-control rate of 32 tidal volume 400 FiO2 cut down from 55% to 50% PEEP cut down from 16 down to 14. Earlier ABG showed a pO2 of 81 pCO2 57 pH of 7.41. Patient remains on Nimbex and she is intermittently placed in prone position to adequately ventilate the patient and oxygenate the patient on lower FiO2 as a matter fact we cut down the FiO2 down to 50% and I was able to cut down the PEEP down to 14. Chest x-ray basically is about the same. Not much of a change in her infiltrates bilaterally she has a very small tiny apical pneumothorax and apparently intermittently noted to have minimal air leak in the Pleur-evac. She is on norepinephrine at 0.01 mcg/kg/min propofol at 35 mcg/kg/min Fentanyl 0.5 mcg/kg/h patient is now receiving cefepime, and her urine output is about 40 to 50 cc/h. Lasix remains on hold, patient is still receiving IV fluids. Patient was evaluated today on 02/22/2024, patient remains in the ICU intubated mechanically ventilated, sedated and paralyzed. Still requiring a PEEP of 14, FiO2 has been titrated down to 50%, patient has been intermittently placed in prone position over the last couple of days. Today she seems to be doing well in supine position, O2 saturation is in the low 90s and her PEEP remains at 14. Chest x-ray, is showing slight improvement in her bilateral interstitial infiltrates, there is no evidence of pneumothorax on the chest x-ray today, endotracheal tube was noted to be still close to the right mainstem bronchus, in the carinal area, and we pulled it out about 1.0 cm ventilator flaherty the patient is on AC rate of 32 tidal volume 400 FiO2 50% PEEP of 14 ABG showed a pO2 of 71 pCO2 53 pH of 7.45. Patient is on Nimbex she is on D5W with 3 A of bicarb running at 25 cc/h, and today I will discontinue her bicarb patient is on propofol at 50 mcg/kg/min Fentanyl at 0.5 mcg/kg/h and with this will be increased because of significantly elevated blood pressure, patient is on IV fluid at 75 cc/h with steady improvement in her renal status, creatinine is down to 1.29 today. Patient remains on enteral feeding vital AF she is also on cefepime. Cultures so far are negative urine output about 40 cc/h Objective - Vital Signs Vital signs: Vital Signs Temp 98.2 F 02/22/24 04:00 Pulse 60 02/22/24 11:00 Resp 32 H 02/22/24 11:00 BP 168/84 02/22/24 09:00 Pulse Ox 94 L 02/22/24 11:00 FiO2 50 02/22/24 11:36 Intake & Output 02/21/24 02/22/24 02/22/24 18:59 06:59 18:59 Intake Total 2166.552 1697.563 607.446 Output Total 470 595 204 Balance 0558.462 8410.563 403.446 Intake: IV 1261 1261 515 .9NS Pressure Bag 36 36 15 Dextrose 5% in Water 1, 325 325 125 000 ml @ 50 mls/hr IV . Q23H CAREN with Sodium Bicarb (1 Meq/ml) 150 ml Rx#:[id number] Sodium Chloride 0.9% 1, 900 900 375 000 ml @ 75 mls/hr IV . [id number] CAREN Rx#:[id number] Intake, IV Titration 719.552 376.563 92.446 Amount Cefepime 1 gm In Sodium 400 Chloride 0.9% 50 ml @ 12. 5 mls/hr IVPB Q12H CAREN Rx #:[id number] Cisatracurium 200 mg In 125.132 200 Sodium Chloride 0.9% 180 ml @ 1 MCG/KG/MIN 5.382 mls/hr IV .Q24H CAREN Rx#: [id number] Norepinephrine 4 mg In 19.667 Sodium Chloride 0.9% 250 ml @ 0.03 MCG/KG/MIN 10. 253 mls/hr IV .Q24H CAREN Rx#:[id number] propofoL 1,000 mg In 174.753 176.563 92.446 Empty Bag 1 bag @ 15 MCG/ KG/MIN 8.145 mls/hr IV . [id number] CAREN Rx#:[id number] Oral 60 Tube Feeding 186 Output: Chest Tube Drainage 0 10 Chest Tube Left Lateral 0 10 Chest Urine 470 585 204 Other: Voiding Method Indwelling Catheter Indwelling Catheter ABP, PAP, CO, CI - Last Documented Arterial Blood Pressure 160/58 - Exam GENERAL EXAM: Reveals 63-year-old white female on mechanical ventilation, intuba stephen, mechanically ventilated, sedated and paralyzed. Patient is in supine position and hoping we do not have to do any more proning, assuming she maintains excellent O2 saturation on 50% FiO2 and PEEP of 14 EYES: Normal reaction of pupils, equal size. NOSE: Clear with pink turbinates. THROAT: No erythema or exudates. NECK: No masses, no JVD. CHEST: No chest wall deformity. LUNGS: Diminished breath sound bilaterally no crackles rhonchi or wheezes, left- sided chest tube remains in place, no evidence of air leak CVS: S1 and S2 normal with no audible murmur, regular rhythm. ABDOMEN: Morbidly obese no hepatosplenomegaly, normal bowel sounds, no guarding or rigidity. SKIN: No rashes CENTRAL NERVOUS SYSTEM: Could not assess patient is sedated and paralyzed. EXTREMITIES: No clubbing edema or cyanosis. Good pulses bilaterally - Labs CBC & Chem 7: 02/22/24 05:20 02/22/24 05:20 Labs: Abnormal Lab Results - Last 24 Hours (Table) 02/21/24 02/21/24 02/22/24 Range/Units 18:13 23:59 00:41 Hgb (11.4-16.0) gm/dL Hct (34.0-46.0) % Neutrophils # (1.3-7.7) k/uL Lymphocytes # (1.0-4.8) k/uL ABG pCO2 53 H (35-45) mmHg ABG pO2 71 L (83-108) mmHg ABG HCO3 37 H (21-25) mmol/L ABG Total CO2 38 H (19-24) mmol/L Carbon Dioxide (22-30) mmol/L BUN (7-17) mg/dL Creatinine (0.52-1.04) mg/dL Glucose (74-99) mg/dL POC Glucose (mg/dL) 294 H 242 H (70-110) mg/dL Calcium (8.4-10.2) mg/dL 02/22/24 02/22/24 02/22/24 Range/Units 05:20 05:20 05:51 Hgb 11.1 L (11.4-16.0) gm/dL Hct 33.3 L (34.0-46.0) % Neutrophils # 8.1 H (1.3-7.7) k/uL Lymphocytes # 0.3 L (1.0-4.8) k/uL ABG pCO2 (35-45) mmHg ABG pO2 (83-108) mmHg ABG HCO3 (21-25) mmol/L ABG Total CO2 (19-24) mmol/L Carbon Dioxide 39 H (22-30) mmol/L BUN 55 H (7-17) mg/dL Creatinine 1.29 H (0.52-1.04) mg/dL Glucose 227 H (74-99) mg/dL POC Glucose (mg/dL) 240 H (70-110) mg/dL Calcium 6.9 L (8.4-10.2) mg/dL 02/22/24 Range/Units 12:31 Hgb (11.4-16.0) gm/dL Hct (34.0-46.0) % Neutrophils # (1.3-7.7) k/uL Lymphocytes # (1.0-4.8) k/uL ABG pCO2 (35-45) mmHg ABG pO2 (83-108) mmHg ABG HCO3 (21-25) mmol/L ABG Total CO2 (19-24) mmol/L Carbon Dioxide (22-30) mmol/L BUN (7-17) mg/dL Creatinine (0.52-1.04) mg/dL Glucose (74-99) mg/dL POC Glucose (mg/dL) 160 H (70-110) mg/dL Calcium (8.4-10.2) mg/dL Microbiology - Last 24 Hours (Table) 02/19/24 16:45 Blood Culture - Preliminary Blood Assessment and Plan Assessment: Impression: Acute on chronic hypoxic respiratory failure patient patient was intubated on 02/19/2024. Acute COVID-19 infection/pneumonia and the patient has patchy areas of groundglass pulm infiltrates bilaterally based on the CT of the chest. No evidence of any pulmonary embolism. Acute COPD exacerbation secondary to above Obesity with a BMI of 40.1 Coronary artery disease, with previous coronary stenting Hyperlipidemia Chronic hypoxic respiratory failure, normally the patient is on 4 L nasal cannu la Advanced COPD maintained on a combination of Advair and Spiriva on outpatient basis the patient is a previous smoker Acute iatrogenic left-sided pneumothorax during a left subclavian central line p lacement requiring immediate placement of chest tube Hypotension secondary to sepsis and septic shock requiring pressors. Resolved Acute kidney injury, possibly related to Baricitinib or aggressive diuresis, steadily improving in the last 2 days patient has good urine output about 40 cc/h Elevated liver enzymes possibly secondary to barcitinib which has been discontinued, liver profile and renal profile are improving elevated procalcitonin level, patient remains on cefepime. Recommendation: Continue ventilatory support, continue FiO2 at 50% continue PEEP at 14 and no change in ventilator settings If patient maintains excellent O2 saturation no need to place in prone position Continue hemodynamic support, however patient is now is off norepinephrine Continue nutritional support patient is receiving enteral feeding Continue GI DVT prophylaxis Continue bronchodilators including steroids, continue Lovenox. Continue GI and DVT prophylaxis Remains critically ill Updated her daughter yesterday on her condition and made aware that there is improvement and the patient is not out of the [place], remains critically ill. Critical care time is over 30 minutes Will continue to follow. Time with Patient: Greater than 30
[2024-02-22] MEDS: CLEVIDIPINE BUTYRATE 25 MG in EMPTY BAG 1 BAG IV SCH (18:01)
[2024-02-22 18:07] LABS: Glucose,Whole Blood 214 mg/dL (70-110)
--- NOTE | 2024-02-22 21:37 | P.PN ---
Subjective Progress Note Date: 02/22/24 Principal diagnosis: Reason for follow-up is leukocytosis Patient is a 63-year-old female with a past medical history significant for COPD coronary artery disease hyperlipidemia presenting to the hospital for evaluation of increasing shortness of breath patient be diagnosed with the COVID-19 started on baricitinib did have worsening respiratory status requiring intubation and also have elevated white count prompted this consultation. On today's evaluation that is 02/22/2024,the patient remains to be afebrile, patient remains to be intubated on the vent FiO2 is currently stable at 50% no significant purulent secretion through the ET vomiting or diarrhea has been reported patient not requiring any pressor support. Patient white count is 8.7 creatinine is 1.29 blood culture repeat has been negative Objective - Vital Signs Vital signs: Vital Signs Temp 98 F 02/22/24 16:00 Pulse 74 02/22/24 17:00 Resp 32 H 02/22/24 17:00 BP 149/69 02/22/24 15:00 Pulse Ox 92 L 02/22/24 17:00 FiO2 50 02/22/24 16:00 Intake & Output 02/21/24 02/22/24 02/22/24 18:59 06:59 18:59 Intake Total 2166.552 9991.859 2076.387 Output Total 470 595 474 Balance 7297.908 9445.563 1123.387 Intake: IV 1261 1261 1033 .9NS Pressure Bag 36 36 33 Dextrose 5% in Water 1, 325 325 175 000 ml @ 50 mls/hr IV . Q23H CAREN with Sodium Bicarb (1 Meq/ml) 150 ml Rx#:[id number] Sodium Chloride 0.9% 1, 900 900 825 000 ml @ 75 mls/hr IV . [id number] CAREN Rx#:[id number] Intake, IV Titration 719.552 376.563 378.387 Amount Cefepime 1 gm In Sodium 400 Chloride 0.9% 50 ml @ 12. 5 mls/hr IVPB Q12H CAREN Rx #:[id number] Cisatracurium 200 mg In 125.132 200 Sodium Chloride 0.9% 180 ml @ 1 MCG/KG/MIN 5.382 mls/hr IV .Q24H CAREN Rx#: [id number] Norepinephrine 4 mg In 19.667 Sodium Chloride 0.9% 250 ml @ 0.03 MCG/KG/MIN 10. 253 mls/hr IV .Q24H CAREN Rx#:[id number] Sodium Chloride 0.9% 80 97.250 ml @ 0.5 MCG/KG/HR 4.485 mls/hr IV .[id number] CAREN with fentaNYL (PF) 1,000 mcg Rx#:[id number] propofoL 1,000 mg In 174.753 176.563 281.137 Empty Bag 1 bag @ 15 MCG/ KG/MIN 8.145 mls/hr IV . [id number] CAREN Rx#:[id number] Oral 60 Tube Feeding 186 186 Output: Chest Tube Drainage 0 10 5 Chest Tube Left Lateral 0 10 5 Chest Urine 470 585 469 Other: Voiding Method Indwelling Catheter Indwelling Catheter ABP, PAP, CO, CI - Last Documented Arterial Blood Pressure 168/60 - Exam GENERAL DESCRIPTION: Middle-age female intubated on the vent RESPIRATORY SYSTEM: Unlabored breathing , decreased breath sounds at bases HEART: S1 S2 regular rate and rhythm , ABDOMEN: Soft , no tenderness EXTREMITIES: No edema feet - Labs CBC & Chem 7: 02/22/24 05:20 02/22/24 05:20 Labs: Abnormal Lab Results - Last 24 Hours (Table) 02/21/24 02/21/24 02/22/24 Range/Units 18:13 23:59 00:41 Hgb (11.4-16.0) gm/dL Hct (34.0-46.0) % Neutrophils # (1.3-7.7) k/uL Lymphocytes # (1.0-4.8) k/uL ABG pCO2 53 H (35-45) mmHg ABG pO2 71 L (83-108) mmHg ABG HCO3 37 H (21-25) mmol/L ABG Total CO2 38 H (19-24) mmol/L Carbon Dioxide (22-30) mmol/L BUN (7-17) mg/dL Creatinine (0.52-1.04) mg/dL Glucose (74-99) mg/dL POC Glucose (mg/dL) 294 H 242 H (70-110) mg/dL Calcium (8.4-10.2) mg/dL 02/22/24 02/22/24 02/22/24 Range/Units 05:20 05:20 05:51 Hgb 11.1 L (11.4-16.0) gm/dL Hct 33.3 L (34.0-46.0) % Neutrophils # 8.1 H (1.3-7.7) k/uL Lymphocytes # 0.3 L (1.0-4.8) k/uL ABG pCO2 (35-45) mmHg ABG pO2 (83-108) mmHg ABG HCO3 (21-25) mmol/L ABG Total CO2 (19-24) mmol/L Carbon Dioxide 39 H (22-30) mmol/L BUN 55 H (7-17) mg/dL Creatinine 1.29 H (0.52-1.04) mg/dL Glucose 227 H (74-99) mg/dL POC Glucose (mg/dL) 240 H (70-110) mg/dL Calcium 6.9 L (8.4-10.2) mg/dL 02/22/24 Range/Units 12:31 Hgb (11.4-16.0) gm/dL Hct (34.0-46.0) % Neutrophils # (1.3-7.7) k/uL Lymphocytes # (1.0-4.8) k/uL ABG pCO2 (35-45) mmHg ABG pO2 (83-108) mmHg ABG HCO3 (21-25) mmol/L ABG Total CO2 (19-24) mmol/L Carbon Dioxide (22-30) mmol/L BUN (7-17) mg/dL Creatinine (0.52-1.04) mg/dL Glucose (74-99) mg/dL POC Glucose (mg/dL) 160 H (70-110) mg/dL Calcium (8.4-10.2) mg/dL Microbiology - Last 24 Hours (Table) 02/19/24 16:45 Blood Culture - Preliminary Blood Assessment and Plan (1) Leukocytosis Current Visit: Yes Status: Acute Code(s): D72.829 - ELEVATED WHITE BLOOD CELL COUNT, UNSPECIFIED SNOMED Code(s): 133944383 (2) COVID Current Visit: Yes Status: Acute Code(s): U07.1 - COVID-19 SNOMED Code(s): 865767712 Plan: 1patient presented to the hospital about a week ago with increasing shortness of breath however the patient symptoms of cough and shortness of breath were going on for more than a week before initial presentation to the hospital patient has been diagnosed with a COVID-19 and treated with steroids and supportive treatment however the patient did have worsening of her respiratory status requiring intubation patient did not have any fever during this hospital stay with initial normal white count with significant jump in the white count could be reactive with acute change in her condition as well as steroids and the patient has been on clinical suspicious low for secondary bacterial pneumonia but not entirely excluded 2 blood cultures are currently pending patient did have elevated procalcitonin sputum culture not collected nurses has been advised to get a sputum sample 3patient white count has normalized we will continue cefepime and monitor clinical course closely Dictation was produced using [email or web address] dictation software. please excuse any grammatical, word or spelling errors. , Time with Patient: Less than 30
[2024-02-22 23:53] LABS: Glucose,Whole Blood 206 mg/dL (70-110)
[2024-02-23 04:59] LABS: ABG Base Excess 8.6 mmol/L; ABG HCO3 34 mmol/L (21-25); ABG PCO2 51 mmHg (35-45); ABG PH 7.44 (7.35-7.45); ABG PO2 67 mmHg (83-108); ABG TCO2 36 mmol/L (19-24)
[2024-02-23 05:22] LABS: Basophils % (A) 0 %; Eosinophils % (A) 0 %; HCT 33.7 % (34.0-46.0); HGB 10.5 gm/dL (11.4-16.0); Hypochromasia Slight; Lymphocytes # (A) 0.3 k/uL (1.0-4.8); Lymphocytes % (A) 3 %; MCH 27.9 pg (25.0-35.0); MCHC 31.2 g/dL (31.0-37.0); MCV 89.4 fL (80.0-100.0); Mean Platelet Volume 7.4; Monocytes # (A) 0.5 k/uL (0-1.0); Monocytes % (A) 4 %; Neutrophils # (A) 11.4 k/uL (1.3-7.7); Neutrophils % (A) 93 %; Platelet Count 254 k/uL (150-450); RBC 3.77 m/uL (3.80-5.40); RDW 13.2 % (11.5-15.5); WBC 12.3 k/uL (3.8-10.6)
[2024-02-23 05:29] LABS: ALT 74 U/L (4-34); AST 39 U/L (14-36); African American GFR (CKD) 58 (>60 ml/min/1.73 sqM); Albumin 2.4 g/dL (3.5-5.0); Alkaline Phosphatase 58 U/L (38-126); Anion Gap -1 mmol/L; Blood Urea Nitrogen 52 mg/dL (7-17); Calcium 6.9 mg/dL (8.4-10.2); Carbon Dioxide 34 mmol/L (22-30); Chloride 104 mmol/L (98-107); Glucose 174 mg/dL (74-99); Non-African American GFR(CKD) 50 (>60 ml/min/1.73 sqM); Potassium 4.3 mmol/L (3.5-5.1); Sodium 137 mmol/L (137-145); Total Bilirubin 0.7 mg/dL (0.2-1.3); Total Protein 4.5 g/dL (6.3-8.2)
[2024-02-23 06:08] LABS: Glucose,Whole Blood 179 mg/dL (70-110)
--- NOTE | 2024-02-23 08:33 | XR ---
EXAMINATION TYPE: XR chest 1V portable DATE OF EXAM: 02/23/2024 COMPARISON: 02/22/2024 HISTORY: SOB, Follow Up FINDINGS: Indwelling tubes and catheters are unchanged. No change in adequate opacities. Stable appearance of the cardio-mediastinal structures at this time. IMPRESSION: 1. Stable portable chest. Clinical correlation and follow up until resolution is recommended. [facility], , 02/23/2024 8:31 AM
[2024-02-23] MEDS: FUROSEMIDE 10 MG/ML 4 ML VIAL IV STA (10:36)
--- NOTE | 2024-02-23 10:57 | P.PN ---
Subjective Progress Note Date: 02/23/24 63-year-old female present to the emergency department for further evaluation of increasing shortness of breath as well as changes in her mental status for the past day and a half according to her daughter. Patient's past medical history significant for COPD, in which she was recently started on treatment for bronchitis with steroids and antibiotics (doxycycline). Upon presentation patient states she was not feeling well, with increased confusion difficulty speaking. Her daughter, sitting at bedside, states that she was saturating 86% on room air. Patient denies any recent travel. Per patient's viral panel taken upon arrival to the emergency department patient states positive COVID-19. Pulmonology has been consulted and will see the patient for COPD exacerbation as well as COVID-19 infection. Upon arrival to the emergency department patient was afebrile blood pressure 118/67, heart rate of 81, respiratory rate of 16 with an oxygen saturation of 80% on room air. When seen the patient today, she reports she is feeling better and her daughter who is at her bedside also reports that she is presenting better than she had been the previous couple of days, and her mentation had improved greatly. She states that she is looking more like "herself". Initial lab work done in the ER showed WBCs 5.9, Hgb 14.8, Hct 45.7, PLT 108; PT 10.8, INR 1.0, PTT 27.1; blood gas pH 7.36, pCO2 33, HCO3 18; sodium 136, potassium 4.3, BUN 45, creatinine 1.03 Influenza A not detected Influenza B not detected RSV not detected COVID-19 positive EKG done in the ER showed heart rate of 82, no ST segment elevation or depression seen, no T-wave inversions seen. Chest x-ray done in the ER showed increased perihilar lung markings, to be correlated for infectious etiologies, pulmonary edema could be considered 02/14/24 - Patient seen at bedside today. She states that she is feeling better than she was yesterday, however she states that it feels like she "smoked 3 packs" and has remained short of breath. Progress states it is closer to her baseline when she was over the past few days however still not all the way back. Overnight patient's blood pressure was recorded as 90/50, with a heart rate of 64, respiratory rate of 18 saturating 95% on 4 and half liters of nasal cannula. Due to the patient having persistently low blood pressures we will hold 100 mg Cozaar and 20 mg Lopressor today and continue to monitor make adjustments as needed. Per pulmonology recommendation patient underwent CT angiogram of the chest to help rule out pulmonary embolism and at the same time evaluate for COVID-19 pneumonia and it was noted that the patient is a chronic smoker, on review of the CTA of the chest there were bilateral areas of scattered patchy groundglass pulmonary infiltrates consistent with COVID-19 related pneumonia worse on the left side compared to the right side. Patient will continue on O2 and will be titrated to maintain saturation above 90% overnight on 4 and half liters of oxygen nasal cannula, per pulmonology request patient started on IV Solu-Medrol 60 mg every 6 hours, she is outside the window for remdesivir as patient is had symptoms for more than a week, additionally patient was started on Lovenox 40 mg subcutaneously for DVT prophylaxis. Patient's LDH 230, e levated CRP at 6.3 and procalcitonin was unremarkable at 0.07. Additionally last night patient's 30 mg nightly, hold Wellbutrin and 200 mg nightly of Zoloft) presumed upon request with the patient and the patient's daughter. Labs done today - Currently pending at time of dictation. CT of the chest completed on 02/12 yet to evaluate official final read from radiologist, however per pulmonology's report he was to evaluate for possible pulmonary embolism but at the same time evaluated for COVID-19 pneumonia and was noted that there were bilateral areas of scattered patchy groundglass pulmonary infiltrates consistent with COVID-19 worse on the left side. 02/15/24 - Patient is evaluated today in follow up resting in bed. Continues on 4L of oxygen with adequate saturations. She continue to report shortness of breath and sputum production. No wheezing noted, there is some scattered ronchi. Patient remains on albuterol PRN as well as IV solumedrol. Patient has not been resumed on her home inhalers as of yet including spiriva and Advair HFA. chest CT angio that has been taken on the is not yet resulted by radiology. 02/16/24 - Patient seen at bedside today. States she is feeling about the same that she has been, with some shortness of breath and feeling tired. Chest CT angio taken on 12 February still has no official report from radiology. As of this morning patient blood pressure 96/62, heart rate of 68, respiratory rate of 18 while saturating 89% on 6 L high flow nasal cannula. Throughout the day she was increased to 7 L where she has remained saturating 86-87%. Per the patient and her daughter the patient's baseline oxygen saturation is generally in the mid 80%. New labs - WBCs 11.2, Hgb 14.2, Hct 43.0, PLT 187; sodium 139, potassium 5.2 02/17/24 - Patient seen at bedside today. Patient states she continues to feel about the same, with shortness of breath and being tired. Chest CT angio taken on 12 February cells no official report from radiology. Chest x-ray ordered yesterday showed similar scattered reticular pulmonary opacities likely representing reported COVID infection. Overnight patient blood pressure 117/65, heart rate of 76, respiratory rate of 20, placed on 15 L high flow nasal cannula saturating in the mid 90s. Per pulmonology's recommendation goal of patient's saturations is to remain greater than 85%. As of this morning patient was moved on to Airvo with an O2 flow rate of 60 and FiO2 of 80%, and with this patient has been saturating between 85-89%. Patient does report increased shortness of breath as compared to yesterday, however was resting somewhat comfortably in bed. New labs -WBCs 9.13, Hgb 13.4, Hct 41.0, PLT 174; sodium 134, potassium 4.1, BUN 17.7, creatinine 0.7 02/18/24 - Patient seen at bedside today. Patient has been moved to the ICU for further observation per pulmonology's request. As of yesterday morning patient was moved onto Airvo with an FiO2 of 80% oxygen flow rate of 60, throughout the day this was increased the FiO2 raising up to 92% through the evening, with the patient continuing to saturate in the midhigh 80%'s. Overnight the patient was placed on BiPAP with saturations between 86-91%. New chest x-ray to be completed today to compare to the previous ones. Per pulmonology patient may qualify for baricitinib, for now we will continue on bronchodilators, steroids, and Lovenox. New labs -WBCs 10.6, Hgb 13.2, Hct 42.0,PLT 206; D-dimer 0.61; sodium 136, potassium 4.1, BUN 17, creatinine 0.53 02/19/24 - Patient seen and follow-up today continues to be in the ICU with close monitoring with multiple consultations following. Patient maintained on high flow and according to nursing staff having increased respiratory distress requiring mechanical ventilation overnight. Patient is currently maintained on an FiO2 of 100% and PEEP is extremely high at 15 with multiple drips going. Patient is maintained on Nimbex and Levophed along with a bicarb drip and patient also receiving baricitinib at this time. Patient noted to have a significant increase in white count and will repeat blood cultures, urine culture, procalcitonin and also consult infectious disease and appreciate input and recommendations. Patient also continues on breathing treatments and high- dose IV steroids. Kidney functions within normal limits at this time although nursing staff is reporting decreased urine output which will be monitored closely. Patient was given a fluid bolus. 02/20/24 - Patient seen at bedside today in the ICU. Patient has multiple consultations following with close monitoring. Patient was mechanically ventilated on 02/18 and has been weaned to an FiO2 of 80%, however with a PEEP of 16 with multiple concurrent drips going. Patient continues to maintain an index of Levophed while also receiving baricitinib as well as bicarb drip. Patient's white count has improved to 13.1 as compared to 32.8 yesterday (02/18), additionally ABG showed pH improvement to 7.26 as compared to 7.4. Chest x-ray to be repeated today. 02/21/24 - Patient seen at the bedside in the ICU. Patient has multiple consultations following with close monitoring. Per infectious disease baricitinib is been discontinued and the patient has been appropriately started on cefepime. Preliminary blood culture showed no growth however the patient had an elevated procalcitonin. Per the ICU patient was placed in prone position noted to have significant improvement in her oxygenation. She is currently saturating in the high 90% with a tidal volume of 400, ventilatory rate of 32, FiO2 of 55%, PEEP of 16. She remains on Nimbex, Levophed, propofol, and Sublimaze. Labs this morning showed WBCs 9.8, sodium 136, BUN of 55 (increased from 49 yesterday) and creatinine of 1.77 (improved from 1.96 yesterday), yesterday AST 187 and ALT 189. Patient is ABG as of this morning showed a pH of 7.41, pCO2 57, pO2 81, HCO3 36 and total CO2 of 38. Patient's urine output at time of dictation this morning 236 mL. 02/21. Patient seen and examined. Continues to be on mechanical ventilation 02/23/2024 - patient seen and examined at bedside. patient continues to be on mechanical ventilation. REVIEW OF SYSTEMS: Cannot be obtained as patient is intubated PHYSICAL EXAMINATION: GENERAL: The patient is intubated HEENT: Pupils are round and equally reacting to light. EOMI. No scleral icterus. No conjunctival pallor. Normocephalic, atraumatic. No pharyngeal erythema. No thyromegaly. CARDIOVASCULAR: S1 and S2 present. No murmurs, rubs, or gallops. PULMONARY: Coarse breath sounds bilaterally, no wheezing or crackles. ABDOMEN: Soft, nontender, nondistended, normoactive bowel sounds. No palpable organomegaly. MUSCULOSKELETAL: No joint swelling or deformity. EXTREMITIES: No cyanosis, clubbing, or pedal edema. NEUROLOGICAL: Intubated and sedated SKIN: No rashes. Assessment and plan Acute hypoxic respiratory failure secondary to pneumonitis pneumonia due to COPD exacerbation as a result of recently diagnosed bronchitis Monitor vital signs Monitor CBC Monitor CMP PEEP adjusted from 14 to 16. Continue vent management Aggressive bronchopulmonary hygiene ICU following # Acute kidney injury possibly secondary to acute hypoxic respiratory failure - resolved Monitor renal function # Recent history of cardiac stenting Patient on Plavix 75 mg daily #Altered mental status #Anxiety Resume patient's on medications of 200 mg nightly of Zoloft and 300 mg nightly of Wellbutrin #Hypertension Patient's home medications include 50 mg hydroxyzine 3 times daily, 100 mg Cozaar daily, 25 mg Lopressor twice daily Patient's blood pressures were running low overnight at 90/50, going to hold 100 mg Cozaar today and 25 mg Lopressor; continue the hydroxyzine Continue to monitor and make alterations as necessary Labs and medication were reviewed.. Continue same treatment. Continue with symptomatic treatment. Resume home medication. Monitor labs and vitals. DVT and GI prophylaxis. Further recommendations as per clinical course of the patient Dictation was produced using [employer] software. please excuse any grammatical, word or spelling errors. Attestation I have seen and examined this patient with my resident , discussed the same with the resident/JORDON, and agree with the dictator's assessment and plan as written Dr. Nj chamorro Objective - Vital Signs Vital signs: Vital Signs Temp 98.5 F 02/23/24 09:00 Pulse 67 02/23/24 09:00 Resp 32 H 02/23/24 09:00 BP 131/66 02/23/24 09:00 Pulse Ox 91 L 02/23/24 09:00 FiO2 50 02/23/24 08:27 Intake & Output 02/22/24 02/23/24 02/23/24 18:59 06:59 18:59 Intake Total 7041.700 8931.770 393.65 Output Total 514 535 165 Balance 6764.995 5960.770 228.65 Weight 96.1 kg Intake: IV 1111 1618 234 .9NS Pressure Bag 36 36 9 Dextrose 5% in Water 1, 175 000 ml @ 50 mls/hr IV . Q23H CAREN with Sodium Bicarb (1 Meq/ml) 150 ml Rx#:[id number] Sodium Chloride 0.9% 1, 900 1582 225 000 ml @ 75 mls/hr IV . [id number] CAREN Rx#:[id number] Intake, IV Titration 456.443 500.770 97.65 Amount Cisatracurium 200 mg In 129.168 Sodium Chloride 0.9% 180 ml @ 1 MCG/KG/MIN 5.382 mls/hr IV .Q24H CAREN Rx#: [id number] Sodium Chloride 0.9% 80 97.250 93.138 ml @ 0.5 MCG/KG/HR 4.485 mls/hr IV .[id number] CAREN with fentaNYL (PF) 1,000 mcg Rx#:[id number] propofoL 1,000 mg In 359.193 278.464 97.65 Empty Bag 1 bag @ 15 MCG/ KG/MIN 8.145 mls/hr IV . [id number] CAREN Rx#:[id number] Tube Feeding 217 372 62 Other 90 Output: Chest Tube Drainage 5 0 15 Chest Tube Left Lateral 5 0 15 Chest Urine 509 535 150 Other: Voiding Method Indwelling Catheter Indwelling Catheter ABP, PAP, CO, CI - Last Documented Arterial Blood Pressure 104/56 - Labs CBC & Chem 7: 02/24/24 04:45 02/24/24 04:45 Labs: Abnormal Lab Results - Last 24 Hours (Table) 02/22/24 02/22/24 02/22/24 Range/Units 12:31 18:06 23:52 WBC (3.8-10.6) k/uL RBC (3.80-5.40) m/uL Hgb (11.4-16.0) gm/dL Hct (34.0-46.0) % Neutrophils # (1.3-7.7) k/uL Lymphocytes # (1.0-4.8) k/uL ABG pCO2 (35-45) mmHg ABG pO2 (83-108) mmHg ABG HCO3 (21-25) mmol/L ABG Total CO2 (19-24) mmol/L ABG O2 Saturation (94-97) % Hemoglobin (11.4-16.0) gm/dL Carbon Dioxide (22-30) mmol/L BUN (7-17) mg/dL Creatinine (0.52-1.04) mg/dL Glucose (74-99) mg/dL POC Glucose (mg/dL) 160 H 214 H 206 H (70-110) mg/dL Calcium (8.4-10.2) mg/dL AST (14-36) U/L ALT (4-34) U/L Total Protein (6.3-8.2) g/dL Albumin (3.5-5.0) g/dL 02/23/24 02/23/24 02/23/24 Range/Units 04:50 04:50 04:58 WBC 12.3 H (3.8-10.6) k/uL RBC 3.77 L (3.80-5.40) m/uL Hgb 10.5 L (11.4-16.0) gm/dL Hct 33.7 L (34.0-46.0) % Neutrophils # 11.4 H (1.3-7.7) k/uL Lymphocytes # 0.3 L (1.0-4.8) k/uL ABG pCO2 51 H (35-45) mmHg ABG pO2 67 L (83-108) mmHg ABG HCO3 34 H (21-25) mmol/L ABG Total CO2 36 H (19-24) mmol/L ABG O2 Saturation 93.0 L (94-97) % Hemoglobin 10.8 L (11.4-16.0) gm/dL Carbon Dioxide 34 H (22-30) mmol/L BUN 52 H (7-17) mg/dL Creatinine 1.17 H (0.52-1.04) mg/dL Glucose 174 H (74-99) mg/dL POC Glucose (mg/dL) (70-110) mg/dL Calcium 6.9 L (8.4-10.2) mg/dL AST 39 H (14-36) U/L ALT 74 H (4-34) U/L Total Protein 4.5 L (6.3-8.2) g/dL Albumin 2.4 L (3.5-5.0) g/dL 02/23/24 Range/Units 06:07 WBC (3.8-10.6) k/uL RBC (3.80-5.40) m/uL Hgb (11.4-16.0) gm/dL Hct (34.0-46.0) % Neutrophils # (1.3-7.7) k/uL Lymphocytes # (1.0-4.8) k/uL ABG pCO2 (35-45) mmHg ABG pO2 (83-108) mmHg ABG HCO3 (21-25) mmol/L ABG Total CO2 (19-24) mmol/L ABG O2 Saturation (94-97) % Hemoglobin (11.4-16.0) gm/dL Carbon Dioxide (22-30) mmol/L BUN (7-17) mg/dL Creatinine (0.52-1.04) mg/dL Glucose (74-99) mg/dL POC Glucose (mg/dL) 179 H (70-110) mg/dL Calcium (8.4-10.2) mg/dL AST (14-36) U/L ALT (4-34) U/L Total Protein (6.3-8.2) g/dL Albumin (3.5-5.0) g/dL Microbiology - Last 24 Hours (Table) 02/19/24 16:45 Blood Culture - Preliminary Blood 02/17/24 20:03 Blood Culture - Final Blood
[2024-02-23 11:01] VITALS: BMI 40.0
--- NOTE | 2024-02-23 12:23 | P.PN ---
Subjective Progress Note Date: 02/23/24 This is a 63-year-old female patient, known history of COPD was been seeing Dr. Cornell at [facility]. Prior to that, she had another hand box folder through [facility] [place] who gave her because of her insurance coverage. The patient is an ex-smoker. She has quit smoking. The patient has been maintained on a combination of Advair and Spiriva on an outpatient basis and albuterol HFA on a as needed basis. The patient has been having symptoms of URI, cough congestion, generalized weakness and fatigue and tiredness and the patient came into the hospital where she was diagnosed having COVID-19 infection. Noted the patient has been symptomatic for more than a week. She has seen her pulmo nologist, Dr. Cornell who treated her with a course of antibiotics and steroids. Nevertheless, her condition did not improve and she ended up coming into the hospital. No nausea vomiting or diarrhea. No abdominal pain. No altered mentation. The chest x-ray that was done at time of admission showed increased perihilar lung markings. No previous history of DVT or pulmonary embolism. I ordered a CTA of the chest on this patient to rule out pulmonary embolism and at the same time evaluate for COVID-19 related pneumonia. Noted the patient is also a chronic smoker. I reviewed the CTA of the chest and there are bilateral areas of scattered patchy groundglass pulmonary infiltrates consistent with COVID-19 related pneumonia more so on the left compared to the right. The patient has no filling defects to indicate pulmonary embolism. Awaiting a final report from radiology. Note that this has never been infected with COVID-19 in the past and she has never been vaccinated. 02/14/2024, patient is doing well. Less short of breath compared to yesterday. CAT scan of the chest showed some patchy groundglass pulmonary filtrates consistent with COVID-19 infection. However, clinically patient doing better. No evidence of any pulmonary involvement. No evidence of any lung masses. She remains on bronchodilators with albuterol HFA 4 times [id number] and the patient is on IV Solu-Medrol 60 mg every 6 hours. No abnormalities in her blood work. The CBC shows a white cell count of 6.3 with a hemoglobin 13 and a platelet count of 132. BUN 42 with a creatinine of 1.02. Serum bicarbonate 17 and sodium levels at 133 and a potassium level is at 4.3. 02/15/2024, the patient is being seen for a follow-up. The patient is doing well. The patient is being treated for an acute COPD exacerbation. The patient also has a component of COVID-19 pneumonia and she remains on 40 of oxygen by nasal cannula. She was given IV Solu-Medrol. She was outside the window for remdesivir treatment. She is noted advanced COPD. Based on my review of the CT of the chest, there is no evidence of any pulm embolism. There is patchy areas of pulm infiltration consistent with COVID-19 infection. No evidence of any lung masses or tumors. The patient is currently on 6 L of O2 nasal cannula. At times, she removes her oxygen she desaturates. No new labs are available from today. Her procalcitonin level is at 0.07. The LDH level was at 230. Rest of the inflammatory markers were minimally elevated. Otherwise, awake and alert, no altered mentation. No signs of any CO2 narcosis. The patient is seen today February 16, 2024 in follow-up on the regular medical floor. She is currently resting in bed. Awake and alert in no acute distress. She is having ongoing issues with oxygen desaturations. She is currently on 7 L high flow nasal cannula with O2 saturations in the low 80s. She is continued on Symbicort, Spiriva, albuterol and Solu-Medrol. Lovenox for DVT prophylaxis. C hest x-ray shows similar scattered reticular pulmonary opacities secondary to COVID infection. White count 11.2. Hemoglobin 14.2. Sodium 139. Potassium 5.2. Bicarb 24. BUN 23. Creatinine 0.8. Glucose 158. The patient is seen today February 17, 2024 in follow-up on the regular medical floor. She is currently awake and alert. She continues to have ongoing struggles with her breathing. This morning she was placed on Airvo high flow oxygen at 60% FiO2 and 80 L. Chest x-ray continues to show similar scattered reticular pulmonary opacities consistent with COVID infection. White count 9.1. Hemoglobin 13.4. Platelets 174. Sodium 134. Potassium 4.1. Bicarb 23. BUN 18. Creatinine 0.7. Glucose 180. She remains on Symbicort, Spiriva and albuterol along with IV Solu-Medrol. Lovenox for DVT prophylaxis. Patient was seen today on 02/18/2024, she is now in the ICU, she is marginal at best. Patient is critically ill, she was on Airvo yesterday at high flow and high FiO2, she is now on BiPAP at 100%, 04/23. O2 saturation is marginal, hence her chest x-ray is showing worsening of her interstitial infiltrates/presumptive COVID-19 pneumonia worsening and the patient meets the criteria to start baricitinib 4 mg daily for 14 days. Her procalcitonin level was normal and I doubt any underlying bacterial infection at this point. Clearly the patient is worsening and she will remain in the ICU, I have a feeling she may even require intubation mechanical ventilation. Patient seems to be comfortable although her O2 saturation is in the 80s. Does not seem to be in distress. She is hemodynamically stable not requiring any pressors. She is on bronchodilators, and she is also on steroids, Lasix were given to keep her on the dry side as much as possible although I am not convinced that the patient has any congestive heart failure WBC count today is 10.6 hemoglobin is 13.2 electrolytes are normal renal profile is normal her inflammatory markers are high with high LDH, high C- reactive protein, and high ferritin level. Patient was seen today on 02/19/2024, patient had to be intubated last night mostly because of worsening pulmonary status and worsening pneumonia. She re quired mechanical ventilation, and she is maximal on mechanical ventilation with assist-control rate of 3 2, tidal volume 400 FiO2 100% PEEP is 16. Last ABG showed a pO2 136 pCO2 78 pH of 7.14, patient was placed on bicarb drip 150 mEq in 1 L D5W running at 50 cc/h. Patient required central line placement and this was done in the groin she did sustain iatrogenic left-sided pneumothorax from attempt to place a left a left subclavian central line. Right femoral triple- lumen catheter was placed, patient is still on Nimbex she is on Cardizem at 10 mg/h she is on propofol at 35 mcg/kg/min IV fluid at 50 cc/h fentanyl at 0.5 mcg/kg/h and she is on norepinephrine at 0.15 mcg/kg/min. Family was updated and made aware that her condition is very poor, and mortality is extremely high. Patient seems to be having worsening COVID-19 pneumonia with diffuse interstitial infiltrates bilaterally.Patient is developing leukocytosis with WBC count of 32.8 hemoglobin 14.4, basic metabolic profile is normal renal profile is normal glucose is 185 laboratory markers are elevated. Patient is now on baricitinib Patient was seen today on 02/20/2024, patient remains in the ICU intubated and mechanically ventilated. Patient was placed in prone position and noted to have significant improvement in her oxygenation. She is presently in prone position this morning, and O2 saturation is in the mid 90s, patient is on 65% FiO2, and PEEP of 16. Patient is on assist-control rate of 32, tidal volume 400 FiO2 65% and I cut it down to 60% and PEEP is 16. ABG on 100% showed a pO2 of 184 pCO2 66 pH of 7.26. Peak airway pressure is in the mid to high 30s, plateau pressure is 30. Patient remains on propofol at 35 mcg/kg/min Levophed at 0.07 mcg/kg/min Fentanyl at 0.5 mcg/kg/h Cardizem at 5 mg/h she is still receiving sodium bicarb at 50 cc/h barcitinib was discontinued today as the patient is noted to have elevated procalcitonin level today and will start the patient on cefepime instead. Chest x-ray continues show significant interstitial infiltrate/pneumonia no evidence of pneumothorax, left-sided chest tube remains in place. Looking at the Pleur-evac, there is no evidence of air leak. WBC c ount is 13.1 hemoglobin 12.6 basic metabolic profile is normal however her BUN is up to 49 creatinine 1.96, liver enzymes are beginning to rise and I recommended stopping barcitinib. Will continue hydration hold diuretics and closely monitor her renal status. When output is about 30 cc/h Patient was evaluated today on 02/21/2024, patient remains in the ICU, intubated and mechanically ventilated, patient is now on assist-control rate of 32 tidal volume 400 FiO2 cut down from 55% to 50% PEEP cut down from 16 down to 14. Earlier ABG showed a pO2 of 81 pCO2 57 pH of 7.41. Patient remains on Nimbex and she is intermittently placed in prone position to adequately ventilate the patient and oxygenate the patient on lower FiO2 as a matter fact we cut down the FiO2 down to 50% and I was able to cut down the PEEP down to 14. Chest x-ray basically is about the same. Not much of a change in her infiltrates bilaterally she has a very small tiny apical pneumothorax and apparently intermittently noted to have minimal air leak in the Pleur-evac. She is on norepinephrine at 0.01 mcg/kg/min propofol at 35 mcg/kg/min Fentanyl 0.5 mcg/kg/h patient is now receiving cefepime, and her urine output is about 40 to 50 cc/h. Lasix remains on hold, patient is still receiving IV fluids. Patient was evaluated today on 02/22/2024, patient remains in the ICU intubated mechanically ventilated, sedated and paralyzed. Still requiring a PEEP of 14, FiO2 has been titrated down to 50%, patient has been intermittently placed in prone position over the last couple of days. Today she seems to be doing well in supine position, O2 saturation is in the low 90s and her PEEP remains at 14. Chest x-ray, is showing slight improvement in her bilateral interstitial infiltrates, there is no evidence of pneumothorax on the chest x-ray today, endotracheal tube was noted to be still close to the right mainstem bronchus, in the carinal area, and we pulled it out about 1.0 cm ventilator flaherty the patient is on AC rate of 32 tidal volume 400 FiO2 50% PEEP of 14 ABG showed a pO2 of 71 pCO2 53 pH of 7.45. Patient is on Nimbex she is on D5W with 3 A of bicarb running at 25 cc/h, and today I will discontinue her bicarb patient is on propofol at 50 mcg/kg/min Fentanyl at 0.5 mcg/kg/h and with this will be incre ased because of significantly elevated blood pressure, patient is on IV fluid at 75 cc/h with steady improvement in her renal status, creatinine is down to 1.29 today. Patient remains on enteral feeding vital AF she is also on cefepime. Cultures so far are negative urine output about 40 cc/h Patient was evaluated today on 02/23/2024, patient remains in the ICU intubated and mechanically ventilated, sedated and paralyzed. She is on day 11 of her hospital stay (admitted 02/11), day 7 of her stay in the ICU (admitted to the ICU 02/16), and day 5 on the ventilator (placed 02/23). Patient is receiving ventilatory support with a rate of 32, tidal volume 400, FiO2 of 50%, and PEEP at 16 which is increased from 14 overnight due to the patient having oxygen saturations in the low 80% at that time. Patient had been spending 18 hours in prone position, and 6 hours supine, however will discontinue having the patient proned. Chest x-ray remains stable today as compared yesterday. ABG done today shows pO2 of 67, pCO2 51 and a pH of 7.44. She is maintained on propofol 65 mcg/kg/min, Pneumovax 2.5 mcg/kg/min, fentanyl 1 mcg/kg/h. The patient is additionally receiving IV fluids at 75 cc/h with continued improvement of her renal status, creatinine today down to 1.17 (from 1.29 yesterday) and BUN 52 (from 55 yesterday). Patient's urine cultures are negative, and output continue to be ~40 cc/h, a second preliminary blood culture has also shown to be negative, awaiting final report. Patient continues to receive enteral feeding, vital AF at 30 mL/h which is goal. Patient continues to receive cefepime 1 gram daily. REVIEW OF SYSTEMS: She is currently sedated and on mechanical ventilation. PHYSICAL EXAMINATION: GENERAL: 63-year-old female on mechanical ventilation, intubated, mechanically ventilated, sedated and paralyzed. Patient is in supine position 91% O2 saturation on 50% FiO2 and PEEP of 16 HEENT: Pupils are round and equally reacting to light. EOMI. No scleral icterus. No conjunctival pallor. Normocephalic, atraumatic. No pharyngeal erythema. No thyromegaly. CHEST: No chest wall deformity. LUNGS: Diminished breath sound bilaterally no crackles rhonchi or wheezes, left- sided chest tube remains in place, no evidence of air leak CVS: S1 and S2 normal with no audible murmur, regular rhythm. ABDOMEN: Morbidly obese no hepatosplenomegaly, normal bowel sounds, no guarding or rigidity. SKIN: No rashes CENTRAL NERVOUS SYSTEM: Could not assess patient is sedated and paralyzed. EXTREMITIES: No clubbing edema or cyanosis. Good pulses bilaterally Assessment and plan # Acute on chronic hypoxic respiratory failure Patient patient was intubated on 02/19/2024 Continue ventilatory support, rate 32, tidal volume 400, FiO2 50%, PEEP increased to 16 (from 14 overnight due to low oxygen saturation) Discontinue any proning of the patient Patient continues to receive Ventolin 2 puffs 4 times daily, Solu-Medrol 60 mg IV every 6 hours, Symbicort 2 puffs twice daily # Acute COVID-19 infection/pneumonia Patient has patchy areas of groundglass pulm infiltrates bilaterally based on the CT of the chest. No evidence of any pulmonary embolism. Patient continuing on cefepime # Acute COPD exacerbation secondary to acute COVID-19 infection Continue ventilatory support, rate 32, tidal volume 400, FiO2 50%, PEEP increased to 16 (from 14 overnight due to low oxygen saturation) Patient continues to receive Ventolin 2 puffs 4 times daily, Solu-Medrol 60 mg IV every 6 hours, Symbicort 2 puffs twice daily # Acute transaminitis possibly secondary to Baricitinib AST 187, ALT 189 (02/19) Since the discontinuation of baricitinib, profile showed improvement AST 39, ALT 74 today (02/22) # Acute iatrogenic left-sided pneumothorax secondary to left subclavian central line placement Required immediate placement of a chest tube; nurse notes occasional air leak, however none noted on exam # ESTRADA possibly secondary to Baricitinib or aggressive diuresis - improving Baricitinib been discontinued Has been improving, and the patient is going to have good urine output ~40 cc/h Creatinine 1.17 (1.29 yesterday), BUN 52 (55 yesterday) # Hypotension secondary to sepsis and septic shock - resolved # Obesity with a BMI of 40.1 # Coronary artery disease, with previous coronary stenting Patient 75 mg Plavix daily # Hyperlipidemia 40 mg Lipitor daily # Chronic hypoxic respiratory failure, normally the patient is on 4 L nasal lisa donn at home Patient's baseline oxygenation at home was 85-80% per the patient's family Maintain on 4 L nasal cannula at home Patient states she saw her hand box folder at [facility] (a couple of weeks prior to admission) who expressed a desire to increase from 4 L to 6 L Continue hemodynamic support as needed GI prophylaxis: Protonix 40 mg daily DVT prophylaxis: Lovenox 30 mg daily Nutritional support: Vital high-protein enteral nutrition at 31 mL/h, which is goal Full code Continue to monitor vital signs, monitor CBC, monitor CMP, continue telemetry monitoring, encourage use of incentive spirometer, continue postoperative antibiotic per protocol, postoperative pain management per primary monitor for excessive sedation. Dictation was produced using [employer] dictation software. please excuse any grammatical, word or spelling errors. Objective - Vital Signs Vital signs: Vital Signs Temp 98.5 F 02/23/24 09:00 Pulse 67 02/23/24 09:00 Resp 32 H 02/23/24 09:00 BP 131/66 02/23/24 09:00 Pulse Ox 91 L 02/23/24 09:00 FiO2 50 02/23/24 08:27 Intake & Output 02/22/24 02/23/24 02/23/24 18:59 06:59 18:59 Intake Total 7829.227 5847.770 393.65 Output Total 514 535 165 Balance 9154.764 2649.770 228.65 Weight 96.1 kg Intake: IV 1111 1618 234 .9NS Pressure Bag 36 36 9 Dextrose 5% in Water 1, 175 000 ml @ 50 mls/hr IV . Q23H CAREN with Sodium Bicarb (1 Meq/ml) 150 ml Rx#:[id number] Sodium Chloride 0.9% 1, 900 1582 225 000 ml @ 75 mls/hr IV . [id number] CAREN Rx#:[id number] Intake, IV Titration 456.443 500.770 97.65 Amount Cisatracurium 200 mg In 129.168 Sodium Chloride 0.9% 180 ml @ 1 MCG/KG/MIN 5.382 mls/hr IV .Q24H CAREN Rx#: [id number] Sodium Chloride 0.9% 80 97.250 93.138 ml @ 0.5 MCG/KG/HR 4.485 mls/hr IV .[id number] CAREN with fentaNYL (PF) 1,000 mcg Rx#:[id number] propofoL 1,000 mg In 359.193 278.464 97.65 Empty Bag 1 bag @ 15 MCG/ KG/MIN 8.145 mls/hr IV . [id number] CAREN Rx#:[id number] Tube Feeding 217 372 62 Other 90 Output: Chest Tube Drainage 5 0 15 Chest Tube Left Lateral 5 0 15 Chest Urine 509 535 150 Other: Voiding Method Indwelling Catheter Indwelling Catheter ABP, PAP, CO, CI - Last Documented Arterial Blood Pressure 104/56 - Labs CBC & Chem 7: 02/23/24 04:50 02/23/24 04:50 Labs: Abnormal Lab Results - Last 24 Hours (Table) 02/22/24 02/22/24 02/22/24 Range/Units 12:31 18:06 23:52 WBC (3.8-10.6) k/uL RBC (3.80-5.40) m/uL Hgb (11.4-16.0) gm/dL Hct (34.0-46.0) % Neutrophils # (1.3-7.7) k/uL Lymphocytes # (1.0-4.8) k/uL ABG pCO2 (35-45) mmHg ABG pO2 (83-108) mmHg ABG HCO3 (21-25) mmol/L ABG Total CO2 (19-24) mmol/L ABG O2 Saturation (94-97) % Hemoglobin (11.4-16.0) gm/dL Carbon Dioxide (22-30) mmol/L BUN (7-17) mg/dL Creatinine (0.52-1.04) mg/dL Glucose (74-99) mg/dL POC Glucose (mg/dL) 160 H 214 H 206 H (70-110) mg/dL Calcium (8.4-10.2) mg/dL AST (14-36) U/L ALT (4-34) U/L Total Protein (6.3-8.2) g/dL Albumin (3.5-5.0) g/dL 02/23/24 02/23/24 02/23/24 Range/Units 04:50 04:50 04:58 WBC 12.3 H (3.8-10.6) k/uL RBC 3.77 L (3.80-5.40) m/uL Hgb 10.5 L (11.4-16.0) gm/dL Hct 33.7 L (34.0-46.0) % Neutrophils # 11.4 H (1.3-7.7) k/uL Lymphocytes # 0.3 L (1.0-4.8) k/uL ABG pCO2 51 H (35-45) mmHg ABG pO2 67 L (83-108) mmHg ABG HCO3 34 H (21-25) mmol/L ABG Total CO2 36 H (19-24) mmol/L ABG O2 Saturation 93.0 L (94-97) % Hemoglobin 10.8 L (11.4-16.0) gm/dL Carbon Dioxide 34 H (22-30) mmol/L BUN 52 H (7-17) mg/dL Creatinine 1.17 H (0.52-1.04) mg/dL Glucose 174 H (74-99) mg/dL POC Glucose (mg/dL) (70-110) mg/dL Calcium 6.9 L (8.4-10.2) mg/dL AST 39 H (14-36) U/L ALT 74 H (4-34) U/L Total Protein 4.5 L (6.3-8.2) g/dL Albumin 2.4 L (3.5-5.0) g/dL 02/23/24 Range/Units 06:07 WBC (3.8-10.6) k/uL RBC (3.80-5.40) m/uL Hgb (11.4-16.0) gm/dL Hct (34.0-46.0) % Neutrophils # (1.3-7.7) k/uL Lymphocytes # (1.0-4.8) k/uL ABG pCO2 (35-45) mmHg ABG pO2 (83-108) mmHg ABG HCO3 (21-25) mmol/L ABG Total CO2 (19-24) mmol/L ABG O2 Saturation (94-97) % Hemoglobin (11.4-16.0) gm/dL Carbon Dioxide (22-30) mmol/L BUN (7-17) mg/dL Creatinine (0.52-1.04) mg/dL Glucose (74-99) mg/dL POC Glucose (mg/dL) 179 H (70-110) mg/dL Calcium (8.4-10.2) mg/dL AST (14-36) U/L ALT (4-34) U/L Total Protein (6.3-8.2) g/dL Albumin (3.5-5.0) g/dL Microbiology - Last 24 Hours (Table) 02/19/24 16:45 Blood Culture - Preliminary Blood 02/17/24 20:03 Blood Culture - Final Blood
--- NOTE | 2024-02-23 12:29 | P.PN ---
Subjective Progress Note Date: 02/22/24 63-year-old female present to the emergency department for further evaluation of increasing shortness of breath as well as changes in her mental status for the past day and a half according to her daughter. Patient's past medical history significant for COPD, in which she was recently started on treatment for bronchitis with steroids and antibiotics (doxycycline). Upon presentation patient states she was not feeling well, with increased confusion difficulty speaking. Her daughter, sitting at bedside, states that she was saturating 86% on room air. Patient denies any recent travel. Per patient's viral panel taken upon arrival to the emergency department patient states positive COVID-19. Pulmonology has been consulted and will see the patient for COPD exacerbation as well as COVID-19 infection. Upon arrival to the emergency department patient was afebrile blood pressure 118/67, heart rate of 81, respiratory rate of 16 with an oxygen saturation of 80% on room air. When seen the patient today, she reports she is feeling better and her daughter who is at her bedside also reports that she is presenting better than she had been the previous couple of days, and her mentation had improved greatly. She states that she is looking more like "herself". Initial lab work done in the ER showed WBCs 5.9, Hgb 14.8, Hct 45.7, PLT 108; PT 10.8, INR 1.0, PTT 27.1; blood gas pH 7.36, pCO2 33, HCO3 18; sodium 136, potassium 4.3, BUN 45, creatinine 1.03 Influenza A not detected Influenza B not detected RSV not detected COVID-19 positive EKG done in the ER showed heart rate of 82, no ST segment elevation or depression seen, no T-wave inversions seen. Chest x-ray done in the ER showed increased perihilar lung markings, to be correlated for infectious etiologies, pulmonary edema could be considered 02/14/24 - Patient seen at bedside today. She states that she is feeling better than she was yesterday, however she states that it feels like she "smoked 3 packs" and has remained short of breath. Progress states it is closer to her baseline when she was over the past few days however still not all the way back. Overnight patient's blood pressure was recorded as 90/50, with a heart rate of 64, respiratory rate of 18 saturating 95% on 4 and half liters of nasal cannula. Due to the patient having persistently low blood pressures we will hold 100 mg Cozaar and 20 mg Lopressor today and continue to monitor make adjustments as needed. Per pulmonology recommendation patient underwent CT angiogram of the chest to help rule out pulmonary embolism and at the same time evaluate for COVID-19 pneumonia and it was noted that the patient is a chronic smoker, on review of the CTA of the chest there were bilateral areas of scattered patchy groundglass pulmonary infiltrates consistent with COVID-19 related pneumonia worse on the left side compared to the right side. Patient will continue on O2 and will be titrated to maintain saturation above 90% overnight on 4 and half liters of oxygen nasal cannula, per pulmonology request patient started on IV Solu-Medrol 60 mg every 6 hours, she is outside the window for remdesivir as patient is had symptoms for more than a week, additionally patient was started on Lovenox 40 mg subcutaneously for DVT prophylaxis. Patient's LDH 230, e levated CRP at 6.3 and procalcitonin was unremarkable at 0.07. Additionally last night patient's 30 mg nightly, hold Wellbutrin and 200 mg nightly of Zoloft) presumed upon request with the patient and the patient's daughter. Labs done today - Currently pending at time of dictation. CT of the chest completed on 02/12 yet to evaluate official final read from radiologist, however per pulmonology's report he was to evaluate for possible pulmonary embolism but at the same time evaluated for COVID-19 pneumonia and was noted that there were bilateral areas of scattered patchy groundglass pulmonary infiltrates consistent with COVID-19 worse on the left side. 02/15/24 - Patient is evaluated today in follow up resting in bed. Continues on 4L of oxygen with adequate saturations. She continue to report shortness of breath and sputum production. No wheezing noted, there is some scattered ronchi. Patient remains on albuterol PRN as well as IV solumedrol. Patient has not been resumed on her home inhalers as of yet including spiriva and Advair HFA. chest CT angio that has been taken on the is not yet resulted by radiology. 02/16/24 - Patient seen at bedside today. States she is feeling about the same that she has been, with some shortness of breath and feeling tired. Chest CT angio taken on 12 February still has no official report from radiology. As of this morning patient blood pressure 96/62, heart rate of 68, respiratory rate of 18 while saturating 89% on 6 L high flow nasal cannula. Throughout the day she was increased to 7 L where she has remained saturating 86-87%. Per the patient and her daughter the patient's baseline oxygen saturation is generally in the mid 80%. New labs - WBCs 11.2, Hgb 14.2, Hct 43.0, PLT 187; sodium 139, potassium 5.2 02/17/24 - Patient seen at bedside today. Patient states she continues to feel about the same, with shortness of breath and being tired. Chest CT angio taken on 12 February cells no official report from radiology. Chest x-ray ordered yesterday showed similar scattered reticular pulmonary opacities likely representing reported COVID infection. Overnight patient blood pressure 117/65, heart rate of 76, respiratory rate of 20, placed on 15 L high flow nasal cannula saturating in the mid 90s. Per pulmonology's recommendation goal of patient's saturations is to remain greater than 85%. As of this morning patient was moved on to Airvo with an O2 flow rate of 60 and FiO2 of 80%, and with this patient has been saturating between 85-89%. Patient does report increased shortness of breath as compared to yesterday, however was resting somewhat comfortably in bed. New labs -WBCs 9.13, Hgb 13.4, Hct 41.0, PLT 174; sodium 134, potassium 4.1, BUN 17.7, creatinine 0.7 02/18/24 - Patient seen at bedside today. Patient has been moved to the ICU for further observation per pulmonology's request. As of yesterday morning patient was moved onto Airvo with an FiO2 of 80% oxygen flow rate of 60, throughout the day this was increased the FiO2 raising up to 92% through the evening, with the patient continuing to saturate in the midhigh 80%'s. Overnight the patient was placed on BiPAP with saturations between 86-91%. New chest x-ray to be completed today to compare to the previous ones. Per pulmonology patient may qualify for baricitinib, for now we will continue on bronchodilators, steroids, and Lovenox. New labs -WBCs 10.6, Hgb 13.2, Hct 42.0,PLT 206; D-dimer 0.61; sodium 136, potassium 4.1, BUN 17, creatinine 0.53 02/19/24 - Patient seen and follow-up today continues to be in the ICU with close monitoring with multiple consultations following. Patient maintained on high flow and according to nursing staff having increased respiratory distress requiring mechanical ventilation overnight. Patient is currently maintained on an FiO2 of 100% and PEEP is extremely high at 15 with multiple drips going. Patient is maintained on Nimbex and Levophed along with a bicarb drip and patient also receiving baricitinib at this time. Patient noted to have a significant increase in white count and will repeat blood cultures, urine culture, procalcitonin and also consult infectious disease and appreciate input and recommendations. Patient also continues on breathing treatments and high- dose IV steroids. Kidney functions within normal limits at this time although nursing staff is reporting decreased urine output which will be monitored closely. Patient was given a fluid bolus. 02/20/24 - Patient seen at bedside today in the ICU. Patient has multiple consultations following with close monitoring. Patient was mechanically ventilated on 02/18 and has been weaned to an FiO2 of 80%, however with a PEEP of 16 with multiple concurrent drips going. Patient continues to maintain an index of Levophed while also receiving baricitinib as well as bicarb drip. Patient's white count has improved to 13.1 as compared to 32.8 yesterday (02/18), additionally ABG showed pH improvement to 7.26 as compared to 7.4. Chest x-ray to be repeated today. 02/21/24 - Patient seen at the bedside in the ICU. Patient has multiple consultations following with close monitoring. Per infectious disease baricitinib is been discontinued and the patient has been appropriately started on cefepime. Preliminary blood culture showed no growth however the patient had an elevated procalcitonin. Per the ICU patient was placed in prone position noted to have significant improvement in her oxygenation. She is currently saturating in the high 90% with a tidal volume of 400, ventilatory rate of 32, FiO2 of 55%, PEEP of 16. She remains on Nimbex, Levophed, propofol, and Sublimaze. Labs this morning showed WBCs 9.8, sodium 136, BUN of 55 (increased from 49 yesterday) and creatinine of 1.77 (improved from 1.96 yesterday), yesterday AST 187 and ALT 189. Patient is ABG as of this morning showed a pH of 7.41, pCO2 57, pO2 81, HCO3 36 and total CO2 of 38. Patient's urine output at time of dictation this morning 236 mL. 02/21. Patient seen and examined. Continues to be on mechanical ventilation REVIEW OF SYSTEMS: Cannot be obtained as patient is intubated PHYSICAL EXAMINATION: GENERAL: The patient is intubated HEENT: Pupils are round and equally reacting to light. EOMI. No scleral icterus. No conjunctival pallor. Normocephalic, atraumatic. No pharyngeal erythema. No thyromegaly. CARDIOVASCULAR: S1 and S2 present. No murmurs, rubs, or gallops. PULMONARY: Coarse breath sounds bilaterally, no wheezing or crackles. ABDOMEN: Soft, nontender, nondistended, normoactive bowel sounds. No palpable organomegaly. MUSCULOSKELETAL: No joint swelling or deformity. EXTREMITIES: No cyanosis, clubbing, or pedal edema. NEUROLOGICAL: Intubated and sedated SKIN: No rashes. Assessment and plan Acute hypoxic respiratory failure secondary to pneumonitis pneumonia due to COPD exacerbation as a result of recently diagnosed bronchitis Monitor vital signs Monitor CBC Monitor CMP Continue vent management aggressive bronchopulmonary hygiene ICU following # Acute kidney injury possibly secondary to acute hypoxic respiratory failure - resolved Monitor renal function # Recent history of cardiac stenting Patient on Plavix 75 mg daily #Altered mental status #Anxiety Resume patient's on medications of 200 mg nightly of Zoloft and 300 mg nightly of Wellbutrin #Hypertension Patient's home medications include 50 mg hydroxyzine 3 times daily, 100 mg Cozaar daily, 25 mg Lopressor twice daily Patient's blood pressures were running low overnight at 90/50, going to hold 100 mg Cozaar today and 25 mg Lopressor; continue the hydroxyzine Continue to monitor and make alterations as necessary Labs and medication were reviewed.. Continue same treatment. Continue with symptomatic treatment. Resume home medication. Monitor labs and vitals. DVT and GI prophylaxis. Further recommendations as per clinical course of the patient Dictation was produced using [employer] dictation software. please excuse any grammatical, word or spelling errors. Objective - Vital Signs Vital signs: Vital Signs Temp 98.2 F 02/22/24 04:00 Pulse 66 02/22/24 07:00 Resp 32 H 02/22/24 07:00 BP 155/77 02/21/24 13:00 Pulse Ox 92 L 02/22/24 07:00 FiO2 50 02/22/24 07:50 Intake & Output 02/21/24 02/22/24 02/22/24 18:59 06:59 18:59 Intake Total 2166.552 1497.563 195.446 Output Total 470 595 44 Balance 1696.552 902.563 151.446 Intake: IV 1261 1261 103 .9NS Pressure Bag 36 36 3 Dextrose 5% in Water 1, 325 325 25 000 ml @ 50 mls/hr IV . Q23H CAREN with Sodium Bicarb (1 Meq/ml) 150 ml Rx#:[id number] Sodium Chloride 0.9% 1, 900 900 75 000 ml @ 75 mls/hr IV . [id number] CAREN Rx#:[id number] Intake, IV Titration 719.552 176.563 92.446 Amount Cefepime 1 gm In Sodium 400 Chloride 0.9% 50 ml @ 12. 5 mls/hr IVPB Q12H CAREN Rx #:[id number] Cisatracurium 200 mg In 125.132 Sodium Chloride 0.9% 180 ml @ 1 MCG/KG/MIN 5.382 mls/hr IV .Q24H CAREN Rx#: [id number] Norepinephrine 4 mg In 19.667 Sodium Chloride 0.9% 250 ml @ 0.03 MCG/KG/MIN 10. 253 mls/hr IV .Q24H [facility]EN Rx#:[id number] propofoL 1,000 mg In 174.753 176.563 92.446 Empty Bag 1 bag @ 15 MCG/ KG/MIN 8.145 mls/hr IV . [id number] [facility]EN Rx#:[id number] Oral 60 Tube Feeding 186 Output: Chest Tube Drainage 0 10 Chest Tube Left Lateral 0 10 Chest Urine 470 585 44 Other: Voiding Method Indwelling Catheter Indwelling Catheter ABP, PAP, CO, CI - Last Documented Arterial Blood Pressure 143/55 - Labs CBC & Chem 7: 02/23/24 04:50 02/23/24 04:50 Labs: Abnormal Lab Results - Last 24 Hours (Table) 02/21/24 02/21/24 02/21/24 Range/Units 11:30 18:13 23:59 Hgb (11.4-16.0) gm/dL Hct (34.0-46.0) % Neutrophils # (1.3-7.7) k/uL Lymphocytes # (1.0-4.8) k/uL ABG pCO2 (35-45) mmHg ABG pO2 (83-108) mmHg ABG HCO3 (21-25) mmol/L ABG Total CO2 (19-24) mmol/L Carbon Dioxide (22-30) mmol/L BUN (7-17) mg/dL Creatinine (0.52-1.04) mg/dL Glucose (74-99) mg/dL POC Glucose (mg/dL) 248 H 294 H 242 H (70-110) mg/dL Calcium (8.4-10.2) mg/dL 02/22/24 02/22/24 02/22/24 Range/Units 00:41 05:20 05:20 Hgb 11.1 L (11.4-16.0) gm/dL Hct 33.3 L (34.0-46.0) % Neutrophils # 8.1 H (1.3-7.7) k/uL Lymphocytes # 0.3 L (1.0-4.8) k/uL ABG pCO2 53 H (35-45) mmHg ABG pO2 71 L (83-108) mmHg ABG HCO3 37 H (21-25) mmol/L ABG Total CO2 38 H (19-24) mmol/L Carbon Dioxide 39 H (22-30) mmol/L BUN 55 H (7-17) mg/dL Creatinine 1.29 H (0.52-1.04) mg/dL Glucose 227 H (74-99) mg/dL POC Glucose (mg/dL) (70-110) mg/dL Calcium 6.9 L (8.4-10.2) mg/dL 02/22/24 Range/Units 05:51 Hgb (11.4-16.0) gm/dL Hct (34.0-46.0) % Neutrophils # (1.3-7.7) k/uL Lymphocytes # (1.0-4.8) k/uL ABG pCO2 (35-45) mmHg ABG pO2 (83-108) mmHg ABG HCO3 (21-25) mmol/L ABG Total CO2 (19-24) mmol/L Carbon Dioxide (22-30) mmol/L BUN (7-17) mg/dL Creatinine (0.52-1.04) mg/dL Glucose (74-99) mg/dL POC Glucose (mg/dL) 240 H (70-110) mg/dL Calcium (8.4-10.2) mg/dL Microbiology - Last 24 Hours (Table) 02/19/24 16:45 Blood Culture - Preliminary Blood
[2024-02-23 12:35] LABS: Glucose,Whole Blood 226 mg/dL (70-110)
[2024-02-23] MEDS: SODIUM CHLORIDE 0.9% 1,000 ML IV SCH (18:23)
[2024-02-23 18:33] LABS: Glucose,Whole Blood 166 mg/dL (70-110)
[2024-02-23] MEDS: CEFEPIME 2 GM in SODIUM CHLORIDE 0.9% 100 ML IVPB SCH (21:57)
[2024-02-23 23:28] LABS: Glucose,Whole Blood 171 mg/dL (70-110)
[2024-02-24 05:20] LABS: Basophils % (A) 0 %; Eosinophils % (A) 0 %; HCT 34.7 % (34.0-46.0); Hypochromasia Slight; Lymphocytes # (A) 0.3 k/uL (1.0-4.8); Lymphocytes % (A) 2 %; MCH 28.4 pg (25.0-35.0); MCHC 31.7 g/dL (31.0-37.0); MCV 89.8 fL (80.0-100.0); Mean Platelet Volume 7.9; Monocytes # (A) 0.4 k/uL (0-1.0); Monocytes % (A) 3 %; Neutrophils % (A) 94 %; Platelet Count 247 k/uL (150-450); RBC 3.86 m/uL (3.80-5.40); RDW 13.3 % (11.5-15.5); WBC 14.9 k/uL (3.8-10.6)
[2024-02-24 05:45] LABS: African American GFR (CKD) 57 (>60 ml/min/1.73 sqM); Anion Gap 1 mmol/L; Blood Urea Nitrogen 58 mg/dL (7-17); Calcium 7.4 mg/dL (8.4-10.2); Carbon Dioxide 32 mmol/L (22-30); Chloride 105 mmol/L (98-107); Glucose 186 mg/dL (74-99); Non-African American GFR(CKD) 49 (>60 ml/min/1.73 sqM); Potassium 4.4 mmol/L (3.5-5.1); Sodium 138 mmol/L (137-145)
[2024-02-24 06:27] LABS: ABG Base Excess 6.1 mmol/L; ABG HCO3 32 mmol/L (21-25); ABG Oxygen Saturation 96.6 % (94-97); ABG PCO2 51 mmHg (35-45); ABG PH 7.41 (7.35-7.45); ABG PO2 87 mmHg (83-108); ABG TCO2 33 mmol/L (19-24); Allen Test Performed? Yes
--- NOTE | 2024-02-24 07:24 | P.PN ---
Subjective Progress Note Date: 02/23/24 Principal diagnosis: Reason for follow-up is leukocytosis Patient is a 63-year-old female with a past medical history significant for COPD coronary artery disease hyperlipidemia presenting to the hospital for evaluation of increasing shortness of breath patient be diagnosed with the COVID-19 started on baricitinib did have worsening respiratory status requiring intubation and also have elevated white count prompted this consultation. On today's evaluation that is 02/23/2024,the patient remains to be afebrile, patient is on ventilator FiO2 is currently stable at 50% no significant purulent secretions through the ET, vomiting or diarrhea reported by the nursing staff patient not requiring any pressor support. Patient white count slightly up to 12.3 creatinine is 1.17, blood cultures so far pending sputum not collected Objective - Vital Signs Vital signs: Vital Signs Temp 98.5 F 02/23/24 09:00 Pulse 67 02/23/24 09:00 Resp 32 H 02/23/24 09:00 BP 131/66 02/23/24 09:00 Pulse Ox 91 L 02/23/24 09:00 FiO2 50 02/23/24 08:27 Intake & Output 02/22/24 02/23/24 02/23/24 18:59 06:59 18:59 Intake Total 7380.556 5731.770 393.65 Output Total 514 535 165 Balance 2152.809 7211.770 228.65 Weight 96.1 kg Intake: IV 1111 1618 234 .9NS Pressure Bag 36 36 9 Dextrose 5% in Water 1, 175 000 ml @ 50 mls/hr IV . Q23H CAREN with Sodium Bicarb (1 Meq/ml) 150 ml Rx#:[id number] Sodium Chloride 0.9% 1, 900 1582 225 000 ml @ 75 mls/hr IV . [id number] CAREN Rx#:[id number] Intake, IV Titration 456.443 500.770 97.65 Amount Cisatracurium 200 mg In 129.168 Sodium Chloride 0.9% 180 ml @ 1 MCG/KG/MIN 5.382 mls/hr IV .Q24H CAREN Rx#: [id number] Sodium Chloride 0.9% 80 97.250 93.138 ml @ 0.5 MCG/KG/HR 4.485 mls/hr IV .[id number] CAREN with fentaNYL (PF) 1,000 mcg Rx#:[id number] propofoL 1,000 mg In 359.193 278.464 97.65 Empty Bag 1 bag @ 15 MCG/ KG/MIN 8.145 mls/hr IV . [id number] [facility] Rx#:[id number] Tube Feeding 217 372 62 Other 90 Output: Chest Tube Drainage 5 0 15 Chest Tube Left Lateral 5 0 15 Chest Urine 509 535 150 Other: Voiding Method Indwelling Catheter Indwelling Catheter ABP, PAP, CO, CI - Last Documented Arterial Blood Pressure 104/56 - Exam GENERAL DESCRIPTION: Middle-age female intubated on the vent RESPIRATORY SYSTEM: Unlabored breathing , decreased breath sounds at bases HEART: S1 S2 regular rate and rhythm , ABDOMEN: Soft , no tenderness EXTREMITIES: No edema feet - Labs CBC & Chem 7: 02/24/24 04:45 02/24/24 04:45 Labs: Abnormal Lab Results - Last 24 Hours (Table) 02/22/24 02/22/24 02/22/24 Range/Units 12:31 18:06 23:52 WBC (3.8-10.6) k/uL RBC (3.80-5.40) m/uL Hgb (11.4-16.0) gm/dL Hct (34.0-46.0) % Neutrophils # (1.3-7.7) k/uL Lymphocytes # (1.0-4.8) k/uL ABG pCO2 (35-45) mmHg ABG pO2 (83-108) mmHg ABG HCO3 (21-25) mmol/L ABG Total CO2 (19-24) mmol/L ABG O2 Saturation (94-97) % Hemoglobin (11.4-16.0) gm/dL Carbon Dioxide (22-30) mmol/L BUN (7-17) mg/dL Creatinine (0.52-1.04) mg/dL Glucose (74-99) mg/dL POC Glucose (mg/dL) 160 H 214 H 206 H (70-110) mg/dL Calcium (8.4-10.2) mg/dL AST (14-36) U/L ALT (4-34) U/L Total Protein (6.3-8.2) g/dL Albumin (3.5-5.0) g/dL 02/23/24 02/23/24 02/23/24 Range/Units 04:50 04:50 04:58 WBC 12.3 H (3.8-10.6) k/uL RBC 3.77 L (3.80-5.40) m/uL Hgb 10.5 L (11.4-16.0) gm/dL Hct 33.7 L (34.0-46.0) % Neutrophils # 11.4 H (1.3-7.7) k/uL Lymphocytes # 0.3 L (1.0-4.8) k/uL ABG pCO2 51 H (35-45) mmHg ABG pO2 67 L (83-108) mmHg ABG HCO3 34 H (21-25) mmol/L ABG Total CO2 36 H (19-24) mmol/L ABG O2 Saturation 93.0 L (94-97) % Hemoglobin 10.8 L (11.4-16.0) gm/dL Carbon Dioxide 34 H (22-30) mmol/L BUN 52 H (7-17) mg/dL Creatinine 1.17 H (0.52-1.04) mg/dL Glucose 174 H (74-99) mg/dL POC Glucose (mg/dL) (70-110) mg/dL Calcium 6.9 L (8.4-10.2) mg/dL AST 39 H (14-36) U/L ALT 74 H (4-34) U/L Total Protein 4.5 L (6.3-8.2) g/dL Albumin 2.4 L (3.5-5.0) g/dL 02/23/24 Range/Units 06:07 WBC (3.8-10.6) k/uL RBC (3.80-5.40) m/uL Hgb (11.4-16.0) gm/dL Hct (34.0-46.0) % Neutrophils # (1.3-7.7) k/uL Lymphocytes # (1.0-4.8) k/uL ABG pCO2 (35-45) mmHg ABG pO2 (83-108) mmHg ABG HCO3 (21-25) mmol/L ABG Total CO2 (19-24) mmol/L ABG O2 Saturation (94-97) % Hemoglobin (11.4-16.0) gm/dL Carbon Dioxide (22-30) mmol/L BUN (7-17) mg/dL Creatinine (0.52-1.04) mg/dL Glucose (74-99) mg/dL POC Glucose (mg/dL) 179 H (70-110) mg/dL Calcium (8.4-10.2) mg/dL AST (14-36) U/L ALT (4-34) U/L Total Protein (6.3-8.2) g/dL Albumin (3.5-5.0) g/dL Microbiology - Last 24 Hours (Table) 02/19/24 16:45 Blood Culture - Preliminary Blood 02/17/24 20:03 Blood Culture - Final Blood Assessment and Plan (1) Leukocytosis Current Visit: Yes Status: Acute Code(s): D72.829 - ELEVATED WHITE BLOOD CELL COUNT, UNSPECIFIED SNOMED Code(s): 826266353 (2) COVID Current Visit: Yes Status: Acute Code(s): U07.1 - COVID-19 SNOMED Code(s): 848375846 Plan: 1patient presented to the hospital about a week ago with increasing shortness of breath however the patient symptoms of cough and shortness of breath were going on for more than a week before initial presentation to the hospital patient has been diagnosed with a COVID-19 and treated with steroids and supportive treatment however the patient did have worsening of her respiratory status requiring intubation patient did not have any fever during this hospital stay with initial normal white count with significant jump in the white count could be reactive with acute change in her condition as well as steroids and the patient has been on clinical suspicious low for secondary bacterial pneumonia b ut not entirely excluded 2 blood cultures are currently pending patient did have elevated procalcitonin sputum culture not collected 3patient white count slightly up today questionable steroid related we will monitor closely, we will continue cefepime and monitor clinical course closely Dictation was produced using [employer] dictation software. please excuse any grammatical, word or spelling errors. , Time with Patient: Less than 30
[2024-02-24] MEDS: ENOXAPARIN 40 MG/0.4 ML SYRINGE SQ SCH (08:07)
--- NOTE | 2024-02-24 09:42 | XR ---
EXAMINATION TYPE: XR chest 1V portable DATE OF EXAM: 02/24/2024 COMPARISON: NONE HISTORY: SOB, Follow Up FINDINGS: Indwelling tubes and catheters are unchanged. Scattered interstitial infiltrates persist unchanged. Stable appearance of the cardio-mediastinal structures at this time. IMPRESSION: 1. Stable portable chest. Clinical correlation and follow up until resolution is recommended. [facility], , 02/24/2024 9:40 AM
--- NOTE | 2024-02-24 11:02 | P.PN ---
Subjective Progress Note Date: 02/24/24 This is a 63-year-old female patient, known history of COPD was been seeing Dr. Cornell at [facility]. Prior to that, she had another biblical languages professor through [facility] who gave her because of her insurance coverage. The patient is an ex-smoker. She has quit smoking. The patient has been maintained on a combination of Advair and Spiriva on an outpatient basis and albuterol HFA on a as needed basis. The patient has been having symptoms of URI, cough congestion, generalized weakness and fatigue and tiredness and the patient came into the hospital where she was diagnosed having COVID-19 infection. Noted the patient has been symptomatic for more than a week. She has seen her pulmo nologist, Dr. Cornell who treated her with a course of antibiotics and steroids. Nevertheless, her condition did not improve and she ended up coming into the hospital. No nausea vomiting or diarrhea. No abdominal pain. No altered mentation. The chest x-ray that was done at time of admission showed increased perihilar lung markings. No previous history of DVT or pulmonary embolism. I ordered a CTA of the chest on this patient to rule out pulmonary embolism and at the same time evaluate for COVID-19 related pneumonia. Noted the patient is also a chronic smoker. I reviewed the CTA of the chest and there are bilateral areas of scattered patchy groundglass pulmonary infiltrates consistent with COVID-19 related pneumonia more so on the left compared to the right. The patient has no filling defects to indicate pulmonary embolism. Awaiting a final report from radiology. Note that this has never been infected with COVID-19 in the past and she has never been vaccinated. 02/14/2024, patient is doing well. Less short of breath compared to yesterday. CAT scan of the chest showed some patchy groundglass pulmonary filtrates consistent with COVID-19 infection. However, clinically patient doing better. No evidence of any pulmonary involvement. No evidence of any lung masses. She remains on bronchodilators with albuterol HFA 4 times [id number] and the patient is on IV Solu-Medrol 60 mg every 6 hours. No abnormalities in her blood work. The CBC shows a white cell count of 6.3 with a hemoglobin 13 and a platelet count of 132. BUN 42 with a creatinine of 1.02. Serum bicarbonate 17 and sodium levels at 133 and a potassium level is at 4.3. 02/15/2024, the patient is being seen for a follow-up. The patient is doing well. The patient is being treated for an acute COPD exacerbation. The patient also has a component of COVID-19 pneumonia and she remains on 40 of oxygen by nasal cannula. She was given IV Solu-Medrol. She was outside the window for remdesivir treatment. She is noted advanced COPD. Based on my review of the CT of the chest, there is no evidence of any pulm embolism. There is patchy areas of pulm infiltration consistent with COVID-19 infection. No evidence of any lung masses or tumors. The patient is currently on 6 L of O2 nasal cannula. At times, she removes her oxygen she desaturates. No new labs are available from today. Her procalcitonin level is at 0.07. The LDH level was at 230. Rest of the inflammatory markers were minimally elevated. Otherwise, awake and alert, no altered mentation. No signs of any CO2 narcosis. The patient is seen today February 16, 2024 in follow-up on the regular medical floor. She is currently resting in bed. Awake and alert in no acute distress. She is having ongoing issues with oxygen desaturations. She is currently on 7 L high flow nasal cannula with O2 saturations in the low 80s. She is continued on Symbicort, Spiriva, albuterol and Solu-Medrol. Lovenox for DVT prophylaxis. C hest x-ray shows similar scattered reticular pulmonary opacities secondary to COVID infection. White count 11.2. Hemoglobin 14.2. Sodium 139. Potassium 5.2. Bicarb 24. BUN 23. Creatinine 0.8. Glucose 158. The patient is seen today February 17, 2024 in follow-up on the regular medical floor. She is currently awake and alert. She continues to have ongoing struggles with her breathing. This morning she was placed on Airvo high flow oxygen at 60% FiO2 and 80 L. Chest x-ray continues to show similar scattered reticular pulmonary opacities consistent with COVID infection. White count 9.1. Hemoglobin 13.4. Platelets 174. Sodium 134. Potassium 4.1. Bicarb 23. BUN 18. Creatinine 0.7. Glucose 180. She remains on Symbicort, Spiriva and albuterol along with IV Solu-Medrol. Lovenox for DVT prophylaxis. Patient was seen today on 02/18/2024, she is now in the ICU, she is marginal at best. Patient is critically ill, she was on Airvo yesterday at high flow and high FiO2, she is now on BiPAP at 100%, 04/23. O2 saturation is marginal, hence her chest x-ray is showing worsening of her interstitial infiltrates/presumptive COVID-19 pneumonia worsening and the patient meets the criteria to start baricitinib 4 mg daily for 14 days. Her procalcitonin level was normal and I doubt any underlying bacterial infection at this point. Clearly the patient is worsening and she will remain in the ICU, I have a feeling she may even require intubation mechanical ventilation. Patient seems to be comfortable although her O2 saturation is in the 80s. Does not seem to be in distress. She is hemodynamically stable not requiring any pressors. She is on bronchodilators, and she is also on steroids, Lasix were given to keep her on the dry side as much as possible although I am not convinced that the patient has any congestive heart failure WBC count today is 10.6 hemoglobin is 13.2 electrolytes are normal renal profile is normal her inflammatory markers are high with high LDH, high C- reactive protein, and high ferritin level. Patient was seen today on 02/19/2024, patient had to be intubated last night mostly because of worsening pulmonary status and worsening pneumonia. She re quired mechanical ventilation, and she is maximal on mechanical ventilation with assist-control rate of 3 2, tidal volume 400 FiO2 100% PEEP is 16. Last ABG showed a pO2 136 pCO2 78 pH of 7.14, patient was placed on bicarb drip 150 mEq in 1 L D5W running at 50 cc/h. Patient required central line placement and this was done in the groin she did sustain iatrogenic left-sided pneumothorax from attempt to place a left a left subclavian central line. Right femoral triple- lumen catheter was placed, patient is still on Nimbex she is on Cardizem at 10 mg/h she is on propofol at 35 mcg/kg/min IV fluid at 50 cc/h fentanyl at 0.5 mcg/kg/h and she is on norepinephrine at 0.15 mcg/kg/min. Family was updated and made aware that her condition is very poor, and mortality is extremely high. Patient seems to be having worsening COVID-19 pneumonia with diffuse interstitial infiltrates bilaterally.Patient is developing leukocytosis with WBC count of 32.8 hemoglobin 14.4, basic metabolic profile is normal renal profile is normal glucose is 185 laboratory markers are elevated. Patient is now on baricitinib Patient was seen today on 02/20/2024, patient remains in the ICU intubated and mechanically ventilated. Patient was placed in prone position and noted to have significant improvement in her oxygenation. She is presently in prone position this morning, and O2 saturation is in the mid 90s, patient is on 65% FiO2, and PEEP of 16. Patient is on assist-control rate of 32, tidal volume 400 FiO2 65% and I cut it down to 60% and PEEP is 16. ABG on 100% showed a pO2 of 184 pCO2 66 pH of 7.26. Peak airway pressure is in the mid to high 30s, plateau pressure is 30. Patient remains on propofol at 35 mcg/kg/min Levophed at 0.07 mcg/kg/min Fentanyl at 0.5 mcg/kg/h Cardizem at 5 mg/h she is still receiving sodium bicarb at 50 cc/h barcitinib was discontinued today as the patient is noted to have elevated procalcitonin level today and will start the patient on cefepime instead. Chest x-ray continues show significant interstitial infiltrate/pneumonia no evidence of pneumothorax, left-sided chest tube remains in place. Looking at the Pleur-evac, there is no evidence of air leak. WBC c ount is 13.1 hemoglobin 12.6 basic metabolic profile is normal however her BUN is up to 49 creatinine 1.96, liver enzymes are beginning to rise and I recommended stopping barcitinib. Will continue hydration hold diuretics and closely monitor her renal status. When output is about 30 cc/h Patient was evaluated today on 02/21/2024, patient remains in the ICU, intubated and mechanically ventilated, patient is now on assist-control rate of 32 tidal volume 400 FiO2 cut down from 55% to 50% PEEP cut down from 16 down to 14. Earlier ABG showed a pO2 of 81 pCO2 57 pH of 7.41. Patient remains on Nimbex and she is intermittently placed in prone position to adequately ventilate the patient and oxygenate the patient on lower FiO2 as a matter fact we cut down the FiO2 down to 50% and I was able to cut down the PEEP down to 14. Chest x-ray basically is about the same. Not much of a change in her infiltrates bilaterally she has a very small tiny apical pneumothorax and apparently intermittently noted to have minimal air leak in the Pleur-evac. She is on norepinephrine at 0.01 mcg/kg/min propofol at 35 mcg/kg/min Fentanyl 0.5 mcg/kg/h patient is now receiving cefepime, and her urine output is about 40 to 50 cc/h. Lasix remains on hold, patient is still receiving IV fluids. Patient was evaluated today on 02/22/2024, patient remains in the ICU intubated mechanically ventilated, sedated and paralyzed. Still requiring a PEEP of 14, FiO2 has been titrated down to 50%, patient has been intermittently placed in prone position over the last couple of days. Today she seems to be doing well in supine position, O2 saturation is in the low 90s and her PEEP remains at 14. Chest x-ray, is showing slight improvement in her bilateral interstitial infiltrates, there is no evidence of pneumothorax on the chest x-ray today, endotracheal tube was noted to be still close to the right mainstem bronchus, in the carinal area, and we pulled it out about 1.0 cm ventilator flaherty the patient is on AC rate of 32 tidal volume 400 FiO2 50% PEEP of 14 ABG showed a pO2 of 71 pCO2 53 pH of 7.45. Patient is on Nimbex she is on D5W with 3 A of bicarb running at 25 cc/h, and today I will discontinue her bicarb patient is on propofol at 50 mcg/kg/min Fentanyl at 0.5 mcg/kg/h and with this will be incre ased because of significantly elevated blood pressure, patient is on IV fluid at 75 cc/h with steady improvement in her renal status, creatinine is down to 1.29 today. Patient remains on enteral feeding vital AF she is also on cefepime. Cultures so far are negative urine output about 40 cc/h Patient was evaluated today on 02/23/2024, patient remains in the ICU intubated and mechanically ventilated, sedated and paralyzed. She is on day 11 of her hospital stay (admitted 02/11), day 7 of her stay in the ICU (admitted to the ICU 02/16), and day 5 on the ventilator (placed 02/18). Patient is receiving ventilatory support with a rate of 32, tidal volume 400, FiO2 of 50%, and PEEP at 16 which is increased from 14 overnight due to the patient having oxygen saturations in the low 80% at that time. Patient had been spending 18 hours in prone position, and 6 hours supine, however will discontinue having the patient proned. Chest x-ray remains stable today as compared yesterday. ABG done today shows pO2 of 67, pCO2 51 and a pH of 7.44. She is maintained on propofol 65 mcg/kg/min, Pneumovax 2.5 mcg/kg/min, fentanyl 1 mcg/kg/h. The patient is additionally receiving IV fluids at 75 cc/h with continued improvement of her renal status, creatinine today down to 1.17 (from 1.29 yesterday) and BUN 52 (from 55 yesterday). Patient's urine cultures are negative, and output continue to be ~40 cc/h, a second preliminary blood culture has also shown to be negative, awaiting final report. Patient continues to receive enteral feeding, vital AF at 30 mL/h which is goal. Patient continues to receive cefepime 1 gram daily. 02/24/24 - Patient seen today, patient continues to be in the ICU intubated, mechanically ventilated, sedated and paralyzed. She is on day 12 of her hospital stay (admitted 02/11), day 8 of her stay in the ICU (admitted ICU 02/16), and day 6 on the ventilator (placed 02/18). Patient is receiving ventilatory support with a rate of 32, tidal volume 400, FiO2 50%, and PEEP at 16. Chest x- ray done today shows stable disease. ABG today shows pO2 of 87, pCO2 51, pH 7.41, showing evidence of a mixed acid-base disturbance. She is maintained on propofol 60 mcg/kg/min, index 2.5 mcg/kg/min and fentanyl 1 mcg/kg/h. Additionally, patient is receiving normal saline 20 mL/h and cefepime 2 g every 12 hours. Patient's creatinine 1.2, BUN 58. Discussion was had with 1 of the p gladys's daughters regarding the next steps in her care. It was discussed with the daughter that if he were to be needing care as it is currently, would look to do a tracheotomy and PEG tube placement for the patient, due to the difficulty in prolonged course that is anticipated if able to wean the patient down the line. The patient's daughter expressed hesitation, and mentioned the possibility of pursuing something along the lines of comfort care as they feel like they do not want to "torture" her mother, however she will need to discuss it with her sister as well as other family numbers. Additionally, was discussed with the patient's daughter the possibility of declaring the patient a DNR, as if something catastrophic were to occur, the patient would probably not do well with a full resuscitation. The daughter stated she will discuss this with her sister and other family numbers and will come to a decision later today. REVIEW OF SYSTEMS: She is currently sedated and on mechanical ventilation. PHYSICAL EXAMINATION: GENERAL: 63-year-old female on mechanical ventilation, intubated, mechanically ventilated, sedated and paralyzed. Patient is in supine position 91% O2 saturat ion on 50% FiO2 and PEEP of 16 HEENT: Pupils are round and equally reacting to light. EOMI. No scleral icterus. No conjunctival pallor. Normocephalic, atraumatic. No pharyngeal erythema. No thyromegaly. CHEST: No chest wall deformity. LUNGS: Diminished breath sound bilaterally no crackles rhonchi or wheezes, left- sided chest tube remains in place, no evidence of air leak CVS: S1 and S2 normal with no audible murmur, regular rhythm. ABDOMEN: Morbidly obese no hepatosplenomegaly, normal bowel sounds, no guarding or rigidity. SKIN: No rashes CENTRAL NERVOUS SYSTEM: Could not assess patient is sedated and paralyzed. EXTREMITIES: No clubbing edema or cyanosis. Good pulses bilaterally Assessment and plan # Acute on chronic hypoxic respiratory failure placed on ventilator (02/18) Patient patient was intubated on 02/19/2024 Continue ventilatory support, rate 32, tidal volume 400, FiO2 50%, PEEP increased to 16 (from 14 overnight due to low oxygen saturation) Discontinue any proning of the patient Patient continues to receive Ventolin 2 puffs 4 times daily, Solu-Medrol 60 mg IV every 6 hours, Symbicort 2 puffs twice daily Continue ventilatory support, rate 32, tidal volume 400, FiO2 50%, PEEP 16 If family decides patient to continue care as is, we will look to ask you tracheotomy and insertion of a PEG tube within the next day or 2 # Acute COVID-19 infection/pneumonia Patient has patchy areas of groundglass pulm infiltrates bilaterally based on the CT of the chest. No evidence of any pulmonary embolism. Patient continuing on cefepime, has received 5 days worth including today # Acute COPD exacerbation secondary to acute COVID-19 infection placed on ventilator (02/18) Continue ventilatory support, rate 32, tidal volume 400, FiO2 50%, PEEP increased to 16 (from 14 overnight due to low oxygen saturation) Patient continues to receive Ventolin 2 puffs 4 times daily, Solu-Medrol 60 mg IV every 6 hours, Symbicort 2 puffs twice daily Continue ventilatory support, rate 32, tidal volume 400, FiO2 50%, PEEP 16 If family decides patient to continue care as is, we will look to ask you tracheotomy # Acute transaminitis possibly secondary to Baricitinib - improving AST 187, ALT 189 (02/19) Since the discontinuation of baricitinib, profile showed improvement AST 39, ALT 74 today (02/22) # Acute iatrogenic left-sided pneumothorax secondary to left subclavian central line placement Required immediate placement of a chest tube; nurse notes occasional air leak, however none noted on exam # ESTRADA possibly secondary to Baricitinib or aggressive diuresis - improving Baricitinib been discontinued Has been improving, and the patient is going to have good urine output ~40 cc/h Creatinine 1.17 (1.29 yesterday), BUN 52 (55 yesterday) # Hypotension secondary to sepsis and septic shock - resolved # Obesity with a BMI of 40.1 # Coronary artery disease, with previous coronary stenting Patient on 75 mg Plavix daily # Hyperlipidemia 40 mg Lipitor daily # Chronic hypoxic respiratory failure, normally the patient is on 4 L nasal cannula at home Patient's baseline oxygenation at home was 85-80% per the patient's family Maintain on 4 L nasal cannula at home Patient states she saw her biblical languages professor at [facility] (a couple of weeks prior to admission) who expressed a desire to increase from 4 L to 6 L Continue hemodynamic support as needed GI prophylaxis: Protonix 40 mg daily DVT prophylaxis: Lovenox 30 mg daily Nutritional support: Vital high-protein enteral nutrition at 31 mL/h, which is goal Full code - discussion with patient's daughter, decision will be made on poss ible alteration to this later today (02/23) Continue to monitor vital signs, monitor CBC, monitor CMP, continue telemetry monitoring, encourage use of incentive spirometer, continue postoperative anti biotic per protocol, postoperative pain management per primary monitor for excessive sedation. Dictation was produced using [employer] dictation software. please excuse any grammatical, word or spelling errors. Objective - Vital Signs Vital signs: Vital Signs Temp 98.2 F 02/24/24 04:00 Pulse 66 02/24/24 07:00 Resp 32 H 02/24/24 07:00 BP 106/55 02/24/24 07:00 Pulse Ox 95 02/24/24 07:00 FiO2 50 02/24/24 08:12 Intake & Output 02/23/24 02/24/24 02/24/24 18:59 06:59 18:59 Intake Total 1566.49 1205.532 127 Output Total 1545 750 35 Balance 21.49 455.532 92 Weight 96.1 kg 98.4 kg Intake: IV 711 366 13 .9NS Pressure Bag 36 36 3 0.9% NS KVO 230 10 Cefepime 2 gm In Sodium 100 Chloride 0.9% 100 ml @ 25 mls/hr IVPB Q12H [facility] Rx# :[id number] Sodium Chloride 0.9% 1, 675 000 ml @ 75 mls/hr IV . [id number] [facility] Rx#:[id number] Intake, IV Titration 650.49 581.532 Amount Cisatracurium 200 mg In 200 194.2 Sodium Chloride 0.9% 180 ml @ 1 MCG/KG/MIN 5.382 mls/hr IV .Q24H [facility] Rx#: [id number] Sodium Chloride 0.9% 1, 60 20 000 ml @ 20 mls/hr IV . Q24H [facility] Rx#:[id number] Sodium Chloride 0.9% 80 92.84 100 ml @ 0.5 MCG/KG/HR 4.485 mls/hr IV .[id number] [facility] with fentaNYL (PF) 1,000 mcg Rx#:[id number] propofoL 1,000 mg In 297.65 267.332 Empty Bag 1 bag @ 15 MCG/ KG/MIN 8.145 mls/hr IV . [id number] [facility] Rx#:[id number] Tube Feeding 205 168 14 Other 90 100 Output: Chest Tube Drainage 15 10 Chest Tube Left Lateral 15 10 Chest Urine 1530 740 35 Other: Voiding Method Indwelling Catheter Indwelling Catheter ABP, PAP, CO, CI - Last Documented Arterial Blood Pressure 105/57 - Labs CBC & Chem 7: 02/24/24 04:45 02/24/24 04:45 Labs: Abnormal Lab Results - Last 24 Hours (Table) 02/23/24 02/23/24 02/23/24 Range/Units 12:33 18:30 23:27 WBC (3.8-10.6) k/uL Hgb (11.4-16.0) gm/dL Neutrophils # (1.3-7.7) k/uL Lymphocytes # (1.0-4.8) k/uL ABG pCO2 (35-45) mmHg ABG HCO3 (21-25) mmol/L ABG Total CO2 (19-24) mmol/L Hemoglobin (11.4-16.0) gm/dL Carbon Dioxide (22-30) mmol/L BUN (7-17) mg/dL Creatinine (0.52-1.04) mg/dL Glucose (74-99) mg/dL POC Glucose (mg/dL) 226 H 166 H 171 H (70-110) mg/dL Calcium (8.4-10.2) mg/dL 02/24/24 02/24/24 02/24/24 Range/Units 04:45 04:45 06:22 WBC 14.9 H (3.8-10.6) k/uL Hgb 11.0 L (11.4-16.0) gm/dL Neutrophils # 14.0 H (1.3-7.7) k/uL Lymphocytes # 0.3 L (1.0-4.8) k/uL ABG pCO2 51 H (35-45) mmHg ABG HCO3 32 H (21-25) mmol/L ABG Total CO2 33 H (19-24) mmol/L Hemoglobin 10.8 L (11.4-16.0) gm/dL Carbon Dioxide 32 H (22-30) mmol/L BUN 58 H (7-17) mg/dL Creatinine 1.20 H (0.52-1.04) mg/dL Glucose 186 H (74-99) mg/dL POC Glucose (mg/dL) (70-110) mg/dL Calcium 7.4 L (8.4-10.2) mg/dL Microbiology - Last 24 Hours (Table) 02/19/24 16:45 Blood Culture - Preliminary Blood 02/17/24 20:03 Blood Culture - Final Blood
[2024-02-24 12:32] LABS: Glucose,Whole Blood 163 mg/dL (70-110)
--- NOTE | 2024-02-24 15:26 | P.PN ---
Subjective Progress Note Date: 02/24/24 63-year-old female present to the emergency department for further evaluation of increasing shortness of breath as well as changes in her mental status for the past day and a half according to her daughter. Patient's past medical history significant for COPD, in which she was recently started on treatment for bronchitis with steroids and antibiotics (doxycycline). Upon presentation patient states she was not feeling well, with increased confusion difficulty speaking. Her daughter, sitting at bedside, states that she was saturating 86% on room air. Patient denies any recent travel. Per patient's viral panel taken upon arrival to the emergency department patient states positive COVID-19. Pulmonology has been consulted and will see the patient for COPD exacerbation as well as COVID-19 infection. Upon arrival to the emergency department patient was afebrile blood pressure 118/67, heart rate of 81, respiratory rate of 16 with an oxygen saturation of 80% on room air. When seen the patient today, she reports she is feeling better and her daughter who is at her bedside also reports that she is presenting better than she had been the previous couple of days, and her mentation had improved greatly. She states that she is looking more like "herself". Initial lab work done in the ER showed WBCs 5.9, Hgb 14.8, Hct 45.7, PLT 108; PT 10.8, INR 1.0, PTT 27.1; blood gas pH 7.36, pCO2 33, HCO3 18; sodium 136, potassium 4.3, BUN 45, creatinine 1.03 Influenza A not detected Influenza B not detected RSV not detected COVID-19 positive EKG done in the ER showed heart rate of 82, no ST segment elevation or depression seen, no T-wave inversions seen. Chest x-ray done in the ER showed increased perihilar lung markings, to be correlated for infectious etiologies, pulmonary edema could be considered 02/14/24 - Patient seen at bedside today. She states that she is feeling better than she was yesterday, however she states that it feels like she "smoked 3 packs" and has remained short of breath. Progress states it is closer to her baseline when she was over the past few days however still not all the way back. Overnight patient's blood pressure was recorded as 90/50, with a heart rate of 64, respiratory rate of 18 saturating 95% on 4 and half liters of nasal cannula. Due to the patient having persistently low blood pressures we will hold 100 mg Cozaar and 20 mg Lopressor today and continue to monitor make adjustments as needed. Per pulmonology recommendation patient underwent CT angiogram of the chest to help rule out pulmonary embolism and at the same time evaluate for COVID-19 pneumonia and it was noted that the patient is a chronic smoker, on review of the CTA of the chest there were bilateral areas of scattered patchy groundglass pulmonary infiltrates consistent with COVID-19 related pneumonia worse on the left side compared to the right side. Patient will continue on O2 and will be titrated to maintain saturation above 90% overnight on 4 and half liters of oxygen nasal cannula, per pulmonology request patient started on IV Solu-Medrol 60 mg every 6 hours, she is outside the window for remdesivir as patient is had symptoms for more than a week, additionally patient was started on Lovenox 40 mg subcutaneously for DVT prophylaxis. Patient's LDH 230, elevated CRP at 6.3 and procalcitonin was unremarkable at 0.07. Additionally last night patient's 30 mg nightly, hold Wellbutrin and 200 mg nightly of Zoloft) presumed upon request with the patient and the patient's daughter. Labs done today - Currently pending at time of dictation. CT of the chest completed on 02/12 yet to evaluate official final read from radiologist, however per pulmonology's report he was to evaluate for possible pulmonary embolism but at the same time evaluated for COVID-19 pneumonia and was noted that there were bilateral areas of scattered patchy groundglass pulmonary infiltrates consistent with COVID-19 worse on the left side. 02/15/24 - Patient is evaluated today in follow up resting in bed. Continues on 4L of oxygen with adequate saturations. She continue to report shortness of breath and sputum production. No wheezing noted, there is some scattered ronchi. Patient remains on albuterol PRN as well as IV solumedrol. Patient has not been resumed on her home inhalers as of yet including spiriva and Advair HFA. chest CT angio that has been taken on the is not yet resulted by radiology. 02/16/24 - Patient seen at bedside today. States she is feeling about the same that she has been, with some shortness of breath and feeling tired. Chest CT angio taken on 12 February still has no official report from radiology. As of this morning patient blood pressure 96/62, heart rate of 68, respiratory rate of 18 while saturating 89% on 6 L high flow nasal cannula. Throughout the day she was increased to 7 L where she has remained saturating 86-87%. Per the patient and her daughter the patient's baseline oxygen saturation is generally in the mid 80%. New labs - WBCs 11.2, Hgb 14.2, Hct 43.0, PLT 187; sodium 139, potassium 5.2 02/17/24 - Patient seen at bedside today. Patient states she continues to feel about the same, with shortness of breath and being tired. Chest CT angio taken on 12 February cells no official report from radiology. Chest x-ray ordered yesterday showed similar scattered reticular pulmonary opacities likely representing reported COVID infection. Overnight patient blood pressure 117/65, heart rate of 76, respiratory rate of 20, placed on 15 L high flow nasal cannula saturating in the mid 90s. Per pulmonology's recommendation goal of patient's saturations is to remain greater than 85%. As of this morning patient was moved on to Airvo with an O2 flow rate of 60 and FiO2 of 80%, and with this patient has been saturating between 85-89%. Patient does report increased shortness of breath as compared to yesterday, however was resting somewhat comfortably in bed. New labs -WBCs 9.13, Hgb 13.4, Hct 41.0, PLT 174; sodium 134, potassium 4.1, BUN 17.7, creatinine 0.7 02/18/24 - Patient seen at bedside today. Patient has been moved to the ICU for further observation per pulmonology's request. As of yesterday morning patient was moved onto Airvo with an FiO2 of 80% oxygen flow rate of 60, throughout the day this was increased the FiO2 raising up to 92% through the evening, with the patient continuing to saturate in the midhigh 80%'s. Overnight the patient was placed on BiPAP with saturations between 86-91%. New chest x-ray to be completed today to compare to the previous ones. Per pulmonology patient may qualify for baricitinib, for now we will continue on bronchodilators, steroids, and Lovenox. New labs -WBCs 10.6, Hgb 13.2, Hct 42.0,PLT 206; D-dimer 0.61; sodium 136, potassium 4.1, BUN 17, creatinine 0.53 02/19/24 - Patient seen and follow-up today continues to be in the ICU with close monitoring with multiple consultations following. Patient maintained on high flow and according to nursing staff having increased respiratory distress requiring mechanical ventilation overnight. Patient is currently maintained on an FiO2 of 100% and PEEP is extremely high at 15 with multiple drips going. Patient is maintained on Nimbex and Levophed along with a bicarb drip and patient also receiving baricitinib at this time. Patient noted to have a significant increase in white count and will repeat blood cultures, urine culture, procalcitonin and also consult infectious disease and appreciate input and recommendations. Patient also continues on breathing treatments and high- dose IV steroids. Kidney functions within normal limits at this time although nursing staff is reporting decreased urine output which will be monitored closely. Patient was given a fluid bolus. 02/20/24 - Patient seen at bedside today in the ICU. Patient has multiple consultations following with close monitoring. Patient was mechanically ventilated on 02/18 and has been weaned to an FiO2 of 80%, however with a PEEP of 16 with multiple concurrent drips going. Patient continues to maintain an index of Levophed while also receiving baricitinib as well as bicarb drip. Patient's white count has improved to 13.1 as compared to 32.8 yesterday (02/18), additionally ABG showed pH improvement to 7.26 as compared to 7.4. Chest x-ray to be repeated today. 02/21/24 - Patient seen at the bedside in the ICU. Patient has multiple consultations following with close monitoring. Per infectious disease baricitinib is been discontinued and the patient has been appropriately started on cefepime. Preliminary blood culture showed no growth however the patient had an elevated procalcitonin. Per the ICU patient was placed in prone position noted to have significant improvement in her oxygenation. She is currently saturating in the high 90% with a tidal volume of 400, ventilatory rate of 32, FiO2 of 55%, PEEP of 16. She remains on Nimbex, Levophed, propofol, and Sublimaze. Labs this morning showed WBCs 9.8, sodium 136, BUN of 55 (increased from 49 yesterday) and creatinine of 1.77 (improved from 1.96 yesterday), yesterday AST 187 and ALT 189. Patient is ABG as of this morning showed a pH of 7.41, pCO2 57, pO2 81, HCO3 36 and total CO2 of 38. Patient's urine output at time of dictation this morning 236 mL. 02/21. Patient seen and examined. Continues to be on mechanical ventilation 02/23/2024 - patient seen and examined at bedside. patient continues to be on mechanical ventilation. 02/24/2024atient seen and examined at bedside. Patient continues to be on mechanical relation. Spoke with family regarding goals of care. Family has decided to proceed with comfort care. Family does not want patient to be placed on trach and PEG. They elected for comfort comfort measures once the rest the family arrives. REVIEW OF SYSTEMS: Cannot be obtained as patient is intubated PHYSICAL EXAMINATION: GENERAL: The patient is intubated HEENT: Pupils are round and equally reacting to light. EOMI. No scleral icterus. No conjunctival pallor. Normocephalic, atraumatic. No pharyngeal erythema. No th yromegaly. CARDIOVASCULAR: S1 and S2 present. No murmurs, rubs, or gallops. PULMONARY: Coarse breath sounds bilaterally, no wheezing or crackles. ABDOMEN: Soft, nontender, nondistended, normoactive bowel sounds. No palpable organomegaly. MUSCULOSKELETAL: No joint swelling or deformity. EXTREMITIES: No cyanosis, clubbing, or pedal edema. NEUROLOGICAL: Intubated and sedated SKIN: No rashes. Assessment and plan #. Acute hypoxic respiratory failure secondary to pneumonitis pneumonia due to COPD exacerbation as a result of recently diagnosed bronchitis - discussed goals of care with family and family decided to proceed with comfort care. - ICU following #. Acute kidney injury possibly secondary to acute hypoxic respiratory failure - resolved - Monitor renal function #. Recent history of cardiac stenting Patient on Plavix 75 mg daily #. Altered mental status #. Anxiety Resume patient's on medications of 200 mg nightly of Zoloft and 300 mg nightly of Wellbutrin #. Hypertension Patient's home medications include 50 mg hydroxyzine 3 times daily, 100 mg Cozaar daily, 25 mg Lopressor twice daily Patient's blood pressures were running low overnight at 90/50, going to hold 100 mg Cozaar today and 25 mg Lopressor; continue the hydroxyzine Continue to monitor and make alterations as necessary Labs and medication were reviewed.. Continue same treatment. Continue with symptomatic treatment and comfort measures. Resume home medication. Monitor labs and vitals. DVT and GI prophylaxis. Further recommendations as per clin ical course of the patient. Dictation was produced using [employer] dictation software. please excuse any grammatical, word or spelling errors. Objective - Vital Signs Vital signs: Vital Signs Temp 98.3 F 02/24/24 12:00 Pulse 56 L 02/24/24 15:00 Resp 32 H 02/24/24 15:00 BP 106/53 02/24/24 15:00 Pulse Ox 94 L 02/24/24 15:00 FiO2 50 02/24/24 12:10 Intake & Output 02/23/24 02/24/24 02/24/24 18:59 06:59 18:59 Intake Total 1566.49 1205.532 963.658 Output Total 1545 750 495 Balance 21.49 455.532 468.658 Weight 96.1 kg 98.4 kg Intake: IV 711 366 297 .9NS Pressure Bag 36 36 27 0.9% NS KVO 230 170 Cefepime 2 gm In Sodium 100 100 Chloride 0.9% 100 ml @ 25 mls/hr IVPB Q12H [facility] Rx# :[id number] Sodium Chloride 0.9% 1, 675 000 ml @ 75 mls/hr IV . [id number] [facility] Rx#:[id number] Intake, IV Titration 650.49 581.532 380.658 Amount Cisatracurium 200 mg In 200 194.2 94.409 Sodium Chloride 0.9% 180 ml @ 1 MCG/KG/MIN 5.382 mls/hr IV .Q24H [facility] Rx#: [id number] Sodium Chloride 0.9% 1, 60 20 000 ml @ 20 mls/hr IV . Q24H [facility] Rx#:[id number] Sodium Chloride 0.9% 80 92.84 100 100 ml @ 0.5 MCG/KG/HR 4.485 mls/hr IV .[id number] [facility] with fentaNYL (PF) 1,000 mcg Rx#:[id number] propofoL 1,000 mg In 297.65 267.332 186.249 Empty Bag 1 bag @ 15 MCG/ KG/MIN 8.145 mls/hr IV . [id number] [facility] Rx#:[id number] Tube Feeding 205 168 126 Other 90 160 Output: Chest Tube Drainage 15 10 Chest Tube Left Lateral 15 10 Chest Urine 1530 740 495 Other: Voiding Method Indwelling Catheter Indwelling Catheter Indwelling Catheter ABP, PAP, CO, CI - Last Documented Arterial Blood Pressure 94/44 - Labs CBC & Chem 7: 02/24/24 04:45 02/24/24 04:45 Labs: Abnormal Lab Results - Last 24 Hours (Table) 02/23/24 02/23/24 02/24/24 Range/Units 18:30 23:27 04:45 WBC 14.9 H (3.8-10.6) k/uL Hgb 11.0 L (11.4-16.0) gm/dL Neutrophils # 14.0 H (1.3-7.7) k/uL Lymphocytes # 0.3 L (1.0-4.8) k/uL ABG pCO2 (35-45) mmHg ABG HCO3 (21-25) mmol/L ABG Total CO2 (19-24) mmol/L Hemoglobin (11.4-16.0) gm/dL Carbon Dioxide (22-30) mmol/L BUN (7-17) mg/dL Creatinine (0.52-1.04) mg/dL Glucose (74-99) mg/dL POC Glucose (mg/dL) 166 H 171 H (70-110) mg/dL Calcium (8.4-10.2) mg/dL 02/24/24 02/24/24 02/24/24 Range/Units 04:45 06:22 12:31 WBC (3.8-10.6) k/uL Hgb (11.4-16.0) gm/dL Neutrophils # (1.3-7.7) k/uL Lymphocytes # (1.0-4.8) k/uL ABG pCO2 51 H (35-45) mmHg ABG HCO3 32 H (21-25) mmol/L ABG Total CO2 33 H (19-24) mmol/L Hemoglobin 10.8 L (11.4-16.0) gm/dL Carbon Dioxide 32 H (22-30) mmol/L BUN 58 H (7-17) mg/dL Creatinine 1.20 H (0.52-1.04) mg/dL Glucose 186 H (74-99) mg/dL POC Glucose (mg/dL) 163 H (70-110) mg/dL Calcium 7.4 L (8.4-10.2) mg/dL Microbiology - Last 24 Hours (Table) 02/19/24 16:45 Blood Culture - Preliminary Blood
[2024-02-24 18:58] LABS: Glucose,Whole Blood 194 mg/dL (70-110)
[2024-02-25 00:25] LABS: Glucose,Whole Blood 163 mg/dL (70-110)
[2024-02-25 05:33] LABS: ABG HCO3 30 mmol/L (21-25); ABG Oxygen Saturation 96.9 % (94-97); ABG PCO2 48 mmHg (35-45); ABG PH 7.41 (7.35-7.45); ABG PO2 89 mmHg (83-108); ABG TCO2 32 mmol/L (19-24)
[2024-02-25 05:48] LABS: Glucose,Whole Blood 183 mg/dL (70-110)
[2024-02-25 05:54] LABS: Basophils % (A) 0 %; Eosinophils % (A) 0 %; HCT 33.2 % (34.0-46.0); HGB 10.5 gm/dL (11.4-16.0); Hypochromasia Slight; Lymphocytes # (A) 0.3 k/uL (1.0-4.8); Lymphocytes % (A) 3 %; MCH 28.5 pg (25.0-35.0); MCHC 31.5 g/dL (31.0-37.0); MCV 90.6 fL (80.0-100.0); Mean Platelet Volume 8.2; Monocytes # (A) 0.3 k/uL (0-1.0); Monocytes % (A) 3 %; Neutrophils # (A) 11.8 k/uL (1.3-7.7); Neutrophils % (A) 94 %; Platelet Count 226 k/uL (150-450); RBC 3.67 m/uL (3.80-5.40); RDW 13.4 % (11.5-15.5); WBC 12.6 k/uL (3.8-10.6)
[2024-02-25 06:11] LABS: African American GFR (CKD) 63 (>60 ml/min/1.73 sqM); Anion Gap -1 mmol/L; Blood Urea Nitrogen 62 mg/dL (7-17); Calcium 7.8 mg/dL (8.4-10.2); Carbon Dioxide 31 mmol/L (22-30); Chloride 108 mmol/L (98-107); Glucose 188 mg/dL (74-99); Non-African American GFR(CKD) 54 (>60 ml/min/1.73 sqM); Potassium 4.5 mmol/L (3.5-5.1); Sodium 138 mmol/L (137-145)
--- NOTE | 2024-02-25 08:22 | XR ---
EXAMINATION TYPE: XR chest 1V portable DATE OF EXAM: 02/25/2024 COMPARISON: 02/24/2024 HISTORY: SOB, Follow Up FINDINGS: Indwelling tubes and catheters are unchanged. No change in bibasilar opacities. Stable appearance of the cardio-mediastinal structures at this time. IMPRESSION: 1. Stable portable chest. Clinical correlation and follow up until resolution is recommended. [facility], , 02/25/2024 8:20 AM
[2024-02-25] MEDS ORDERED: MORPHINE SULFATE 2 MG/ML SYRINGE IV PRN (11:07)
[2024-02-25] MEDS ORDERED: ACETAMINOPHEN SUPPOSITORY 650 MG SUPP RECTAL PRN (11:07)
--- NOTE | 2024-02-25 11:51 | P.PN ---
Subjective Progress Note Date: 02/25/24 This is a 63-year-old female patient, known history of COPD was been seeing Dr. Cornell at [facility]. Prior to that, she had another edge cutting machine operator through [facility] who gave her because of her insurance coverage. The patient is an ex-smoker. She has quit smoking. The patient has been maintained on a combination of Advair and Spiriva on an outpatient basis and albuterol HFA on a as needed basis. The patient has been having symptoms of URI, cough congestion, generalized weakness and fatigue and tiredness and the patient came into the hospital where she was diagnosed having COVID-19 infection. Noted the patient has been symptomatic for more than a week. She has seen her pulmo nologist, Dr. Cornell who treated her with a course of antibiotics and steroids. Nevertheless, her condition did not improve and she ended up coming into the hospital. No nausea vomiting or diarrhea. No abdominal pain. No altered mentation. The chest x-ray that was done at time of admission showed increased perihilar lung markings. No previous history of DVT or pulmonary embolism. I ordered a CTA of the chest on this patient to rule out pulmonary embolism and at the same time evaluate for COVID-19 related pneumonia. Noted the patient is also a chronic smoker. I reviewed the CTA of the chest and there are bilateral areas of scattered patchy groundglass pulmonary infiltrates consistent with COVID-19 related pneumonia more so on the left compared to the right. The patient has no filling defects to indicate pulmonary embolism. Awaiting a final report from radiology. Note that this has never been infected with COVID-19 in the past and she has never been vaccinated. 02/14/2024, patient is doing well. Less short of breath compared to yesterday. CAT scan of the chest showed some patchy groundglass pulmonary filtrates consistent with COVID-19 infection. However, clinically patient doing better. No evidence of any pulmonary involvement. No evidence of any lung masses. She remains on bronchodilators with albuterol HFA 4 times [id number] and the patient is on IV Solu-Medrol 60 mg every 6 hours. No abnormalities in her blood work. The CBC shows a white cell count of 6.3 with a hemoglobin 13 and a platelet count of 132. BUN 42 with a creatinine of 1.02. Serum bicarbonate 17 and sodium levels at 133 and a potassium level is at 4.3. 02/15/2024, the patient is being seen for a follow-up. The patient is doing well. The patient is being treated for an acute COPD exacerbation. The patient also has a component of COVID-19 pneumonia and she remains on 40 of oxygen by nasal cannula. She was given IV Solu-Medrol. She was outside the window for remdesivir treatment. She is noted advanced COPD. Based on my review of the CT of the chest, there is no evidence of any pulm embolism. There is patchy areas of pulm infiltration consistent with COVID-19 infection. No evidence of any lung masses or tumors. The patient is currently on 6 L of O2 nasal cannula. At times, she removes her oxygen she desaturates. No new labs are available from today. Her procalcitonin level is at 0.07. The LDH level was at 230. Rest of the inflammatory markers were minimally elevated. Otherwise, awake and alert, no altered mentation. No signs of any CO2 narcosis. The patient is seen today February 16, 2024 in follow-up on the regular medical floor. She is currently resting in bed. Awake and alert in no acute distress. She is having ongoing issues with oxygen desaturations. She is currently on 7 L high flow nasal cannula with O2 saturations in the low 80s. She is continued on Symbicort, Spiriva, albuterol and Solu-Medrol. Lovenox for DVT prophylaxis. C hest x-ray shows similar scattered reticular pulmonary opacities secondary to COVID infection. White count 11.2. Hemoglobin 14.2. Sodium 139. Potassium 5.2. Bicarb 24. BUN 23. Creatinine 0.8. Glucose 158. The patient is seen today February 17, 2024 in follow-up on the regular medical floor. She is currently awake and alert. She continues to have ongoing struggles with her breathing. This morning she was placed on Airvo high flow oxygen at 60% FiO2 and 80 L. Chest x-ray continues to show similar scattered reticular pulmonary opacities consistent with COVID infection. White count 9.1. Hemoglobin 13.4. Platelets 174. Sodium 134. Potassium 4.1. Bicarb 23. BUN 18. Creatinine 0.7. Glucose 180. She remains on Symbicort, Spiriva and albuterol along with IV Solu-Medrol. Lovenox for DVT prophylaxis. Patient was seen today on 02/18/2024, she is now in the ICU, she is marginal at best. Patient is critically ill, she was on Airvo yesterday at high flow and high FiO2, she is now on BiPAP at 100%, 04/23. O2 saturation is marginal, hence her chest x-ray is showing worsening of her interstitial infiltrates/presumptive COVID-19 pneumonia worsening and the patient meets the criteria to start baricitinib 4 mg daily for 14 days. Her procalcitonin level was normal and I doubt any underlying bacterial infection at this point. Clearly the patient is worsening and she will remain in the ICU, I have a feeling she may even require intubation mechanical ventilation. Patient seems to be comfortable although her O2 saturation is in the 80s. Does not seem to be in distress. She is hemodynamically stable not requiring any pressors. She is on bronchodilators, and she is also on steroids, Lasix were given to keep her on the dry side as much as possible although I am not convinced that the patient has any congestive heart failure WBC count today is 10.6 hemoglobin is 13.2 electrolytes are normal renal profile is normal her inflammatory markers are high with high LDH, high C- reactive protein, and high ferritin level. Patient was seen today on 02/19/2024, patient had to be intubated last night mostly because of worsening pulmonary status and worsening pneumonia. She re quired mechanical ventilation, and she is maximal on mechanical ventilation with assist-control rate of 3 2, tidal volume 400 FiO2 100% PEEP is 16. Last ABG showed a pO2 136 pCO2 78 pH of 7.14, patient was placed on bicarb drip 150 mEq in 1 L D5W running at 50 cc/h. Patient required central line placement and this was done in the groin she did sustain iatrogenic left-sided pneumothorax from attempt to place a left a left subclavian central line. Right femoral triple- lumen catheter was placed, patient is still on Nimbex she is on Cardizem at 10 mg/h she is on propofol at 35 mcg/kg/min IV fluid at 50 cc/h fentanyl at 0.5 mcg/kg/h and she is on norepinephrine at 0.15 mcg/kg/min. Family was updated and made aware that her condition is very poor, and mortality is extremely high. Patient seems to be having worsening COVID-19 pneumonia with diffuse interstitial infiltrates bilaterally.Patient is developing leukocytosis with WBC count of 32.8 hemoglobin 14.4, basic metabolic profile is normal renal profile is normal glucose is 185 laboratory markers are elevated. Patient is now on baricitinib Patient was seen today on 02/20/2024, patient remains in the ICU intubated and mechanically ventilated. Patient was placed in prone position and noted to have significant improvement in her oxygenation. She is presently in prone position this morning, and O2 saturation is in the mid 90s, patient is on 65% FiO2, and PEEP of 16. Patient is on assist-control rate of 32, tidal volume 400 FiO2 65% and I cut it down to 60% and PEEP is 16. ABG on 100% showed a pO2 of 184 pCO2 66 pH of 7.26. Peak airway pressure is in the mid to high 30s, plateau pressure is 30. Patient remains on propofol at 35 mcg/kg/min Levophed at 0.07 mcg/kg/min Fentanyl at 0.5 mcg/kg/h Cardizem at 5 mg/h she is still receiving sodium bicarb at 50 cc/h barcitinib was discontinued today as the patient is noted to have elevated procalcitonin level today and will start the patient on cefepime instead. Chest x-ray continues show significant interstitial infiltrate/pneumonia no evidence of pneumothorax, left-sided chest tube remains in place. Looking at the Pleur-evac, there is no evidence of air leak. WBC c ount is 13.1 hemoglobin 12.6 basic metabolic profile is normal however her BUN is up to 49 creatinine 1.96, liver enzymes are beginning to rise and I recommended stopping barcitinib. Will continue hydration hold diuretics and closely monitor her renal status. When output is about 30 cc/h Patient was evaluated today on 02/21/2024, patient remains in the ICU, intubated and mechanically ventilated, patient is now on assist-control rate of 32 tidal volume 400 FiO2 cut down from 55% to 50% PEEP cut down from 16 down to 14. Earlier ABG showed a pO2 of 81 pCO2 57 pH of 7.41. Patient remains on Nimbex and she is intermittently placed in prone position to adequately ventilate the patient and oxygenate the patient on lower FiO2 as a matter fact we cut down the FiO2 down to 50% and I was able to cut down the PEEP down to 14. Chest x-ray basically is about the same. Not much of a change in her infiltrates bilaterally she has a very small tiny apical pneumothorax and apparently intermittently noted to have minimal air leak in the Pleur-evac. She is on norepinephrine at 0.01 mcg/kg/min propofol at 35 mcg/kg/min Fentanyl 0.5 mcg/kg/h patient is now receiving cefepime, and her urine output is about 40 to 50 cc/h. Lasix remains on hold, patient is still receiving IV fluids. Patient was evaluated today on 02/22/2024, patient remains in the ICU intubated mechanically ventilated, sedated and paralyzed. Still requiring a PEEP of 14, FiO2 has been titrated down to 50%, patient has been intermittently placed in prone position over the last couple of days. Today she seems to be doing well in supine position, O2 saturation is in the low 90s and her PEEP remains at 14. Chest x-ray, is showing slight improvement in her bilateral interstitial infiltrates, there is no evidence of pneumothorax on the chest x-ray today, endotracheal tube was noted to be still close to the right mainstem bronchus, in the carinal area, and we pulled it out about 1.0 cm ventilator flaherty the patient is on AC rate of 32 tidal volume 400 FiO2 50% PEEP of 14 ABG showed a pO2 of 71 pCO2 53 pH of 7.45. Patient is on Nimbex she is on D5W with 3 A of bicarb running at 25 cc/h, and today I will discontinue her bicarb patient is on propofol at 50 mcg/kg/min Fentanyl at 0.5 mcg/kg/h and with this will be incre ased because of significantly elevated blood pressure, patient is on IV fluid at 75 cc/h with steady improvement in her renal status, creatinine is down to 1.29 today. Patient remains on enteral feeding vital AF she is also on cefepime. Cultures so far are negative urine output about 40 cc/h Patient was evaluated today on 02/23/2024, patient remains in the ICU intubated and mechanically ventilated, sedated and paralyzed. She is on day 11 of her hospital stay (admitted 02/11), day 7 of her stay in the ICU (admitted to the ICU 02/16), and day 5 on the ventilator (placed 02/18). Patient is receiving ventilatory support with a rate of 32, tidal volume 400, FiO2 of 50%, and PEEP at 16 which is increased from 14 overnight due to the patient having oxygen saturations in the low 80% at that time. Patient had been spending 18 hours in prone position, and 6 hours supine, however will discontinue having the patient proned. Chest x-ray remains stable today as compared yesterday. ABG done today shows pO2 of 67, pCO2 51 and a pH of 7.44. She is maintained on propofol 65 mcg/kg/min, Pneumovax 2.5 mcg/kg/min, fentanyl 1 mcg/kg/h. The patient is additionally receiving IV fluids at 75 cc/h with continued improvement of her renal status, creatinine today down to 1.17 (from 1.29 yesterday) and BUN 52 (from 55 yesterday). Patient's urine cultures are negative, and output continue to be ~40 cc/h, a second preliminary blood culture has also shown to be negative, awaiting final report. Patient continues to receive enteral feeding, vital AF at 30 mL/h which is goal. Patient continues to receive cefepime 1 gram daily. 02/24/24 - Patient seen today, patient continues to be in the ICU intubated, mechanically ventilated, sedated and paralyzed. She is on day 12 of her hospital stay (admitted 02/11), day 8 of her stay in the ICU (admitted ICU 02/16), and day 6 on the ventilator (placed 02/18). Patient is receiving ventilatory support with a rate of 32, tidal volume 400, FiO2 50%, and PEEP at 16. Chest x- ray done today shows stable disease. ABG today shows pO2 of 87, pCO2 51, pH 7.41, showing evidence of a mixed acid-base disturbance. She is maintained on propofol 60 mcg/kg/min, Nimbex 2.5 mcg/kg/min and fentanyl 1 mcg/kg/h. Additionally, patient is receiving normal saline 20 mL/h and cefepime 2 g every 12 hours. Patient's creatinine 1.2, BUN 58. Discussion was had with 1 of the patient's daughters regarding the next steps in her care. It was discussed with the daughter that if he were to be needing care as it is currently, would look to do a tracheotomy and PEG tube placement for the patient, due to the difficulty in prolonged course that is anticipated if able to wean the patient down the line. The patient's daughter expressed hesitation, and mentioned the possibility of pursuing something along the lines of comfort care as they feel like they do not want to "torture" her mother, however she will need to discuss it with her sister as well as other family numbers. Additionally, was discussed with the patient's daughter the possibility of declaring the patient a DNR, as if something catastrophic were to occur, the patient would probably not do well with a full resuscitation. The daughter stated she will discuss this with her sister and other family numbers and will come to a decision later today. 02/25/24 - Patient seen at the bedside today. She continues to be in the intubated, mechanically ventilated, sedated paralyzed. She is on day 13 of her hospital stay (02/05), day 9 of her stay in the ICU (admitted to ICU 02/16) and day 7 on the ventilator (placed 02/18). Patient is receiving ventilatory support at rate of 30, tidal volume 400, FiO2 50%, and PEEP at 16. Chest x-ray done today shows stable disease. ABG today shows pO2 89, pCO2 48, pH 7.41 showing evidence of a mixed acid-base disturbance, respiratory acidosis and metabolic alkalosis. She is maintained on propofol 60 mcg/kg/min, Nimbex 2.5 mcg/kg/min and fentanyl 1 mcg/kg/h. Additionally patient continues receiving normal saline at 20 cc/h and cefepime 2 g every 12 hours, and has been receiving tube feeds, vital AF 1.2 at 14 (which is goal) her BUN is 62 and creatinine is 1.10. As stated previously the family is decided against placement of a tracheotomy and PEG tube. The patient has been made DNR following discussion with her daughter, additionally, the patient will be switched to comfort care. Following the arrival of the entire family, the switch will be made to comfort care measures. REVIEW OF SYSTEMS: She is currently sedated and on mechanical ventilation. PHYSICAL EXAMINATION: GENERAL: 63-year-old female on mechanical ventilation, intubated, mechanically ventilated, sedated and paralyzed. Patient is in supine position 91% O2 saturation on 50% FiO2 and PEEP of 16 HEENT: Pupils are round and equally reacting to light. EOMI. No scleral icterus. No conjunctival pallor. Normocephalic, atraumatic. No pharyngeal erythema. No thyromegaly. CHEST: No chest wall deformity. LUNGS: Diminished breath sound bilaterally no crackles rhonchi or wheezes, left- sided chest tube remains in place, no evidence of air leak CVS: S1 and S2 normal with no audible murmur, regular rhythm. ABDOMEN: Morbidly obese no hepatosplenomegaly, normal bowel sounds, no guarding or rigidity. SKIN: No rashes CENTRAL NERVOUS SYSTEM: Could not assess patient is sedated and paralyzed. EXTREMITIES: No clubbing edema or cyanosis. Good pulses bilaterally Assessment and plan # Acute on chronic hypoxic respiratory failure placed on ventilator (02/18) Patient patient was intubated on 02/19/2024 Continue ventilatory support, rate 32, tidal volume 400, FiO2 50%, PEEP increased to 16 (from 14 overnight due to low oxygen saturation) Discontinue any proning of the patient Patient continues to receive Ventolin 2 puffs 4 times daily, Solu-Medrol 60 mg IV every 6 hours, Symbicort 2 puffs twice daily Continue ventilatory support, rate 32, tidal volume 400, FiO2 50%, PEEP 16 If family decides patient to continue care as is, we will look to ask you trac heotomy and insertion of a PEG tube within the next day or 2 Patient has been made DNR and will be switched over to comfort care upon the arrival of patient family members from out of town # Acute COVID-19 infection/pneumonia Patient has patchy areas of groundglass pulm infiltrates bilaterally based on the CT of the chest. No evidence of any pulmonary embolism. Patient continuing on cefepime, has received 5 days worth including today # Acute COPD exacerbation secondary to acute COVID-19 infection placed on ventilator (02/18) Continue ventilatory support, rate 32, tidal volume 400, FiO2 50%, PEEP increased to 16 (from 14 overnight due to low oxygen saturation) Patient continues to receive Ventolin 2 puffs 4 times daily, Solu-Medrol 60 mg IV every 6 hours, Symbicort 2 puffs twice daily Continue ventilatory support, rate 32, tidal volume 400, FiO2 50%, PEEP 16 If family decides patient to continue care as is Family assessment the patient DNR, and we will switch to comfort care upon the arrival of family members from out of town # Acute transaminitis possibly secondary to Baricitinib - improving AST 187, ALT 189 (02/19) Since the discontinuation of baricitinib, profile showed improvement AST 39, ALT 74 today (02/22) # Acute iatrogenic left-sided pneumothorax secondary to left subclavian central line placement Required immediate placement of a chest tube; nurse notes occasional air leak, however none noted on exam # ESTRADA possibly secondary to Baricitinib or aggressive diuresis - improving Baricitinib been discontinued Has been improving, and the patient is going to have good urine output ~40 cc/h Creatinine 1.17 (1.29 yesterday), BUN 52 (55 yesterday) # Hypotension secondary to sepsis and septic shock - resolved # Obesity with a BMI of 40.1 # Coronary artery disease, with previous coronary stenting Patient on 75 mg Plavix daily # Hyperlipidemia 40 mg Lipitor daily # Chronic hypoxic respiratory failure, normally the patient is on 4 L nasal ca nnula at home Patient's baseline oxygenation at home was 85-80% per the patient's family Maintain on 4 L nasal cannula at home Patient states she saw her edge cutting machine operator at [facility] (a couple of weeks prior to admission) who expressed a desire to increase from 4 L to 6 L Continue hemodynamic support as needed GI prophylaxis: Protonix 40 mg daily DVT prophylaxis: Lovenox 30 mg daily Nutritional support: Vital high-protein enteral nutrition at 14 mL/h, which is goal DNR - switched after discussion with the patient's daughter. Continue to monitor vital signs, monitor CBC, monitor CMP, continue telemetry monitoring, encourage use of incentive spirometer, continue postoperative antibiotic per protocol, postoperative pain management per primary monitor for excessive sedation. Dictation was produced using [employer] dictation software. please excuse any grammatical, word or spelling errors. Objective - Vital Signs Vital signs: Vital Signs Temp 98.4 F 02/25/24 08:00 Pulse 89 02/25/24 08:00 Resp 32 H 02/25/24 08:00 BP 115/49 02/25/24 08:00 Pulse Ox 96 02/25/24 08:00 FiO2 50 02/25/24 08:30 Intake & Output 02/24/24 02/25/24 02/25/24 18:59 06:59 18:59 Intake Total 1132.658 844.209 239.717 Output Total 715 655 95 Balance 417.658 189.209 144.717 Weight 99.2 kg Intake: IV 366 143 26 .9NS Pressure Bag 36 33 6 0.9% NS KVO 230 110 20 Cefepime 2 gm In Sodium 100 Chloride 0.9% 100 ml @ 25 mls/hr IVPB Q12H [facility] Rx# :[id number] Intake, IV Titration 480.658 443.209 199.717 Amount Cisatracurium 200 mg In 94.409 161.908 Sodium Chloride 0.9% 180 ml @ 1 MCG/KG/MIN 5.382 mls/hr IV .Q24H [facility] Rx#: [id number] Sodium Chloride 0.9% 80 100 98.222 99.717 ml @ 0.5 MCG/KG/HR 4.485 mls/hr IV .[id number] CAREN with fentaNYL (PF) 1,000 mcg Rx#:[id number] propofoL 1,000 mg In 286.249 183.079 100 Empty Bag 1 bag @ 15 MCG/ KG/MIN 8.145 mls/hr IV . [id number] [facility] Rx#:[id number] Tube Feeding 126 168 14 Other 160 90 Output: Chest Tube Drainage 50 0 Chest Tube Left Lateral 50 0 Chest Urine 715 605 95 Other: Voiding Method Indwelling Catheter Indwelling Catheter Indwelling Catheter ABP, PAP, CO, CI - Last Documented Arterial Blood Pressure 153/61 - Labs CBC & Chem 7: 02/25/24 05:37 02/25/24 05:37 Labs: Abnormal Lab Results - Last 24 Hours (Table) 02/24/24 02/24/24 02/25/24 Range/Units 12:31 18:57 00:24 WBC (3.8-10.6) k/uL RBC (3.80-5.40) m/uL Hgb (11.4-16.0) gm/dL Hct (34.0-46.0) % Neutrophils # (1.3-7.7) k/uL Lymphocytes # (1.0-4.8) k/uL ABG pCO2 (35-45) mmHg ABG HCO3 (21-25) mmol/L ABG Total CO2 (19-24) mmol/L Hemoglobin (11.4-16.0) gm/dL Chloride (98-107) mmol/L Carbon Dioxide (22-30) mmol/L BUN (7-17) mg/dL Creatinine (0.52-1.04) mg/dL Glucose (74-99) mg/dL POC Glucose (mg/dL) 163 H 194 H 163 H (70-110) mg/dL Calcium (8.4-10.2) mg/dL 02/25/24 02/25/24 02/25/24 Range/Units 00:51 05:37 05:37 WBC 12.6 H (3.8-10.6) k/uL RBC 3.67 L (3.80-5.40) m/uL Hgb 10.5 L (11.4-16.0) gm/dL Hct 33.2 L (34.0-46.0) % Neutrophils # 11.8 H (1.3-7.7) k/uL Lymphocytes # 0.3 L (1.0-4.8) k/uL ABG pCO2 48 H (35-45) mmHg ABG HCO3 30 H (21-25) mmol/L ABG Total CO2 32 H (19-24) mmol/L Hemoglobin 10.5 L (11.4-16.0) gm/dL Chloride 108 H (98-107) mmol/L Carbon Dioxide 31 H (22-30) mmol/L BUN 62 H (7-17) mg/dL Creatinine 1.10 H (0.52-1.04) mg/dL Glucose 188 H (74-99) mg/dL POC Glucose (mg/dL) (70-110) mg/dL Calcium 7.8 L (8.4-10.2) mg/dL 02/25/24 Range/Units 05:47 WBC (3.8-10.6) k/uL RBC (3.80-5.40) m/uL Hgb (11.4-16.0) gm/dL Hct (34.0-46.0) % Neutrophils # (1.3-7.7) k/uL Lymphocytes # (1.0-4.8) k/uL ABG pCO2 (35-45) mmHg ABG HCO3 (21-25) mmol/L ABG Total CO2 (19-24) mmol/L Hemoglobin (11.4-16.0) gm/dL Chloride (98-107) mmol/L Carbon Dioxide (22-30) mmol/L BUN (7-17) mg/dL Creatinine (0.52-1.04) mg/dL Glucose (74-99) mg/dL POC Glucose (mg/dL) 183 H (70-110) mg/dL Calcium (8.4-10.2) mg/dL
--- NOTE | 2024-02-25 12:17 | P.PN ---
Subjective Progress Note Date: 02/24/24 Principal diagnosis: Reason for follow-up is leukocytosis Patient is a 63-year-old female with a past medical history significant for COPD coronary artery disease hyperlipidemia presenting to the hospital for evaluation of increasing shortness of breath patient be diagnosed with the COVID-19 started on baricitinib did have worsening respiratory status requiring intubation and also have elevated white count prompted this consultation. On today's evaluation that is 02/24/2024, the patient remains to be afebrile, patient FiO2 is currently stable at 50% no significant purulent secretion through the ET no diarrhea and the changes reported by the nursing staff. Patient white count is 14.9, creatinine is 1.20 Objective - Vital Signs Vital signs: Vital Signs Temp 98.2 F 02/24/24 08:00 Pulse 59 L 02/24/24 11:00 Resp 32 H 02/24/24 11:00 BP 121/56 02/24/24 11:00 Pulse Ox 95 02/24/24 11:00 FiO2 50 02/24/24 12:10 Intake & Output 02/23/24 02/24/24 02/24/24 18:59 06:59 18:59 Intake Total 1566.49 1205.532 691.719 Output Total 1545 750 265 Balance 21.49 455.532 426.719 Weight 96.1 kg 98.4 kg Intake: IV 711 366 205 .9NS Pressure Bag 36 36 15 0.9% NS KVO 230 90 Cefepime 2 gm In Sodium 100 100 Chloride 0.9% 100 ml @ 25 mls/hr IVPB Q12H [facility] Rx# :[id number] Sodium Chloride 0.9% 1, 675 000 ml @ 75 mls/hr IV . [id number] [facility] Rx#:[id number] Intake, IV Titration 650.49 581.532 286.719 Amount Cisatracurium 200 mg In 200 194.2 94.409 Sodium Chloride 0.9% 180 ml @ 1 MCG/KG/MIN 5.382 mls/hr IV .Q24H [facility] Rx#: [id number] Sodium Chloride 0.9% 1, 60 20 000 ml @ 20 mls/hr IV . Q24H [facility] Rx#:[id number] Sodium Chloride 0.9% 80 92.84 100 100 ml @ 0.5 MCG/KG/HR 4.485 mls/hr IV .[id number] [facility] with fentaNYL (PF) 1,000 mcg Rx#:[id number] propofoL 1,000 mg In 297.65 267.332 92.31 Empty Bag 1 bag @ 15 MCG/ KG/MIN 8.145 mls/hr IV . [id number] [facility] Rx#:[id number] Tube Feeding 205 168 70 Other 90 130 Output: Chest Tube Drainage 15 10 Chest Tube Left Lateral 15 10 Chest Urine 1530 740 265 Other: Voiding Method Indwelling Catheter Indwelling Catheter Indwelling Catheter ABP, PAP, CO, CI - Last Documented Arterial Blood Pressure 102/47 - Exam GENERAL DESCRIPTION: Middle-age female intubated on the vent RESPIRATORY SYSTEM: Unlabored breathing , decreased breath sounds at bases HEART: S1 S2 regular rate and rhythm , ABDOMEN: Soft , no tenderness EXTREMITIES: No edema feet - Labs CBC & Chem 7: 02/25/24 05:37 02/25/24 05:37 Labs: Abnormal Lab Results - Last 24 Hours (Table) 02/23/24 02/23/24 02/24/24 Range/Units 18:30 23:27 04:45 WBC 14.9 H (3.8-10.6) k/uL Hgb 11.0 L (11.4-16.0) gm/dL Neutrophils # 14.0 H (1.3-7.7) k/uL Lymphocytes # 0.3 L (1.0-4.8) k/uL ABG pCO2 (35-45) mmHg ABG HCO3 (21-25) mmol/L ABG Total CO2 (19-24) mmol/L Hemoglobin (11.4-16.0) gm/dL Carbon Dioxide (22-30) mmol/L BUN (7-17) mg/dL Creatinine (0.52-1.04) mg/dL Glucose (74-99) mg/dL POC Glucose (mg/dL) 166 H 171 H (70-110) mg/dL Calcium (8.4-10.2) mg/dL 02/24/24 02/24/24 02/24/24 Range/Units 04:45 06:22 12:31 WBC (3.8-10.6) k/uL Hgb (11.4-16.0) gm/dL Neutrophils # (1.3-7.7) k/uL Lymphocytes # (1.0-4.8) k/uL ABG pCO2 51 H (35-45) mmHg ABG HCO3 32 H (21-25) mmol/L ABG Total CO2 33 H (19-24) mmol/L Hemoglobin 10.8 L (11.4-16.0) gm/dL Carbon Dioxide 32 H (22-30) mmol/L BUN 58 H (7-17) mg/dL Creatinine 1.20 H (0.52-1.04) mg/dL Glucose 186 H (74-99) mg/dL POC Glucose (mg/dL) 163 H (70-110) mg/dL Calcium 7.4 L (8.4-10.2) mg/dL Microbiology - Last 24 Hours (Table) 02/19/24 16:45 Blood Culture - Preliminary Blood Assessment and Plan (1) Leukocytosis Current Visit: Yes Status: Acute Code(s): D72.829 - ELEVATED WHITE BLOOD CELL COUNT, UNSPECIFIED SNOMED Code(s): 509391084 (2) COVID Current Visit: Yes Status: Acute Code(s): U07.1 - COVID-19 SNOMED Code(s): 236862226 Plan: 1patient presented to the hospital about a week ago with increasing shortness of breath however the patient symptoms of cough and shortness of breath were going on for more than a week before initial presentation to the hospital patient has been diagnosed with a COVID-19 and treated with steroids and supportive treatment however the patient did have worsening of her respiratory status requiring intubation patient did not have any fever during this hospital stay with initial normal white count with significant jump in the white count could be reactive with acute change in her condition as well as steroids and the patient has been on clinical suspicious low for secondary bacterial pneumonia but not entirely excluded 2 blood cultures are currently pending patient did have elevated procalcitonin sputum culture not collected 3leukocytosis more likely steroid related as no evidence of any worsening infection patient family has been given the option of trach and PEG versus comfort family is leaning towards comfort for now continue cefepime which can be discontinued if the patient is switched to hospice/comfort. Daughter at the bedside questions answered Dictation was produced using [employer] software. please excuse any grammatical, word or spelling errors. , Time with Patient: Less than 30
[2024-02-25] MEDS: SCOPOLAMINE 1 MG/72 HR PATCH TRANSDERM SCH (12:37)
[2024-02-25] MEDS: ATROPINE OPHTH SOLN 1% 5ML BTL SUBLINGUAL PRN (12:37)
[2024-02-25] MEDS: MORPHINE SULFATE 100 MG in SODIUM CHLORIDE 0.9% 90 ML IV SCH (12:53)
[2024-02-25] MEDS: MORPHINE SULFATE 4 MG/ML SYRINGE IVP ONE (13:30)
[2024-02-25] MEDS: LORazepam 2 MG/ML INJ IV PRN (13:31)
--- NOTE | 2024-02-25 13:36 | P.PN ---
Subjective Progress Note Date: 02/25/24 63-year-old female present to the emergency department for further evaluation of increasing shortness of breath as well as changes in her mental status for the past day and a half according to her daughter. Patient's past medical history significant for COPD, in which she was recently started on treatment for bronchitis with steroids and antibiotics (doxycycline). Upon presentation patient states she was not feeling well, with increased confusion difficulty speaking. Her daughter, sitting at bedside, states that she was saturating 86% on room air. Patient denies any recent travel. Per patient's viral panel taken upon arrival to the emergency department patient states positive COVID-19. Pulmonology has been consulted and will see the patient for COPD exacerbation as well as COVID-19 infection. Upon arrival to the emergency department patient was afebrile blood pressure 118/67, heart rate of 81, respiratory rate of 16 with an oxygen saturation of 80% on room air. When seen the patient today, she reports she is feeling better and her daughter who is at her bedside also reports that she is presenting better than she had been the previous couple of days, and her mentation had improved greatly. She states that she is looking more like "herself". Initial lab work done in the ER showed WBCs 5.9, Hgb 14.8, Hct 45.7, PLT 108; PT 10.8, INR 1.0, PTT 27.1; blood gas pH 7.36, pCO2 33, HCO3 18; sodium 136, potassium 4.3, BUN 45, creatinine 1.03 Influenza A not detected Influenza B not detected RSV not detected COVID-19 positive EKG done in the ER showed heart rate of 82, no ST segment elevation or depression seen, no T-wave inversions seen. Chest x-ray done in the ER showed increased perihilar lung markings, to be correlated for infectious etiologies, pulmonary edema could be considered 02/14/24 - Patient seen at bedside today. She states that she is feeling better than she was yesterday, however she states that it feels like she "smoked 3 packs" and has remained short of breath. Progress states it is closer to her baseline when she was over the past few days however still not all the way back. Overnight patient's blood pressure was recorded as 90/50, with a heart rate of 64, respiratory rate of 18 saturating 95% on 4 and half liters of nasal cannula. Due to the patient having persistently low blood pressures we will hold 100 mg Cozaar and 20 mg Lopressor today and continue to monitor make adjustments as needed. Per pulmonology recommendation patient underwent CT angiogram of the chest to help rule out pulmonary embolism and at the same time evaluate for COVID-19 pneumonia and it was noted that the patient is a chronic smoker, on review of the CTA of the chest there were bilateral areas of scattered patchy groundglass pulmonary infiltrates consistent with COVID-19 related pneumonia worse on the left side compared to the right side. Patient will continue on O2 and will be titrated to maintain saturation above 90% overnight on 4 and half liters of oxygen nasal cannula, per pulmonology request patient started on IV Solu-Medrol 60 mg every 6 hours, she is outside the window for remdesivir as patient is had symptoms for more than a week, additionally patient was started on Lovenox 40 mg subcutaneously for DVT prophylaxis. Patient's LDH 230, elevated CRP at 6.3 and procalcitonin was unremarkable at 0.07. Additionally last night patient's 30 mg nightly, hold Wellbutrin and 200 mg nightly of Zoloft) presumed upon request with the patient and the patient's daughter. Labs done today - Currently pending at time of dictation. CT of the chest completed on 02/12 yet to evaluate official final read from radiologist, however per pulmonology's report he was to evaluate for possible pulmonary embolism but at the same time evaluated for COVID-19 pneumonia and was noted that there were bilateral areas of scattered patchy groundglass pulmonary infiltrates consistent with COVID-19 worse on the left side. 02/15/24 - Patient is evaluated today in follow up resting in bed. Continues on 4L of oxygen with adequate saturations. She continue to report shortness of breath and sputum production. No wheezing noted, there is some scattered ronchi. Patient remains on albuterol PRN as well as IV solumedrol. Patient has not been resumed on her home inhalers as of yet including spiriva and Advair HFA. chest CT angio that has been taken on the is not yet resulted by radiology. 02/16/24 - Patient seen at bedside today. States she is feeling about the same that she has been, with some shortness of breath and feeling tired. Chest CT angio taken on 12 February still has no official report from radiology. As of this morning patient blood pressure 96/62, heart rate of 68, respiratory rate of 18 while saturating 89% on 6 L high flow nasal cannula. Throughout the day she was increased to 7 L where she has remained saturating 86-87%. Per the patient and her daughter the patient's baseline oxygen saturation is generally in the mid 80%. New labs - WBCs 11.2, Hgb 14.2, Hct 43.0, PLT 187; sodium 139, potassium 5.2 02/17/24 - Patient seen at bedside today. Patient states she continues to feel about the same, with shortness of breath and being tired. Chest CT angio taken on 12 February cells no official report from radiology. Chest x-ray ordered yesterday showed similar scattered reticular pulmonary opacities likely representing reported COVID infection. Overnight patient blood pressure 117/65, heart rate of 76, respiratory rate of 20, placed on 15 L high flow nasal cannula saturating in the mid 90s. Per pulmonology's recommendation goal of patient's saturations is to remain greater than 85%. As of this morning patient was moved on to Airvo with an O2 flow rate of 60 and FiO2 of 80%, and with this patient has been saturating between 85-89%. Patient does report increased shortness of breath as compared to yesterday, however was resting somewhat comfortably in bed. New labs -WBCs 9.13, Hgb 13.4, Hct 41.0, PLT 174; sodium 134, potassium 4.1, BUN 17.7, creatinine 0.7 02/18/24 - Patient seen at bedside today. Patient has been moved to the ICU for further observation per pulmonology's request. As of yesterday morning patient was moved onto Airvo with an FiO2 of 80% oxygen flow rate of 60, throughout the day this was increased the FiO2 raising up to 92% through the evening, with the patient continuing to saturate in the midhigh 80%'s. Overnight the patient was placed on BiPAP with saturations between 86-91%. New chest x-ray to be completed today to compare to the previous ones. Per pulmonology patient may qualify for baricitinib, for now we will continue on bronchodilators, steroids, and Lovenox. New labs -WBCs 10.6, Hgb 13.2, Hct 42.0,PLT 206; D-dimer 0.61; sodium 136, potassium 4.1, BUN 17, creatinine 0.53 02/19/24 - Patient seen and follow-up today continues to be in the ICU with close monitoring with multiple consultations following. Patient maintained on high flow and according to nursing staff having increased respiratory distress requiring mechanical ventilation overnight. Patient is currently maintained on an FiO2 of 100% and PEEP is extremely high at 15 with multiple drips going. Patient is maintained on Nimbex and Levophed along with a bicarb drip and patient also receiving baricitinib at this time. Patient noted to have a significant increase in white count and will repeat blood cultures, urine culture, procalcitonin and also consult infectious disease and appreciate input and recommendations. Patient also continues on breathing treatments and high- dose IV steroids. Kidney functions within normal limits at this time although nursing staff is reporting decreased urine output which will be monitored closely. Patient was given a fluid bolus. 02/20/24 - Patient seen at bedside today in the ICU. Patient has multiple consultations following with close monitoring. Patient was mechanically ventilated on 02/18 and has been weaned to an FiO2 of 80%, however with a PEEP of 16 with multiple concurrent drips going. Patient continues to maintain an index of Levophed while also receiving baricitinib as well as bicarb drip. Patient's white count has improved to 13.1 as compared to 32.8 yesterday (02/18), additionally ABG showed pH improvement to 7.26 as compared to 7.4. Chest x-ray to be repeated today. 02/21/24 - Patient seen at the bedside in the ICU. Patient has multiple consultations following with close monitoring. Per infectious disease baricitinib is been discontinued and the patient has been appropriately started on cefepime. Preliminary blood culture showed no growth however the patient had an elevated procalcitonin. Per the ICU patient was placed in prone position noted to have significant improvement in her oxygenation. She is currently saturating in the high 90% with a tidal volume of 400, ventilatory rate of 32, FiO2 of 55%, PEEP of 16. She remains on Nimbex, Levophed, propofol, and Sublimaze. Labs this morning showed WBCs 9.8, sodium 136, BUN of 55 (increased from 49 yesterday) and creatinine of 1.77 (improved from 1.96 yesterday), yesterday AST 187 and ALT 189. Patient is ABG as of this morning showed a pH of 7.41, pCO2 57, pO2 81, HCO3 36 and total CO2 of 38. Patient's urine output at time of dictation this morning 236 mL. 02/21. Patient seen and examined. Continues to be on mechanical ventilation 02/23/2024 - patient seen and examined at bedside. patient continues to be on mechanical ventilation. 02/24/2024atient seen and examined at bedside. Patient continues to be on mechanical relation. Spoke with family regarding goals of care. Family has decided to proceed with comfort care. Family does not want patient to be placed on trach and PEG. They elected for comfort measures once the rest the family a rrives. 02/25/2024 - patient seen at bedside, still mechanically intubated. patient's family was not present at the time. Was informed that comfort measures will commence once family arrives. REVIEW OF SYSTEMS: Cannot be obtained as patient is intubated PHYSICAL EXAMINATION: GENERAL: The patient is intubated HEENT: Pupils are round and equally reacting to light. EOMI. No scleral icterus. No conjunctival pallor. Normocephalic, atraumatic. No pharyngeal erythema. No thyromegaly. CARDIOVASCULAR: S1 and S2 present. No murmurs, rubs, or gallops. PULMONARY: Coarse breath sounds bilaterally, no wheezing or crackles. ABDOMEN: Soft, nontender, nondistended, normoactive bowel sounds. No palpable organomegaly. MUSCULOSKELETAL: No joint swelling or deformity. EXTREMITIES: No cyanosis, clubbing, or pedal edema. NEUROLOGICAL: Intubated and sedated SKIN: No rashes. Assessment and plan #. Acute hypoxic respiratory failure secondary to pneumonitis pneumonia due to COPD exacerbation as a result of recently diagnosed bronchitis - discussed goals of care with family and family decided to proceed with comfort care. - ICU following #. Acute kidney injury possibly secondary to acute hypoxic respiratory failure - resolved - Monitor renal function #. Recent history of cardiac stenting Patient on Plavix 75 mg daily #. Altered mental status #. Anxiety Resume patient's on medications of 200 mg nightly of Zoloft and 300 mg nightly of Wellbutrin #. Hypertension Patient's home medications include 50 mg hydroxyzine 3 times daily, 100 mg C ozaar daily, 25 mg Lopressor twice daily Patient's blood pressures were running low overnight at 90/50, going to hold 100 mg Cozaar today and 25 mg Lopressor; continue the hydroxyzine Continue to monitor and make alterations as necessary Labs and medication were reviewed. Continue same treatment. Continue with symptomatic treatment and comfort measures. Resume home medication. Monitor labs and vitals. DVT and GI prophylaxis. Further recommendations as per clinical course of the patient. CODE status: no code Objective - Vital Signs Vital signs: Vital Signs Temp 98.4 F 02/25/24 08:00 Pulse 53 L 02/25/24 10:00 Resp 32 H 02/25/24 10:00 BP 118/58 02/25/24 10:00 Pulse Ox 95 02/25/24 10:00 FiO2 50 02/25/24 11:47 Intake & Output 02/24/24 02/25/24 02/25/24 18:59 06:59 18:59 Intake Total 1132.658 844.209 265.717 Output Total 715 655 295 Balance 417.658 189.209 -29.283 Weight 99.2 kg Intake: IV 366 143 52 .9NS Pressure Bag 36 33 12 0.9% NS KVO 230 110 40 Cefepime 2 gm In Sodium 100 Chloride 0.9% 100 ml @ 25 mls/hr IVPB Q12H [facility] Rx# :[id number] Intake, IV Titration 480.658 443.209 199.717 Amount Cisatracurium 200 mg In 94.409 161.908 Sodium Chloride 0.9% 180 ml @ 1 MCG/KG/MIN 5.382 mls/hr IV .Q24H [facility] Rx#: [id number] Sodium Chloride 0.9% 80 100 98.222 99.717 ml @ 0.5 MCG/KG/HR 4.485 mls/hr IV .[id number] [facility] with fentaNYL (PF) 1,000 mcg Rx#:[id number] propofoL 1,000 mg In 286.249 183.079 100 Empty Bag 1 bag @ 15 MCG/ KG/MIN 8.145 mls/hr IV . [id number] [facility] Rx#:[id number] Tube Feeding 126 168 14 Other 160 90 Output: Chest Tube Drainage 50 0 Chest Tube Left Lateral 50 0 Chest Urine 715 605 295 Other: Voiding Method Indwelling Catheter Indwelling Catheter Indwelling Catheter ABP, PAP, CO, CI - Last Documented Arterial Blood Pressure 123/49 - Labs CBC & Chem 7: 02/25/24 05:37 02/25/24 05:37 Labs: Abnormal Lab Results - Last 24 Hours (Table) 02/24/24 02/25/24 02/25/24 Range/Units 18:57 00:24 00:51 WBC (3.8-10.6) k/uL RBC (3.80-5.40) m/uL Hgb (11.4-16.0) gm/dL Hct (34.0-46.0) % Neutrophils # (1.3-7.7) k/uL Lymphocytes # (1.0-4.8) k/uL ABG pCO2 48 H (35-45) mmHg ABG HCO3 30 H (21-25) mmol/L ABG Total CO2 32 H (19-24) mmol/L Hemoglobin 10.5 L (11.4-16.0) gm/dL Chloride (98-107) mmol/L Carbon Dioxide (22-30) mmol/L BUN (7-17) mg/dL Creatinine (0.52-1.04) mg/dL Glucose (74-99) mg/dL POC Glucose (mg/dL) 194 H 163 H (70-110) mg/dL Calcium (8.4-10.2) mg/dL 02/25/24 02/25/24 02/25/24 Range/Units 05:37 05:37 05:47 WBC 12.6 H (3.8-10.6) k/uL RBC 3.67 L (3.80-5.40) m/uL Hgb 10.5 L (11.4-16.0) gm/dL Hct 33.2 L (34.0-46.0) % Neutrophils # 11.8 H (1.3-7.7) k/uL Lymphocytes # 0.3 L (1.0-4.8) k/uL ABG pCO2 (35-45) mmHg ABG HCO3 (21-25) mmol/L ABG Total CO2 (19-24) mmol/L Hemoglobin (11.4-16.0) gm/dL Chloride 108 H (98-107) mmol/L Carbon Dioxide 31 H (22-30) mmol/L BUN 62 H (7-17) mg/dL Creatinine 1.10 H (0.52-1.04) mg/dL Glucose 188 H (74-99) mg/dL POC Glucose (mg/dL) 183 H (70-110) mg/dL Calcium 7.8 L (8.4-10.2) mg/dL
[2024-02-25] MEDS: MORPHINE SULFATE 4 MG/ML SYRINGE IV PRN ×2 (14:32→14:51)
[2024-02-25 15:08] VITALS: BP 158/77; PULSE 105; RESP 23; TEMP 98.5
[2024-02-26] MEDS ORDERED: PANTOPRAZOLE 40 MG/10 ML VIAL IVP SCH (09:00)
--- NOTE | 2024-02-26 13:32 | P.PN ---
Subjective Progress Note Date: 02/25/24 Principal diagnosis: Reason for follow-up is leukocytosis Patient is a 63-year-old female with a past medical history significant for COPD coronary artery disease hyperlipidemia presenting to the hospital for evaluation of increasing shortness of breath patient be diagnosed with the COVID-19 started on baricitinib did have worsening respiratory status requiring intubation and also have elevated white count prompted this consultation. On today's evaluation that is 02/25/2024, Patient is afebrile patient is currently on ventilator FiO2 stable at 50% no significant purulent secretion through the ET, patient is hemodynamic stable not requiring pressor support no diarrhea or any other changes reported by the nursing staff. Patient white count is down to 12.6, creatinine is 1.10 Objective - Vital Signs Vital signs: Vital Signs Temp 98.4 F 02/25/24 08:00 Pulse 53 L 02/25/24 10:00 Resp 32 H 02/25/24 10:00 BP 118/58 02/25/24 10:00 Pulse Ox 95 02/25/24 10:00 FiO2 50 02/25/24 08:30 Intake & Output 02/24/24 02/25/24 02/25/24 18:59 06:59 18:59 Intake Total 1132.658 844.209 265.717 Output Total 715 655 295 Balance 417.658 189.209 -29.283 Weight 99.2 kg Intake: IV 366 143 52 .9NS Pressure Bag 36 33 12 0.9% NS KVO 230 110 40 Cefepime 2 gm In Sodium 100 Chloride 0.9% 100 ml @ 25 mls/hr IVPB Q12H [facility] Rx# :[id number] Intake, IV Titration 480.658 443.209 199.717 Amount Cisatracurium 200 mg In 94.409 161.908 Sodium Chloride 0.9% 180 ml @ 1 MCG/KG/MIN 5.382 mls/hr IV .Q24H [facility] Rx#: [id number] Sodium Chloride 0.9% 80 100 98.222 99.717 ml @ 0.5 MCG/KG/HR 4.485 mls/hr IV .[id number] [facility] with fentaNYL (PF) 1,000 mcg Rx#:[id number] propofoL 1,000 mg In 286.249 183.079 100 Empty Bag 1 bag @ 15 MCG/ KG/MIN 8.145 mls/hr IV . [id number] [facility] Rx#:[id number] Tube Feeding 126 168 14 Other 160 90 Output: Chest Tube Drainage 50 0 Chest Tube Left Lateral 50 0 Chest Urine 715 605 295 Other: Voiding Method Indwelling Catheter Indwelling Catheter Indwelling Catheter ABP, PAP, CO, CI - Last Documented Arterial Blood Pressure 123/49 - Labs CBC & Chem 7: 02/25/24 05:37 02/25/24 05:37 Labs: Abnormal Lab Results - Last 24 Hours (Table) 02/24/24 02/24/24 02/25/24 Range/Units 12:31 18:57 00:24 WBC (3.8-10.6) k/uL RBC (3.80-5.40) m/uL Hgb (11.4-16.0) gm/dL Hct (34.0-46.0) % Neutrophils # (1.3-7.7) k/uL Lymphocytes # (1.0-4.8) k/uL ABG pCO2 (35-45) mmHg ABG HCO3 (21-25) mmol/L ABG Total CO2 (19-24) mmol/L Hemoglobin (11.4-16.0) gm/dL Chloride (98-107) mmol/L Carbon Dioxide (22-30) mmol/L BUN (7-17) mg/dL Creatinine (0.52-1.04) mg/dL Glucose (74-99) mg/dL POC Glucose (mg/dL) 163 H 194 H 163 H (70-110) mg/dL Calcium (8.4-10.2) mg/dL 02/25/24 02/25/24 02/25/24 Range/Units 00:51 05:37 05:37 WBC 12.6 H (3.8-10.6) k/uL RBC 3.67 L (3.80-5.40) m/uL Hgb 10.5 L (11.4-16.0) gm/dL Hct 33.2 L (34.0-46.0) % Neutrophils # 11.8 H (1.3-7.7) k/uL Lymphocytes # 0.3 L (1.0-4.8) k/uL ABG pCO2 48 H (35-45) mmHg ABG HCO3 30 H (21-25) mmol/L ABG Total CO2 32 H (19-24) mmol/L Hemoglobin 10.5 L (11.4-16.0) gm/dL Chloride 108 H (98-107) mmol/L Carbon Dioxide 31 H (22-30) mmol/L BUN 62 H (7-17) mg/dL Creatinine 1.10 H (0.52-1.04) mg/dL Glucose 188 H (74-99) mg/dL POC Glucose (mg/dL) (70-110) mg/dL Calcium 7.8 L (8.4-10.2) mg/dL 02/25/24 Range/Units 05:47 WBC (3.8-10.6) k/uL RBC (3.80-5.40) m/uL Hgb (11.4-16.0) gm/dL Hct (34.0-46.0) % Neutrophils # (1.3-7.7) k/uL Lymphocytes # (1.0-4.8) k/uL ABG pCO2 (35-45) mmHg ABG HCO3 (21-25) mmol/L ABG Total CO2 (19-24) mmol/L Hemoglobin (11.4-16.0) gm/dL Chloride (98-107) mmol/L Carbon Dioxide (22-30) mmol/L BUN (7-17) mg/dL Creatinine (0.52-1.04) mg/dL Glucose (74-99) mg/dL POC Glucose (mg/dL) 183 H (70-110) mg/dL Calcium (8.4-10.2) mg/dL Assessment and Plan (1) Leukocytosis Current Visit: Yes Status: Acute Code(s): D72.829 - ELEVATED WHITE BLOOD CELL COUNT, UNSPECIFIED SNOMED Code(s): 609870096 (2) COVID Current Visit: Yes Status: Acute Code(s): U07.1 - COVID-19 SNOMED Code(s): 295145206 Plan: 1patient presented to the hospital about a week ago with increasing shortness of breath however the patient symptoms of cough and shortness of breath were going on for more than a week before initial presentation to the hospital patient has been diagnosed with a COVID-19 and treated with steroids and supportive treatment however the patient did have worsening of her respiratory status requiring intubation patient did not have any fever during this hospital stay with initial normal white count with significant jump in the white count could be reactive with acute change in her condition as well as steroids and the patient has been on clinical suspicious low for secondary bacterial pneumonia but not entirely excluded 2 blood cultures are currently pending patient did have elevated procalcitonin sputum culture not collected 3leukocytosis more likely steroid related as no evidence of any worsening infection, white count is trending down patient family has decided to go to hospice which may be appropriate for her antibiotics can be safely discontinued Daughter at the bedside questions answered Dictation was produced using [employer] dictation software. please excuse any grammatical, word or spelling errors. , Time with Patient: Less than 30
--- NOTE | 2024-02-28 09:39 | P.DS ---
Providers Date of admission: 02/12/24 18:07 Expected date of discharge: 02/25/24 Attending physician: Tracee Solis Consults: 02/12/24 18:05 Consult Physician Routine Consulting Provider: Darwin Burciaga Consult Reason/Comments: copd Do you want consulting provider notified?: Yes 02/19/24 15:38 Consult Physician Urgent Consulting Provider: Adeola Castillo Consult Reason/Comments: worsening wbc, covid Do you want consulting provider notified?: Yes 02/20/24 10:14 Consult Physician Routine Consulting Provider: Juan Alberto Hernandez Consult Reason/Comments: A fib Do you want consulting provider notified?: Yes Primary care physician: Kamran Solitario Hospital Course: Discharge diagnoses; #. Acute hypoxic respiratory failure secondary to pneumonitis pneumonia due to COPD exacerbation as a result of recently diagnosed bronchitis COVID 19 pneumonia #. Acute kidney injury possibly secondary to acute hypoxic respiratory failure - resolved #. Recent history of cardiac stenting #. Altered mental status #. Anxiety #. Hypertension Hospital course; 63-year-old female present to the emergency department for further evaluation of increasing shortness of breath as well as changes in her mental status for the past day and a half according to her daughter. Patient's past medical history significant for COPD, in which she was recently started on treatment for bronchitis with steroids and antibiotics (doxycycline). Upon presentation patient states she was not feeling well, with increased confusion difficulty speaking. Her daughter, sitting at bedside, states that she was saturating 86% on room air. Patient denies any recent travel. Per patient's viral panel taken upon arrival to the emergency department patient states positive COVID-19. Pulmonology has been consulted and will see the patient for COPD exacerbation as well as COVID-19 infection. Upon arrival to the emergency department patient was afebrile blood pressure 118/67, heart rate of 81, respiratory rate of 16 with an oxygen saturation of 80% on room air. When seen the patient today, she reports she is feeling better and her daughter who is at her bedside also rep orts that she is presenting better than she had been the previous couple of days, and her mentation had improved greatly. She states that she is looking more like "herself". Initial lab work done in the ER showed WBCs 5.9, Hgb 14.8, Hct 45.7, PLT 108; PT 10.8, INR 1.0, PTT 27.1; blood gas pH 7.36, pCO2 33, HCO3 18; sodium 136, potassium 4.3, BUN 45, creatinine 1.03 Influenza A not detected Influenza B not detected RSV not detected COVID-19 positive EKG done in the ER showed heart rate of 82, no ST segment elevation or depression seen, no T-wave inversions seen. Chest x-ray done in the ER showed increased perihilar lung markings, to be correlated for infectious etiologies, pulmonary edema could be considered 02/14/24 - Patient seen at bedside today. She states that she is feeling better than she was yesterday, however she states that it feels like she "smoked 3 packs" and has remained short of breath. Progress states it is closer to her baseline when she was over the past few days however still not all the way back. Overnight patient's blood pressure was recorded as 90/50, with a heart rate of 64, respiratory rate of 18 saturating 95% on 4 and half liters of nasal cannula. Due to the patient having persistently low blood pressures we will hold 100 mg Cozaar and 20 mg Lopressor today and continue to monitor make adjustments as needed. Per pulmonology recommendation patient underwent CT angiogram of the chest to help rule out pulmonary embolism and at the same time evaluate for COVID-19 pneumonia and it was noted that the patient is a chronic smoker, on review of the CTA of the chest there were bilateral areas of scattered patchy groundglass pulmonary infiltrates consistent with COVID-19 related pneumonia worse on the left side compared to the right side. Patient will continue on O2 and will be titrated to maintain saturation above 90% overnight on 4 and half liters of oxygen nasal cannula, per pulmonology request patient started on IV Solu-Medrol 60 mg every 6 hours, she is outside the window for remdesivir as patient is had symptoms for more than a week, additionally patient was started on Lovenox 40 mg subcutaneously for DVT prophylaxis. Patient's LDH 230, elevated CRP at 6.3 and procalcitonin was unremarkable at 0.07. Additionally last night patient's 30 mg nightly, hold Wellbutrin and 200 mg nightly of Zoloft) presumed upon request with the patient and the patient's daughter. Labs done today - Currently pending at time of dictation. CT of the chest completed on 02/12 yet to evaluate official final read from radiologist, however per pulmonology's report he was to evaluate for possible pulmonary embolism but at the same time evaluated for COVID-19 pneumonia and was noted that there were bilateral areas of scattered patchy groundglass pulmonary infiltrates consistent with COVID-19 worse on the left side. 02/15/24 - Patient is evaluated today in follow up resting in bed. Continues on 4L of oxygen with adequate saturations. She continue to report shortness of breath and sputum production. No wheezing noted, there is some scattered ronchi. Patient remains on albuterol PRN as well as IV solumedrol. Patient has not been resumed on her home inhalers as of yet including spiriva and Advair HFA. chest CT angio that has been taken on the is not yet resulted by radiology. 02/16/24 - Patient seen at bedside today. States she is feeling about the same that she has been, with some shortness of breath and feeling tired. Chest CT angio taken on 12 February still has no official report from radiology. As of this morning patient blood pressure 96/62, heart rate of 68, respiratory rate of 18 while saturating 89% on 6 L high flow nasal cannula. Throughout the day she was increased to 7 L where she has remained saturating 86-87%. Per the patient and her daughter the patient's baseline oxygen saturation is generally in the mid 80%. New labs - WBCs 11.2, Hgb 14.2, Hct 43.0, PLT 187; sodium 139, potassium 5.2 02/17/24 - Patient seen at bedside today. Patient states she continues to feel about the same, with shortness of breath and being tired. Chest CT angio taken on 12 February cells no official report from radiology. Chest x-ray ordered yesterday showed similar scattered reticular pulmonary opacities likely representing reported COVID infection. Overnight patient blood pressure 117/65, heart rate of 76, respiratory rate of 20, placed on 15 L high flow nasal cannula saturating in the mid 90s. Per pulmonology's recommendation goal of patient's saturations is to remain greater than 85%. As of this morning patient was moved on to Airvo with an O2 flow rate of 60 and FiO2 of 80%, and with this patient has been saturating between 85-89%. Patient does report increased shortness of breath as compared to yesterday, however was resting somewhat comfortably in bed. New labs -WBCs 9.13, Hgb 13.4, Hct 41.0, PLT 174; sodium 134, potassium 4.1, BUN 17.7, creatinine 0.7 02/18/24 - Patient seen at bedside today. Patient has been moved to the ICU for further observation per pulmonology's request. As of yesterday morning patient was moved onto Airvo with an FiO2 of 80% oxygen flow rate of 60, throughout the day this was increased the FiO2 raising up to 92% through the evening, with the patient continuing to saturate in the midhigh 80%'s. Overnight the patient was placed on BiPAP with saturations between 86-91%. New chest x-ray to be completed today to compare to the previous ones. Per pulmonology patient may qualify for baricitinib, for now we will continue on bronchodilators, steroids, and Lovenox. New labs -WBCs 10.6, Hgb 13.2, Hct 42.0,PLT 206; D-dimer 0.61; sodium 136, potassium 4.1, BUN 17, creatinine 0.53 02/19/24 - Patient seen and follow-up today continues to be in the ICU with close monitoring with multiple consultations following. Patient maintained on high flow and according to nursing staff having increased respiratory distress requiring mechanical ventilation overnight. Patient is currently maintained on an FiO2 of 100% and PEEP is extremely high at 15 with multiple drips going. Patient is maintained on Nimbex and Levophed along with a bicarb drip and patient also receiving baricitinib at this time. Patient noted to have a significant increase in white count and will repeat blood cultures, urine culture, procalcitonin and also consult infectious disease and appreciate input and recommendations. Patient also continues on breathing treatments and high- dose IV steroids. Kidney functions within normal limits at this time although nursing staff is reporting decreased urine output which will be monitored closely. Patient was given a fluid bolus. 02/20/24 - Patient seen at bedside today in the ICU. Patient has multiple consultations following with close monitoring. Patient was mechanically ventilated on 02/18 and has been weaned to an FiO2 of 80%, however with a PEEP of 16 with multiple concurrent drips going. Patient continues to maintain an index of Levophed while also receiving baricitinib as well as bicarb drip. Patient's white count has improved to 13.1 as compared to 32.8 yesterday (02/18), additionally ABG showed pH improvement to 7.26 as compared to 7.4. Chest x-ray to be repeated today. 02/21/24 - Patient seen at the bedside in the ICU. Patient has multiple consultations following with close monitoring. Per infectious disease b aricitinib is been discontinued and the patient has been appropriately started on cefepime. Preliminary blood culture showed no growth however the patient had an elevated procalcitonin. Per the ICU patient was placed in prone position noted to have significant improvement in her oxygenation. She is currently saturating in the high 90% with a tidal volume of 400, ventilatory rate of 32, FiO2 of 55%, PEEP of 16. She remains on Nimbex, Levophed, propofol, and Sublimaze. Labs this morning showed WBCs 9.8, sodium 136, BUN of 55 (increased from 49 yesterday) and creatinine of 1.77 (improved from 1.96 yesterday), yesterday AST 187 and ALT 189. Patient is ABG as of this morning showed a pH of 7.41, pCO2 57, pO2 81, HCO3 36 and total CO2 of 38. Patient's urine output at time of dictation this morning 236 mL. 02/21. Patient seen and examined. Continues to be on mechanical ventilation 02/23/2024 - patient seen and examined at bedside. patient continues to be on mechanical ventilation. 02/24/2024atient seen and examined at bedside. Patient continues to be on mechanical relation. Spoke with family regarding goals of care. Family has decided to proceed with comfort care. Family does not want patient to be placed on trach and PEG. They elected for comfort measures once the rest the family arrives. 02/25/2024 - patient seen at bedside, still mechanically intubated. patient's fa kulwant was not present at the time. Was informed that comfort measures will commence once family arrives. Patient was switched to comfort care, patient was pronounced on 02/25/2024 at 1542 PM Dictation was produced using [employer] dictation software. please excuse any grammatical, word or spelling errors. Patient Condition at Discharge: Poor Plan - Discharge Summary Discharge Rx Participant: No New Discharge Prescriptions: No Action buPROPion XL [Wellbutrin XL] 300 mg PO DAILY Sertraline [Zoloft] 200 mg PO DAILY hydroCHLOROthiazide [Hydrodiuril] 25 mg PO DAILY Metoprolol Tartrate [Lopressor] 25 mg PO BID Fluticasone Propion/Salmeterol [Advair Hfa 230-21 Mcg Inhaler] 2 puff INHAL ATION RT-BID Atorvastatin [Lipitor] 40 mg PO HS Aspirin EC [Ecotrin Low Dose] 81 mg PO DAILY Albuterol Inhaler [Ventolin Hfa Inhaler] 2 puff INHALATION RT-QID PRN PRN Reason: Shortness Of Breath predniSONE [Deltasone] 40 mg PO DAILY Doxycycline Monohydrate 100 mg PO BID Pantoprazole Sodium [Protonix] 20 mg PO DAILY Losartan Potassium 100 mg PO DAILY metFORMIN HCL 500 mg PO DAILY hydrOXYzine HCL [Atarax] 50 mg PO TID Clopidogrel [Plavix] 75 mg PO DAILY Tiotropium Conner [Spiriva] 1 puff INHALATION RT-DAILY Discharge Medication List Sertraline [Zoloft] 200 mg PO DAILY 09/30/17 [History] buPROPion XL [Wellbutrin XL] 300 mg PO DAILY 09/30/17 [History] Albuterol Inhaler [Ventolin Hfa Inhaler] 2 puff INHALATION RT-QID PRN 02/12/24 [History] Aspirin EC [Ecotrin Low Dose] 81 mg PO DAILY 02/12/24 [History] Atorvastatin [Lipitor] 40 mg PO HS 02/12/24 [History] Clopidogrel [Plavix] 75 mg PO DAILY 02/12/24 [History] Doxycycline Monohydrate 100 mg PO BID 02/12/24 [History] Fluticasone Propion/Salmeterol [Advair Hfa 230-21 Mcg Inhaler] 2 puff INHALATION RT-BID 02/12/24 [History] Losartan Potassium 100 mg PO DAILY 02/12/24 [History] Metoprolol Tartrate [Lopressor] 25 mg PO BID 02/12/24 [History] Pantoprazole Sodium [Protonix] 20 mg PO DAILY 02/12/24 [History] Tiotropium Conner [Spiriva] 1 puff INHALATION RT-DAILY 02/12/24 [History] hydrOXYzine HCL [Atarax] 50 mg PO TID 02/12/24 [History] hydroCHLOROthiazide [Hydrodiuril] 25 mg PO DAILY 02/12/24 [History] metFORMIN HCL 500 mg PO DAILY 02/12/24 [History] predniSONE [Deltasone] 40 mg PO DAILY 02/12/24 [History] Follow up Appointment(s)/Referral(s): Kamran Solitario DO [Primary Care Provider] - 1-2 days Activity/Diet/Wound Care/Special Instructions: Patient requires a shower chair due to dypnea and activity intolerance caused from oxygen dependent COPD. Discharge Disposition: - Preliminary Cause of Preliminary Cause of : COVID-19 pneumonia
== END 2024-02-25 19:00 | disposition expired | DRG 130 ==
LOC: EC 15:42 → 4SSUR 18:07 → 2SICU 02-17 13:23
PROVIDERS: ADMIT Hospitalist; ATTEND Hospitalist
PROC: 8E0ZXY6 Isolation (ICD-10-PCS; principal; 2024-02-12)
PROC: XW0DXM6 Introduction of Baricitinib into Mouth and Pharynx, External Approach, New Technology Group 6 (ICD-10-PCS; 2024-02-18)
PROC: 5A09357 Assistance with Respiratory Ventilation, Less than 24 Consecutive Hours, Continuous Positive Airway Pressure (ICD-10-PCS; 2024-02-18)
PROC: 4A133J1 Monitoring of Arterial Pulse, Peripheral, Percutaneous Approach (ICD-10-PCS; 2024-02-19)
PROC: 5A1955Z Respiratory Ventilation, Greater than 96 Consecutive Hours (ICD-10-PCS; 2024-02-19)
PROC: 0BH17EZ Insertion of Endotracheal Airway into Trachea, Via Natural or Artificial Opening (ICD-10-PCS; 2024-02-19)
PROC: 4A133B1 Monitoring of Arterial Pressure, Peripheral, Percutaneous Approach (ICD-10-PCS; 2024-02-19)
PROC: 0W9B30Z Drainage of Left Pleural Cavity with Drainage Device, Percutaneous Approach (ICD-10-PCS; 2024-02-19)
PROC: 3E043XZ Introduction of Vasopressor into Central Vein, Percutaneous Approach (ICD-10-PCS; 2024-02-19)
PROC: 02HV33Z Insertion of Infusion Device into Superior Vena Cava, Percutaneous Approach (ICD-10-PCS; 2024-02-19)
PROC: 03HY32Z Insertion of Monitoring Device into Upper Artery, Percutaneous Approach (ICD-10-PCS; 2024-02-19)
PROC: 0D9670Z Drainage of Stomach with Drainage Device, Via Natural or Artificial Opening (ICD-10-PCS; 2024-02-19)
PROC: 3E0G76Z Introduction of Nutritional Substance into Upper GI, Via Natural or Artificial Opening (ICD-10-PCS; 2024-02-21)
DX: U07.1 COVID-19 (principal); J44.1 Chronic obstructive pulmonary disease with (acute) exacerbation; J96.21 Acute and chronic respiratory failure with hypoxia; J12.82 Pneumonia due to coronavirus disease 2019; J44.0 Chronic obstructive pulmonary disease with (acute) lower respiratory infection; J20.9 Acute bronchitis, unspecified; N17.9 Acute kidney failure, unspecified; Z68.41 Body mass index [BMI] 40.0-44.9, adult; E66.9 Obesity, unspecified; A41.9 Sepsis, unspecified organism; R65.21 Severe sepsis with septic shock; J95.811 Postprocedural pneumothorax; I47.10 Supraventricular tachycardia, unspecified; I25.10 Atherosclerotic heart disease of native coronary artery without angina pectoris; Z66 Do not resuscitate; Z53.8 Procedure and treatment not carried out for other reasons; Z51.5 Encounter for palliative care; R74.01 Elevation of levels of liver transaminase levels; E78.5 Hyperlipidemia, unspecified; I10 Essential (primary) hypertension; F41.9 Anxiety disorder, unspecified; F32.A Depression, unspecified; T50.995A Adverse effect of other drugs, medicaments and biological substances, initial encounter; E87.4 Mixed disorder of acid-base balance; Z28.310 Unvaccinated for COVID-19; Z99.81 Dependence on supplemental oxygen; Z95.5 Presence of coronary angioplasty implant and graft; Z79.899 Other long term (current) drug therapy; Z79.84 Long term (current) use of oral hypoglycemic drugs; Z79.82 Long term (current) use of aspirin; Z79.02 Long term (current) use of antithrombotics/antiplatelets; Z87.891 Personal history of nicotine dependence; Z79.51 Long term (current) use of inhaled steroids; Z71.3 Dietary counseling and surveillance
CPT/HCPCS: 36415; 36600; 71045; 71275; 80048; 80053; 81001; 82728; 82803; 82805; 83605; 83615; 83735; 83880; 84100; 84132; 84145; 84484; 85025; 85379; 85610; 85730; 86140; 87040; 87086; 87636; 93005; 94002; 94003; 94640; 94660; 94760; 96361; 96365; 96366; 96367; 96372; 96375; 96376; 99291